=== PATIENT | female | born 1945 | race Caucasian/White ===

== ENCOUNTER 2018-06-23 06:49 | Inpatient (IN) ==
--- NOTE | 2018-06-23 07:10 | Emergency Department Note ---
Disposition Clinical Impression: Withdrawal from opioids Withdrawal from benzodiazepine Qualifiers: Complication of substance-induced condition: with unspecified complication Qualified Code(s): F13.239 - Sedative, hypnotic or anxiolytic dependence with withdrawal, unspecified Nausea and vomiting Qualifiers: Vomiting type: unspecified Vomiting Intractability: non-intractable Qualified Code(s): R11.2 - Nausea with vomiting, unspecified Disposition: Admitted As Inpatient Condition: Fair Referrals: NONE,PCP [Non-Partnered Physician] - Time of Disposition: 10:52 General Adult HPI - General Stated complaint: d/n/v Time Seen by Provider: 06/23/18 06:55 Source: patient, EMS Mode of arrival: EMS Limitations: age Nursing Notes Reviewed: Yes Vital Signs Reviewed: Yes - History of Present Illness HPI Narrative: Patient is a 73-year-old female complaining of nausea vomiting diarrhea caused by opiate and benzodiazepine withdrawal. She checked herself out of her [facility] on June 13, they gave her some of her medications to go, but they did not supply her with a lot of the opiates or benzos. She ran out of her opiates and benzos 3 days ago and has been feeling unwell for the last 2. She has multiple medical issues, she is on 4 L of oxygen at home, she has been complaining of chills, nausea, vomiting, and diarrhea without E or black stools , abdominal pain, and occasional headache, and numbness in her feet which she has chronically. She has been unable to keep anything down for the last day or so, and has been unable to take any of her home medications. Patient states that she does not want to go back to the [facility], she would just like some help getting through the withdrawal. - Related Data Home Medications Medication Instructions Recorded Confirmed Atorvastatin [Lipitor] 40 mg PO HS 01/29/16 06/23/18 Docusate [Colace] 100 mg PO BID PRN 01/29/16 06/23/18 Famotidine [Pepcid] 20 mg PO Q12H 01/29/16 06/23/18 Insulin ASPART [NovoLOG] 5 unit SQ TID 01/29/16 06/23/18 Ipratropium/Albuterol Sulfate 2 puff IH QID PRN 01/29/16 01/29/16 [Combivent Respimat Inhal [place]] Mag Hydrox/Al Hydrox/Simeth 30 ml PO QID 01/29/16 01/29/16 [Maalox Advanced Suspension] Ondansetron Oral Soln [Zofran Oral 4 mg PO Q8H PRN 01/29/16 01/29/16 Soln] Polyethylene Glycol 3350 [MiraLAX] 17 gm PO DAILY PRN 01/29/16 01/29/16 Sennosides [Senna] 8.6 mg PO DAILY PRN 01/29/16 01/29/16 Acetaminophen [Tylenol] 500 mg PO QPM 06/23/18 06/23/18 Furosemide [Lasix] 40 mg PO QAM 06/23/18 06/23/18 Gabapentin [Neurontin] 300 mg PO TID 06/23/18 06/23/18 Insulin DETEMIR [Levemir Flextouch] 25 unit SQ QAM 06/23/18 06/23/18 LORazepam [Ativan] 1 mg PO QID 06/23/18 06/23/18 LORazepam [Ativan] 1 mg PO QID 06/23/18 06/23/18 Lisinopril [Zestril] 10 mg PO DAILY 06/23/18 06/23/18 Loratadine [Claritin] 10 mg PO DAILY 06/23/18 06/23/18 Metoprolol [Lopressor] 12.5 mg PO Q12H 06/23/18 06/23/18 Oxycodone HCl 15 mg PO Q4H PRN 06/23/18 06/23/18 Spironolactone [Spironolactone] 25 mg PO DAILY 06/23/18 06/23/18 Venlafaxine HCl [Venlafaxine HCl 75 mg PO DAILY 06/23/18 06/23/18 ER] hydrALAZINE [HydrALAZINE] 12.5 mg PO Q8HR 06/23/18 06/23/18 Previous Rx's Medication Instructions Recorded LORazepam [Ativan] 0.5 mg PO TID #30 tablet 02/01/16 Metoclopramide [Reglan] 10 mg PO Q6H PRN #0 tablet 02/01/16 Allergies Allergy/AdvReac Type Severity Reaction Status Date / Time Penicillins Allergy Hives Verified 08/14/16 16:37 tuberculin,PPD,multi-puncture Allergy Hives Verified 08/14/16 16:37 acetaminophen AdvReac Itching Verified 08/14/16 16:37 [From Darvocet-N 100] clindamycin [From Cleocin] AdvReac Rash Verified 08/14/16 16:37 diazepam AdvReac Fatigued Verified 08/14/16 16:37 meclizine [From Antivert] AdvReac Dizziness Verified 08/14/16 16:37 nalbuphine [From Nubain] AdvReac Hallucinati Verified 08/14/16 16:37 ng promethazine [From Phenergan] AdvReac Irritable Verified 08/14/16 16:37 propoxyphene AdvReac Itching Verified 08/14/16 16:37 [From Darvocet-N 100] Constitutional: Reports: chills. Denies: fever Eyes: Denies: vision change Cardiovascular: Reports: dyspnea on exertion. Denies: chest pain Respiratory: Reports: dyspnea. Denies: cough Gastrointestinal: Reports: abdominal pain, nausea, vomiting, diarrhea. Denies: hematemesis, hematochezia Genitourinary: Denies: urgency, dysuria, frequency, hematuria Neurological: Reports: headache, numbness (numb feet, chronic) Psychiatric: Reports: anxiety Endocrine: Reports: heat or cold intolerance Past Medical History - Past Medical History Medical history: Reports: CHF, COPD, DVT, diabetes, fibromyalgia, GERD, hepatitis, hyperlipidemia, hypertension, renal disease, seizures, syncope Surgical history: Reports: no surgical history Psychiatric history: Reports: anxiety, depression, panic disorder - Social History Smoking Status: Former smoker Smokeless Tobacco Status: No Alcohol use: Reports: none Drug use: Reports: none Physical Exam - General Limitations: no limitations General appearance: alert, anxious - Head Head exam: atraumatic, normocephalic - Eye Eye exam: Present: normal appearance, PERRL - ENT ENT exam: normal exam, normal oropharynx, mucous membranes moist - Neck Neck exam: Present: normal inspection, full ROM - Chest Chest inspection: Present: normal inspection, symmetric chest wall rise - Respiratory Respiratory exam: Present: normal lung sounds bilaterally. Absent: wheezes - Cardiovascular Cardiovascular exam: Present: normal rhythm, tachycardia - Abdominal Exam Abdominal exam: Present: soft, tenderness Abdominal tenderness: Present: diffuse - Back Exam Back exam: Present: other (kyphosis) - Neurological Exam Neurological exam: Present: alert, oriented X3 - Skin Skin exam: Present: dry, intact, pallor Course Course Narrative: Pt will be given 1mg of Ativan, zofran, normal saline bolus, and will have labs drawn to include cbc, cmp, lipase, lactic. Additionally, due to abdominal pain on exam and hx, we will perform a non-contrast CT of her abd and pelvis. It is likely she will need to be admitted for further management as she has been on 4mg of Ativan for four years and will need gradual step down of her dose to prevent seizures and other adverse effects. Vital Signs Temperature 99.4 F 06/23/18 07:31 Pulse Rate 126 06/23/18 07:31 Respiratory Rate 18 06/23/18 07:31 Blood Pressure 176/84 06/23/18 07:31 O2 Sat by Pulse Oximetry 100 06/23/18 07:31 Temperature 99.4 F 06/23/18 07:31 Pulse Rate 131 06/23/18 09:55 Respiratory Rate 18 06/23/18 09:55 Blood Pressure 196/109 06/23/18 09:55 O2 Sat by Pulse Oximetry 100 06/23/18 09:55 Oxygen Delivery Oxygen Delivery Nasal Cannula Medical Decision Making - [facility] Narrative Medical decision making narrative: Patient CT was concerning for enteritis versus inflammation, as well as cystitis. Additionally she was hyperglycemic at 390 with a gap of 15 and elevated ketones >2.0. Her potassium was 4.4 and pH was 7.32 which indicates that her gap may be due more to hypochloremia than true DKA. She was given 2 L of fluids while in the emergency department, anti-emetics, ibuprofen for pain, and admitted to the hospitalist for benzodiazepine withdrawal, opiate withdrawal , hyperglycemia. Her clinical condition improved while she was in the emergency department, her nausea improved, and she understands and agrees with the plan to be admitted for further management. A UA is pending. - Medical Records Medical records reviewed: Yes I reviewed the patient's medical records. - Lab Data Lab results reviewed: Yes I reviewed the patient's lab results. Result diagrams: 06/23/18 07:45 06/23/18 07:45 Lab Results 06/23/18 06/23/18 06/23/18 Range/Units 07:45 07:45 07:45 WBC 12.7 H (4.3-11.1) K/mcL RBC 4.43 (3.82-4.97) M/mcL Hgb 12.5 (11.5-15.4) g/dL Hct 38.4 (35.3-44.9) % MCV 86.7 (83.0-100.0) fL MCH 28.2 (28.0-33.3) pg MCHC 32.6 (31.6-35.5) g/dL RDW 12.1 (11.5-14.5) % Plt Count 234 (140-400) K/mcL MPV 11.6 (9.4-12.4) fL Immature Gran % 0.4 (0-4) % Seg Neutrophils % 91.0 % Lymphocytes % 5.1 % Monocytes % 3.3 % Eosinophils % 0.0 % Basophils % 0.2 % Neutrophils # 11.5 H (1.6-8.9) K/mcL Lymphocytes # 0.7 (0.6-4.6) K/mcL Monocytes # 0.4 (0.0-1.3) K/mcL Eosinophils # 0.0 (0.0-0.6) K/mcL Basophils # 0.0 (0.0-0.2) K/mcL VBG pH (7.32-7.42) pH Units VBG pCO2 (41-51) mmHg VBG pO2 (25-50) mmHg VBG HCO3 (21-27) mEq/L Sodium 139 (136-145) mEq/L Potassium 4.4 (3.5-5.1) mEq/L Chloride 97 L (98-107) mEq/L Carbon Dioxide 27 (23-29) mEq/L BUN 24 H (8-23) mg/dL Creatinine 1.16 (0.60-1.20) mg/dL Est GFR ( Amer) 56 L (> 60) Est GFR (Non-Af Amer) 46 L (> 60) BUN/Creatinine Ratio 21 (6-26) Glucose 390 H (70-105) mg/dL Calculated Osmolality 308 H (280-300) Lactic Acid 1.3 (0.5-2.2) mmol/L Calcium 10.2 (8.6-10.3) mg/dL Total Bilirubin 0.5 (0.3-1.0) mg/dL AST 10 L (13-39) Units/L ALT 16 (7-52) Units/L Alkaline Phosphatase 129 H (34-104) Units/L Serum Total Protein 7.0 (6.4-8.9) g/dL Albumin 4.0 (3.5-5.7) g/dL Globulin 3.0 (2.4-3.5) g/dL Albumin/Globulin Ratio 1.3 (1.1-2.2) Lipase 21 (11-82) Units/L Beta-Hydroxybutyric Acd (0.02-0.27) mmol/L 06/23/18 06/23/18 Range/Units 09:43 10:07 WBC (4.3-11.1) K/mcL RBC (3.82-4.97) M/mcL Hgb (11.5-15.4) g/dL Hct (35.3-44.9) % MCV (83.0-100.0) fL MCH (28.0-33.3) pg MCHC (31.6-35.5) g/dL RDW (11.5-14.5) % Plt Count (140-400) K/mcL MPV (9.4-12.4) fL Immature Gran % (0-4) % Seg Neutrophils % % Lymphocytes % % Monocytes % % Eosinophils % % Basophils % % Neutrophils # (1.6-8.9) K/mcL Lymphocytes # (0.6-4.6) K/mcL Monocytes # (0.0-1.3) K/mcL Eosinophils # (0.0-0.6) K/mcL Basophils # (0.0-0.2) K/mcL VBG pH 7.32 (7.32-7.42) pH Units VBG pCO2 55 H (41-51) mmHg VBG pO2 80 H (25-50) mmHg VBG HCO3 28 H (21-27) mEq/L Sodium (136-145) mEq/L Potassium (3.5-5.1) mEq/L Chloride (98-107) mEq/L Carbon Dioxide (23-29) mEq/L BUN (8-23) mg/dL Creatinine (0.60-1.20) mg/dL Est GFR ( Amer) (> 60) Est GFR (Non-Af Amer) (> 60) BUN/Creatinine Ratio (6-26) Glucose (70-105) mg/dL Calculated Osmolality (280-300) Lactic Acid (0.5-2.2) mmol/L Calcium (8.6-10.3) mg/dL Total Bilirubin (0.3-1.0) mg/dL AST (13-39) Units/L ALT (7-52) Units/L Alkaline Phosphatase (34-104) Units/L Serum Total Protein (6.4-8.9) g/dL Albumin (3.5-5.7) g/dL Globulin (2.4-3.5) g/dL Albumin/Globulin Ratio (1.1-2.2) Lipase (11-82) Units/L Beta-Hydroxybutyric Acd > 2.00 H (0.02-0.27) mmol/L - Radiology Data Radiology results reviewed: Yes I reviewed the patient's radiology results. Abdomen/Pelvis CT 06/23/18 07:18 IMPRESSION: 1. Borderline dilated fluid-filled loops of small bowel in the left mid abdomen. Differential includes ileus versus enteritis. 2. Edema/inflammation along the anterior margin of the urinary bladder. Please correlate with clinical symptoms of cystitis. 3. Right adnexal 3.3 cm cyst, probably associated with the ovary. Given patient's age, pelvic ultrasound for better characterization. If this is shown to be a simple ovarian cyst, recommendation would be for annual ultrasound follow-up. D/ / 06/23/2018 09:49:11 Gilmar Eng MD / adolfo Interpreting Provider: Gilmar Eng MD - EKG Data EKG #1 EKG attestation: Yes I reviewed and interpreted this EKG. EKG results narrative: HR 127, rhythm sinus tach, axis normal. CT 149, QRS 82. No evidence of ST depression or elevation.
[2018-06-23] MEDS ORDERED: Ondansetron 4 MG/2 ML VIAL IVP ONE (07:18)
[2018-06-23] MEDS ORDERED: 0.9 % Sodium Chloride 1,000 ML IVC ONE ×2 (07:18→10:15)
[2018-06-23] MEDS ORDERED: *HR* LORazepam 2 MG/ML VIAL IVP ONE (07:18)
--- NOTE | 2018-06-23 07:23 | Emergency Department Note ---
Disposition Clinical Impression: Withdrawal from benzodiazepine, Withdrawal from opioids, Nausea and vomiting Disposition: Admitted As Inpatient Condition: Fair General Adult HPI - General Stated complaint: d/n/v Time Seen by Provider: 06/23/18 06:55 Source: patient, EMS Mode of arrival: EMS Limitations: age - Related Data Home Medications Medication Instructions Recorded Confirmed Atorvastatin [Lipitor] 40 mg PO HS 01/29/16 06/23/18 Docusate [Colace] 100 mg PO BID PRN 01/29/16 06/23/18 Famotidine [Pepcid] 20 mg PO Q12H 01/29/16 06/23/18 Insulin ASPART [NovoLOG] 5 unit SQ TID 01/29/16 06/23/18 Ipratropium/Albuterol Sulfate 2 puff IH QID PRN 01/29/16 01/29/16 [Combivent Respimat Inhal [place]] Mag Hydrox/Al Hydrox/Simeth 30 ml PO QID 01/29/16 01/29/16 [Maalox Advanced Suspension] Ondansetron Oral Soln [Zofran Oral 4 mg PO Q8H PRN 01/29/16 01/29/16 Soln] Polyethylene Glycol 3350 [MiraLAX] 17 gm PO DAILY PRN 01/29/16 01/29/16 Sennosides [Senna] 8.6 mg PO DAILY PRN 01/29/16 01/29/16 Acetaminophen [Tylenol] 500 mg PO QPM 06/23/18 06/23/18 Furosemide [Lasix] 40 mg PO QAM 06/23/18 06/23/18 Gabapentin [Neurontin] 300 mg PO TID 06/23/18 06/23/18 Insulin DETEMIR [Levemir Flextouch] 25 unit SQ QAM 06/23/18 06/23/18 LORazepam [Ativan] 1 mg PO QID 06/23/18 06/23/18 LORazepam [Ativan] 1 mg PO QID 06/23/18 06/23/18 Lisinopril [Zestril] 10 mg PO DAILY 06/23/18 06/23/18 Loratadine [Claritin] 10 mg PO DAILY 06/23/18 06/23/18 Metoprolol [Lopressor] 12.5 mg PO Q12H 06/23/18 06/23/18 Oxycodone HCl 15 mg PO Q4H PRN 06/23/18 06/23/18 Spironolactone [Spironolactone] 25 mg PO DAILY 06/23/18 06/23/18 Venlafaxine HCl [Venlafaxine HCl 75 mg PO DAILY 06/23/18 06/23/18 ER] hydrALAZINE [HydrALAZINE] 12.5 mg PO Q8HR 06/23/18 06/23/18 Previous Rx's Medication Instructions Recorded LORazepam [Ativan] 0.5 mg PO TID #30 tablet 02/01/16 Metoclopramide [Reglan] 10 mg PO Q6H PRN #0 tablet 02/01/16 Allergies Allergy/AdvReac Type Severity Reaction Status Date / Time Penicillins Allergy Hives Verified 08/14/16 16:37 tuberculin,PPD,multi-puncture Allergy Hives Verified 08/14/16 16:37 acetaminophen AdvReac Itching Verified 08/14/16 16:37 [From Darvocet-N 100] clindamycin [From Cleocin] AdvReac Rash Verified 08/14/16 16:37 diazepam AdvReac Fatigued Verified 08/14/16 16:37 meclizine [From Antivert] AdvReac Dizziness Verified 08/14/16 16:37 nalbuphine [From Nubain] AdvReac Hallucinati Verified 08/14/16 16:37 ng promethazine [From Phenergan] AdvReac Irritable Verified 08/14/16 16:37 propoxyphene AdvReac Itching Verified 08/14/16 16:37 [From Darvocet-N 100] Past Medical History - Past Medical History Medical history: Reports: CHF, COPD, DVT, diabetes, fibromyalgia, GERD, hepatitis, hyperlipidemia, hypertension, renal disease, seizures, syncope Surgical history: Reports: no surgical history Psychiatric history: Reports: anxiety, depression, panic disorder - Social History Smoking Status: Former smoker Smokeless Tobacco Status: No Alcohol use: Reports: none Drug use: Reports: none Physical Exam - General Limitations: age Course Vital Signs Temperature 99.4 F 06/23/18 07:31 Pulse Rate 126 06/23/18 07:31 Respiratory Rate 18 06/23/18 07:31 Blood Pressure 176/84 06/23/18 07:31 O2 Sat by Pulse Oximetry 100 06/23/18 07:31 Temperature 99.2 F 06/23/18 13:36 Pulse Rate 139 06/23/18 13:36 Respiratory Rate 18 06/23/18 13:36 Blood Pressure 160/83 06/23/18 13:36 O2 Sat by Pulse Oximetry 100 06/23/18 13:40 Oxygen Delivery Oxygen Delivery Nasal Cannula Medical Decision Making - Lab Data Result diagrams: 06/23/18 07:45 06/23/18 07:45 Lab Results 06/23/18 06/23/18 06/23/18 Range/Units 07:45 07:45 07:45 WBC 12.7 H (4.3-11.1) K/mcL RBC 4.43 (3.82-4.97) M/mcL Hgb 12.5 (11.5-15.4) g/dL Hct 38.4 (35.3-44.9) % MCV 86.7 (83.0-100.0) fL MCH 28.2 (28.0-33.3) pg MCHC 32.6 (31.6-35.5) g/dL RDW 12.1 (11.5-14.5) % Plt Count 234 (140-400) K/mcL MPV 11.6 (9.4-12.4) fL Immature Gran % 0.4 (0-4) % Seg Neutrophils % 91.0 % Lymphocytes % 5.1 % Monocytes % 3.3 % Eosinophils % 0.0 % Basophils % 0.2 % Neutrophils # 11.5 H (1.6-8.9) K/mcL Lymphocytes # 0.7 (0.6-4.6) K/mcL Monocytes # 0.4 (0.0-1.3) K/mcL Eosinophils # 0.0 (0.0-0.6) K/mcL Basophils # 0.0 (0.0-0.2) K/mcL VBG pH (7.32-7.42) pH Units VBG pCO2 (41-51) mmHg VBG pO2 (25-50) mmHg VBG HCO3 (21-27) mEq/L Sodium 139 (136-145) mEq/L Potassium 4.4 (3.5-5.1) mEq/L Chloride 97 L (98-107) mEq/L Carbon Dioxide 27 (23-29) mEq/L BUN 24 H (8-23) mg/dL Creatinine 1.16 (0.60-1.20) mg/dL Est GFR ( Amer) 56 L (> 60) Est GFR (Non-Af Amer) 46 L (> 60) BUN/Creatinine Ratio 21 (6-26) Glucose 390 H (70-105) mg/dL Calculated Osmolality 308 H (280-300) Lactic Acid 1.3 (0.5-2.2) mmol/L Calcium 10.2 (8.6-10.3) mg/dL Total Bilirubin 0.5 (0.3-1.0) mg/dL AST 10 L (13-39) Units/L ALT 16 (7-52) Units/L Alkaline Phosphatase 129 H (34-104) Units/L Serum Total Protein 7.0 (6.4-8.9) g/dL Albumin 4.0 (3.5-5.7) g/dL Globulin 3.0 (2.4-3.5) g/dL Albumin/Globulin Ratio 1.3 (1.1-2.2) Lipase 21 (11-82) Units/L Beta-Hydroxybutyric Acd (0.02-0.27) mmol/L Urine Color (Yellow) Urine Clarity (Clear) Urine pH (5.0-8.0) pH Units Ur Specific [place] (1.010-1.025) Urine Protein (Neg-Trace) mg/dL Urine Glucose (UA) (Normal) mg/dL Urine Ketones (Negative) mg/dL Urine Blood (Negative) Urine Nitrite (Negative) Urine Bilirubin (Negative) Urine Urobilinogen (Normal) mg/dL Ur Leukocyte Esterase (Negative) Urine Microscopic RBC (0-3) per hpf Urine Microscopic WBC (0-3) per hpf Ur Squamous Epith Cells (None-Few) per lpf Urine Bacteria (None-Few) per hpf Hyaline Casts (None-Few) per lpf Ur Culture Indicated? (NO) 06/23/18 06/23/18 06/23/18 Range/Units 09:43 10:07 11:02 WBC (4.3-11.1) K/mcL RBC (3.82-4.97) M/mcL Hgb (11.5-15.4) g/dL Hct (35.3-44.9) % MCV (83.0-100.0) fL MCH (28.0-33.3) pg MCHC (31.6-35.5) g/dL RDW (11.5-14.5) % Plt Count (140-400) K/mcL MPV (9.4-12.4) fL Immature Gran % (0-4) % Seg Neutrophils % % Lymphocytes % % Monocytes % % Eosinophils % % Basophils % % Neutrophils # (1.6-8.9) K/mcL Lymphocytes # (0.6-4.6) K/mcL Monocytes # (0.0-1.3) K/mcL Eosinophils # (0.0-0.6) K/mcL Basophils # (0.0-0.2) K/mcL VBG pH 7.32 (7.32-7.42) pH Units VBG pCO2 55 H (41-51) mmHg VBG pO2 80 H (25-50) mmHg VBG HCO3 28 H (21-27) mEq/L Sodium (136-145) mEq/L Potassium (3.5-5.1) mEq/L Chloride (98-107) mEq/L Carbon Dioxide (23-29) mEq/L BUN (8-23) mg/dL Creatinine (0.60-1.20) mg/dL Est GFR ( Amer) (> 60) Est GFR (Non-Af Amer) (> 60) BUN/Creatinine Ratio (6-26) Glucose (70-105) mg/dL Calculated Osmolality (280-300) Lactic Acid (0.5-2.2) mmol/L Calcium (8.6-10.3) mg/dL Total Bilirubin (0.3-1.0) mg/dL AST (13-39) Units/L ALT (7-52) Units/L Alkaline Phosphatase (34-104) Units/L Serum Total Protein (6.4-8.9) g/dL Albumin (3.5-5.7) g/dL Globulin (2.4-3.5) g/dL Albumin/Globulin Ratio (1.1-2.2) Lipase (11-82) Units/L Beta-Hydroxybutyric Acd > 2.00 H (0.02-0.27) mmol/L Urine Color Yellow (Yellow) Urine Clarity Cloudy A (Clear) Urine pH 5.5 (5.0-8.0) pH Units Ur Specific [place] > 1.030 H (1.010-1.025) Urine Protein 100 H (Neg-Trace) mg/dL Urine Glucose (UA) >=1000 H (Normal) mg/dL Urine Ketones 80 H (Negative) mg/dL Urine Blood Trace H (Negative) Urine Nitrite Positive A (Negative) Urine Bilirubin Negative (Negative) Urine Urobilinogen Normal (Normal) mg/dL Ur Leukocyte Esterase Negative (Negative) Urine Microscopic RBC 0-3 (0-3) per hpf Urine Microscopic WBC 3-5 H (0-3) per hpf Ur Squamous Epith Cells Many H (None-Few) per lpf Urine Bacteria Many H (None-Few) per hpf Hyaline Casts None Seen (None-Few) per lpf Ur Culture Indicated? NO. A (NO) Attestation Statement - Attestation Attestation: I examined this patient and my medical decision-making was reviewed with the Resident Physician. I agree with the documented findings, disposition and treatment plan as described except to the extent set forth below. [id number] time provided Patient conveys withdrawal symptoms from opiates and benzodiazepines after leaving the longterm voluntarily recently. Plan of care discussed by me with Dr. Monique. Patient retching on exam
[2018-06-23 08:14] LABS: Basophils % 0.2 %; Hematocrit 38.4 % (35.3-44.9); Hemoglobin 12.5 g/dL (11.5-15.4); Immature Granulocytes % 0.4 % (0-4); Lymphocytes # 0.7 K/mcL (0.6-4.6); Lymphocytes % 5.1 %; Mean Corpuscular HGB Conc 32.6 g/dL (31.6-35.5); Mean Corpuscular Hemoglobin 28.2 pg (28.0-33.3); Mean Corpuscular Volume 86.7 fL (83.0-100.0); Mean Platelet Volume 11.6 fL (9.4-12.4); Monocytes # 0.4 K/mcL (0.0-1.3); Monocytes % 3.3 %; Neutrophils # 11.5 K/mcL (1.6-8.9); Platelet Count 234 K/mcL (140-400); Red Blood Count 4.43 M/mcL (3.82-4.97); Red Cell Distribution Width 12.1 % (11.5-14.5)
[2018-06-23 08:29] LABS: Albumin/Globulin Ratio 1.3 (1.1-2.2); Bilirubin,Total 0.5 mg/dL (0.3-1.0); Calcium 10.2 mg/dL (8.6-10.3); Potassium 4.4 mEq/L (3.5-5.1)
[2018-06-23] MEDS: *HR* Promethazine 25 MG/ML VIAL IVP ONE ×2 (08:35→08:37)
--- NOTE | 2018-06-23 09:54 | Electrocardiograph Report ---
[address] [address] Test Date: 2018-06-23 Pat Name: Madeleine Garcia Department: [id number] Room: Gender: F [employer]: : [id number] Requested By: Demi Monique Order Number: [id number] Reading MD: Calvin Mckeon Measurements Intervals [place] Rate: 127 P: 74 [place]: 149 QRS: 71 QRSD: 82 T: 34 QT: 312 QTc: 454 Interpretive Statements Sinus tachycardia Electronically Signed On 06-23-2018 9:53:09 EDT by Calvin Mckeon
[2018-06-23 10:10] LABS: VBG HCO3 28 mEq/L (21-27); VBG PCO2 55 mmHg (41-51); VBG PH 7.32 pH Units (7.32-7.42); VBG PO2 80 mmHg (25-50)
[2018-06-23] MEDS ORDERED: Ibuprofen 600 MG TABLET PO ONE (10:11)
[2018-06-23] MEDS: 0.9 % Sodium Chloride 1,000 ML IVC SCH ×2 (11:00→23:42)
[2018-06-23 11:12] LABS: Bilirubin,Urine Negative (Negative); Blood,Urine Trace (Negative); Clarity,Urine Cloudy (Clear); Color,Urine Yellow (Yellow); Glucose,Urine (UA) >=1000 mg/dL (Normal); Ketones,Urine 80 mg/dL (Negative); Leukocyte Esterase,Urine Negative (Negative); Nitrite,Urine Positive (Negative); PH,Urine 5.5 pH Units (5.0-8.0); Protein,Urine 100 mg/dL (Neg-Trace); Specific Gravity,Urine > 1.030 (1.010-1.025); Urobilinogen,Urine Normal (Normal)
[2018-06-23 11:14] LABS: Bacteria,Urine Many per hpf (None-Few); Hyaline Casts,Urine None Seen per lpf (None-Few); RBC,Urine 0-3 per hpf (0-3); Squamous Epithelial Cell,Urine Many per lpf (None-Few)
[2018-06-23] MEDS ORDERED: Levofloxacin 500 MG/100 ML 500 MG/100 ML BAG IVPB ONE (11:22)
[2018-06-23] MEDS ORDERED: Ondansetron 4 MG/2 ML VIAL IVP PRN (13:08)
[2018-06-23] MEDS ORDERED: D5% in Water 1,000 ML IVC PRN (13:11)
[2018-06-23] MEDS ORDERED: *HR* Dextrose 50 % in Water (Syg) 50 ML SYRINGE IVP PRN (13:12)
[2018-06-23] MEDS ORDERED: Dextrose Gel 15 GM/37.5 ML TUBE PO PRN ×2 (13:12)
[2018-06-23] MEDS ORDERED: Famotidine 20 MG TABLET PO SCH (13:30)
[2018-06-23] MEDS ORDERED: Naloxone 0.4 MG/ML INJ IVP PRN (13:40)
[2018-06-23] MEDS ORDERED: *HR* LORazepam 2 MG/ML VIAL IVP PRN (13:54)
[2018-06-23] MEDS ORDERED: OXYCODONE Oral CONC 10 MG/0.5 ML ORAL.SYG SL PRN (13:55)
[2018-06-23] MEDS ORDERED: *HR* Metoprolol 5 MG/5 ML VIAL IVP ONE (14:01)
[2018-06-23] MEDS: Gabapentin 300 MG CAPSULE PO SCH ×2 (14:14→20:31)
--- NOTE | 2018-06-23 14:19 | Internal Med History&Physical ---
<Speedy Hoyt - Last Filed: 06/23/18 15:24> Date of Encounter: 06/23/18 Time of Encounter: 13:00 Internal Medicine - H&P: HPI Chief complaint: Nausea/Vomiting/Diarrhea Admitted From: Emergency Dept Plans for Post Hospital Care: Home History of present illness: Ms. Garcia is a 73 year old female w/PMH of CHF, COPD, previous DVT, diabetes controlled with insulin, fibromyalgia, GERD, hepatitis, HLD, HTN, CK D, seizures , and syncopal episodes presents from the ED w/CC of nausea, vomiting, diarrhea for the past 2-3 days. Pt. states she was a resident of a SNF and checked herself out on June 13 because she wanted a better life and didn't want to there. The SNF continued her Ativan and oxycodone for several days and she ran out three days ago. She reports she hasn't eaten for the past 3 days d/t the N/V/D. She also states she has been unable to take her other PO medications. Reports her fibromyalgia pain is severe as is her anxiety. Also reports urinary urgency and frequency, weakness, chills, fever, and abdominal pain but denies any recent illness, changes in vision, unusual bleeding, chest pain, dizziness, lightheadedness, pre-syncope, or syncope. Past Med Surg Social Fam HX - Past Medical History Source: patient, old records reviewed Medical history: CHF, COPD, DVT, diabetes, fibromyalgia, GERD, hepatitis, hyperlipidemia, hypertension, renal disease, seizures, syncope Additional medical history: Pneumonia, general muscle weakness, chronic pain, myalgias, joint pain, symbolic dysfunction, chronic airway obstruction. Psychiatric history: anxiety, depression, panic disorder - Past Surgical History Surgical History: no surgical history Additional surgical history: Tubal ligation, cholecystectomy - Social History Smoking Status: Former smoker Smokeless Tobacco Status: No Alcohol use: none Drug use: opiates (For chronic fibromyalgia), other (Benzodiazepines (Ativan) for chronic anxiety/depression/panic attacks) Current living situation: Home Activity Level: Wheelchair bound Recent Out of Country Travel Within the Last 8 Weeks: No Exposure or Possible Exposure to Illness During Travel: No - Family History Father Race: Family Member Ethnicity: Non- Living Status: Cause of : COPD Hx Family Cardiac Disorders: Yes (HTN) Hx Family Respiratory Disorders: Yes (COPD) Hx Family Endocrine Disorder: Yes (DM) Mother Race: / Family Member Ethnicity: Non- Living Status: Age at : 68 Cause of : Unknown Hx Family Endocrine Disorder: Yes (DM) Brother History Unknown: Yes Race: Family Member Ethnicity: Non- Living Status: Sister Race: Family Member Ethnicity: Non- Living Status: Cause of : COPD Hx Family Respiratory Disorders: Yes (COPD) Internal Medicine - H&P: Meds Atorvastatin [Lipitor] 40 mg PO HS 01/29/16 [History] Docusate [Colace] 100 mg PO BID PRN 01/29/16 [History] Famotidine [Pepcid] 20 mg PO Q12H 01/29/16 [History] Insulin ASPART [NovoLOG] 5 unit SQ TID 01/29/16 [History] Ipratropium/Albuterol Sulfate [Combivent Respimat Inhal [place]] 2 puff IH QID PRN 01/29/16 [History] Mag Hydrox/Al Hydrox/Simeth [Maalox Advanced Suspension] 30 ml PO QID 01/29/16 [ History] Ondansetron Oral Soln [Zofran Oral Soln] 4 mg PO Q8H PRN 01/29/16 [History] Polyethylene Glycol 3350 [MiraLAX] 17 gm PO DAILY PRN 01/29/16 [History] Sennosides [Senna] 8.6 mg PO DAILY PRN 01/29/16 [History] LORazepam [Ativan] 0.5 mg PO TID #30 tablet 02/01/16 [Rx] Metoclopramide [Reglan] 10 mg PO Q6H PRN #0 tablet 02/01/16 [Rx] Acetaminophen [Tylenol] 500 mg PO QPM 06/23/18 [History] Furosemide [Lasix] 40 mg PO QAM 06/23/18 [History] Gabapentin [Neurontin] 300 mg PO TID 06/23/18 [History] Insulin DETEMIR [Levemir Flextouch] 25 unit SQ QAM 06/23/18 [History] LORazepam [Ativan] 1 mg PO QID 06/23/18 [History] LORazepam [Ativan] 1 mg PO QID 06/23/18 [History] Lisinopril [Zestril] 10 mg PO DAILY 06/23/18 [History] Loratadine [Claritin] 10 mg PO DAILY 06/23/18 [History] Metoprolol [Lopressor] 12.5 mg PO Q12H 06/23/18 [History] Oxycodone HCl 15 mg PO Q4H PRN 06/23/18 [History] Spironolactone [Spironolactone] 25 mg PO DAILY 06/23/18 [History] Venlafaxine HCl [Venlafaxine HCl ER] 75 mg PO DAILY 06/23/18 [History] hydrALAZINE [HydrALAZINE] 12.5 mg PO Q8HR 06/23/18 [History] 3 Allergy/AdvReac Type Severity Reaction Status Date / Time Penicillins Allergy Hives Verified 08/14/16 16:37 tuberculin,PPD,multi-puncture Allergy Hives Verified 08/14/16 16:37 acetaminophen AdvReac Itching Verified 08/14/16 16:37 [From Darvocet-N 100] clindamycin [From Cleocin] AdvReac Rash Verified 08/14/16 16:37 diazepam AdvReac Fatigued Verified 08/14/16 16:37 meclizine [From Antivert] AdvReac Dizziness Verified 08/14/16 16:37 nalbuphine [From Nubain] AdvReac Hallucinati Verified 08/14/16 16:37 ng promethazine [From Phenergan] AdvReac Irritable Verified 08/14/16 16:37 propoxyphene AdvReac Itching Verified 08/14/16 16:37 [From Darvocet-N 100] All Systems PM: A 10-system review of systems was performed and is negative for pertinent findings except as documented above in the HPI. - Constitutional Constitutional: as per HPI, anorexia, chills, fatigue, fever(s), weakness, no night sweats - EENT Eyes: no change in vision, no discharge, no pain, no photophobia Ears: no ear discharge, no ear pain, no tinnitus Nose, mouth and throat: no dysphagia, no nasal discharge, no neck pain, no sore throat - Breasts Breasts: as per HPI - Cardiovascular Cardiovascular ROS IM: as per HPI, dyspnea (D/t COPD), dyspnea on exertion (D/t COPD), no chest pain, no diaphoresis, no lightheadedness, no palpitations, no syncope - Respiratory Respiratory: as per HPI, dyspnea, dyspnea on exertion, no cough, no wheezing, no excessive phlegm production - Gastrointestinal Gastrointestinal: as per HPI, abdominal pain, diarrhea, nausea, vomiting, no hematemesis, no hematochezia, no melena - Genitourinary Genitourinary: as per HPI, urinary frequency, urinary urgency, no change in urinary stream, no dysuria, no flank pain, no hematuria Menstruation: as per HPI - Musculoskeletal Musculoskeletal ROS IM: as per HPI, myalgias, numbness (LEs), tingling (LEs) - Integumentary Integumentary IM: no rash, no unusual bruising - Neurological Neurological ROS: as per HPI, weakness, no confusion, no convulsions, no focal weakness, no numbness, no tingling, no tremor(s) - Psychiatric Psychiatric: as per HPI, anxiety, depression, panic attacks - Endocrine Endocrine IM: as per HPI - Hematologic/Lymphatic Hematologic/Lymphatic: no easy bruising - Allergic/Immunologic Allergic/Immunologic: as per HPI - Constitutional Vitals: Temp Pulse Resp BP Pulse Ox 99.2 F 139 18 160/83 100 06/23/18 13:36 06/23/18 13:36 06/23/18 13:36 06/23/18 13:36 06/23/18 13:40 General appearance: Present: cooperative, mild distress (Nausea and vomiting), A &O X 3, pleasant, obese, answers questions appropriately Exam: Patient examined at bedside. Patient reports nausea and vomiting that has continued for the past 2-3 days. Patient reports not eating for the same time period. Reports weakness and fatigue as well as abdominal pain but denies chest pain. Patient reports shortness of breath due to chronic COPD. Reports severe fibromyalgia pain and severe anxiety and panic attacks and would like to continue her oxycodone and Ativan which she ran out of on leaving the SNF. Also reports urinary urgency and frequency. Patient denies any other complaints at this time. VS: 99.2F temp, HR 139, RR 18, BP 160/83, SPO2 100% on 4L via nasal cannula. - Head Head exam: Present: atraumatic, normocephalic - Eye Eye exam: Present: PERRL, conjuntiva pink, sclera anicteric Pupils: Present: PERRL - ENT ENT exam: Present: normal exam - Neck Neck exam general surgery: Present: normal inspection, supple, trachea midline. Absent: lymphadenopathy - Respiratory Respiratory exam: Present: CTAB. Absent: accessory muscle use, rales, rhonchi, wheezes - Cardiovascular Cardiovascular exam: Present: +S1, +S2, tachycardia. Absent: diastolic murmur, gallop, rubs, systolic murmur - GI/Abdominal GI/Abdominal exam: Present: normal bowel sounds, soft, no peritoneal signs. Absent: distended, tenderness - Rectal Rectal exam: Present: deferred - Additional comments: exam deferred. - Extremities Exam Extremities exam: Present: pedal edema, warm, radial pulses palpable and symmetrical. Absent: calf tenderness, cyanotic - Back Exam Back exam: Present: normal inspection - Neurological Exam Neurological exam: Present: alert, CN II-XII intact, oriented X3, no focal deficits. Absent: pronater drift, facial droop, speech deficit - Psychiatric Psychiatric exam: Present: anxious - Skin Skin exam: Present: dry, intact Internal Med - H&P Results - Labs CBC & Chem 7: 06/23/18 07:45 06/23/18 07:45 - EKG Data EKG shows normal: sinus rhythm Rate: tachycardia - EKG Data Prior EKG available for review: no EKG comments: 06/23/18 14:30 EKG dated 06/23/18 shows sinus tachycardia. - Diagnostic Studies CT scan - abdomen Additional comments: Impressions Abdomen/Pelvis CT 06/23/18 07:18 IMPRESSION: 1. Borderline dilated fluid-filled loops of small bowel in the left mid abdomen. Differential includes ileus versus enteritis. 2. Edema/inflammation along the anterior margin of the urinary bladder. Please correlate with clinical symptoms of cystitis. 3. Right adnexal 3.3 cm cyst, probably associated with the ovary. Given patient's age, pelvic ultrasound for better characterization. If this is shown to be a simple ovarian cyst, recommendation would be for annual ultrasound follow-up. D/ / 06/23/2018 09:49:11 Gilmar Eng MD / adolfo Interpreting Provider: Gilmar Eng MD - Assessment and plan (1) Withdrawal from opioids Current Visit: Yes Status: Acute Assessment and plan: Acute withdrawal from opiates. Pt. left SNF voluntarily on June 13 and ran out of her oxycodone for pain r/t fibromyalgia that she describes as severe. Began experiencing N/V/D 2-3 days ago. Will resume SL oxycodone 10 mg Q6HR PRN for pain. Continuous cardiac telemetry d/t tachycardia. IVP Lopressor and Hydralazine for tachycardia and HTN. 10 mg methadone ordered once. 0.1 mg Clonidine Q6HR x 4 doses. Pt. discussed w/Dr. Mart who agrees w/plan of care. Pt. is high risk for further morbidity and complications d/t current withdrawal from opiates and benzodiazepines, current UTI, hyperglycemia d/t uncontrolled N/ V, uncontrolled HTN and tachycardia r/t withdrawal, hx, and risk factors. Inpatient. (2) Withdrawal from benzodiazepine Current Visit: Yes Status: Acute Assessment and plan: Acute withdrawal from benzodiazepine. Pt. left SNF voluntarily on June 13 and ran out of her Ativan for anxiety, depression, and panic attacks that she describes as severe. Began experiencing N/V/D 2-3 days ago. Will resume pts. Ativan IVP 1 mg Q6HR. Continuous cardiac telemetry d/t tachycardia. IVP Lopressor and Hydralazine for tachycardia and HTN. 10 mg methadone ordered once. 0.1 mg Clonidine Q6HR x 4 doses. Qualifiers: Complication of substance-induced condition: with unspecified complication Qualified Code(s): F13.239 - Sedative, hypnotic or anxiolytic dependence with withdrawal, unspecified (3) Nausea & vomiting Current Visit: Yes Status: Acute Assessment and plan: Acute N/V for the past 2-3 days d/t opiate and benzo withdrawal. Pt. reports not eating for the past three days. 0.9 NS IV fluids @ 75 mLs/HR. BG checks Q6HR d/t NPO status. Q6 medium correction sliding scale insulin w/HS coverage while NPO. IVP Zofran 4 mg Q4HR. IVP 40 mg Protonix daily. Monitor I&O and daily weight. Will advance diet as tolerated as appropriate. Qualifiers: Vomiting type: unspecified Vomiting Intractability: non-intractable Qualified Code(s): R11.2 - Nausea with vomiting, unspecified (4) Diarrhea Current Visit: Yes Status: Acute Assessment and plan: Acute diarrhea for the past 2-3 days, most likely from opiate/benzo withdrawal. Not presumed infectious d/t no recent abx use. Monitor I&O. 0.9 NS IV fluids @ 75 mLs/HR. Qualifiers: Diarrhea type: unspecified type Qualified Code(s): R19.7 - Diarrhea, unspecified (5) Ileus Current Visit: Yes Status: Acute Assessment and plan: Acute ileus versus enteritis according to CT of the abdomen/pelvis today which showed borderline dilated fluid-filled loops of small bowel in the left mid abdomen with differential including ileus versus enteritis. NPO status for now d /t N/V. 0.9 NS IV fluids. (6) UTI (urinary tract infection) Current Visit: Yes Status: Acute Assessment and plan: Acute UTI. U/A shows positive nitrites and many bacteria. CT of the abdomen/ pelvis shows edema/inflammation along the anterior margin of the urinary bladder. Please correlate with clinical symptoms of cystitis. WBC 12.7 on admission. Pt. reports urinary urgency and frequency. Pt. started on IVPB levaquin in ED and will continue. Monitor I&O and f/u labs. Qualifiers: Urinary tract infection type: site unspecified Hematuria presence: without hematuria Qualified Code(s): N39.0 - Urinary tract infection, site not specified (7) CHF (congestive heart failure) Current Visit: Yes Status: Chronic Assessment and plan: Hx of CHF. Stable. Echocardiogram in 2016 showed LVEF of 60%, grossly normal LV chamber size and wall thickness and function, mild left ventricular diastolic dysfunction, normal right ventricular structure and function, no evidence of pulmonary hypertension. RVSP was not well obtained. No significant valvular dysfunction. Echocardiogram ordered. Continuous cardiac telemetry. Monitor fluid intake closely for signs of overload. Qualifiers: Heart failure type: diastolic Heart failure chronicity: chronic Qualified Code(s): I50.32 - Chronic diastolic (congestive) heart failure (8) GERD (gastroesophageal reflux disease) Current Visit: Yes Status: Chronic Assessment and plan: Hx of chronic GERD. Continue pts. Pepcid when able to tolerate PO medications. For now IVP 40 mg Protonix daily. IVP Zofran 4 mg Q4HR PRN for N/V. Qualifiers: Esophagitis presence: esophagitis presence not specified Qualified Code(s) : K21.9 - Gastro-esophageal reflux disease without esophagitis (9) HLD (hyperlipidemia) Current Visit: Yes Status: Chronic Assessment and plan: Hx of chronic HLD. Lipid panel in a.m. labs. Continue pts. PO Lipitor. Qualifiers: Hyperlipidemia type: pure hypercholesterolemia Qualified Code(s): E78.00 - Pure hypercholesterolemia, unspecified; E78.0 - Pure hypercholesterolemia (10) DM (diabetes mellitus), type 2 Current Visit: Yes Status: Chronic Assessment and plan: Hx of chronic DM controlled w/insulin. Pt. reports not eating for the past three days d/t N/V/D. BG 390 on admission, most likely d/t N/V rather than DKA. NPO for now, so BG checks and medium dose correction sliding scale insulin Q6HR. Correction HS coverage. Hypoglycemic protocol. Will change insulin and BG checks as pt. is able to tolerate a diet. A1c in a.m. labs. Qualifiers: Diabetes mellitus intermediate insulin use: with intermediate use Diabetes mellitus complication status: with kidney complications Diabetes mellitus complication detail: with chronic kidney disease Chronic kidney disease stage : unspecified stage Qualified Code(s): E11.22 - Type 2 diabetes mellitus with diabetic chronic kidney disease (11) CKD (chronic kidney disease), stage III Current Visit: Yes Status: Chronic Assessment and plan: Hx of CKD, currently stage 3 w/GFR of 46 and creatinine of 1.16. Will use IV fluids judiciously @ 75 mLs/HR d/t pts hx of CHF and CKD. Pt. received two 1L boluses of 0.9 in ED. Monitor I&O and daily weight. Monitor f/u labs. (12) COPD (chronic obstructive pulmonary disease) Current Visit: Yes Status: Chronic Assessment and plan: Hx of chronic COPD. Xopenex IH. Supplemental O2 w/titration and SpO2 monitoring via NC. Change to oxymask if NC not providing enough O2 saturation. Qualifiers: COPD type: unspecified COPD Qualified Code(s): J44.9 - Chronic obstructive pulmonary disease, unspecified (13) Fibromyalgia Current Visit: Yes Status: Chronic Assessment and plan: Hx of chronic fibromyalgia that pt. reports as severe w/numbness, tingling, and pain in LEs. Will continue oxycodone SL 10 mg Q6HR to start d/t pts. current opiate withdrawal. (14) DVT prophylaxis Current Visit: Yes Status: Acute Assessment and plan: SQ heparin 5,000 units Q8HR for DVT prophylaxis. Monitor pt. for signs of bleeding. (15) HTN (hypertension) Current Visit: Yes Status: Chronic Assessment and plan: Hx of chronic HTN. Monitor pt. and VS. Will continue pts. PO HTN medications as tolerated. IVP Lopressor and Hydralazine w/parameters for now d/t N/V. Qualifiers: Hypertension type: essential hypertension Qualified Code(s): I10 - Essential (primary) hypertension - Time Spent With Patient Total time spent is greater than 50% in coordination of care (as documented) at patient's floor/unit and/or counseling patient: Greater than 35 minutes <Carson Mart - Last Filed: 06/23/18 15:44> Date of Encounter: 06/23/18 Internal Medicine - H&P: HPI History of present illness: Ms. Garcia is a 73 year old female All Systems PM: A 10-system review of systems was performed and is negative for pertinent findings except as documented above in the HPI. - Constitutional Vitals: Temp Pulse Resp BP Pulse Ox 99.4 F 118 18 163/95 98 06/23/18 15:27 06/23/18 15:27 06/23/18 15:27 06/23/18 15:27 06/23/18 15:27 Internal Med - H&P Results - Labs CBC & Chem 7: 06/23/18 07:45 06/23/18 07:45 - Assessment and plan (1) DM (diabetes mellitus), type 2 Current Visit: Yes Status: Chronic Qualifiers: Diabetes mellitus intermediate insulin use: with termite technician use Diabetes mellitus complication status: with kidney complications Diabetes mellitus complication detail: with chronic kidney disease Chronic kidney disease stage : unspecified stage Qualified Code(s): E11.22 - Type 2 diabetes mellitus with diabetic chronic kidney disease (2) CKD (chronic kidney disease), stage III Current Visit: Yes Status: Chronic (3) Ileus Current Visit: Yes Status: Acute (4) DVT prophylaxis Current Visit: Yes Status: Acute (5) Nausea & vomiting Current Visit: Yes Status: Acute Qualifiers: Vomiting type: unspecified Vomiting Intractability: non-intractable Qualified Code(s): R11.2 - Nausea with vomiting, unspecified (6) UTI (urinary tract infection) Current Visit: Yes Status: Acute Qualifiers: Urinary tract infection type: site unspecified Hematuria presence: without hematuria Qualified Code(s): N39.0 - Urinary tract infection, site not specified (7) COPD (chronic obstructive pulmonary disease) Current Visit: Yes Status: Chronic Qualifiers: COPD type: unspecified COPD Qualified Code(s): J44.9 - Chronic obstructive pulmonary disease, unspecified (8) Fibromyalgia Current Visit: Yes Status: Chronic (9) Withdrawal from benzodiazepine Current Visit: Yes Status: Acute Qualifiers: Complication of substance-induced condition: with unspecified complication Qualified Code(s): F13.239 - Sedative, hypnotic or anxiolytic dependence with withdrawal, unspecified (10) Withdrawal from opioids Current Visit: Yes Status: Acute (11) Diarrhea Current Visit: Yes Status: Acute Qualifiers: Diarrhea type: unspecified type Qualified Code(s): R19.7 - Diarrhea, unspecified (12) CHF (congestive heart failure) Current Visit: Yes Status: Chronic Qualifiers: Heart failure type: diastolic Heart failure chronicity: chronic Qualified Code(s): I50.32 - Chronic diastolic (congestive) heart failure (13) GERD (gastroesophageal reflux disease) Current Visit: Yes Status: Chronic Qualifiers: Esophagitis presence: esophagitis presence not specified Qualified Code(s) : K21.9 - Gastro-esophageal reflux disease without esophagitis (14) HLD (hyperlipidemia) Current Visit: Yes Status: Chronic Qualifiers: Hyperlipidemia type: pure hypercholesterolemia Qualified Code(s): E78.00 - Pure hypercholesterolemia, unspecified; E78.0 - Pure hypercholesterolemia (15) HTN (hypertension) Current Visit: Yes Status: Chronic Qualifiers: Hypertension type: essential hypertension Qualified Code(s): I10 - Essential (primary) hypertension - Time Spent With Patient Total time spent is greater than 50% in coordination of care (as documented) at patient's floor/unit and/or counseling patient: - Attending Attestation I have seen and examined the patient with [employer] Speedy Hoyt and agree with his/her assessment and plan. 73-year-old female on chronic benzodiazepine and oxycodone presented to the ED with nausea/vomiting/abdominal pain. Abruptly stopped the use of oxycodone and Ativan about 3-4 days ago when she signed out of nursing facility. Hypertensive and tachycardic on presentation without fever. Labs consistent with starvation ketosis without any evidence of DKA. We will institute supportive measure with methadone, Ativan, clonidine, Reglan. Holding loperamide as her diarrhea stopped and CT finding of very mild ileus/ enteritis. 1 dose of Rocephin was given for presumable UTI, will send urine culture. Carson Mart MD
[2018-06-23] MEDS ORDERED: *HR* Methadone 10 MG TABLET PO ONE (15:05)
[2018-06-23] MEDS ORDERED: Levalbuterol Neb 1.25 MG/3 ML IH ONE (15:20)
[2018-06-23] MEDS: Levalbuterol Neb 1.25 MG/3 ML IH SCH ×2 (15:42→21:20)
[2018-06-23] MEDS: Pantoprazole 40 MG VIAL IVP SCH (16:04)
[2018-06-23] MEDS: Ondansetron 4 MG/2 ML VIAL IVP SCH ×3 (16:05→23:41)
[2018-06-23] MEDS: hydrALAZINE 25 MG TABLET PO SCH ×2 (16:06→23:40)
[2018-06-23] MEDS: *HR* Heparin 5,000 UNIT/ML VIAL SQ SCH (16:06)
[2018-06-23] MEDS: cloNIDine HCl 0.1 MG TABLET PO SCH ×2 (16:06→21:27)
[2018-06-23] MEDS: *HR* LORazepam 2 MG/ML VIAL IVP SCH ×2 (16:40→23:40)
[2018-06-23] MEDS: Insulin LISPRO 300 UNITS/3 ML VIAL SQ SCH (17:58)
[2018-06-23] MEDS ORDERED: Insulin LISPRO 300 UNITS/3 ML VIAL SQ SCH (21:00)
[2018-06-23] MEDS ORDERED: 0.9 % Sodium Chloride 500 ML IVC ONE (23:19)
[2018-06-24] MEDS: *HR* Heparin 5,000 UNIT/ML VIAL SQ SCH ×3 (00:35→15:38)
[2018-06-24] MEDS: Insulin LISPRO 300 UNITS/3 ML VIAL SQ SCH ×5 (00:36→22:00)
[2018-06-24] MEDS ORDERED: 0.9 % Sodium Chloride 500 ML IVC ONE (03:01)
[2018-06-24] MEDS: Ondansetron 4 MG/2 ML VIAL IVP SCH ×5 (03:34→22:08)
[2018-06-24] MEDS: Levalbuterol Neb 1.25 MG/3 ML IH SCH ×4 (04:32→21:58)
[2018-06-24] MEDS: *HR* LORazepam 2 MG/ML VIAL IVP SCH ×3 (05:33→18:23)
[2018-06-24 06:09] LABS: Basophils % 0.1 %; Eosinophils # 0.1 K/mcL (0.0-0.6); Eosinophils % 0.9 %; Hematocrit 30.2 % (35.3-44.9); Immature Granulocytes % 0.5 % (0-4); Lymphocytes # 1.9 K/mcL (0.6-4.6); Lymphocytes % 23.7 %; Mean Corpuscular HGB Conc 31.8 g/dL (31.6-35.5); Mean Corpuscular Hemoglobin 28.3 pg (28.0-33.3); Mean Corpuscular Volume 89.1 fL (83.0-100.0); Mean Platelet Volume 11.1 fL (9.4-12.4); Monocytes # 0.9 K/mcL (0.0-1.3); Monocytes % 11.1 %; Neutrophils # 5.2 K/mcL (1.6-8.9); Platelet Count 161 K/mcL (140-400); Red Blood Count 3.39 M/mcL (3.82-4.97); Red Cell Distribution Width 12.7 % (11.5-14.5); Segmented Neutrophils % 63.7 %
[2018-06-24 06:13] LABS: Hemoglobin 9.6 g/dL (11.5-15.4)
[2018-06-24 06:30] LABS: Albumin/Globulin Ratio 1.3 (1.1-2.2); Bilirubin,Total 0.5 mg/dL (0.3-1.0); Calcium 8.9 mg/dL (8.6-10.3); Chol/HDL Ratio 3.6 (0-4.9); Globulin 2.3 g/dL (2.4-3.5); Magnesium 1.6 mg/dL (1.6-2.6); Phosphorous 2.8 mg/dL (2.7-4.5); Potassium 3.5 mEq/L (3.5-5.1); Total Protein 5.3 g/dL (6.4-8.9)
[2018-06-24 07:33] LABS: Estimated Average Glucose 183 mg/dl
[2018-06-24] MEDS ORDERED: Furosemide 40 MG TABLET PO SCH (09:00)
[2018-06-24] MEDS ORDERED: Spironolactone 25 MG TABLET PO SCH (09:00)
[2018-06-24] MEDS: Loratadine 10 MG TABLET PO SCH (10:36)
[2018-06-24] MEDS: Venlafaxine XR (24 HR) 75 MG CAP.ER.24H PO SCH (10:36)
[2018-06-24] MEDS: Pantoprazole 40 MG VIAL IVP SCH (10:37)
[2018-06-24] MEDS: Gabapentin 300 MG CAPSULE PO SCH ×2 (10:37→15:38)
[2018-06-24] MEDS ORDERED: 0.9 % Sodium Chloride 1,000 ML IVC SCH (11:15)
[2018-06-24 12:03] LABS: Bilirubin,Urine Negative (Negative); Blood,Urine Negative (Negative); Clarity,Urine Cloudy (Clear); Color,Urine Yellow (Yellow); Glucose,Urine (UA) >=1000 mg/dL (Normal); Ketones,Urine 40 mg/dL (Negative); Leukocyte Esterase,Urine Moderate (Negative); Nitrite,Urine Positive (Negative); Protein,Urine 30 mg/dL (Neg-Trace); Specific Gravity,Urine 1.029 (1.010-1.025); Urobilinogen,Urine Normal (Normal)
[2018-06-24 12:07] LABS: Bacteria,Urine Many per hpf (None-Few); Hyaline Casts,Urine None Seen per lpf (None-Few); RBC,Urine 0-3 per hpf (0-3); Squamous Epithelial Cell,Urine Moderate per lpf (None-Few); WBC,Urine 50-100 per hpf (0-3)
[2018-06-24] MEDS ORDERED: Gadolinium Contrast Agent (WT Based) IV PRN (13:57)
[2018-06-24] MEDS: hydrALAZINE 25 MG TABLET PO SCH ×2 (19:11→19:13)
[2018-06-24] MEDS: cloNIDine HCl 0.1 MG TABLET PO SCH (19:30)
--- NOTE | 2018-06-24 19:30 | Internal Med Progress Note ---
Hospitalist Progress Note - Encounter Date of Encounter: 06/24/18 Time of Encounter: 11:00 - Subjective Interval History: Patient this morning altered mental status that resolved but also with hypotension that also resolved with fluid resuscitation. Suspects hypotension secondary to initiating clonidine for opiate withdrawal Physical therapy has been consulted for recommendations for home safety - Exam Vitals: Temp Pulse Resp BP Pulse Ox 98.7 F 122 18 113/70 96 06/24/18 18:47 06/24/18 18:47 06/24/18 18:47 06/24/18 18:47 06/24/18 18:47 Exam: Gen.: Nonacute distress, alert and oriented 3 ENT: Mucosal membranes moist Respiratory: Lungs are clear to auscultation bilaterally without any wheezing rhonchi or rales Cardiovascular: Normal S1 and S2 regular rate rhythm no murmurs rubs or gallops Abdomen: Soft, nontender and nondistended with positive bowel sounds Extremities: No lower extremity edema Skin: Normal color - Assessment and Plan (1) Withdrawal from benzodiazepine Current Visit: Yes Status: Acute Assessment and Plan: Resolved; continue to monitor (2) Withdrawal from opioids Current Visit: Yes Status: Acute Assessment and Plan: Resolved; continue to monitor (3) Diarrhea Current Visit: Yes Status: Acute Assessment and Plan: Acute diarrhea for the past 2-3 days, most likely from opiate/benzo withdrawal. Resolved; continue to monitor (4) DM (diabetes mellitus), type 2 Current Visit: Yes Status: Chronic Assessment and Plan: Continue coverage with sliding-scale insulin (5) Fibromyalgia Current Visit: Yes Status: Chronic Assessment and Plan: Hx of chronic fibromyalgia that pt. reports as severe w/numbness, tingling, and pain in LEs. Will continue oxycodone SL 10 mg Q6HR (6) CHF (congestive heart failure) Current Visit: Yes Status: Chronic Assessment and Plan: Stable. Echocardiogram in 2016 showed LVEF of 60%, grossly normal LV chamber size and wall thickness and function, mild left ventricular diastolic dysfunction, normal right ventricular structure and function, no evidence of pulmonary hypertension. RVSP was not well obtained. No significant valvular dysfunction. Echocardiogram ordered. Continuous cardiac telemetry. Monitor fluid intake closely for signs of overload. (7) GERD (gastroesophageal reflux disease) Current Visit: Yes Status: Chronic Assessment and Plan: Continue PPI (8) HLD (hyperlipidemia) Current Visit: Yes Status: Chronic Assessment and Plan: Continue statin (9) HTN (hypertension) Current Visit: Yes Status: Chronic Assessment and Plan: Hold blood pressure medicines due to hypotension (10) UTI (urinary tract infection) Current Visit: Yes Status: Acute Assessment and Plan: Patient asymptomatic therefore will not treat (11) DVT prophylaxis Current Visit: Yes Status: Acute Assessment and Plan: SQ heparin 5,000 units Q8HR for DVT prophylaxis. - Time Spent with Patient Total time spent is greater than 50% in coordination of care (as documented) at patient's floor/unit and/or counseling patient: Internal Medicine: Result - Labs CBC & Chem 7: 06/24/18 05:44 06/24/18 05:44 Labs: Short CBC 06/24/18 Range/Units 05:44 WBC 8.1 (4.3-11.1) K/mcL Hgb 9.6 L D (11.5-15.4) g/dL Hct 30.2 L (35.3-44.9) % Plt Count 161 (140-400) K/mcL Neutrophils # 5.2 (1.6-8.9) K/mcL BMP 06/24/18 05:44 Sodium 145 Potassium 3.5 Chloride 110 H Carbon Dioxide 25 BUN 35 H Creatinine 2.12 H Glucose 157 H Calcium 8.9 Liver Function 06/24/18 Range/Units 05:44 Total Bilirubin 0.5 (0.3-1.0) mg/dL AST 9 L (13-39) Units/L ALT 10 (7-52) Units/L Alkaline Phosphatase 91 (34-104) Units/L Albumin 3.0 L (3.5-5.7) g/dL Urine 06/24/18 Range/Units 11:44 Urine Color Yellow (Yellow) Urine Clarity Cloudy A (Clear) Urine pH 6.0 (5.0-8.0) pH Units Ur Specific [place] 1.029 H (1.010-1.025) Urine Protein 30 H (Neg-Trace) mg/dL Urine Glucose (UA) >=1000 H (Normal) mg/dL - Impressions Impressions Echocardiogram 06/24/18 13:15 Impressions: LVEF 65-70%. Mild left ventricular diastolic dysfunction. No tissue Doppler evidence of elevated filling pressures Normal right ventricular structure and function. No significant valvular dysfunction. Consult Discharge Plan - Plan (1) Withdrawal from benzodiazepine Qualifiers: Complication of substance-induced condition: with unspecified complication Qualified Code(s): F13.239 - Sedative, hypnotic or anxiolytic dependence with withdrawal, unspecified (3) Diarrhea Qualifiers: Diarrhea type: unspecified type Qualified Code(s): R19.7 - Diarrhea, unspecified (4) DM (diabetes mellitus), type 2 Qualifiers: Diabetes mellitus intermediate insulin use: with supervisor cab use Diabetes mellitus complication status: with kidney complications Diabetes mellitus complication detail: with chronic kidney disease Chronic kidney disease stage: unspecified stage Qualified Code(s): E11.22 - Type 2 diabetes mellitus with diabetic chronic kidney disease (6) CHF (congestive heart failure) Qualifiers: Heart failure type: diastolic Heart failure chronicity: chronic Qualified Code(s): I50.32 - Chronic diastolic (congestive) heart failure (7) GERD (gastroesophageal reflux disease) Qualifiers: Esophagitis presence: esophagitis presence not specified Qualified Code(s): K21.9 - Gastro-esophageal reflux disease without esophagitis (8) HLD (hyperlipidemia) Qualifiers: Hyperlipidemia type: pure hypercholesterolemia Qualified Code(s): E78.00 - Pure hypercholesterolemia, unspecified; E78.0 - Pure hypercholesterolemia (9) HTN (hypertension) Qualifiers: Hypertension type: essential hypertension Qualified Code(s): I10 - Essential (primary) hypertension (10) UTI (urinary tract infection) Qualifiers: Urinary tract infection type: site unspecified Hematuria presence: without hematuria Qualified Code(s): N39.0 - Urinary tract infection, site not specified
[2018-06-25] MEDS: hydrALAZINE 25 MG TABLET PO SCH ×4 (00:48→23:41)
[2018-06-25] MEDS: *HR* LORazepam 2 MG/ML VIAL IVP SCH ×3 (00:48→11:48)
[2018-06-25] MEDS: *HR* Heparin 5,000 UNIT/ML VIAL SQ SCH ×4 (00:48→23:41)
[2018-06-25] MEDS: Ondansetron 4 MG/2 ML VIAL IVP SCH ×4 (00:52→12:22)
[2018-06-25 02:02] LABS: Basophils % 0.1 %; Eosinophils # 0.3 K/mcL (0.0-0.6); Hematocrit 28.2 % (35.3-44.9); Hemoglobin 9.1 g/dL (11.5-15.4); Immature Granulocytes % 0.2 % (0-4); Lymphocytes # 1.5 K/mcL (0.6-4.6); Lymphocytes % 17.1 %; Mean Corpuscular HGB Conc 32.3 g/dL (31.6-35.5); Mean Corpuscular Hemoglobin 28.7 pg (28.0-33.3); Mean Platelet Volume 11.7 fL (9.4-12.4); Monocytes # 0.9 K/mcL (0.0-1.3); Monocytes % 10.4 %; Neutrophils # 5.8 K/mcL (1.6-8.9); Platelet Count 162 K/mcL (140-400); Red Blood Count 3.17 M/mcL (3.82-4.97); Red Cell Distribution Width 12.7 % (11.5-14.5); Segmented Neutrophils % 68.2 %
[2018-06-25 02:08] LABS: Alanine Aminotransferase 12 Units/L (7-52); Albumin/Globulin Ratio 1.3 (1.1-2.2); Alkaline Phosphatase 88 Units/L (34-104); Aspartate Amino Transferase 15 Units/L (13-39); BUN/Creatinine Ratio 23 (6-26); Bilirubin,Total 0.3 mg/dL (0.3-1.0); Blood Urea Nitrogen 24 mg/dL (8-23); Calcium 8.7 mg/dL (8.6-10.3); Carbon Dioxide 25 mEq/L (23-29); Chloride 108 mEq/L (98-107); Globulin 2.4 g/dL (2.4-3.5); Glucose 133 mg/dL (70-105); Osmolality,Calculated 296 (280-300); Potassium 3.4 mEq/L (3.5-5.1); Sodium 140 mEq/L (136-145); Total Protein 5.4 g/dL (6.4-8.9); eGFR For Non-African Americans 52 (> 60)
[2018-06-25] MEDS: Levalbuterol Neb 1.25 MG/3 ML IH SCH ×2 (04:24→10:42)
[2018-06-25] MEDS: *HR* HYDROcodone/Acet 5/325 mg TABLET PO PRN ×2 (04:51→21:21)
[2018-06-25] MEDS: Pantoprazole 40 MG VIAL IVP SCH (09:19)
[2018-06-25] MEDS: Loratadine 10 MG TABLET PO SCH (09:19)
[2018-06-25] MEDS: Gabapentin 300 MG CAPSULE PO SCH ×2 (09:19→19:32)
[2018-06-25] MEDS: Insulin LISPRO 300 UNITS/3 ML VIAL SQ SCH ×4 (09:19→19:45)
[2018-06-25] MEDS: Venlafaxine XR (24 HR) 75 MG CAP.ER.24H PO SCH (09:19)
--- NOTE | 2018-06-25 10:44 | Internal Med Progress Note ---
Hospitalist Progress Note - Encounter Date of Encounter: 06/25/18 Time of Encounter: 11:00 - Subjective Interval History: Patient this morning altered mental status that resolved but also with hypotension that also resolved with fluid resuscitation. Suspects hypotension secondary to initiating clonidine for opiate withdrawal Physical therapy has been consulted for recommendations for home safety - Exam Vitals: Temp Pulse Resp BP Pulse Ox 98.3 F 115 15 165/85 99 06/25/18 10:34 06/25/18 10:34 06/25/18 10:34 06/25/18 10:34 06/25/18 10:34 Exam: Gen.: Nonacute distress, alert and oriented 3 ENT: Mucosal membranes moist Respiratory: Lungs are clear to auscultation bilaterally without any wheezing rhonchi or rales Cardiovascular: Normal S1 and S2 regular rate rhythm no murmurs rubs or gallops Abdomen: Soft, nontender and nondistended with positive bowel sounds Extremities: No lower extremity edema Skin: Normal color - Assessment and Plan (1) Generalized weakness Current Visit: Yes Status: Acute Assessment and Plan: Physical therapy/occupational therapy consult with recommendations for long term placement forest fire prevention manager working on approval. (2) Withdrawal from benzodiazepine Current Visit: Yes Status: Acute Assessment and Plan: Resolved; continue to monitor (3) Withdrawal from opioids Current Visit: Yes Status: Acute Assessment and Plan: Resolved; continue to monitor (4) Diarrhea Current Visit: Yes Status: Acute Assessment and Plan: Acute diarrhea for the past 2-3 days, most likely from opiate/benzo withdrawal. Resolved; continue to monitor (5) DM (diabetes mellitus), type 2 Current Visit: Yes Status: Chronic Assessment and Plan: Continue coverage with sliding-scale insulin (6) Fibromyalgia Current Visit: Yes Status: Chronic Assessment and Plan: Hx of chronic fibromyalgia that pt. reports as severe w/numbness, tingling, and pain in LEs. Will continue oxycodone SL 10 mg Q6HR (7) CHF (congestive heart failure) Current Visit: Yes Status: Chronic Assessment and Plan: Stable. Echocardiogram in 2016 showed LVEF of 60%, grossly normal LV chamber size and wall thickness and function, mild left ventricular diastolic dysfunction, normal right ventricular structure and function, no evidence of pulmonary hypertension. RVSP was not well obtained. No significant valvular dysfunction. Echocardiogram ordered. Continuous cardiac telemetry. Monitor fluid intake closely for signs of overload. (8) GERD (gastroesophageal reflux disease) Current Visit: Yes Status: Chronic Assessment and Plan: Continue PPI (9) HLD (hyperlipidemia) Current Visit: Yes Status: Chronic Assessment and Plan: Continue statin (10) HTN (hypertension) Current Visit: Yes Status: Chronic Assessment and Plan: Will restart blood pressure medications due to elevated blood pressures as hypotension has resolved. (11) UTI (urinary tract infection) Current Visit: Yes Status: Acute Assessment and Plan: Patient asymptomatic therefore will not treat Urine cultures pending (12) DVT prophylaxis Current Visit: Yes Status: Acute Assessment and Plan: SQ heparin 5,000 units Q8HR for DVT prophylaxis. - Time Spent with Patient Total time spent is greater than 50% in coordination of care (as documented) at patient's floor/unit and/or counseling patient: Internal Medicine: Result - Labs CBC & Chem 7: 06/25/18 01:07 06/25/18 01:07 Labs: Short CBC 06/25/18 Range/Units 01:07 WBC 8.6 (4.3-11.1) K/mcL Hgb 9.1 L (11.5-15.4) g/dL Hct 28.2 L (35.3-44.9) % Plt Count 162 (140-400) K/mcL Neutrophils # 5.8 (1.6-8.9) K/mcL BMP 06/25/18 01:07 Sodium 140 Potassium 3.4 L Chloride 108 H Carbon Dioxide 25 BUN 24 H Creatinine 1.04 Glucose 133 H Calcium 8.7 Liver Function 06/25/18 Range/Units 01:07 Total Bilirubin 0.3 (0.3-1.0) mg/dL AST 15 (13-39) Units/L ALT 12 (7-52) Units/L Alkaline Phosphatase 88 (34-104) Units/L Albumin 3.0 L (3.5-5.7) g/dL Urine 06/24/18 Range/Units 11:44 Urine Color Yellow (Yellow) Urine Clarity Cloudy A (Clear) Urine pH 6.0 (5.0-8.0) pH Units Ur Specific [place] 1.029 H (1.010-1.025) Urine Protein 30 H (Neg-Trace) mg/dL Urine Glucose (UA) >=1000 H (Normal) mg/dL Consult Discharge Plan - Plan Referrals: NONE,PCP [Primary Care Provider] - (2) Withdrawal from benzodiazepine Qualifiers: Complication of substance-induced condition: with unspecified complication Qualified Code(s): F13.239 - Sedative, hypnotic or anxiolytic dependence with withdrawal, unspecified (4) Diarrhea Qualifiers: Diarrhea type: unspecified type Qualified Code(s): R19.7 - Diarrhea, unspecified (5) DM (diabetes mellitus), type 2 Qualifiers: Diabetes mellitus chcf insulin use: with crime victim specialist use Diabetes mellitus complication status: with kidney complications Diabetes mellitus complication detail: with chronic kidney disease Chronic kidney disease stage: unspecified stage Qualified Code(s): E11.22 - Type 2 diabetes mellitus with diabetic chronic kidney disease; Z79.4 - residential (current) use of insulin (7) CHF (congestive heart failure) Qualifiers: Heart failure type: diastolic Heart failure chronicity: chronic Qualified Code(s): I50.32 - Chronic diastolic (congestive) heart failure (8) GERD (gastroesophageal reflux disease) Qualifiers: Esophagitis presence: esophagitis presence not specified Qualified Code(s): K21.9 - Gastro-esophageal reflux disease without esophagitis (9) HLD (hyperlipidemia) Qualifiers: Hyperlipidemia type: pure hypercholesterolemia Qualified Code(s): E78.00 - Pure hypercholesterolemia, unspecified; E78.0 - Pure hypercholesterolemia (10) HTN (hypertension) Qualifiers: Hypertension type: essential hypertension Qualified Code(s): I10 - Essential (primary) hypertension (11) UTI (urinary tract infection) Qualifiers: Urinary tract infection type: site unspecified Hematuria presence: without hematuria Qualified Code(s): N39.0 - Urinary tract infection, site not specified
[2018-06-25] MEDS: cefTRIAXone 1,000 MG in Water for inj. (sterile) 20 ML 10 ML IVP SCH (14:56)
[2018-06-25] MEDS: Levalbuterol Neb 1.25 MG/3 ML IH PRN (17:37)
[2018-06-25] MEDS: Famotidine 20 MG TABLET PO SCH (19:45)
[2018-06-25] MEDS: *HR* LORazepam 1 MG TABLET PO SCH (20:56)
[2018-06-25] MEDS: Insulin DETEMIR 100 UNIT/ML X5UNITS SQ SCH (20:56)
[2018-06-25] MEDS: Ondansetron 4 MG/2 ML VIAL IVP PRN (23:41)
[2018-06-26] MEDS: Ondansetron 4 MG/2 ML VIAL IVP PRN ×4 (03:57→22:31)
[2018-06-26] MEDS: Venlafaxine XR (24 HR) 75 MG CAP.ER.24H PO SCH (08:05)
[2018-06-26] MEDS: *HR* HYDROcodone/Acet 5/325 mg TABLET PO PRN ×3 (08:08→21:52)
[2018-06-26] MEDS: Loratadine 10 MG TABLET PO SCH (08:08)
[2018-06-26] MEDS: *HR* LORazepam 1 MG TABLET PO SCH ×3 (08:08→20:39)
[2018-06-26] MEDS: cefTRIAXone 1,000 MG in Water for inj. (sterile) 20 ML 10 ML IVP SCH (08:08)
[2018-06-26] MEDS: hydrALAZINE 25 MG TABLET PO SCH ×2 (08:08→15:35)
[2018-06-26] MEDS: Gabapentin 300 MG CAPSULE PO SCH ×2 (08:08→19:31)
[2018-06-26] MEDS: Insulin LISPRO 300 UNITS/3 ML VIAL SQ SCH ×4 (08:09→21:22)
[2018-06-26] MEDS: *HR* Heparin 5,000 UNIT/ML VIAL SQ SCH ×2 (08:09→15:36)
--- NOTE | 2018-06-26 09:20 | Internal Med Progress Note ---
Hospitalist Progress Note - Encounter Date of Encounter: 06/26/18 Time of Encounter: 11:00 - Subjective Interval History: Patient's opiate/benzodiazepine withdrawal has resolved Physical therapy has been consulted with recommendations for long-term facility for strengthening conditioning Awaiting certification and placement per case management - Exam Vitals: Temp Pulse Resp BP Pulse Ox 99.4 F 118 15 175/78 100 06/26/18 07:34 06/26/18 07:34 06/26/18 07:34 06/26/18 07:34 06/26/18 07:34 Exam: Gen.: Nonacute distress, alert and oriented 3 ENT: Mucosal membranes moist Respiratory: Lungs are clear to auscultation bilaterally without any wheezing rhonchi or rales Cardiovascular: Normal S1 and S2 regular rate rhythm no murmurs rubs or gallops Abdomen: Soft, nontender and nondistended with positive bowel sounds Extremities: No lower extremity edema Skin: Normal color - Assessment and Plan (1) Generalized weakness Current Visit: Yes Status: Acute Assessment and Plan: Physical therapy/occupational therapy consult with recommendations for long-term placement intelligence manager working on approval. (2) Withdrawal from benzodiazepine Current Visit: Yes Status: Acute Assessment and Plan: Resolved; continue to monitor (3) Withdrawal from opioids Current Visit: Yes Status: Acute Assessment and Plan: Resolved; continue to monitor (4) Diarrhea Current Visit: Yes Status: Acute Assessment and Plan: Acute diarrhea for the past 2-3 days, most likely from opiate/benzo withdrawal. Resolved; continue to monitor (5) DM (diabetes mellitus), type 2 Current Visit: Yes Status: Chronic Assessment and Plan: Continue coverage with sliding-scale insulin (6) Fibromyalgia Current Visit: Yes Status: Chronic Assessment and Plan: Hx of chronic fibromyalgia that pt. reports as severe w/numbness, tingling, and pain in LEs. Will continue oxycodone SL 10 mg Q6HR (7) CHF (congestive heart failure) Current Visit: Yes Status: Chronic Assessment and Plan: Stable as patient is euvolemic (8) GERD (gastroesophageal reflux disease) Current Visit: Yes Status: Chronic Assessment and Plan: Continue PPI (9) HLD (hyperlipidemia) Current Visit: Yes Status: Chronic Assessment and Plan: Continue statin (10) HTN (hypertension) Current Visit: Yes Status: Chronic Assessment and Plan: Will restart blood pressure medications due to elevated blood pressures as hypotension has resolved. (11) UTI (urinary tract infection) Current Visit: Yes Status: Acute Assessment and Plan: Patient's urine culture positive for Escherichia coli Continue day 2 of ceftriaxone (12) DVT prophylaxis Current Visit: Yes Status: Acute Assessment and Plan: SQ heparin 5,000 units Q8HR for DVT prophylaxis. - Time Spent with Patient Total time spent is greater than 50% in coordination of care (as documented) at patient's floor/unit and/or counseling patient: Internal Medicine: Result - Labs CBC & Chem 7: 06/26/18 09:33 06/26/18 09:33 Consult Discharge Plan - Plan Referrals: NONE,PCP [Primary Care Provider] - (2) Withdrawal from benzodiazepine Qualifiers: Complication of substance-induced condition: with unspecified complication Qualified Code(s): F13.239 - Sedative, hypnotic or anxiolytic dependence with withdrawal, unspecified (4) Diarrhea Qualifiers: Diarrhea type: unspecified type Qualified Code(s): R19.7 - Diarrhea, unspecified (5) DM (diabetes mellitus), type 2 Qualifiers: Diabetes mellitus custodial insulin use: with custodial use Diabetes mellitus complication status: with kidney complications Diabetes mellitus complication detail: with chronic kidney disease Chronic kidney disease stage: unspecified stage Qualified Code(s): E11.22 - Type 2 diabetes mellitus with diabetic chronic kidney disease; Z79.4 - long term care administrator (current) use of insulin (7) CHF (congestive heart failure) Qualifiers: Heart failure type: diastolic Heart failure chronicity: chronic Qualified Code(s): I50.32 - Chronic diastolic (congestive) heart failure (8) GERD (gastroesophageal reflux disease) Qualifiers: Esophagitis presence: esophagitis presence not specified Qualified Code(s): K21.9 - Gastro-esophageal reflux disease without esophagitis (9) HLD (hyperlipidemia) Qualifiers: Hyperlipidemia type: pure hypercholesterolemia Qualified Code(s): E78.00 - Pure hypercholesterolemia, unspecified; E78.0 - Pure hypercholesterolemia (10) HTN (hypertension) Qualifiers: Hypertension type: essential hypertension Qualified Code(s): I10 - Essential (primary) hypertension (11) UTI (urinary tract infection) Qualifiers: Urinary tract infection type: site unspecified Hematuria presence: without hematuria Qualified Code(s): N39.0 - Urinary tract infection, site not specified
[2018-06-26 09:47] LABS: Basophils % 0.3 %; Eosinophils # 0.3 K/mcL (0.0-0.6); Eosinophils % 4.1 %; Hematocrit 32.1 % (35.3-44.9); Hemoglobin 10.4 g/dL (11.5-15.4); Immature Granulocytes % 0.3 % (0-4); Lymphocytes # 0.9 K/mcL (0.6-4.6); Lymphocytes % 12.2 %; Mean Corpuscular HGB Conc 32.4 g/dL (31.6-35.5); Mean Corpuscular Hemoglobin 28.3 pg (28.0-33.3); Mean Corpuscular Volume 87.5 fL (83.0-100.0); Mean Platelet Volume 11.4 fL (9.4-12.4); Monocytes # 0.5 K/mcL (0.0-1.3); Monocytes % 6.7 %; Neutrophils # 5.9 K/mcL (1.6-8.9); Platelet Count 182 K/mcL (140-400); Red Blood Count 3.67 M/mcL (3.82-4.97); Red Cell Distribution Width 12.3 % (11.5-14.5); Segmented Neutrophils % 76.4 %
[2018-06-26 10:04] LABS: BUN/Creatinine Ratio 13 (6-26); Blood Urea Nitrogen 11 mg/dL (8-23); Calcium 8.9 mg/dL (8.6-10.3); Carbon Dioxide 28 mEq/L (23-29); Chloride 104 mEq/L (98-107); Glucose 191 mg/dL (70-105); Osmolality,Calculated 293 (280-300); Potassium 3.6 mEq/L (3.5-5.1); Sodium 139 mEq/L (136-145); eGFR For Non-African Americans > 60 (> 60)
[2018-06-26] MEDS: Levalbuterol Neb 1.25 MG/3 ML IH PRN ×2 (16:00→23:48)
[2018-06-26] MEDS: Famotidine 20 MG TABLET PO SCH (19:31)
[2018-06-26] MEDS: Insulin DETEMIR 100 UNIT/ML X5UNITS SQ SCH (20:39)
[2018-06-26] MEDS: Acetaminophen 325 MG TABLET PO PRN (20:41)
[2018-06-27] MEDS: *HR* Heparin 5,000 UNIT/ML VIAL SQ SCH ×3 (00:04→16:30)
[2018-06-27] MEDS: hydrALAZINE 25 MG TABLET PO SCH ×3 (00:04→16:31)
[2018-06-27 01:40] LABS: Basophils % 0.1 %; Eosinophils # 0.2 K/mcL (0.0-0.6); Eosinophils % 3.1 %; Hematocrit 33.3 % (35.3-44.9); Hemoglobin 10.7 g/dL (11.5-15.4); Immature Granulocytes % 0.3 % (0-4); Lymphocytes # 1.8 K/mcL (0.6-4.6); Lymphocytes % 24.7 %; Mean Corpuscular HGB Conc 32.1 g/dL (31.6-35.5); Mean Corpuscular Hemoglobin 28.6 pg (28.0-33.3); Mean Platelet Volume 11.7 fL (9.4-12.4); Monocytes # 0.7 K/mcL (0.0-1.3); Monocytes % 9.1 %; Neutrophils # 4.7 K/mcL (1.6-8.9); Platelet Count 178 K/mcL (140-400); Red Blood Count 3.74 M/mcL (3.82-4.97); Red Cell Distribution Width 12.2 % (11.5-14.5); Segmented Neutrophils % 62.7 %
[2018-06-27 02:00] LABS: Alanine Aminotransferase 13 Units/L (7-52); Albumin 3.2 g/dL (3.5-5.7); Albumin/Globulin Ratio 1.2 (1.1-2.2); Alkaline Phosphatase 99 Units/L (34-104); Aspartate Amino Transferase 12 Units/L (13-39); BUN/Creatinine Ratio 12 (6-26); Bilirubin,Total 0.2 mg/dL (0.3-1.0); Blood Urea Nitrogen 12 mg/dL (8-23); Calcium 8.9 mg/dL (8.6-10.3); Carbon Dioxide 30 mEq/L (23-29); Chloride 102 mEq/L (98-107); Globulin 2.6 g/dL (2.4-3.5); Glucose 194 mg/dL (70-105); Osmolality,Calculated 291 (280-300); Potassium 3.5 mEq/L (3.5-5.1); Sodium 138 mEq/L (136-145); Total Protein 5.8 g/dL (6.4-8.9); eGFR For Non-African Americans 54 (> 60)
[2018-06-27] MEDS: *HR* HYDROcodone/Acet 5/325 mg TABLET PO PRN ×3 (06:17→19:22)
[2018-06-27] MEDS: Gabapentin 300 MG CAPSULE PO SCH ×2 (08:51→19:22)
[2018-06-27] MEDS: Loratadine 10 MG TABLET PO SCH (08:51)
[2018-06-27] MEDS: *HR* LORazepam 1 MG TABLET PO SCH ×3 (08:51→20:17)
[2018-06-27] MEDS: Ondansetron 4 MG/2 ML VIAL IVP PRN ×3 (08:52→21:59)
[2018-06-27] MEDS: Venlafaxine XR (24 HR) 75 MG CAP.ER.24H PO SCH (08:52)
[2018-06-27] MEDS: cefTRIAXone 1,000 MG in Water for inj. (sterile) 20 ML 10 ML IVP SCH (08:53)
[2018-06-27] MEDS: Insulin LISPRO 300 UNITS/3 ML VIAL SQ SCH ×4 (08:54→20:51)
--- NOTE | 2018-06-27 10:05 | Internal Med Progress Note ---
Hospitalist Progress Note - Encounter Date of Encounter: 06/27/18 Time of Encounter: 11:00 - Subjective Interval History: Patient's opiate/benzodiazepine withdrawal has resolved Physical therapy has been consulted with recommendations for long term facility for strengthening conditioning Awaiting certification and placement per case management - Exam Vitals: Temp Pulse Resp BP Pulse Ox 99.0 F 95 16 163/76 98 06/27/18 08:22 06/27/18 08:22 06/27/18 08:22 06/27/18 08:22 06/27/18 08:22 Exam: Gen.: Nonacute distress, alert and oriented 3 ENT: Mucosal membranes moist Respiratory: Lungs are clear to auscultation bilaterally without any wheezing rhonchi or rales Cardiovascular: Normal S1 and S2 regular rate rhythm no murmurs rubs or gallops Abdomen: Soft, nontender and nondistended with positive bowel sounds Extremities: No lower extremity edema Skin: Normal color - Assessment and Plan (1) Generalized weakness Current Visit: Yes Status: Acute Assessment and Plan: Physical therapy/occupational therapy consult with recommendations for long term placement manager custom working on approval. (2) Withdrawal from benzodiazepine Current Visit: Yes Status: Acute Assessment and Plan: Resolved; continue to monitor (3) Withdrawal from opioids Current Visit: Yes Status: Acute Assessment and Plan: Resolved; continue to monitor (4) Diarrhea Current Visit: Yes Status: Acute Assessment and Plan: Acute diarrhea for the past 2-3 days, most likely from opiate/benzo withdrawal. Resolved; continue to monitor (5) UTI (urinary tract infection) Current Visit: Yes Status: Acute Assessment and Plan: Patient's urine culture positive for Escherichia coli Continue day 2 of ceftriaxone (6) DM (diabetes mellitus), type 2 Current Visit: Yes Status: Chronic Assessment and Plan: Continue coverage with sliding-scale insulin (7) Fibromyalgia Current Visit: Yes Status: Chronic Assessment and Plan: Hx of chronic fibromyalgia that pt. reports as severe w/numbness, tingling, and pain in LEs. Will continue oxycodone SL 10 mg Q6HR (8) CHF (congestive heart failure) Current Visit: Yes Status: Chronic Assessment and Plan: Stable as patient is euvolemic (9) GERD (gastroesophageal reflux disease) Current Visit: Yes Status: Chronic Assessment and Plan: Continue PPI (10) HLD (hyperlipidemia) Current Visit: Yes Status: Chronic Assessment and Plan: Continue statin (11) HTN (hypertension) Current Visit: Yes Status: Chronic Assessment and Plan: Will restart blood pressure medications due to elevated blood pressures as hypotension has resolved. (12) DVT prophylaxis Current Visit: Yes Status: Acute Assessment and Plan: SQ heparin 5,000 units Q8HR for DVT prophylaxis. - Time Spent with Patient Total time spent is greater than 50% in coordination of care (as documented) at patient's floor/unit and/or counseling patient: Internal Medicine: Result - Labs CBC & Chem 7: 06/27/18 01:00 06/27/18 01:00 Labs: Short CBC 06/27/18 Range/Units 01:00 WBC 7.4 (4.3-11.1) K/mcL Hgb 10.7 L (11.5-15.4) g/dL Hct 33.3 L (35.3-44.9) % Plt Count 178 (140-400) K/mcL Neutrophils # 4.7 (1.6-8.9) K/mcL BMP 06/26/18 06/27/18 09:33 01:00 Sodium 139 138 Potassium 3.6 3.5 Chloride 104 102 Carbon Dioxide 28 30 H BUN 11 12 Creatinine 0.86 1.01 Glucose 191 H 194 H Calcium 8.9 8.9 Liver Function 06/27/18 Range/Units 01:00 Total Bilirubin 0.2 L (0.3-1.0) mg/dL AST 12 L (13-39) Units/L ALT 13 (7-52) Units/L Alkaline Phosphatase 99 (34-104) Units/L Albumin 3.2 L (3.5-5.7) g/dL Consult Discharge Plan - Plan Referrals: NONE,PCP [Primary Care Provider] - (2) Withdrawal from benzodiazepine Qualifiers: Complication of substance-induced condition: with unspecified complication Qualified Code(s): F13.239 - Sedative, hypnotic or anxiolytic dependence with withdrawal, unspecified (4) Diarrhea Qualifiers: Diarrhea type: unspecified type Qualified Code(s): R19.7 - Diarrhea, unspecified (5) UTI (urinary tract infection) Qualifiers: Urinary tract infection type: site unspecified Hematuria presence: without hematuria Qualified Code(s): N39.0 - Urinary tract infection, site not specified (6) DM (diabetes mellitus), type 2 Qualifiers: Diabetes mellitus detention insulin use: with detention use Diabetes mellitus complication status: with kidney complications Diabetes mellitus complication detail: with chronic kidney disease Chronic kidney disease stage: unspecified stage Qualified Code(s): E11.22 - Type 2 diabetes mellitus with diabetic chronic kidney disease; Z79.4 - correction (current) use of insulin (8) CHF (congestive heart failure) Qualifiers: Heart failure type: diastolic Heart failure chronicity: chronic Qualified Code(s): I50.32 - Chronic diastolic (congestive) heart failure (9) GERD (gastroesophageal reflux disease) Qualifiers: Esophagitis presence: esophagitis presence not specified Qualified Code(s): K21.9 - Gastro-esophageal reflux disease without esophagitis (10) HLD (hyperlipidemia) Qualifiers: Hyperlipidemia type: pure hypercholesterolemia Qualified Code(s): E78.00 - Pure hypercholesterolemia, unspecified; E78.0 - Pure hypercholesterolemia (11) HTN (hypertension) Qualifiers: Hypertension type: essential hypertension Qualified Code(s): I10 - Essential (primary) hypertension
[2018-06-27] MEDS: Levalbuterol Neb 1.25 MG/3 ML IH PRN (14:57)
[2018-06-27] MEDS: Famotidine 20 MG TABLET PO SCH (19:22)
[2018-06-27] MEDS: Insulin DETEMIR 100 UNIT/ML X5UNITS SQ SCH (20:51)
[2018-06-28] MEDS: hydrALAZINE 25 MG TABLET PO SCH ×3 (00:10→14:53)
[2018-06-28] MEDS: *HR* Heparin 5,000 UNIT/ML VIAL SQ SCH ×3 (00:10→14:54)
[2018-06-28] MEDS: Ondansetron 4 MG/2 ML VIAL IVP PRN ×2 (02:26→08:05)
[2018-06-28] MEDS: *HR* HYDROcodone/Acet 5/325 mg TABLET PO PRN ×2 (04:49→12:14)
[2018-06-28 05:51] LABS: Basophils % 0.3 %; Eosinophils # 0.3 K/mcL (0.0-0.6); Eosinophils % 3.7 %; Hematocrit 35.5 % (35.3-44.9); Hemoglobin 11.2 g/dL (11.5-15.4); Immature Granulocytes % 0.3 % (0-4); Lymphocytes # 1.2 K/mcL (0.6-4.6); Mean Corpuscular HGB Conc 31.5 g/dL (31.6-35.5); Mean Corpuscular Hemoglobin 28.2 pg (28.0-33.3); Mean Corpuscular Volume 89.4 fL (83.0-100.0); Mean Platelet Volume 11.4 fL (9.4-12.4); Monocytes # 0.6 K/mcL (0.0-1.3); Monocytes % 8.6 %; Neutrophils # 4.9 K/mcL (1.6-8.9); Platelet Count 179 K/mcL (140-400); Red Blood Count 3.97 M/mcL (3.82-4.97); Red Cell Distribution Width 12.3 % (11.5-14.5); Segmented Neutrophils % 70.1 %
[2018-06-28 06:09] LABS: Alanine Aminotransferase 14 Units/L (7-52); Albumin 3.3 g/dL (3.5-5.7); Albumin/Globulin Ratio 1.3 (1.1-2.2); Alkaline Phosphatase 104 Units/L (34-104); Aspartate Amino Transferase 13 Units/L (13-39); BUN/Creatinine Ratio 13 (6-26); Bilirubin,Total 0.2 mg/dL (0.3-1.0); Blood Urea Nitrogen 11 mg/dL (8-23); Calcium 9.1 mg/dL (8.6-10.3); Carbon Dioxide 31 mEq/L (23-29); Chloride 103 mEq/L (98-107); Globulin 2.5 g/dL (2.4-3.5); Glucose 224 mg/dL (70-105); Osmolality,Calculated 292 (280-300); Potassium 3.8 mEq/L (3.5-5.1); Sodium 138 mEq/L (136-145); Total Protein 5.8 g/dL (6.4-8.9); eGFR For Non-African Americans > 60 (> 60)
[2018-06-28] MEDS: Venlafaxine XR (24 HR) 75 MG CAP.ER.24H PO SCH (08:03)
[2018-06-28] MEDS: *HR* LORazepam 1 MG TABLET PO SCH ×2 (08:04→14:53)
[2018-06-28] MEDS: Loratadine 10 MG TABLET PO SCH (08:04)
[2018-06-28] MEDS: Gabapentin 300 MG CAPSULE PO SCH (08:04)
[2018-06-28] MEDS: Insulin LISPRO 300 UNITS/3 ML VIAL SQ SCH ×2 (08:05→12:14)
[2018-06-28] MEDS: cefTRIAXone 1,000 MG in Water for inj. (sterile) 20 ML 10 ML IVP SCH (08:05)
[2018-06-28 10:20] VITALS: BP 157/83
--- NOTE | 2018-06-28 12:29 | Discharge Summary ---
- NOTES TO OUTPATIENT PROVIDER Notes to Outpatient Provider: Follow-up with primary care provider Orders not resulted at time of discharge: Pending orders 06/23/18 20:37 Culture,Blood [] Stat Date of Encounter: 06/28/18 Time of Encounter: 11:00 - Discharge Diagnosis (1) Generalized weakness Priority: Primary Status: Acute (2) Withdrawal from benzodiazepine Priority: Primary Status: Acute Qualifiers: Complication of substance-induced condition: with unspecified complication Qualified Code(s): F13.239 - Sedative, hypnotic or anxiolytic dependence with withdrawal, unspecified (3) Withdrawal from opioids Priority: Primary Status: Acute (4) Diarrhea Priority: Primary Status: Acute Qualifiers: Diarrhea type: unspecified type Qualified Code(s): R19.7 - Diarrhea, unspecified (5) UTI (urinary tract infection) Priority: Primary Status: Acute Qualifiers: Urinary tract infection type: site unspecified Hematuria presence: without hematuria Qualified Code(s): N39.0 - Urinary tract infection, site not specified (6) DM (diabetes mellitus), type 2 Priority: Secondary Status: Chronic Qualifiers: Diabetes mellitus skilled nursing insulin use: with terminal carman use Diabetes mellitus complication status: with kidney complications Diabetes mellitus complication detail: with chronic kidney disease Chronic kidney disease stage : unspecified stage Qualified Code(s): E11.22 - Type 2 diabetes mellitus with diabetic chronic kidney disease; Z79.4 - senior care (current) use of insulin (7) Fibromyalgia Priority: Secondary Status: Chronic (8) CHF (congestive heart failure) Priority: Secondary Status: Chronic Qualifiers: Heart failure type: diastolic Heart failure chronicity: chronic Qualified Code(s): I50.32 - Chronic diastolic (congestive) heart failure (9) GERD (gastroesophageal reflux disease) Priority: Secondary Status: Chronic Qualifiers: Esophagitis presence: esophagitis presence not specified Qualified Code(s) : K21.9 - Gastro-esophageal reflux disease without esophagitis (10) HLD (hyperlipidemia) Priority: Secondary Status: Chronic Qualifiers: Hyperlipidemia type: pure hypercholesterolemia Qualified Code(s): E78.00 - Pure hypercholesterolemia, unspecified; E78.0 - Pure hypercholesterolemia (11) HTN (hypertension) Priority: Secondary Status: Chronic Qualifiers: Hypertension type: essential hypertension Qualified Code(s): I10 - Essential (primary) hypertension Hospital course: Patient is a 73-year-old female with past medical history significant for CHF, COPD, previous DVT, diabetes controlled with insulin, fibromyalgia, GERD, hepatitis, HLD, HTN, CK D, seizures, and syncopal episodes presents from the ER on 06/23/18 due to nausea, vomiting, diarrhea for the past 2-3 days. Patient states she was a resident of a SNF and checked herself out on June 13 because she wanted a better life and didn't want to there. The SNF continued her Ativan and oxycodone for several days and she ran out three days ago. During patients hospital stay her symptoms were determined to be secondary to opiate withdrawal. Patients symptoms resolved and physical therapy was consulted with recommendations for group home facility but patient refused. Patient will be discharged home with home health and to follow-up with primary care provider. - Time Spent with Patient Total time spent providing and/or coordinating discharge services: Less than 30 minutes - Discharge Medications Prescriptions: HYDROcodone/Acet 5/325 mg [[place] 5-325 mg] 1 tab PO Q8HR PRN 7 Days #21 tablet PRN Reason: Moderate Pain LORazepam [Ativan] 1 mg PO TID 7 Days #21 tablet Metoprolol [Lopressor] 25 mg PO BID #60 tablet Ondansetron Oral Soln [Zofran Oral Soln] 4 mg PO Q8H PRN #10 oral.syg PRN Reason: Nausea Oxycodone HCl 15 mg PO Q8H PRN 7 Days #21 tablet PRN Reason: Pain Home Medications: Atorvastatin [Lipitor] 40 mg PO HS 01/29/16 [History] Docusate [Colace] 100 mg PO BID PRN 01/29/16 [History] Famotidine [Pepcid] 20 mg PO Q12H 01/29/16 [History] Insulin ASPART [NovoLOG] 5 unit SQ TID 01/29/16 [History] Ipratropium/Albuterol Sulfate [Combivent Respimat Inhal Home] 2 puff IH QID PRN 01/29/16 [History] Mag Hydrox/Al Hydrox/Simeth [Maalox Advanced Suspension] 30 ml PO QID 01/29/16 [ History] Polyethylene Glycol 3350 [MiraLAX] 17 gm PO DAILY PRN 01/29/16 [History] Sennosides [Senna] 8.6 mg PO DAILY PRN 01/29/16 [History] Metoclopramide [Reglan] 10 mg PO Q6H PRN #0 tablet 02/01/16 [Rx] Acetaminophen [Tylenol] 500 mg PO QPM 06/23/18 [History] Furosemide [Lasix] 40 mg PO QAM 06/23/18 [History] Gabapentin [Neurontin] 300 mg PO TID 06/23/18 [History] Insulin DETEMIR [Levemir Flextouch] 25 unit SQ QAM 06/23/18 [History] Lisinopril [Zestril] 10 mg PO DAILY 06/23/18 [History] Loratadine [Claritin] 10 mg PO DAILY 06/23/18 [History] Spironolactone 25 mg PO DAILY 06/23/18 [History] Venlafaxine HCl [Venlafaxine HCl ER] 75 mg PO DAILY 06/23/18 [History] hydrALAZINE [HydrALAZINE] 12.5 mg PO Q8HR 06/23/18 [History] HYDROcodone/Acet 5/325 mg [[place] 5-325 mg] 1 tab PO Q8HR PRN 7 Days #21 tablet 06/28/18 [Rx] LORazepam [Ativan] 1 mg PO TID 7 Days #21 tablet 06/28/18 [Rx] Metoprolol [Lopressor] 25 mg PO BID #60 tablet 06/28/18 [Rx] Ondansetron Oral Soln [Zofran Oral Soln] 4 mg PO Q8H PRN #10 oral.syg 06/28/18 [ Rx] Oxycodone HCl 15 mg PO Q8H PRN 7 Days #21 tablet 06/28/18 [Rx] Allergies/Adverse Reactions: 3 Allergy/AdvReac Type Severity Reaction Status Date / Time Penicillins Allergy Hives Verified 08/14/16 16:37 tuberculin,PPD,multi-puncture Allergy Hives Verified 08/14/16 16:37 acetaminophen AdvReac Itching Verified 08/14/16 16:37 [From Darvocet-N 100] clindamycin [From Cleocin] AdvReac Rash Verified 08/14/16 16:37 diazepam AdvReac Fatigued Verified 08/14/16 16:37 meclizine [From Antivert] AdvReac Dizziness Verified 08/14/16 16:37 nalbuphine [From Nubain] AdvReac Hallucinati Verified 08/14/16 16:37 ng promethazine [From Phenergan] AdvReac Irritable Verified 08/14/16 16:37 propoxyphene AdvReac Itching Verified 08/14/16 16:37 [From Darvocet-N 100] Date of admission: 06/23/18 13:40 Primary care physician: PCP NONE - Constitutional Vitals: Temp Pulse Resp BP Pulse Ox 99.1 F 88 15 157/83 100 06/28/18 10:00 06/28/18 10:00 06/28/18 10:00 06/28/18 10:00 06/28/18 12:20 General appearance: Present: cooperative, mild distress (Nausea and vomiting), A &O X 3, pleasant, obese, answers questions appropriately Exam: Gen.: Nonacute distress, alert and oriented 3 Skin: Normal color - Patient Status Disposition: Home Health Service Condition: Fair - Discharge Instructions Follow Up With: Blayne Do [Partnered Physician] - 06/30/18 11:00 am (Your appoinement has been scheduled with Dr. Do at 11:00 AM on ThursdayJune 30. Please arrive at 10:30 AM to fill out appropriate paperwork. Please bring your ID, Insurance Card, and a list of all medications you're currently taking. The office does require a 24H notice for cancellation or to reschedule. Dr. Do's office is located in the Medical Office Building, [address]. ) Forms: ED Satisfaction Letter
--- NOTE | 2018-06-28 12:30 | Physician Discharge Referral ---
- Diagnosis (1) Generalized weakness Status: Acute (2) Withdrawal from benzodiazepine Status: Acute (3) Withdrawal from opioids Status: Acute (4) Diarrhea Status: Acute (5) UTI (urinary tract infection) Status: Acute (6) DM (diabetes mellitus), type 2 Status: Chronic (7) Fibromyalgia Status: Chronic (8) CHF (congestive heart failure) Status: Chronic (9) GERD (gastroesophageal reflux disease) Status: Chronic (10) HLD (hyperlipidemia) Status: Chronic (11) HTN (hypertension) Status: Chronic (12) DVT prophylaxis Status: Acute - Respiratory Orders Smoking Cessation: Smoking cessation has been advised. For more information, call the [place] Tobacco Quit Line at 8-707-PNPY-NOW. - Services Needed Following services are medically necessary services: Nursing, Home Health Aide, Physical Therapy, Occupational Therapy - Transfer Medications Prescriptions: HYDROcodone/Acet 5/325 mg [[place] 5-325 mg] 1 tab PO Q8HR PRN 7 Days #21 tablet PRN Reason: Moderate Pain LORazepam [Ativan] 1 mg PO TID 7 Days #21 tablet Metoprolol [Lopressor] 25 mg PO BID #60 tablet Ondansetron Oral Soln [Zofran Oral Soln] 4 mg PO Q8H PRN #10 oral.syg PRN Reason: Nausea Oxycodone HCl 15 mg PO Q8H PRN 7 Days #21 tablet PRN Reason: Pain Home Medications: Atorvastatin [Lipitor] 40 mg PO HS 01/29/16 [History] Docusate [Colace] 100 mg PO BID PRN 01/29/16 [History] Famotidine [Pepcid] 20 mg PO Q12H 01/29/16 [History] Insulin ASPART [NovoLOG] 5 unit SQ TID 01/29/16 [History] Ipratropium/Albuterol Sulfate [Combivent Respimat Inhal [place]] 2 puff IH QID PRN 01/29/16 [History] Mag Hydrox/Al Hydrox/Simeth [Maalox Advanced Suspension] 30 ml PO QID 01/29/16 [ History] Polyethylene Glycol 3350 [MiraLAX] 17 gm PO DAILY PRN 01/29/16 [History] Sennosides [Senna] 8.6 mg PO DAILY PRN 01/29/16 [History] Metoclopramide [Reglan] 10 mg PO Q6H PRN #0 tablet 02/01/16 [Rx] Acetaminophen [Tylenol] 500 mg PO QPM 06/23/18 [History] Furosemide [Lasix] 40 mg PO QAM 06/23/18 [History] Gabapentin [Neurontin] 300 mg PO TID 06/23/18 [History] Insulin DETEMIR [Levemir Flextouch] 25 unit SQ QAM 06/23/18 [History] Lisinopril [Zestril] 10 mg PO DAILY 06/23/18 [History] Loratadine [Claritin] 10 mg PO DAILY 06/23/18 [History] Spironolactone 25 mg PO DAILY 06/23/18 [History] Venlafaxine HCl [Venlafaxine HCl ER] 75 mg PO DAILY 06/23/18 [History] hydrALAZINE [HydrALAZINE] 12.5 mg PO Q8HR 06/23/18 [History] HYDROcodone/Acet 5/325 mg [[place] 5-325 mg] 1 tab PO Q8HR PRN 7 Days #21 tablet 06/28/18 [Rx] LORazepam [Ativan] 1 mg PO TID 7 Days #21 tablet 06/28/18 [Rx] Metoprolol [Lopressor] 25 mg PO BID #60 tablet 06/28/18 [Rx] Ondansetron Oral Soln [Zofran Oral Soln] 4 mg PO Q8H PRN #10 oral.syg 06/28/18 [ Rx] Oxycodone HCl 15 mg PO Q8H PRN 7 Days #21 tablet 06/28/18 [Rx] Allergies/Adverse Reactions: 3 Allergy/AdvReac Type Severity Reaction Status Date / Time Penicillins Allergy Hives Verified 08/14/16 16:37 tuberculin,PPD,multi-puncture Allergy Hives Verified 08/14/16 16:37 acetaminophen AdvReac Itching Verified 08/14/16 16:37 [From Darvocet-N 100] clindamycin [From Cleocin] AdvReac Rash Verified 08/14/16 16:37 diazepam AdvReac Fatigued Verified 08/14/16 16:37 meclizine [From Antivert] AdvReac Dizziness Verified 08/14/16 16:37 nalbuphine [From Nubain] AdvReac Hallucinati Verified 08/14/16 16:37 ng promethazine [From Phenergan] AdvReac Irritable Verified 08/14/16 16:37 propoxyphene AdvReac Itching Verified 08/14/16 16:37 [From Darvocet-N 100] Certification: Further, I certify that my clinical findings support that this patient is homebound (i.e. absences from home require considerable and taxing effort and are for medical reasons or cheondoism services or infrequently or short duration when for other reasons) because: Homebound Reason: Patient requires assistance of a person or device to safely leave home Attestation: My signature below is to certify that this patient is under my care and that I, or nurse practitioner, or a physician's retail assistant store manager working with me, has a face-to -face encounter with this patient.
[2018-06-28] MEDS: Acetaminophen 325 MG TABLET PO PRN (14:53)
== END 2018-06-28 16:07 | disposition home health service (06) | DRG 897 ==
LOC: 3ANU 06:49 → EMEROOARM 06:49 → 3ANU 13:17 → SUATTDRO 13:40
PROVIDERS: ADMIT Internal Medicine; ATTEND Hospitalist

== ENCOUNTER 2018-08-12 11:27 | Inpatient (IN) ==
--- NOTE | 2018-08-12 11:35 | Emergency Department Note ---
Disposition Clinical Impression: UTI (urinary tract infection), Pneumonia, CHARITO (acute kidney injury) Disposition: Admitted As Inpatient General Adult HPI - General Stated complaint: Weakness Time Seen by Provider: 08/12/18 11:28 - Related Data Home Medications Medication Instructions Recorded Confirmed RX: Atorvastatin [Lipitor] 40 mg PO HS 08/03/18 08/03/18 RX: Docusate Sodium [Dok] 100 mg PO BID 08/03/18 08/03/18 RX: Famotidine [Pepcid] 20 mg PO DAILY 08/03/18 08/03/18 RX: Furosemide [Lasix] 40 mg PO DAILY 08/03/18 08/03/18 RX: Gabapentin [Neurontin] 600 mg PO BID 08/03/18 08/03/18 RX: Glucagon,Human Recombinant 1 mg SQ ONCE PRN 08/03/18 08/03/18 [Glucagon Emergency Kit] RX: Insulin DETEMIR [Levemir] 25 unit SQ DAILY 08/03/18 08/03/18 RX: Ipratropium Neb [Atrovent Neb] 0.5 mg IH TID PRN 08/03/18 08/03/18 RX: Lisinopril [Zestril] 10 mg PO DAILY 08/03/18 08/03/18 RX: Loratadine [Claritin] 10 mg PO DAILY 08/03/18 08/03/18 RX: Ondansetron HCl 8 mg PO Q8H PRN 08/03/18 08/03/18 RX: Spironolactone 25 mg PO DAILY 08/03/18 08/03/18 RX: Ubidecarenone [Co Q-10] 100 mg PO DAILY 08/03/18 08/03/18 RX: Venlafaxine [Effexor] 37.5 mg PO DAILY 08/03/18 08/03/18 RX: hydrALAZINE [HydrALAZINE] 10 mg PO TID 08/03/18 08/03/18 Previous Rx's Medication Instructions Recorded LORazepam [Ativan] 1 mg PO QID 10 Days #20 tablet 08/08/18 RX: Atorvastatin [Lipitor] 40 mg PO HS 30 Days #30 tablet 08/08/18 RX: Metoprolol [Lopressor] 25 mg PO BID 30 Days #60 tablet 08/08/18 Allergies Allergy/AdvReac Type Severity Reaction Status Date / Time Penicillins Allergy Hives Verified 08/03/18 14:22 tuberculin,PPD,multi-puncture Allergy Hives Verified 08/03/18 14:22 clindamycin [From Cleocin] AdvReac Rash Verified 08/03/18 14:22 diazepam AdvReac Fatigued Verified 08/03/18 14:22 meclizine [From Antivert] AdvReac Dizziness Verified 08/03/18 14:22 nalbuphine [From Nubain] AdvReac Hallucinati Verified 08/03/18 14:22 ng promethazine [From Phenergan] AdvReac Irritable Verified 08/03/18 14:22 propoxyphene AdvReac Itching Verified 08/03/18 14:22 [From Darvocet-N 100] Past Medical History - Past Medical History Medical history: Reports: CHF, COPD, DVT, diabetes, fibromyalgia, GERD, hepatitis, hyperlipidemia, hypertension, renal disease, seizures, syncope Surgical history: Reports: no surgical history Psychiatric history: Reports: anxiety, depression, panic disorder - Social History Smoking Status: Former smoker Smokeless Tobacco Status: No Alcohol use: Reports: none Drug use: Reports: opiates, other Course Vital Signs Temperature 99.1 F 08/12/18 11:35 Pulse Rate 94 08/12/18 11:35 Respiratory Rate 22 08/12/18 11:35 Blood Pressure 120/54 08/12/18 11:35 O2 Sat by Pulse Oximetry 86 08/12/18 11:35 Temperature 99.1 F 08/12/18 11:35 Pulse Rate 97 08/12/18 16:16 Respiratory Rate 18 08/12/18 16:53 Blood Pressure 125/96 08/12/18 16:53 O2 Sat by Pulse Oximetry 99 08/12/18 16:16 Oxygen Delivery Oxygen Delivery Nasal Cannula Medical Decision Making - Lab Data Result diagrams: 08/12/18 11:52 08/12/18 11:52 Lab Results 08/12/18 08/12/18 08/12/18 Range/Units 11:52 11:52 11:52 WBC 13.6 H (4.3-11.1) K/mcL RBC 3.53 L (3.82-4.97) M/mcL Hgb 10.0 L (11.5-15.4) g/dL Hct 33.9 L (35.3-44.9) % MCV 96.0 (83.0-100.0) fL MCH 28.3 (28.0-33.3) pg MCHC 29.5 L (31.6-35.5) g/dL RDW 12.9 (11.5-14.5) % Plt Count 349 D (140-400) K/mcL MPV 10.1 (9.4-12.4) fL Immature Gran % 0.7 (0-4) % Seg Neutrophils % 83.2 % Lymphocytes % 8.1 % Monocytes % 5.8 % Eosinophils % 1.9 % Basophils % 0.3 % Neutrophils # 11.4 H (1.6-8.9) K/mcL Lymphocytes # 1.1 (0.6-4.6) K/mcL Monocytes # 0.8 (0.0-1.3) K/mcL Eosinophils # 0.3 (0.0-0.6) K/mcL Basophils # 0.0 (0.0-0.2) K/mcL Sodium 139 (136-145) mEq/L Potassium 4.5 (3.5-5.1) mEq/L Chloride 100 (98-107) mEq/L Carbon Dioxide 31 H (23-29) mEq/L BUN 32 H (8-23) mg/dL Creatinine 4.77 H (0.60-1.20) mg/dL Est GFR ( Amer) 11 L (> 60) Est GFR (Non-Af Amer) 9 L (> 60) BUN/Creatinine Ratio 7 (6-26) Glucose 80 (70-105) mg/dL Calculated Osmolality 294 (280-300) Calcium 8.6 (8.6-10.3) mg/dL Total Bilirubin 0.2 L (0.3-1.0) mg/dL AST 12 L (13-39) Units/L ALT 10 (7-52) Units/L Alkaline Phosphatase 101 (34-104) Units/L Ammonia (16-53) mcmol/L Troponin I (< 0.04) ng/mL B-Natriuretic Peptide 136 H (Less than 100) pg/mL Serum Total Protein 6.4 (6.4-8.9) g/dL Albumin 2.9 L (3.5-5.7) g/dL Globulin 3.5 (2.4-3.5) g/dL Albumin/Globulin Ratio 0.8 L (1.1-2.2) Lipase 5 L (11-82) Units/L TSH (0.340-5.600) mcIU/mL Urine Color (Yellow) Urine Clarity (Clear) Urine pH (5.0-8.0) pH Units Ur Specific [place] (1.010-1.025) Urine Protein (Neg-Trace) mg/dL Urine Glucose (UA) (Normal) mg/dL Urine Ketones (Negative) mg/dL Urine Blood (Negative) Urine Nitrite (Negative) Urine Bilirubin (Negative) Urine Urobilinogen (Normal) mg/dL Ur Leukocyte Esterase (Negative) Urine Microscopic RBC (0-3) per hpf Urine Microscopic WBC (0-3) per hpf Ur Squamous Epith Cells (None-Few) per lpf Urine Bacteria (None-Few) per hpf Ur Culture Indicated? (NO) 08/12/18 08/12/18 08/12/18 Range/Units 11:52 11:52 12:48 WBC (4.3-11.1) K/mcL RBC (3.82-4.97) M/mcL Hgb (11.5-15.4) g/dL Hct (35.3-44.9) % MCV (83.0-100.0) fL MCH (28.0-33.3) pg MCHC (31.6-35.5) g/dL RDW (11.5-14.5) % Plt Count (140-400) K/mcL MPV (9.4-12.4) fL Immature Gran % (0-4) % Seg Neutrophils % % Lymphocytes % % Monocytes % % Eosinophils % % Basophils % % Neutrophils # (1.6-8.9) K/mcL Lymphocytes # (0.6-4.6) K/mcL Monocytes # (0.0-1.3) K/mcL Eosinophils # (0.0-0.6) K/mcL Basophils # (0.0-0.2) K/mcL Sodium (136-145) mEq/L Potassium (3.5-5.1) mEq/L Chloride (98-107) mEq/L Carbon Dioxide (23-29) mEq/L BUN (8-23) mg/dL Creatinine (0.60-1.20) mg/dL Est GFR ( Amer) (> 60) Est GFR (Non-Af Amer) (> 60) BUN/Creatinine Ratio (6-26) Glucose (70-105) mg/dL Calculated Osmolality (280-300) Calcium (8.6-10.3) mg/dL Total Bilirubin (0.3-1.0) mg/dL AST (13-39) Units/L ALT (7-52) Units/L Alkaline Phosphatase (34-104) Units/L Ammonia 39 (16-53) mcmol/L Troponin I < 0.03 (< 0.04) ng/mL B-Natriuretic Peptide (Less than 100) pg/mL Serum Total Protein (6.4-8.9) g/dL Albumin (3.5-5.7) g/dL Globulin (2.4-3.5) g/dL Albumin/Globulin Ratio (1.1-2.2) Lipase (11-82) Units/L TSH 1.114 (0.340-5.600) mcIU/mL Urine Color Yellow (Yellow) Urine Clarity Cloudy A (Clear) Urine pH 5.0 (5.0-8.0) pH Units Ur Specific [place] 1.023 (1.010-1.025) Urine Protein Trace (Neg-Trace) mg/dL Urine Glucose (UA) Normal (Normal) mg/dL Urine Ketones Negative (Negative) mg/dL Urine Blood Trace H (Negative) Urine Nitrite Negative (Negative) Urine Bilirubin Negative (Negative) Urine Urobilinogen Normal (Normal) mg/dL Ur Leukocyte Esterase Large H (Negative) Urine Microscopic RBC 0-3 (0-3) per hpf Urine Microscopic WBC 50-100 H (0-3) per hpf Ur Squamous Epith Cells Few (None-Few) per lpf Urine Bacteria Few (None-Few) per hpf Ur Culture Indicated? YES A (NO) Attestation Statement - Attestation Attestation: I examined this patient and my medical decision-making was reviewed with the Resident Physician. I agree with the documented findings, disposition and treatment plan as described except to the extent set forth below. [id number] time provided Patient presents by EMS from home with confusion, altered mental status, generalized weakness. She was recently admitted for pneumonia with sepsis. The patient is alert but appears generally weak on exam. She conveys to me that she is unable to get around with a walker
--- NOTE | 2018-08-12 11:42 | Emergency Department Note ---
Addendum entered and electronically signed by Eduard Mccoy DO 08/12/18 20:25: Add ECG 12:40 Heart rate 91 bpm, OK interval 150 ms, QRS duration 87 ms, QT 348 ms, normal a xis. Sinus rhythm ventricular rate of 91 bpm. No evidence of any ischemic ST changes on this EKG. Original Note: Disposition Clinical Impression: CHARITO (acute kidney injury) UTI (urinary tract infection) Qualifiers: Urinary tract infection type: acute cystitis Hematuria presence: with hematuria Qualified Code(s): N30.01 - Acute cystitis with hematuria Pneumonia Qualifiers: Pneumonia type: due to unspecified organism Laterality: bilateral Lung location: lower lobe of lung Qualified Code(s): J18.1 - Lobar pneumonia, unspecified organism Disposition: Admitted As Inpatient General Adult HPI - General Chief complaint: ED Weakness Stated complaint: Weakness Time Seen by Provider: 08/12/18 11:28 Nursing Notes Reviewed: Yes Vital Signs Reviewed: Yes - History of Present Illness HPI Narrative: 73-year-old female presents emergency department with concern for generalized weakness. Patient reporting left flank pain. Concern that patient has been a little more confused than normal. Patient reporting that she has coughed, but has no fever, chest pain, pressure, tightness. Patient denies any dysuria, urinary for emergency urgency. Reported that patient is unable to ambulate. - Related Data Home Medications Medication Instructions Recorded Confirmed Atorvastatin [Lipitor] 40 mg PO HS 08/03/18 08/03/18 Docusate Sodium [Dok] 100 mg PO BID 08/03/18 08/03/18 Famotidine [Pepcid] 20 mg PO DAILY 08/03/18 08/03/18 Furosemide [Lasix] 40 mg PO DAILY 08/03/18 08/03/18 Gabapentin [Neurontin] 600 mg PO BID 08/03/18 08/03/18 Glucagon,Human Recombinant 1 mg SQ ONCE PRN 08/03/18 08/03/18 [Glucagon Emergency Kit] Insulin DETEMIR [Levemir] 25 unit SQ DAILY 08/03/18 08/03/18 Ipratropium Neb [Atrovent Neb] 0.5 mg IH TID PRN 08/03/18 08/03/18 Lisinopril [Zestril] 10 mg PO DAILY 08/03/18 08/03/18 Loratadine [Claritin] 10 mg PO DAILY 08/03/18 08/03/18 Ondansetron HCl 8 mg PO Q8H PRN 08/03/18 08/03/18 Spironolactone 25 mg PO DAILY 08/03/18 08/03/18 Ubidecarenone [Co Q-10] 100 mg PO DAILY 08/03/18 08/03/18 Venlafaxine [Effexor] 37.5 mg PO DAILY 08/03/18 08/03/18 hydrALAZINE [HydrALAZINE] 10 mg PO TID 08/03/18 08/03/18 Previous Rx's Medication Instructions Recorded Atorvastatin [Lipitor] 40 mg PO HS 30 Days #30 tablet 08/08/18 LORazepam [Ativan] 1 mg PO QID 10 Days #20 tablet 08/08/18 Metoprolol [Lopressor] 25 mg PO BID 30 Days #60 tablet 08/08/18 Allergies Allergy/AdvReac Type Severity Reaction Status Date / Time Penicillins Allergy Hives Verified 08/03/18 14:22 tuberculin,PPD,multi-puncture Allergy Hives Verified 08/03/18 14:22 clindamycin [From Cleocin] AdvReac Rash Verified 08/03/18 14:22 diazepam AdvReac Fatigued Verified 08/03/18 14:22 meclizine [From Antivert] AdvReac Dizziness Verified 08/03/18 14:22 nalbuphine [From Nubain] AdvReac Hallucinati Verified 08/03/18 14:22 ng promethazine [From Phenergan] AdvReac Irritable Verified 08/03/18 14:22 propoxyphene AdvReac Itching Verified 08/03/18 14:22 [From Darvocet-N 100] All systems ED: reviewed and negative except as stated. Review of Systems: As Per HPI Constitutional: Denies: fever Cardiovascular: Denies: chest pain Respiratory: Reports: cough. Denies: dyspnea, wheezes Gastrointestinal: Denies: abdominal pain, nausea, vomiting Genitourinary: Denies: urgency, dysuria, frequency Musculoskeletal: Denies: back pain Integumentary: Denies: rash Past Medical History - Past Medical History Medical history: Reports: CHF, COPD, DVT, diabetes, fibromyalgia, GERD, hepatitis, hyperlipidemia, hypertension, renal disease, seizures, syncope Surgical history: Reports: no surgical history Psychiatric history: Reports: anxiety, depression, panic disorder - Social History Smoking Status: Former smoker Smokeless Tobacco Status: No Alcohol use: Reports: none Drug use: Reports: opiates, other Physical Exam - General Limitations: no limitations - Head Head exam: normocephalic - Eye Eye exam: Present: EOMI - ENT ENT exam: mucous membranes moist - Neck Neck exam: Present: trachea midline - Chest Chest inspection: Present: symmetric chest wall rise - Respiratory Respiratory exam: Present: normal lung sounds bilaterally. Absent: respiratory distress, accessory muscle use - Cardiovascular Cardiovascular exam: Present: regular rate, normal rhythm, normal heart sounds - Abdominal Exam Abdominal exam: Present: soft, tenderness. Absent: distention, guarding, rebound, rigidity Abdominal tenderness: Present: LUQ - Extremities Exam Extremities exam: Present: normal capillary refill - Back Exam Back exam: Present: full ROM - Neurological Exam Neurological exam: Present: alert - Psychiatric Psychiatric exam: Present: normal affect, normal mood - Skin Skin exam: Present: warm, dry, intact, normal color. Absent: rash Course Vital Signs Temperature 99.1 F 08/12/18 11:35 Pulse Rate 94 08/12/18 11:35 Respiratory Rate 22 08/12/18 11:35 Blood Pressure 120/54 08/12/18 11:35 O2 Sat by Pulse Oximetry 86 08/12/18 11:35 Temperature 99.1 F 08/12/18 11:35 Pulse Rate 97 08/12/18 16:16 Respiratory Rate 18 08/12/18 16:53 Blood Pressure 125/96 08/12/18 16:53 O2 Sat by Pulse Oximetry 99 08/12/18 16:16 Oxygen Delivery Oxygen Delivery Nasal Cannula Medical Decision Making - [facility] Narrative Medical decision making narrative: 73-year-old female presents emergency department with concern for generalized weakness and left flank pain and left upper abdominal pain. Patient hemodynamically stable not in acute distress. Creatinine here was 4.77. This is the highest it has ever been. Obtain CT scan of the abdomen and pelvis and this revealed mild inflammation and thickening of the urinary bladder with small focus of gas in the urinary bladder per radiology. Patient does have trace blood with moderate leukocyte esterase. Also reported bibasilar pulmonary opacities right greater than left with trace right pleural effusion concerning for pneumonia per radiology. Patient will be covered with Levaquin for antibiotics for both pneumonia and urinary tract infection. Did not provide fluids as patient had pleural effusions on CT scan and had elevated BNP. Eetiology of patient's CHARITO most likely secondary to infection. This time, we will admit patient to hospitalist Dr. Vargas for further management. Also, there was an incidental finding on CT scan of right ovarian lesion. Patient was aware of this. There were recommendations to obtain routine ultrasound of this. Chest X-Ray 08/12/18 11:40 IMPRESSION: COPD, with mild increased interstitial changes seen at the right lung base compared to the previous examination which could be superimposed asymmetric edema or pneumonitis. There is also slight haziness overlying the right costophrenic angle which could represent a small pleural effusion. No other acute process is identified. D/ / Quentin Aguilar MD / Quentin Aguilar MD Interpreting Provider: Quentin Aguilar MD Head CT 08/12/18 11:40 IMPRESSION: 1. No acute intracranial abnormality. 2. Diffuse cerebral atrophy with chronic small vessel ischemic disease. 3. 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 D/ / Anton Peterson MD / Anton Peterson MD Interpreting Provider: Anton Peterson MD Abdomen/Pelvis CT 08/12/18 14:39 IMPRESSION: Mild inflammation and thickening of the urinary bladder with a small focus of gas within the urinary bladder. Correlate with clinical concern for UTI. No renal or ureteral calculus. No evidence of hydronephrosis. Bibasilar pulmonary opacities, right greater than left with a trace right pleural effusion. Findings may be seen in setting of atelectasis, pneumonia, and/or aspiration. Recommend radiographic follow-up to complete resolution. Status post cholecystectomy. Unchanged intrahepatic and extrahepatic biliary ductal dilatation. Low-density lesion within right ovary measuring 38 mm. If not previously evaluated, recommend follow-up pelvic ultrasound. D/ / 08/12/2018 16:15:06 Casimiro Thomas MD / [email or web address] Interpreting Provider: Casimiro Thomas MD - Lab Data Result diagrams: 08/12/18 11:52 08/12/18 11:52 Lab Results 08/12/18 08/12/18 08/12/18 Range/Units 11:52 11:52 11:52 WBC 13.6 H (4.3-11.1) K/mcL RBC 3.53 L (3.82-4.97) M/mcL Hgb 10.0 L (11.5-15.4) g/dL Hct 33.9 L (35.3-44.9) % MCV 96.0 (83.0-100.0) fL MCH 28.3 (28.0-33.3) pg MCHC 29.5 L (31.6-35.5) g/dL RDW 12.9 (11.5-14.5) % Plt Count 349 D (140-400) K/mcL MPV 10.1 (9.4-12.4) fL Immature Gran % 0.7 (0-4) % Seg Neutrophils % 83.2 % Lymphocytes % 8.1 % Monocytes % 5.8 % Eosinophils % 1.9 % Basophils % 0.3 % Neutrophils # 11.4 H (1.6-8.9) K/mcL Lymphocytes # 1.1 (0.6-4.6) K/mcL Monocytes # 0.8 (0.0-1.3) K/mcL Eosinophils # 0.3 (0.0-0.6) K/mcL Basophils # 0.0 (0.0-0.2) K/mcL Sodium 139 (136-145) mEq/L Potassium 4.5 (3.5-5.1) mEq/L Chloride 100 (98-107) mEq/L Carbon Dioxide 31 H (23-29) mEq/L BUN 32 H (8-23) mg/dL Creatinine 4.77 H (0.60-1.20) mg/dL Est GFR ( Amer) 11 L (> 60) Est GFR (Non-Af Amer) 9 L (> 60) BUN/Creatinine Ratio 7 (6-26) Glucose 80 (70-105) mg/dL Calculated Osmolality 294 (280-300) Calcium 8.6 (8.6-10.3) mg/dL Total Bilirubin 0.2 L (0.3-1.0) mg/dL AST 12 L (13-39) Units/L ALT 10 (7-52) Units/L Alkaline Phosphatase 101 (34-104) Units/L Ammonia (16-53) mcmol/L Troponin I (< 0.04) ng/mL B-Natriuretic Peptide 136 H (Less than 100) pg/mL Serum Total Protein 6.4 (6.4-8.9) g/dL Albumin 2.9 L (3.5-5.7) g/dL Globulin 3.5 (2.4-3.5) g/dL Albumin/Globulin Ratio 0.8 L (1.1-2.2) Lipase 5 L (11-82) Units/L TSH (0.340-5.600) mcIU/mL Urine Color (Yellow) Urine Clarity (Clear) Urine pH (5.0-8.0) pH Units Ur Specific [place] (1.010-1.025) Urine Protein (Neg-Trace) mg/dL Urine Glucose (UA) (Normal) mg/dL Urine Ketones (Negative) mg/dL Urine Blood (Negative) Urine Nitrite (Negative) Urine Bilirubin (Negative) Urine Urobilinogen (Normal) mg/dL Ur Leukocyte Esterase (Negative) Urine Microscopic RBC (0-3) per hpf Urine Microscopic WBC (0-3) per hpf Ur Squamous Epith Cells (None-Few) per lpf Urine Bacteria (None-Few) per hpf Ur Culture Indicated? (NO) 08/12/18 08/12/18 08/12/18 Range/Units 11:52 11:52 12:48 WBC (4.3-11.1) K/mcL RBC (3.82-4.97) M/mcL Hgb (11.5-15.4) g/dL Hct (35.3-44.9) % MCV (83.0-100.0) fL MCH (28.0-33.3) pg MCHC (31.6-35.5) g/dL RDW (11.5-14.5) % Plt Count (140-400) K/mcL MPV (9.4-12.4) fL Immature Gran % (0-4) % Seg Neutrophils % % Lymphocytes % % Monocytes % % Eosinophils % % Basophils % % Neutrophils # (1.6-8.9) K/mcL Lymphocytes # (0.6-4.6) K/mcL Monocytes # (0.0-1.3) K/mcL Eosinophils # (0.0-0.6) K/mcL Basophils # (0.0-0.2) K/mcL Sodium (136-145) mEq/L Potassium (3.5-5.1) mEq/L Chloride (98-107) mEq/L Carbon Dioxide (23-29) mEq/L BUN (8-23) mg/dL Creatinine (0.60-1.20) mg/dL Est GFR ( Amer) (> 60) Est GFR (Non-Af Amer) (> 60) BUN/Creatinine Ratio (6-26) Glucose (70-105) mg/dL Calculated Osmolality (280-300) Calcium (8.6-10.3) mg/dL Total Bilirubin (0.3-1.0) mg/dL AST (13-39) Units/L ALT (7-52) Units/L Alkaline Phosphatase (34-104) Units/L Ammonia 39 (16-53) mcmol/L Troponin I < 0.03 (< 0.04) ng/mL B-Natriuretic Peptide (Less than 100) pg/mL Serum Total Protein (6.4-8.9) g/dL Albumin (3.5-5.7) g/dL Globulin (2.4-3.5) g/dL Albumin/Globulin Ratio (1.1-2.2) Lipase (11-82) Units/L TSH 1.114 (0.340-5.600) mcIU/mL Urine Color Yellow (Yellow) Urine Clarity Cloudy A (Clear) Urine pH 5.0 (5.0-8.0) pH Units Ur Specific [place] 1.023 (1.010-1.025) Urine Protein Trace (Neg-Trace) mg/dL Urine Glucose (UA) Normal (Normal) mg/dL Urine Ketones Negative (Negative) mg/dL Urine Blood Trace H (Negative) Urine Nitrite Negative (Negative) Urine Bilirubin Negative (Negative) Urine Urobilinogen Normal (Normal) mg/dL Ur Leukocyte Esterase Large H (Negative) Urine Microscopic RBC 0-3 (0-3) per hpf Urine Microscopic WBC 50-100 H (0-3) per hpf Ur Squamous Epith Cells Few (None-Few) per lpf Urine Bacteria Few (None-Few) per hpf Ur Culture Indicated? YES A (NO)
[2018-08-12 12:09] LABS: Basophils % 0.3 %; Eosinophils # 0.3 K/mcL (0.0-0.6); Eosinophils % 1.9 %; Hematocrit 33.9 % (35.3-44.9); Immature Granulocytes % 0.7 % (0-4); Lymphocytes # 1.1 K/mcL (0.6-4.6); Lymphocytes % 8.1 %; Mean Corpuscular HGB Conc 29.5 g/dL (31.6-35.5); Mean Corpuscular Hemoglobin 28.3 pg (28.0-33.3); Mean Platelet Volume 10.1 fL (9.4-12.4); Monocytes # 0.8 K/mcL (0.0-1.3); Monocytes % 5.8 %; Neutrophils # 11.4 K/mcL (1.6-8.9); Platelet Count 349 K/mcL (140-400); Red Blood Count 3.53 M/mcL (3.82-4.97); Red Cell Distribution Width 12.9 % (11.5-14.5); Segmented Neutrophils % 83.2 %
[2018-08-12 12:29] LABS: Troponin I < 0.03 ng/mL (< 0.04)
[2018-08-12 12:41] LABS: Albumin 2.9 g/dL (3.5-5.7); Albumin/Globulin Ratio 0.8 (1.1-2.2); Bilirubin,Total 0.2 mg/dL (0.3-1.0); Calcium 8.6 mg/dL (8.6-10.3); Globulin 3.5 g/dL (2.4-3.5); Potassium 4.5 mEq/L (3.5-5.1); Total Protein 6.4 g/dL (6.4-8.9)
[2018-08-12 12:43] LABS: Thyroid Stimulating Hormone 1.114 mcIU/mL (0.340-5.600)
[2018-08-12 13:03] LABS: Bilirubin,Urine Negative (Negative); Blood,Urine Trace (Negative); Clarity,Urine Cloudy (Clear); Color,Urine Yellow (Yellow); Glucose,Urine (UA) Normal (Normal); Ketones,Urine Negative (Negative); Leukocyte Esterase,Urine Large (Negative); Nitrite,Urine Negative (Negative); Protein,Urine Trace mg/dL (Neg-Trace); Specific Gravity,Urine 1.023 (1.010-1.025); Urobilinogen,Urine Normal (Normal)
[2018-08-12 13:21] LABS: Bacteria,Urine Few per hpf (None-Few); RBC,Urine 0-3 per hpf (0-3); Squamous Epithelial Cell,Urine Few per lpf (None-Few); WBC,Urine 50-100 per hpf (0-3)
[2018-08-12] MEDS ORDERED: Levofloxacin 750 MG/150 ML 750 MG/150 ML BAG IVPB ONE (16:17)
--- NOTE | 2018-08-12 17:35 | Event Note ---
Date of Encounter: 08/12/18 Time of Encounter: 17:15 Patient with history of COPD, diabetes, hypertension, hyperlipidemia, seizure disorder, congestive heart failure was brought to the ER with complaints of increased confusion, altered mental status and generalized weakness. Patient had been discharged from the hospital last week after being treated for pneumonia and urinary tract infection. Patient states that she initially felt better but began to gradually weekend and has not been able to get around with her walker. She is unable to provide much history beyond that. History has been obtained through review of ED records. IV antibiotics. Her urine culture was positive for Proteus. Patient was discharged home on Omnicef to complete treatment for both these conditions. She did have a Barr catheter placed during that hospitalization. She was discharged home after the Barr catheter was removed. No fever noted in the ER today. General: Patient is alert, mild distress, disoriented Head: atraumatic, normocephalic, ENT: Mucous membranes are dry Eye: normal appearance, PERRL, no scleral icterus, no conjunctival injection Neck: normal inspection, trachea midline, full ROM, no carotid bruits Chest: normal inspection, symmetric chest rise Respiratory: decreased breath sounds at both bases. No wheezing or crackles. Cardiovascular: Regular rate and rhythm. s1 and s2 normal No clicks, rubs, gallops, or murmurs. No pedal edema Abdomen: Abdomen is soft, nontender. Bowel sounds are present Musculoskeletal: Range of motion not assessed at this time. No joint swelling. Skin: warm, dry, intact. Neuro: Alert but disoriented. Cranial nerves normal. Normal strength in upper extremities. Psychiatric: Flat affect. CT scan of the abdomen and pelvis shows inflammation and thickening of the urinary bladder with small focus of gas within the bladder. Bibasal pulmonary opacities right greater than left with right pleural effusion. Labs show creatinine of 4.77. On 08/08, her creatinine was 0.79. WBC count of 13.6. Acute kidney injury: Possibly ATN. We will get renal ultrasound. IV fluids. Monitor input and output. Moderate risk for complications. If renal function does not improve, we will consult nephrology. Acute urinary tract infection: CT scan does show findings suggestive of cholecystitis. Patient did have recent Barr catheter. However she was treated for Proteus infection last month and completed antibiotic course. She received Levaquin in the ER. We will change it to ceftriaxone for now. Follow urine culture results. Recent pneumonia: CT scan of the chest does show bibasal opacities. Likely atelectasis or resolving pneumonia from last hospitalization. She does not have any fever at this time. Will monitor for now. Essential hypertension: Monitor blood pressure and resume home medications. Hyperlipidemia: Continue Lipitor. Chronic diastolic heart failure: Hold Lasix due to [place] I. Not in acute exacerbation. COPD: Not in acute exacerbation. Will place patient on bronchodilators. Diabetes mellitus type 2: Monitor blood sugars. Place patient on sliding scale insulin. DVT prophylaxis with subcutaneous heparin
[2018-08-12] MEDS ORDERED: Naloxone 0.4 MG/ML INJ IVP PRN (17:43)
[2018-08-12] MEDS ORDERED: Acetaminophen 325 MG TABLET PO PRN (17:43)
[2018-08-12] MEDS ORDERED: cefTRIAXone 2,000 MG in 0.9 % Sodium Chloride Mini Bag 100 ML IVPB SCH (18:00)
[2018-08-12] MEDS ORDERED: D5% in Water 1,000 ML IVC PRN (18:02)
[2018-08-12] MEDS ORDERED: Dextrose Gel 15 GM/37.5 ML TUBE PO PRN ×2 (18:02)
[2018-08-12] MEDS ORDERED: Ipratropium/Albuterol Neb 3 ML IH PRN (18:02)
[2018-08-12] MEDS ORDERED: *HR* Dextrose 50 % in Water (Syg) 50 ML SYRINGE IVP PRN (18:02)
--- NOTE | 2018-08-12 18:31 | Internal Med History&Physical ---
<Gregg Bedolla P - Last Filed: 08/12/18 19:34> Date of Encounter: 08/12/18 Time of Encounter: 06:00 Internal Medicine - H&P: HPI Chief complaint: Generalized weakness , altered sensorium Admitted From: Emergency Dept Plans for Post Hospital Care: Transfer [facility] History of present illness: Ms. Garcia is a 73 year old female presented to emergency department for altered sensorium, generalized weakness and left flank pain for last couple of days. The patient was in hospital 1 week back. The patient was treated for hospital- acquired pneumonia and urinary tract infection and was discharged with improved condition. The previous report shows urine culture was positive for Proteus. There is history of Barr's catheter placement for urinary retention in her last admission.The patient is not a good historian, so it was difficult to take detailed history. We tried to talk with family members to ask about detailed history, but we could not reach to the family members. I did try to call the number provided , could not get connected.The patient is a known patient of diabetes mellitus, COPD, anemia, hospital acquired pneumonia, generalized weakness, kidney disease, hypertension, fibromyalgia. During my visit to ED, she was awake and alert, but not well oriented to time place and person. Her vitals : Temperature 99.1, pulse 97, blood pressure 125/96 Her x-ray chest : COPD, right lung base pneumonitis with pleural effusion Her CT head : No acute intracranial abnormality. CT abdomen and pelvis : A right small pleural effusion,bbasal opacities , right > left pneumonitis Her urine : Suggestive of UTI , culture report awaited. Labs: WBC 13.6 with Neutrophilia 11.4 , Hb 10 Her renal function looks impaired : Sodium 139, potassium 4.5, BUN 32, creatinine 4.77. The creatinine level during her discharge was normal. Past Med Surg Social Fam HX - Past Medical History Medical history: CHF, COPD, DVT, diabetes, fibromyalgia, GERD, hepatitis, hyperlipidemia, hypertension, renal disease, seizures, syncope Additional medical history: Pneumonia, general muscle weakness, chronic pain, myalgias, joint pain, symbolic dysfunction, chronic airway obstruction. Psychiatric history: anxiety, depression, panic disorder - Past Surgical History Surgical History: no surgical history Additional surgical history: Tubal ligation, cholecystectomy - Social History Smoking Status: Former smoker Smokeless Tobacco Status: No Alcohol use: none Drug use: opiates, other - Family History Brother Family Member Ethnicity: Non- Living Status: Father Family Member Ethnicity: Non- Living Status: Hx Family Cardiac Disorders: Yes (HTN) Hx Family Respiratory Disorders: Yes (COPD) Hx Family Cancer: Yes Hx Family GI Disorders: No Hx Family Endocrine Disorder: Yes (DM) Hx Family Neuromuscular Disorders: No Hx Family Neurologic Disorders: No Hx Family HEENT Disorders: No Hx Family Autoimmune Disorders: No Mother Adopted: No Family Member Ethnicity: Non- Living Status: Hx Family Endocrine Disorder: Yes (DM) Sister Family Member Ethnicity: Non- Living Status: Hx Family Respiratory Disorders: Yes (COPD) Internal Medicine - H&P: Meds RX: Docusate Sodium [Dok] 100 mg PO DAILY PRN 08/03/18 [History] RX: Famotidine [Pepcid] 20 mg PO DAILY 08/03/18 [History] RX: Furosemide [Lasix] 40 mg PO DAILY 08/03/18 [History] RX: Gabapentin [Neurontin] 600 mg PO BID 08/03/18 [History] RX: Glucagon,Human Recombinant [Glucagon Emergency Kit] 1 mg SQ ONCE PRN 08/03/18 [History] RX: Insulin DETEMIR [Levemir] 25 unit SQ DAILY 08/03/18 [History] RX: Ipratropium Neb [Atrovent Neb] 0.5 mg IH TID PRN 08/03/18 [History] RX: Lisinopril [Zestril] 10 mg PO DAILY 08/03/18 [History] RX: Loratadine [Claritin] 10 mg PO DAILY 08/03/18 [History] RX: Ondansetron HCl 8 mg PO Q8H PRN 08/03/18 [History] RX: Spironolactone 25 mg PO DAILY 08/03/18 [History] RX: Ubidecarenone [Co Q-10] 100 mg PO DAILY 08/03/18 [History] LORazepam [Ativan] 1 mg PO QID 10 Days #20 tablet 08/08/18 [Rx] RX: Atorvastatin [Lipitor] 40 mg PO HS 30 Days #30 tablet 08/08/18 [Rx] RX: Metoprolol [Lopressor] 25 mg PO BID 30 Days #60 tablet 08/08/18 [Rx] RX: hydrALAZINE [HydrALAZINE] 10 mg PO TID 08/12/18 [History] Venlafaxine HCl [Effexor Xr] 75 mg PO DAILY 08/12/18 [History] Allergy/AdvReac Type Severity Reaction Status Date / Time Penicillins Allergy Hives Verified 08/03/18 14:22 tuberculin,PPD,multi-puncture Allergy Hives Verified 08/03/18 14:22 clindamycin [From Cleocin] AdvReac Rash Verified 08/03/18 14:22 diazepam AdvReac Fatigued Verified 08/03/18 14:22 meclizine [From Antivert] AdvReac Dizziness Verified 08/03/18 14:22 nalbuphine [From Nubain] AdvReac Hallucinati Verified 08/03/18 14:22 ng promethazine [From Phenergan] AdvReac Irritable Verified 08/03/18 14:22 propoxyphene AdvReac Itching Verified 08/03/18 14:22 [From Darvocet-N 100] All Systems PM: A 10-system review of systems was performed and is negative for pertinent findings except as documented above in the HPI. - Constitutional Constitutional: fatigue, malaise, weakness, no chills, no fever(s), no weight gain - EENT Ears: no ear discharge Nose, mouth and throat: no bleeding gums, no lip swelling, no sinus pain, no sore throat - Cardiovascular Cardiovascular ROS IM: no chest pain, no edema, no orthopnea, no palpitations - Respiratory Respiratory: cough, dyspnea on exertion, wheezing, no hemoptysis, no snoring Additional comments: Crepitation on right lower zone with occasional wheezes, - Gastrointestinal Gastrointestinal: abdominal pain, no constipation, no diarrhea, no heartburn - Genitourinary Genitourinary: no hematuria Menstruation: post menopausal - Musculoskeletal Musculoskeletal ROS IM: no back pain, no joint swelling, no neck pain - Integumentary Integumentary IM: no pruritus, no skin ulcer, no unusual bruising - Neurological Neurological ROS: confusion, no tremor(s) - Psychiatric Psychiatric: confusion - Endocrine Endocrine IM: fatigue - Hematologic/Lymphatic Hematologic/Lymphatic: no easy bleeding, no easy bruising, no lymphadenopathy - Constitutional Vitals: Temp Pulse Resp BP Pulse Ox 99.1 F 97 18 125/96 99 08/12/18 11:35 08/12/18 16:16 08/12/18 16:53 08/12/18 16:53 08/12/18 16:16 General appearance: Present: A&O X 0, mild distress, no acute distress Exam: Patient was alert , awake, but not in acute distress and not oriented to TPP. - Head Head exam: Present: atraumatic, normal inspection - Eye Eye exam: Present: conjunctival injection, EOMI. Absent: nystagmus, scleral icterus Pupils: Present: normal accommodation, PERRL - Neck Neck exam general surgery: Present: full ROM. Absent: lymphadenopathy, nuchal rigidity, thyromegaly - Respiratory Respiratory exam: Present: decreased breath sounds, prolonged expiratory phase, rales, tachypnea. Absent: accessory muscle use, chest wall tenderness - Cardiovascular Cardiovascular exam: Present: +S1, +S2. Absent: gallop, JVD, systolic murmur - GI/Abdominal GI/Abdominal exam: Present: normal bowel sounds. Absent: distended, hepatomegaly - Neurological Exam Neurological exam: Present: alert, reflexes normal, no focal deficits Internal Med - H&P Results - Labs CBC & Chem 7: 08/12/18 11:52 08/12/18 11:52 Labs: Short CBC 08/12/18 Range/Units 11:52 WBC 13.6 H (4.3-11.1) K/mcL Hgb 10.0 L (11.5-15.4) g/dL Hct 33.9 L (35.3-44.9) % Plt Count 349 D (140-400) K/mcL Neutrophils # 11.4 H (1.6-8.9) K/mcL BMP 08/12/18 11:52 Sodium 139 Potassium 4.5 Chloride 100 Carbon Dioxide 31 H BUN 32 H Creatinine 4.77 H Glucose 80 Calcium 8.6 Cardiac Enzymes 08/12/18 Range/Units 11:52 Troponin I < 0.03 (< 0.04) ng/mL Liver Function 08/12/18 Range/Units 11:52 Total Bilirubin 0.2 L (0.3-1.0) mg/dL AST 12 L (13-39) Units/L ALT 10 (7-52) Units/L Alkaline Phosphatase 101 (34-104) Units/L Albumin 2.9 L (3.5-5.7) g/dL Urine 08/12/18 Range/Units 12:48 Urine Color Yellow (Yellow) Urine Clarity Cloudy A (Clear) Urine pH 5.0 (5.0-8.0) pH Units Ur Specific [place] 1.023 (1.010-1.025) Urine Protein Trace (Neg-Trace) mg/dL Urine Glucose (UA) Normal (Normal) mg/dL - Impressions ITS Impressions Chest X-Ray 08/12/18 11:40 IMPRESSION: COPD, with mild increased interstitial changes seen at the right lung base compared to the previous examination which could be superimposed asymmetric edema or pneumonitis. There is also slight haziness overlying the right costophrenic angle which could represent a small pleural effusion. No other acute process is identified. D/ / Quentin Aguilar MD / Quentin Aguilar MD Interpreting Provider: Quentin Aguilar MD Head CT 08/12/18 11:40 IMPRESSION: 1. No acute intracranial abnormality. 2. Diffuse cerebral atrophy with chronic small vessel ischemic disease. 3. 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 D/ / Anton Peterson MD / Anton Peterson MD Interpreting Provider: Anton Peterson MD Abdomen/Pelvis CT 08/12/18 14:39 IMPRESSION: Mild inflammation and thickening of the urinary bladder with a small focus of gas within the urinary bladder. Correlate with clinical concern for UTI. No renal or ureteral calculus. No evidence of hydronephrosis. Bibasilar pulmonary opacities, right greater than left with a trace right pleural effusion. Findings may be seen in setting of atelectasis, pneumonia, and/or aspiration. Recommend radiographic follow-up to complete resolution. Status post cholecystectomy. Unchanged intrahepatic and extrahepatic biliary ductal dilatation. Low-density lesion within right ovary measuring 38 mm. If not previously evaluated, recommend follow-up pelvic ultrasound. D/ / 08/12/2018 16:15:06 Casimiro Thomas MD / [email or web address] Interpreting Provider: Casimiro Thomas MD - Assessment and plan (1) UTI (urinary tract infection) Current Visit: Yes Status: Acute Assessment and plan: The patient has altered sensorium. The patient has presented with left flank pain Her urine analysis suggestive of urinary tract infection The previous urine culture report showed Proteus organism that was sensitive to cephalosporin. We have started ceftriaxone for her urinary tract infection. Labs : WBC 13.6 and Neutrophil 11.4 We have put hold all nephrotoxic medication. We will monitor improvement. Qualifiers: Urinary tract infection type: catheter-associated UTI Indwelling urinary catheter type: unspecified Encounter type: initial encounter Qualified Code(s): T83.511A - Infection and inflammatory reaction due to indwelling urethral catheter, initial encounter; N39.0 - Urinary tract infection, site not specified (2) CHARITO (acute kidney injury) Current Visit: Yes Status: Acute Assessment and plan: The patient has history of diabetes mellitus. Her serum creatinine was normal during discharged from the hospital ( BUN 7, Creatinine 0.79 at discharge) Her latest creatinine 4.77, BUN 32 We have hold nephrotoxic medication for now. It could be acute on chronic mild CHARITO . We will monitor renal function regularly. (3) Pneumonia Current Visit: Yes Status: Acute Assessment and plan: The patient was admitted for pneumonia one week ago. She was treated with vancomycin and cefepime for pneumonia. Recent x-ray shows right-sided pneumonitis and minimal pleural effusion. The finding might be residual of previously treated pneumonia. She was treated with Vanco + Cefipime and was discharged on Cefdinir. She was improved during discharge , recent Xray finding can be residual or but looks less likely new development. Qualifiers: Pneumonia type: due to unspecified organism Laterality: unspecified laterality Lung location: unspecified part of lung Qualified Code(s): J18.9 - Pneumonia, unspecified organism (4) UTI (urinary tract infection) Current Visit: Yes Status: Acute Qualifiers: Urinary tract infection type: acute cystitis Hematuria presence: with hematuria Qualified Code(s): N30.01 - Acute cystitis with hematuria (5) Altered mental status Current Visit: Yes Status: Acute Assessment and plan: The patient was reported to ED for altered sensorium. She is alert, awake, but not oriented to time place and person. Her CT hed does not show any acute abnormality. No residual weakness of Limbs seen during clinical examination. Qualifiers: Altered mental status type: unspecified Qualified Code(s): R41.82 - Altered mental status, unspecified - Time Spent With Patient Total time spent is greater than 50% in coordination of care (as documented) at patient's floor/unit and/or counseling patient: - Attending Attestation The patient needs admission , we will monitor her renal function and mental status. We have restarted IV antibiotic for urinary tract infection, we will adjust antibiotic after we receive urine culture report. <Bhumikadyana - Last Filed: 08/13/18 07:28> Date of Encounter: 08/12/18 Time of Encounter: 17:15 Internal Medicine - H&P: HPI History of present illness: Ms. Garcia is a 73 year old female All Systems PM: A 10-system review of systems was performed and is negative for pertinent find ings except as documented above in the HPI. - Constitutional Vitals: Temp Pulse Resp BP Pulse Ox 99.0 F 97 19 153/79 95 08/13/18 05:45 08/13/18 05:45 08/13/18 05:45 08/13/18 05:45 08/13/18 05:45 Internal Med - H&P Results - Labs CBC & Chem 7: 08/13/18 04:20 08/13/18 04:20 Labs: Short CBC 08/12/18 08/13/18 Range/Units 11:52 04:20 WBC 13.6 H 8.8 (4.3-11.1) K/mcL Hgb 10.0 L 8.4 L D (11.5-15.4) g/dL Hct 33.9 L 27.2 L (35.3-44.9) % Plt Count 349 D 300 (140-400) K/mcL Neutrophils # 11.4 H 6.9 (1.6-8.9) K/mcL BMP 08/12/18 08/13/18 11:52 04:20 Sodium 139 139 Potassium 4.5 4.8 Chloride 100 100 Carbon Dioxide 31 H 31 H BUN 32 H 35 H Creatinine 4.77 H 4.40 H Glucose 80 74 Calcium 8.6 8.1 L Cardiac Enzymes 11/29/18 Range/Units 11:52 Troponin I < 0.03 (< 0.04) ng/mL Liver Function 08/12/18 Range/Units 11:52 Total Bilirubin 0.2 L (0.3-1.0) mg/dL AST 12 L (13-39) Units/L ALT 10 (7-52) Units/L Alkaline Phosphatase 101 (34-104) Units/L Albumin 2.9 L (3.5-5.7) g/dL Urine 08/12/18 Range/Units 12:48 Urine Color Yellow (Yellow) Urine Clarity Cloudy A (Clear) Urine pH 5.0 (5.0-8.0) pH Units Ur Specific [place] 1.023 (1.010-1.025) Urine Protein Trace (Neg-Trace) mg/dL Urine Glucose (UA) Normal (Normal) mg/dL - Impressions ITS Impressions Chest X-Ray 08/12/18 11:40 IMPRESSION: COPD, with mild increased interstitial changes seen at the right lung base compared to the previous examination which could be superimposed asymmetric edema or pneumonitis. There is also slight haziness overlying the right costophrenic angle which could represent a small pleural effusion. No other acute process is identified. D/ / Quentin Aguilar MD / Quentin Aguilar MD Interpreting Provider: Quentin Aguilar MD Head CT 08/12/18 11:40 IMPRESSION: 1. No acute intracranial abnormality. 2. Diffuse cerebral atrophy with chronic small vessel ischemic disease. 3. 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 D/ / Anton Peterson MD / Anton Peterson MD Interpreting Provider: Anton Peterson MD Abdomen/Pelvis CT 08/12/18 14:39 IMPRESSION: 1. Mild inflammation and thickening of urinary bladder with small focus of gas within the urinary bladder. Correlate with clinical concern for UTI. 2. Bibasilar pulmonary opacities, right greater than left with a trace right pleural effusion. Findings may be seen in setting of atelectasis, pneumonia, and/or aspiration. Recommend radiographic follow-up to complete resolution. 3. Status post cholecystectomy. Unchanged intrahepatic and extrahepatic biliary ductal dilatation. 4. Low-density lesion within right ovary measuring 38 mm. If not previously evaluated, recommend follow-up pelvic ultrasound. D/ / 08/12/2018 16:15:06 Casimiro Thomas MD / [email or web address] Interpreting Provider: Casimiro Tohmas MD Retroperitoneum Ultrasound 08/12/18 21:30 IMPRESSION: No evidence of hydronephrosis. Small amount of echogenic material layering in the bladder. Correlate with urinalysis. D/ / Isaak Chavez MD / Isaak Chavez MD Interpreting Provider: Isaak Chavez MD - Assessment and plan (1) UTI (urinary tract infection) Current Visit: Yes Status: Acute Qualifiers: Urinary tract infection type: acute cystitis Hematuria presence: with hematuria Qualified Code(s): N30.01 - Acute cystitis with hematuria (2) UTI (urinary tract infection) Current Visit: Yes Status: Acute Qualifiers: Urinary tract infection type: catheter-associated UTI Indwelling urinary catheter type: unspecified Encounter type: initial encounter Qualified Code(s): T83.511A - Infection and inflammatory reaction due to indwelling urethral catheter, initial encounter; N39.0 - Urinary tract infection, site not specified (3) CHARITO (acute kidney injury) Current Visit: Yes Status: Acute (4) Pneumonia Current Visit: Yes Status: Acute Qualifiers: Pneumonia type: due to unspecified organism Laterality: unspecified laterality Lung location: unspecified part of lung Qualified Code(s): J18.9 - Pneumonia, unspecified organism (5) Altered mental status Current Visit: Yes Status: Acute Qualifiers: Altered mental status type: unspecified Qualified Code(s): R41.82 - Altered mental status, unspecified - Time Spent With Patient Total time spent is greater than 50% in coordination of care (as documented) at patient's floor/unit and/or counseling patient: - Attending Attestation I saw evaluated and examined this patient and my medical decision-making was reviewed with the Resident Physician, Gregg Bedolla. I agree with the documented findings, disposition and treatment plan as described except to any changes set forth below. We independently had [id number] contact with the patient. Patient with history of COPD, diabetes, hypertension, hyperlipidemia, seizure disorder, congestive heart failure was brought to the ER with complaints of increased confusion, altered mental status and generalized weakness. Patient had been discharged from the hospital last week after being treated for pneumonia and urinary tract infection. Patient states that she initially felt better but began to gradually weekend and has not been able to get around with her walker. She is unable to provide much history beyond that. History has been obtained through review of ED records. IV antibiotics. Her urine culture was positive for Proteus. Patient was discharged home on Omnicef to complete treatment for both these conditions. She did have a Barr catheter placed during that hospitalization. She was discharged home after the Barr catheter was removed. No fever noted in the ER today. General: Patient is alert, mild distress, disoriented Head: atraumatic, normocephalic, ENT: Mucous membranes are dry Eye: normal appearance, PERRL, no scleral icterus, no conjunctival injection Neck: normal inspection, trachea midline, full ROM, no carotid bruits Chest: normal inspection, symmetric chest rise Respiratory: decreased breath sounds at both bases. Cardiovascular: Regular rate and rhythm. s1 and s2 normal No clicks, rubs, gallops, or murmurs. No pedal edema Abdomen: Abdomen is soft, nontender. Bowel sounds are present Musculoskeletal: Range of motion not assessed at this time. No joint swelling. Skin: warm, dry, intact. Neuro: Alert but disoriented. Cranial nerves normal. Normal strength in upper extremities. Psychiatric: Flat affect. CT scan of the abdomen and pelvis shows inflammation and thickening of the urinary bladder with small focus of gas within the bladder. Bibasal pulmonary opacities right greater than left with right pleural effusion. Labs show creatinine of 4.77. On 08/08, her creatinine was 0.79. WBC count of 13.6. Acute kidney injury: Possibly ATN. Patient did get vancomycin during her last hospitalization and has been on Lasix and spironolactone. We will get renal ultrasound. IV fluids. Monitor input and output. Moderate risk for compl ications. Avoid further nephrotoxic agents. If renal function does not improve, we will consult nephrology. Acute urinary tract infection: CT scan does show findings suggestive of cystitis. Patient did have recent Barr catheter. However she was treated for Proteus infection last month and completed antibiotic course. She received Levaquin in the ER. We will change it to ceftriaxone for now based on previous sensitivity results. Follow urine culture results. Recent pneumonia: CT scan of the chest does show bibasal opacities. Likely atelectasis or resolving pneumonia from last hospitalization. She does not have any fever at this time. Will monitor for now. Essential hypertension: Monitor blood pressure and resume home medications. Hyperlipidemia: Continue Lipitor. Chronic diastolic heart failure: Hold Lasix due to [place] I. Not in acute exacerbation. COPD: Not in acute exacerbation. Will place patient on bronchodilators. Diabetes mellitus type 2: Monitor blood sugars. Place patient on sliding scale insulin. DVT prophylaxis with subcutaneous heparin
[2018-08-12] MEDS: Ringers Solution, Lactated 1,000 ML IVC SCH (18:53)
[2018-08-12] MEDS: *HR* Heparin 5,000 UNIT/ML VIAL SQ SCH (18:54)
[2018-08-12] MEDS ORDERED: cefTRIAXone 1,000 MG in 0.9 % Sodium Chloride Mini Bag 100 ML IVPB SCH (19:00)
[2018-08-12] MEDS: cefTRIAXone 1,000 MG in Water for inj. (sterile) 20 ML 10 ML IVP SCH (22:36)
[2018-08-12] MEDS: hydrALAZINE 10 MG TABLET PO SCH (22:39)
[2018-08-12] MEDS: Insulin LISPRO 300 UNITS/3 ML VIAL SQ SCH (22:40)
[2018-08-12] MEDS: Famotidine 20 MG TABLET PO SCH (22:40)
[2018-08-13 05:00] LABS: Basophils % 0.2 %; Eosinophils # 0.2 K/mcL (0.0-0.6); Eosinophils % 2.1 %; Hematocrit 27.2 % (35.3-44.9); Immature Granulocytes % 0.6 % (0-4); Lymphocytes % 10.9 %; Mean Corpuscular HGB Conc 30.9 g/dL (31.6-35.5); Mean Corpuscular Hemoglobin 28.8 pg (28.0-33.3); Mean Corpuscular Volume 93.2 fL (83.0-100.0); Mean Platelet Volume 10.2 fL (9.4-12.4); Monocytes # 0.7 K/mcL (0.0-1.3); Monocytes % 7.4 %; Neutrophils # 6.9 K/mcL (1.6-8.9); Platelet Count 300 K/mcL (140-400); Red Blood Count 2.92 M/mcL (3.82-4.97); Red Cell Distribution Width 12.8 % (11.5-14.5); Segmented Neutrophils % 78.8 %
[2018-08-13 05:15] LABS: Hemoglobin 8.4 g/dL (11.5-15.4)
[2018-08-13 05:17] LABS: Calcium 8.1 mg/dL (8.6-10.3); Potassium 4.8 mEq/L (3.5-5.1)
[2018-08-13] MEDS: *HR* Heparin 5,000 UNIT/ML VIAL SQ SCH ×2 (06:00→18:21)
--- NOTE | 2018-08-13 06:02 | Electrocardiograph Report ---
[place] [employer] 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
[2018-08-13] MEDS: Insulin LISPRO 300 UNITS/3 ML VIAL SQ SCH ×4 (07:50→20:42)
--- NOTE | 2018-08-13 08:41 | Internal Med Progress Note ---
Addendum entered and electronically signed by Shimon Jc 08/13/18 14:15: Retroperitoneal ultrasound was performed which was negative for hydronephrosis, was a small amount of echogenic material laying layering in the bladder. Patient is noted to have multiple voids today, we will hold off on the bladder scan at this point in time. Was also notified by social work that patient has been accepted for placement at [facility] when ready for discharge Original Note: <Shimon Jc - Last Filed: 08/13/18 13:53> Hospitalist Progress Note - Encounter Date of Encounter: 08/13/18 Time of Encounter: 13:53 - Subjective Interval History: Madeleine Garcia is a 73-year-old female with past medical history significant for diabetes mellitus, COPD, kidney disease, fibromyalgia, hypothyroid and hypertension who presents exam rigidity department on 08/12/2018 with altered mental status, weakness and left flank pain. Patient does have a recent and remote history of being diagnosed with healthcare associated pneumonia about 1 week ago as well as urinary tract infection. Patient was placed on vancomycin as well as cefepime during her hospital stay prior and discharged on Cefdinir. On arrival to the emergency department, patient was alert but not oriented. Patient had been complaining of increased weakness and confusion 1 day prior to arrival as well as a sharp shooting nonradiating left flank pain. Patient also noted that she did have multiple falls on the day of arrival. She states that she did not hit her head she has not any blood thinners and that she fell onto her knees. Patient also states that she does live at home however does have a roommate. While in the emergency department she had a head CT which was negative. A CT of the abdomen and pelvis was performed which showed a right pleural effusion as well as bilateral base opacities right greater than left suggestive of possible pneumonitis. Urinalysis was performed which showed positive white white blood cells and leukoesterase, slight leukocytosis at 13.6. Patient was started on Levaquin. Vitals were stable at time of admission. On admission, urine culture was sent and Levaquin was stopped and Rocephin was started. Overall patient states that she has feels less confused today than she did feel yesterday. She states that overall she has a decreased cough and has not had any fevers over the past few weeks. She denies any recent urinary symptoms, hematuria or history of kidney stones. She denies any history of pyelonephritis. Patient denies any chest pain, shortness of breath, abdominal pain, nausea, vomiting. She does not recall her last bowel movement. She does have left flank pain that has been continued, however she does state that she has chronic fibromyalgia pain, however feels as though this is a different type of pain that she generally experiences. - Exam Vitals: Temp Pulse Resp BP Pulse Ox 98.3 F 103 20 155/85 94 08/13/18 07:40 08/13/18 07:40 08/13/18 07:40 08/13/18 07:40 08/13/18 07:40 Exam: Gen.: Patient is alert and oriented to place time and month, appears pleasant, however at times appears to stare off into loss in the conversation HEENT: Head appears to be normocephalic atraumatic, eyes are equal round reactive to light, extraocular motors are intact Chest: Regular rate and rhythm, systolic murmur heard best at the right upper sternal border. No gallops or rubs Respiratory: decreased breath sounds throughout, few crackles were noted at the bases bilaterally Abdomen: Soft, nontender, no guarding or rigidity, mild to moderate left lateral pain with deep palpation Lower extremities: No lesions, no lower extremity pitting edema, diffusely tender throughout, chronic and unchanged from baseline, no bruising to the anterior aspects of the knees, no instability to the bilateral hips or tenderness to palpation . - Assessment and Plan (1) UTI (urinary tract infection) Current Visit: Yes Status: Acute Assessment and Plan: On arrival to the emergency department, patient was altered, however his noted to improve Patient continues to deny urinary symptoms, however does have left flank pain Urinalysis was positive for leuk esterase as well as WBCs. Patient has remained afebrile Blood cell count on arrival was 13.6, currently 8.8 Urine culture currently pending however previous showed Proteus organism was sensitive to Cipro Sporn's Plan Continue Rocephin, date 2 We will hold all nephrotoxic medication We will monitor improvement . (2) Pneumonia Current Visit: Yes Status: Chronic Assessment and Plan: Patient was noted to be admitted for pneumonia approximately 1 week ago Was treated inpatient with vancomycin cefepime Chest x-ray performed in the ED showed chronic COPD as well as right lung base interstitial sore changes that are mild could be edema or pneumonitis also haziness overlying the right costophrenic angle with possible small pleural effusion Abdominal CT showed mild inflammation and thickening of the urinary bladder with a small focus of gas within the urinary bladder no renal or ureteral calculi no evidence of hydronephrosis. Continued evidence of bibasilar pulmonary opacities right greater than left is also trace right pleural effusion Plan Possible residual pneumonia previously treated pneumonia While in patient had been treated with vancomycin and cefepime was discharged on Cefdinir Current improvement overall continue to monitor incentive spirometry (3) [id number] kidney injury Current Visit: No Status: Acute Assessment and Plan: Patient has history of diabetes mellitus as well as possible history of chronic kidney disease Attentive discharge patient's BUN was 7 and creatinine of 0.79 Creatinine on admission was 4.77, BUN of 32 Today's BUN is 31 with a creatinine of 4.4 Plan We will see if patient has made any urine at this point Is no urine has been made Will order bladder scan as well as a nephrology consult (4) HLD (hyperlipidemia) Current Visit: No Status: Chronic Assessment and Plan: Continue at-home medications (5) HTN (hypertension) Current Visit: No Status: Chronic Assessment and Plan: Continue at-home medications - Time Spent with Patient Total time spent is greater than 50% in coordination of care (as documented) at patient's floor/unit and/or counseling patient: Internal Medicine: Result - Labs CBC & Chem 7: 08/13/18 04:20 08/13/18 04:20 Labs: Short CBC 08/12/18 08/13/18 Range/Units 11:52 04:20 WBC 13.6 H 8.8 (4.3-11.1) K/mcL Hgb 10.0 L 8.4 L D (11.5-15.4) g/dL Hct 33.9 L 27.2 L (35.3-44.9) % Plt Count 349 D 300 (140-400) K/mcL Neutrophils # 11.4 H 6.9 (1.6-8.9) K/mcL BMP 08/12/18 08/13/18 11:52 04:20 Sodium 139 139 Potassium 4.5 4.8 Chloride 100 100 Carbon Dioxide 31 H 31 H BUN 32 H 35 H Creatinine 4.77 H 4.40 H Glucose 80 74 Calcium 8.6 8.1 L Cardiac Enzymes 08/12/18 Range/Units 11:52 Troponin I < 0.03 (< 0.04) ng/mL Liver Function 08/12/18 Range/Units 11:52 Total Bilirubin 0.2 L (0.3-1.0) mg/dL AST 12 L (13-39) Units/L ALT 10 (7-52) Units/L Alkaline Phosphatase 101 (34-104) Units/L Albumin 2.9 L (3.5-5.7) g/dL Urine 08/12/18 Range/Units 12:48 Urine Color Yellow (Yellow) Urine Clarity Cloudy A (Clear) Urine pH 5.0 (5.0-8.0) pH Units Ur Specific Gypsy 1.023 (1.010-1.025) Urine Protein Trace (Neg-Trace) mg/dL Urine Glucose (UA) Normal (Normal) mg/dL - Impressions Impressions Chest X-Ray 08/12/18 11:40 IMPRESSION: COPD, with mild increased interstitial changes seen at the right lung base compared to the previous examination which could be superimposed asymmetric edema or pneumonitis. There is also slight haziness overlying the right costophrenic angle which could represent a small pleural effusion. No other acute process is identified. D/ / Quentin Aguilar MD / Quentin Aguilar MD Interpreting Provider: Quentin Aguilar MD Head CT 08/12/18 11:40 IMPRESSION: 1. No acute intracranial abnormality. 2. Diffuse cerebral atrophy with chronic small vessel ischemic disease. 3. 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 D/ / Anton Peterson MD / Anton Peterson MD Interpreting Provider: Anton Peterson MD Abdomen/Pelvis CT 08/12/18 14:39 IMPRESSION: 1. Mild inflammation and thickening of urinary bladder with small focus of gas within the urinary bladder. Correlate with clinical concern for UTI. 2. Bibasilar pulmonary opacities, right greater than left with a trace right pleural effusion. Findings may be seen in setting of atelectasis, pneumonia, and/or aspiration. Recommend radiographic follow-up to complete resolution. 3. Status post cholecystectomy. Unchanged intrahepatic and extrahepatic biliary ductal dilatation. 4. Low-density lesion within right ovary measuring 38 mm. If not previously evaluated, recommend follow-up pelvic ultrasound. D/ / 08/12/2018 16:15:06 Casimiro Thomas MD / jazmin Interpreting Provider: Casimiro Thomas MD Retroperitoneum Ultrasound 08/12/18 21:30 IMPRESSION: No evidence of hydronephrosis. Small amount of echogenic material layering in the bladder. Correlate with urinalysis. D/ / Isaak Chavez MD / Isaak Chavez MD Interpreting Provider: Isaak Chavez MD Consult Discharge Plan - Plan Referrals: Blayne Do [Primary Care Provider] - <Ruma Bai - Last Filed: 08/13/18 15:31> Hospitalist Progress Note - Encounter Date of Encounter: 08/13/18 Time of Encounter: 09:30 - Exam Vitals: Temp Pulse Resp BP Pulse Ox 99 F 93 20 148/81 97 08/13/18 12:07 08/13/18 12:07 08/13/18 12:07 08/13/18 12:07 08/13/18 12:07 - Assessment and Plan (1) UTI (urinary tract infection) Current Visit: Yes Status: Acute (2) UTI (urinary tract infection) Current Visit: Yes Status: Acute (3) CHARITO (acute kidney injury) Current Visit: Yes Status: Acute (4) Pneumonia Current Visit: Yes Status: Acute (5) Altered mental status Current Visit: Yes Status: Acute - Time Spent with Patient Total time spent is greater than 50% in coordination of care (as documented) at patient's floor/unit and/or counseling patient: Internal Medicine: Result - Labs CBC & Chem 7: 08/13/18 04:20 08/13/18 04:20 Labs: Short CBC 08/13/18 Range/Units 04:20 WBC 8.8 (4.3-11.1) K/mcL Hgb 8.4 L D (11.5-15.4) g/dL Hct 27.2 L (35.3-44.9) % Plt Count 300 (140-400) K/mcL Neutrophils # 6.9 (1.6-8.9) K/mcL BMP 08/13/18 04:20 Sodium 139 Potassium 4.8 Chloride 100 Carbon Dioxide 31 H BUN 35 H Creatinine 4.40 H Glucose 74 Calcium 8.1 L - Impressions Impressions Abdomen/Pelvis CT 08/12/18 14:39 IMPRESSION: 1. Mild inflammation and thickening of urinary bladder with small focus of gas within the urinary bladder. Correlate with clinical concern for UTI. 2. Bibasilar pulmonary opacities, right greater than left with a trace right pleural effusion. Findings may be seen in setting of atelectasis, pneumonia, and/or aspiration. Recommend radiographic follow-up to complete resolution. 3. Status post cholecystectomy. Unchanged intrahepatic and extrahepatic biliary ductal dilatation. 4. Low-density lesion within right ovary measuring 38 mm. If not previously evaluated, recommend follow-up pelvic ultrasound. D/ / 08/12/2018 16:15:06 Casimiro Thomas MD / jazmin Interpreting Provider: Casimiro Thomas MD Retroperitoneum Ultrasound 08/12/18 21:30 IMPRESSION: No evidence of hydronephrosis. Small amount of echogenic material layering in the bladder. Correlate with urinalysis. D/ / Isaak Chavez MD / Isaak Chavez MD Interpreting Provider: Isaak Chavez MD - Attending Attestation I saw evaluated and examined this patient and my medical decision-making was reviewed with the Resident Physician, Shimon Jc. I agree with the documented findings, disposition and treatment plan as described except to any changes set forth below. We independently had [id number] contact with the patient. Patient is more awake and alert today. Answering questions appropriately. Complaints of left-sided flank pain. No fever or chills reported. Does feel a little better compared to yesterday. Has not had any trouble passing urine. General: Patient is alert, mild distress, oriented x 3 Respiratory: Decreased breath sounds at both bases. Cardiovascular: Regular rate and rhythm. s1 and s2 normal No clicks, rubs, gallops, or murmurs. No pedal edema Abdomen: Abdomen is soft, left upper quadrant and flank region. Bowel sounds are present Musculoskeletal: Spontaneously moving all extremities Skin: warm, dry, intact. Acute kidney injury: Possibly ATN. Creatinine slightly better today. We will continue to monitor. Monitor urine output. Avoid nephrotoxic agents. Continue IV hydration. Retroperitoneal ultrasound shows small amount of echogenic material in the bladder. Otherwise no hydronephrosis or intrarenal stones. Acute urinary tract infection: Patient being treated for possible UTI. Urine culture shows no growth. Leukocytosis resolved. Abnormal urinalysis may be related to underlying CHARITO and ATN. Recent pneumonia: No indication for further antibiotics at this time Essential hypertension: Blood pressure is elevated. Continue Lopressor and oral hydralazine. We will add hydralazine IV for systolic greater than 160. Will also increase oral hydralazine dosage. Holding spironolactone due to AK I. Hyperlipidemia: Continue Lipitor. Chronic diastolic heart failure: Not in exacerbation. Hold lasix due to continue bronchodilators as needed. Diabetes mellitus type 2: Well controlled. Moderate risk for complications. DVT prophylaxis with subcutaneous heparin <Shimon Jc - Last Filed: 08/13/18 13:53> (1) UTI (urinary tract infection) Qualifiers: Urinary tract infection type: acute cystitis Hematuria presence: with hematuria Qualified Code(s): N30.01 - Acute cystitis with hematuria (2) Pneumonia Qualifiers: Pneumonia type: due to unspecified organism Laterality: bilateral Lung location: lower lobe of lung Qualified Code(s): J18.1 - Lobar pneumonia, unspecified organism (4) HLD (hyperlipidemia) Qualifiers: Hyperlipidemia type: pure hypercholesterolemia Qualified Code(s): E78.00 - Pure hypercholesterolemia, unspecified; E78.0 - Pure hypercholesterolemia (5) HTN (hypertension) Qualifiers: Hypertension type: essential hypertension Qualified Code(s): I10 - Essential (primary) hypertension <Ruma Bai - Last Filed: 08/13/18 15:31> (1) UTI (urinary tract infection) Qualifiers: Urinary tract infection type: acute cystitis Hematuria presence: with hematuria Qualified Code(s): N30.01 - Acute cystitis with hematuria (2) UTI (urinary tract infection) Qualifiers: Urinary tract infection type: catheter-associated UTI Indwelling urinary catheter type: unspecified Encounter type: initial encounter Qualified Code(s): T83.511A - Infection and inflammatory reaction due to indwelling ureth ral catheter, initial encounter; N39.0 - Urinary tract infection, site not specified (4) Pneumonia Qualifiers: Pneumonia type: due to unspecified organism Laterality: unspecified laterality Lung location: unspecified part of lung Qualified Code(s): J18.9 - Pneumonia, unspecified organism (5) Altered mental status Qualifiers: Altered mental status type: unspecified Qualified Code(s): R41.82 - Altered mental status, unspecified
[2018-08-13] MEDS ORDERED: (Ubidecarenone [Co Q-10] 100 MG) PO SCH (09:00)
[2018-08-13] MEDS: Venlafaxine XR (24 HR) 75 MG CAP.ER.24H PO SCH (09:45)
[2018-08-13] MEDS: Ringers Solution, Lactated 1,000 ML IVC SCH ×3 (10:04→23:11)
[2018-08-13] MEDS: Famotidine 20 MG TABLET PO SCH (10:05)
[2018-08-13] MEDS: hydrALAZINE 10 MG TABLET PO SCH ×3 (10:06→20:07)
[2018-08-13] MEDS: cefTRIAXone 1,000 MG in Water for inj. (sterile) 20 ML 10 ML IVP SCH (10:06)
[2018-08-14] MEDS: Ondansetron ODT 4 MG TAB.RAPDIS PO PRN ×2 (04:12→13:16)
[2018-08-14] MEDS: *HR* Heparin 5,000 UNIT/ML VIAL SQ SCH ×2 (05:43→18:11)
[2018-08-14 05:54] LABS: Hematocrit 29.5 % (35.3-44.9); Hemoglobin 9.2 g/dL (11.5-15.4); Mean Corpuscular HGB Conc 31.2 g/dL (31.6-35.5); Mean Corpuscular Hemoglobin 28.8 pg (28.0-33.3); Mean Corpuscular Volume 92.5 fL (83.0-100.0); Platelet Count 326 K/mcL (140-400); Red Blood Count 3.19 M/mcL (3.82-4.97); Red Cell Distribution Width 12.7 % (11.5-14.5)
[2018-08-14 06:13] LABS: Calcium 8.8 mg/dL (8.6-10.3); Potassium 5.1 mEq/L (3.5-5.1)
[2018-08-14] MEDS: Insulin LISPRO 300 UNITS/3 ML VIAL SQ SCH ×4 (08:05→21:40)
[2018-08-14] MEDS: Ringers Solution, Lactated 1,000 ML IVC SCH ×2 (08:06→19:00)
--- NOTE | 2018-08-14 08:06 | Internal Med Progress Note ---
<Ruma Bai - Last Filed: 08/14/18 12:14> Hospitalist Progress Note - Encounter Date of Encounter: 08/14/18 Time of Encounter: 10:10 - Exam Vitals: Temp Pulse Resp BP Pulse Ox 98.3 F 116 17 157/77 99 08/14/18 11:17 08/14/18 11:17 08/14/18 11:17 08/14/18 11:17 08/14/18 11:17 - Assessment and Plan (1) UTI (urinary tract infection) Current Visit: Yes Status: Acute (2) UTI (urinary tract infection) Current Visit: Yes Status: Acute (3) CHARITO (acute kidney injury) Current Visit: Yes Status: Acute (4) Pneumonia Current Visit: Yes Status: Acute (5) Altered mental status Current Visit: Yes Status: Acute - Time Spent with Patient Total time spent is greater than 50% in coordination of care (as documented) at patient's floor/unit and/or counseling patient: Internal Medicine: Result - Labs CBC & Chem 7: 08/14/18 05:40 08/14/18 05:40 Labs: Short CBC 08/14/18 Range/Units 05:40 WBC 10.5 (4.3-11.1) K/mcL Hgb 9.2 L (11.5-15.4) g/dL Hct 29.5 L (35.3-44.9) % Plt Count 326 (140-400) K/mcL BMP 08/14/18 05:40 Sodium 138 Potassium 5.1 Chloride 99 Carbon Dioxide 29 BUN 31 H Creatinine 3.66 H Glucose 184 H Calcium 8.8 Consult Discharge Plan - Plan Referrals: Blayne Do [Primary Care Provider] - - Attending Attestation I saw evaluated and examined this patient and my medical decision-making was reviewed with the Resident Physician, Shimon Jc. I agree with the documented findings, disposition and treatment plan as described except to any changes set forth below. We independently had [id number] contact with the patient. Patient in mild distress. Reports worsening nausea today. Has not had any episodes of emesis. Does continue to have left-sided flank pain. Although it has improved overall. No fever or chills reported. She did receive antiemetic medication and states that it is starting to help her. Patient does report some burning while passing urine. General: Patient is alert, mild distress, oriented x 3 Respiratory: Decreased breath sounds at both bases. Cardiovascular: Regular rate and rhythm. s1 and s2 normal No clicks, rubs, gallops, or murmurs. No pedal edema Abdomen: Abdomen is soft, tenderness in left upper quadrant and flank region improved today. No guarding or rigidity. Bowel sounds are present Musculoskeletal: Spontaneously moving all extremities Skin: warm, dry, intact. Acute kidney injury: Renal function continues to improve. Nephrology consulted. Appreciate recommendations. Will continue IV hydration. Acute urinary tract infection: Resolved. Patient completed 3 days of ceftriaxone. Urine culture showing no growth. Recent pneumonia: No indication for further antibiotics at this time. Will add incentive spirometry. Essential hypertension: Blood pressure remains elevated. Continue to hold spironolactone. We will increase hydralazine dosage. Hyperlipidemia: Continue Lipitor. Chronic diastolic heart failure: N not in acute exacerbation. Continue to hold Lasix. COPD: Continue bronchodilators as needed. Diabetes mellitus type 2: Continue ADA diet and sliding scale insulin regimen. DVT prophylaxis with subcutaneous heparin moderate risk for complications <Shimon Jc - Last Filed: 08/14/18 13:00> Hospitalist Progress Note - Encounter Date of Encounter: 08/14/18 - Subjective Interval History: Patient states that overall she feels much improved. She states she continues to feel less confused. Currently patient complains of nausea this morning, no vomiting no diarrhea. She was given antinausea medicine early in the morning which helped slightly. She denies any abdominal pain, states the left flank pain is much improved. She states that she does continue to have slight burning with urination. She denies any shortness of breath, chest pain or fevers overnight. - Exam Vitals: Temp Pulse Resp BP Pulse Ox 98.1 F 113 17 144/68 98 08/14/18 07:38 08/14/18 07:38 08/14/18 07:38 08/14/18 07:38 08/14/18 07:38 Exam: Gen.: Patient is alert and oriented to place time and month, appears pleasant HEENT: Head appears to be normocephalic atraumatic, eyes are equal round reactive to light, extraocular motors are intact Chest: Regular rate and rhythm, systolic murmur heard best at the right upper sternal border. No gallops or rubs Respiratory: decreased breath sounds throughout Abdomen: Soft, nontender, no guarding or rigidity Lower extremities: No lesions, no lower extremity pitting edema, diffusely tender throughout, chronic and unchanged from baseline, no bruising to the anterior aspects of the knees, no instability to the bilateral hips or tenderness to palpation Neuro: Sensation is intact to her upper and lower extremities bilaterally, strength is intact the upper and lower cavities bilaterally cranial nerves II through XII intact . - Assessment and Plan (1) Kpzht-jy-onknpjn kidney injury Current Visit: No Status: Acute Assessment and Plan: Patient with history of CKD Retroperitoneal ultrasound was negative for hydronephrosis did show small amount of echogenic material layering in the bladder. Patient continues to have multiple voids per day Most likely has to do with ATN given recent history of vancomycin, Lasix and spironolactone. These medications have been stopped at this point in time Creatinine on admission was 4.77 continues to down trend at 3.66 with 2 days of hydration Plan Stop Rocephin Nephrology consult for further recommendations We will hold all nephrotoxic medication We will monitor improvement Continue to hydrate with IV fluids (2) Pneumonia Current Visit: Yes Status: Chronic Assessment and Plan: Patient was noted to be admitted for pneumonia approximately 1 week ago Was treated inpatient with vancomycin cefepime Chest x-ray performed in the ED showed chronic COPD as well as right lung base interstitial sore changes that are mild could be edema or pneumonitis also haziness overlying the right costophrenic angle with possible small pleural effusion Abdominal CT showed mild inflammation and thickening of the urinary bladder with a small focus of gas within the urinary bladder no renal or ureteral calculi no evidence of hydronephrosis. Continued evidence of bibasilar pulmonary opacities right greater than left is also trace right pleural effusion Plan Possible residual pneumonia previously treated pneumonia While in patient had been treated with vancomycin and cefepime was discharged on Cefdinir Current improvement overall continue to monitor incentive spirometry (3) HLD (hyperlipidemia) Current Visit: No Status: Chronic Assessment and Plan: Continue at-home medications (4) HTN (hypertension) Current Visit: No Status: Chronic Assessment and Plan: Patient found to be hypertensive, patient currently on metoprolol 25 by mouth twice per day Plan We will increase metoprolol to 50 mg twice a day Continue to monitor blood pressure Do not restart any nephrotoxic drugs such as Lasix or spironolactone (5) UTI (urinary tract infection) Current Visit: Yes Status: Ruled-out Assessment and Plan: Urinalysis was positive for leuk esterase as well as WBCs. Patient has remained afebrile. Urine shows no growth. Leukocyte esterase and WBCs seen on urinalysis are most likely due to ATN Blood cell count on arrival was 13.6, currently 10.5 Plan Stop Rocephin - Time Spent with Patient Total time spent is greater than 50% in coordination of care (as documented) at patient's floor/unit and/or counseling patient: Internal Medicine: Result - Labs CBC & Chem 7: 08/14/18 05:40 08/14/18 05:40 Labs: Short CBC 08/14/18 Range/Units 05:40 WBC 10.5 (4.3-11.1) K/mcL Hgb 9.2 L (11.5-15.4) g/dL Hct 29.5 L (35.3-44.9) % Plt Count 326 (140-400) K/mcL [facility] 08/14/18 05:40 Sodium 138 Potassium 5.1 Chloride 99 Carbon Dioxide 29 BUN 31 H Creatinine 3.66 H Glucose 184 H Calcium 8.8 <Ruma Bai - Last Filed: 08/14/18 12:14> (1) UTI (urinary tract infection) Qualifiers: Urinary tract infection type: acute cystitis Hematuria presence: with hematuria Qualified Code(s): N30.01 - Acute cystitis with hematuria (2) UTI (urinary tract infection) Qualifiers: Urinary tract infection type: catheter-associated UTI Indwelling urinary catheter type: unspecified Encounter type: initial encounter Qualified C ode(s): T83.511A - Infection and inflammatory reaction due to indwelling urethral catheter, initial encounter; N39.0 - Urinary tract infection, site not specified (4) Pneumonia Qualifiers: Pneumonia type: due to unspecified organism Laterality: unspecified laterality Lung location: unspecified part of lung Qualified Code(s): J18.9 - Pneumonia, unspecified organism (5) Altered mental status Qualifiers: Altered mental status type: unspecified Qualified Code(s): R41.82 - Altered mental status, unspecified <HoseaAlidashayna Gamez - Last Filed: 08/14/18 13:00> (2) Pneumonia Qualifiers: Pneumonia type: due to unspecified organism Laterality: bilateral Lung location: lower lobe of lung Qualified Code(s): J18.1 - Lobar pneumonia, unspecified organism (3) HLD (hyperlipidemia) Qualifiers: Hyperlipidemia type: pure hypercholesterolemia Qualified Code(s): E78.00 - Pure hypercholesterolemia, unspecified; E78.0 - Pure hypercholesterolemia (4) HTN (hypertension) Qualifiers: Hypertension type: essential hypertension (5) UTI (urinary tract infection) Qualifiers: Urinary tract infection type: catheter-associated UTI Indwelling urinary catheter type: unspecified Encounter type: initial encounter Qualified Code(s): T83.511A - Infection and inflammatory reaction due to indwelling urethral catheter, initial encounter; N39.0 - Urinary tract infection, site not specified
[2018-08-14] MEDS ORDERED: Ondansetron ODT 4 MG TAB.RAPDIS SL ONE (08:42)
--- NOTE | 2018-08-14 11:07 | Nephrology Consult Note ---
Date of Encounter: 08/14/18 Time of Encounter: 11:00 Assessment and Plan (1) CHARITO (acute kidney injury) Current Visit: Yes Status: Acute Elevated in the setting of recent sepsis with exposures to nephrotoxins and likely poor po intake likely with ATN No acute indication for [employer] at this time Supportive care advised for now Can continue IVF Will check urine studies, ck, uric acid levels US of kidney showed no hydronephrosis Continuee to avoid nephrotoxins if possible (2) CKD (chronic kidney disease) stage 3, GFR 30-59 ml/min Current Visit: Yes Status: Acute Baseline GFR around 40-50s (3) UTI (urinary tract infection) Current Visit: Yes Status: Ruled-out Per primary team Qualifiers: Urinary tract infection type: catheter-associated UTI Indwelling urinary catheter type: unspecified Encounter type: initial encounter Qualified Code(s): T83.511A - Infection and inflammatory reaction due to indwelling urethral catheter, initial encounter; N39.0 - Urinary tract infection, site not specified History of Present Illness - Reason for Consult Consult date: 08/14/18 Acute Kidney Injury, Chronic Kidney Disease Requesting physician: Shimon Jc - History of Present Illness 73 y o female with PMH of DM, HTN, CHF, 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 She was noted with elevated SCr at 4.77, GFR 9 on admission improving only to 3.66, GFR 12 after 2 days of fluids. Baseline GFR around 40-50s with last SCr at 0.75 during last admission. Mild prior CHARITO noted this month already. She was on lisinopril, lasix and aldactone on admission now discontinued. Pt seen and examined with some nausea today. Past Med Surg Social Fam HX - Past Medical History Medical history: CHF, COPD, DVT, diabetes, fibromyalgia, GERD, hepatitis, hyperlipidemia, hypertension, renal disease, seizures, syncope Additional medical history: Pneumonia, general muscle weakness, chronic pain, myalgias, joint pain, symbolic dysfunction, chronic airway obstruction. Psychiatric history: anxiety, depression, panic disorder - Past Surgical History Surgical History: no surgical history Additional surgical history: Tubal ligation, cholecystectomy - Social History Smoking Status: Former smoker Smokeless Tobacco Status: No Alcohol use: none Drug use: opiates, other - Family History Mother Adopted: No Family Member Ethnicity: Non- Living Status: Hx Family Endocrine Disorder: Yes (DM) Brother Family Member Ethnicity: Non- Living Status: Sister Family Member Ethnicity: Non- Living Status: Hx Family Respiratory Disorders: Yes (COPD) Father Family Member Ethnicity: Non- Living Status: Hx Family Cardiac Disorders: Yes (HTN) Hx Family Respiratory Disorders: Yes (COPD) Hx Family Cancer: Yes Hx Family GI Disorders: No Hx Family Endocrine Disorder: Yes (DM) Hx Family Neuromuscular Disorders: No Hx Family Neurologic Disorders: No Hx Family HEENT Disorders: No Hx Family Autoimmune Disorders: No Medications and Allergies Docusate Sodium [Dok] 100 mg PO DAILY PRN 08/03/18 [History] Famotidine [Pepcid] 20 mg PO DAILY 08/03/18 [History] Furosemide [Lasix] 40 mg PO DAILY 08/03/18 [History] Gabapentin [Neurontin] 600 mg PO BID 08/03/18 [History] Glucagon,Human Recombinant [Glucagon Emergency Kit] 1 mg SQ ONCE PRN 08/03/18 [History] Insulin DETEMIR [Levemir] 25 unit SQ DAILY 08/03/18 [History] Ipratropium Neb [Atrovent Neb] 0.5 mg IH TID PRN 08/03/18 [History] Lisinopril [Zestril] 10 mg PO DAILY 08/03/18 [History] Loratadine [Claritin] 10 mg PO DAILY 08/03/18 [History] Ondansetron HCl 8 mg PO Q8H PRN 08/03/18 [History] Spironolactone 25 mg PO DAILY 08/03/18 [History] Ubidecarenone [Co Q-10] 100 mg PO DAILY 08/03/18 [History] Atorvastatin [Lipitor] 40 mg PO HS 30 Days #30 tablet 08/08/18 [Rx] LORazepam [Ativan] 1 mg PO QID 10 Days #20 tablet 08/08/18 [Rx] Metoprolol [Lopressor] 25 mg PO BID 30 Days #60 tablet 08/08/18 [Rx] Venlafaxine HCl [Effexor Xr] 75 mg PO DAILY 08/12/18 [History] hydrALAZINE [HydrALAZINE] 10 mg PO TID 08/12/18 [History] Allergy/AdvReac Type Severity Reaction Status Date / Time Penicillins Allergy Hives Verified 08/03/18 14:22 tuberculin,PPD,multi-puncture Allergy Hives Verified 08/03/18 14:22 clindamycin [From Cleocin] AdvReac Rash Verified 08/03/18 14:22 diazepam AdvReac Fatigued Verified 08/03/18 14:22 meclizine [From Antivert] AdvReac Dizziness Verified 08/03/18 14:22 nalbuphine [From Nubain] AdvReac Hallucinati Verified 08/03/18 14:22 ng promethazine [From Phenergan] AdvReac Irritable Verified 08/03/18 14:22 propoxyphene AdvReac Itching Verified 08/03/18 14:22 [From Darvocet-N 100] Review of Systems All Systems review (narrative): The erst of the systems are negative Constitutional: anorexia (admits), fatigue (admits) Cardiovascular: chest pain (denies), leg edema (denies) Respiratory: dyspnea (denies) Gastrointestinal: nausea (admits) Exam - Vital Signs Vital signs: Initial Vital Signs Temp Pulse Resp BP Pulse Ox 99.1 F 94 22 120/54 86 08/12/18 11:35 08/12/18 11:35 08/12/18 11:35 08/12/18 11:35 08/12/18 11:35 Vital Signs - Last 8 Hours Temp Pulse Resp BP Pulse Ox 08/14/18 07:38 98.1 F 113 17 144/68 98 08/14/18 04:52 98.5 F 111 16 154/79 97 Intake and Output 08/13/18 08/14/18 08/14/18 23:59 07:59 15:59 Intake Total 1000 / 1000 1000 / 1000 Output Total 300 / 300 Balance 700 / 700 1000 / 1000 Intake: IV Fluids 1000 / 1000 1000 / 1000 Lactated Ringers 1,000 ML @ 100 1000 / 1000 1000 / 1000 mls/hr IVC .Q10H CONY Rx#: [id number] Oral 0 / 0 Output: Urine 300 / 300 Other: Weight 83.5 kg Blood Glucose* 191 168 Patient Weight 08/14/18 23:59 Weight 83.5 kg - General Appearance General appearance: chronically ill EENT: ATNC, mucous membranes moist Neck: no JVD, supple Additional Comments: good areation ant bilat Cardiology: no edema, normal S1, normal S2 Gastrointestinal: no tenderness, no guarding Integumentary: warm and dry Neurologic: no focal deficit Musculoskeletal: no deformities Psychiatric: cooperative Results - Lab Results 08/15/18 04:54 08/15/18 04:54 Most recent lab results Calcium 8.8 mg/dL (8.6-10.3) 08/14/18 05:40 Consult Discharge Plan - Plan Referrals: Blayne Do [Primary Care Provider] - (ecf)
[2018-08-14] MEDS: Venlafaxine XR (24 HR) 75 MG CAP.ER.24H PO SCH (11:34)
[2018-08-14] MEDS: hydrALAZINE 10 MG TABLET PO SCH ×3 (11:34→18:11)
[2018-08-14] MEDS: Famotidine 20 MG TABLET PO SCH (11:35)
[2018-08-14 11:42] LABS: Uric Acid 7.5 mg/dL (2.3-7.6)
[2018-08-14] MEDS ORDERED: Prochlorperazine 10 MG/2 ML VIAL IVP PRN (18:20)
[2018-08-15] MEDS: Ondansetron ODT 4 MG TAB.RAPDIS PO PRN (02:14)
[2018-08-15] MEDS ORDERED: *HR* LORazepam 1 MG TABLET PO ONE (03:25)
[2018-08-15 05:28] LABS: Basophils % 0.3 %; Eosinophils # 0.1 K/mcL (0.0-0.6); Eosinophils % 1.2 %; Hematocrit 26.7 % (35.3-44.9); Hemoglobin 8.2 g/dL (11.5-15.4); Immature Granulocytes % 0.4 % (0-4); Lymphocytes % 9.3 %; Mean Corpuscular HGB Conc 30.7 g/dL (31.6-35.5); Mean Corpuscular Hemoglobin 28.6 pg (28.0-33.3); Mean Platelet Volume 10.1 fL (9.4-12.4); Monocytes # 0.8 K/mcL (0.0-1.3); Monocytes % 7.2 %; Neutrophils # 8.9 K/mcL (1.6-8.9); Platelet Count 309 K/mcL (140-400); Red Blood Count 2.87 M/mcL (3.82-4.97); Red Cell Distribution Width 12.8 % (11.5-14.5); Segmented Neutrophils % 81.6 %
[2018-08-15 05:47] LABS: Calcium 8.5 mg/dL (8.6-10.3); Potassium 4.8 mEq/L (3.5-5.1)
[2018-08-15] MEDS: *HR* Heparin 5,000 UNIT/ML VIAL SQ SCH ×2 (06:16→16:54)
--- NOTE | 2018-08-15 08:37 | Internal Med Progress Note ---
<Shimon Jc - Last Filed: 08/15/18 11:39> Hospitalist Progress Note - Encounter Date of Encounter: 08/15/18 Time of Encounter: 10:10 - Subjective Interval History: Patient states that overall she feels much improved. Overnight, patient had nausea which was not improved with Zofran. Compazine was ordered, patient states this significant improved her symptoms. She denies any vomiting during these episodes. She denies any current abdominal pain or diarrhea. Patient currently says that her nausea is much improved. No fevers or chills overnight. - Exam Vitals: Temp Pulse Resp BP Pulse Ox 98.6 F 92 17 172/95 99 08/15/18 07:43 08/15/18 07:43 08/15/18 07:43 08/15/18 07:43 08/15/18 08:03 Exam: Gen.: Patient is alert and oriented to place time and month, appears pleasant HEENT: Head appears to be normocephalic atraumatic, eyes are equal round reactive to light, extraocular motors are intact Chest: Regular rate and rhythm, systolic murmur heard best at the right upper sternal border. No gallops or rubs Respiratory: decreased breath sounds throughout Abdomen: Soft, nontender, no guarding or rigidity Lower extremities: No lesions, no lower extremity pitting edema, diffusely tender throughout, chronic and unchanged from baseline, no instability to the bilateral hips or tenderness to palpation Neuro: Sensation is intact to her upper and lower extremities bilaterally, strength is intact the upper and lower cavities bilaterally cranial nerves II through XII intact . - Assessment and Plan (1) Asqho-mj-yccccit kidney injury Current Visit: No Status: Acute Assessment and Plan: Patient with history of CKD Retroperitoneal ultrasound was negative for hydronephrosis did show small amount of echogenic material layering in the bladder. Patient continues to have multiple voids per day Most likely has to do with ATN given recent history of vancomycin, Lasix and spironolactone. These medications have been stopped at this point in time Creatinine on admission was 4.77 continues to slowly improve with SCr 2.96 with three days of hydration Plan Per nephrology will continue to monitor, SCr has improved slightly today at 2.96 We will hold all nephrotoxic medication We will monitor improvement We will maintain IV fluid hydration at 50 mL's per hour (2) Pneumonia Current Visit: Yes Status: Chronic Assessment and Plan: Patient was noted to be admitted for pneumonia approximately 1 week ago Was treated inpatient with vancomycin cefepime Chest x-ray performed in the ED showed chronic COPD as well as right lung base interstitial sore changes that are mild could be edema or pneumonitis also haziness overlying the right costophrenic angle with possible small pleural effusion Abdominal CT showed mild inflammation and thickening of the urinary bladder with a small focus of gas within the urinary bladder no renal or ureteral calculi no evidence of hydronephrosis. Continued evidence of bibasilar pulmonary opacities right greater than left is also trace right pleural effusion Plan Continue to monitor symptoms, remains afebrile and WBC 10.9 today Current improvement overall continue to monitor incentive spirometry (3) HLD (hyperlipidemia) Current Visit: No Status: Chronic Assessment and Plan: Continue at-home medications (4) HTN (hypertension) Current Visit: No Status: Chronic Assessment and Plan: Patient found to be hypertensive, patient currently on metoprolol 25 by mouth twice per day Due to nausea that the patient was experienced yesterday, patient did not receive any of her medications until the evening dose. Plan Continue metoprolol 50 mg Continue to monitor blood pressure Do not restart any nephrotoxic drugs such as Lasix or spironolactone (5) UTI (urinary tract infection) Current Visit: Yes Status: Ruled-out - Time Spent with Patient Total time spent is greater than 50% in coordination of care (as documented) at patient's floor/unit and/or counseling patient: Internal Medicine: Result - Labs CBC & Chem 7: 08/15/18 04:54 08/15/18 04:54 Labs: Short CBC 08/15/18 Range/Units 04:54 WBC 10.9 (4.3-11.1) K/mcL Hgb 8.2 L (11.5-15.4) g/dL Hct 26.7 L (35.3-44.9) % Plt Count 309 (140-400) K/mcL Neutrophils # 8.9 (1.6-8.9) K/mcL BMP 08/14/18 08/15/18 05:40 04:54 Sodium 138 139 Potassium 5.1 4.8 Chloride 99 98 Carbon Dioxide 29 34 H BUN 31 H 30 H Creatinine 3.66 H 2.96 H Glucose 184 H 183 H Calcium 8.8 8.5 L Consult Discharge Plan - Plan Referrals: Blayne Do [Primary Care Provider] - <Ruma Bai - Last Filed: 08/15/18 14:03> Hospitalist Progress Note - Encounter Date of Encounter: 08/15/18 Time of Encounter: 13:57 - Exam Vitals: Temp Pulse Resp BP Pulse Ox 98.8 F 101 18 164/93 98 08/15/18 12:34 08/15/18 12:34 08/15/18 12:34 08/15/18 12:34 08/15/18 12:34 - Assessment and Plan (1) UTI (urinary tract infection) Current Visit: Yes Status: Deleted (2) UTI (urinary tract infection) Current Visit: Yes Status: Ruled-out (3) CHARITO (acute kidney injury) Current Visit: Yes Status: Acute (4) Pneumonia Current Visit: Yes Status: Acute (5) Altered mental status Current Visit: Yes Status: Acute - Time Spent with Patient Total time spent is greater than 50% in coordination of care (as documented) at patient's floor/unit and/or counseling patient: Internal Medicine: Result - Labs CBC & Chem 7: 08/15/18 04:54 08/15/18 04:54 Labs: Short CBC 08/15/18 Range/Units 04:54 WBC 10.9 (4.3-11.1) K/mcL Hgb 8.2 L (11.5-15.4) g/dL Hct 26.7 L (35.3-44.9) % Plt Count 309 (140-400) K/mcL Neutrophils # 8.9 (1.6-8.9) K/mcL BMP 08/15/18 04:54 Sodium 139 Potassium 4.8 Chloride 98 Carbon Dioxide 34 H BUN 30 H Creatinine 2.96 H Glucose 183 H Calcium 8.5 L - Attending Attestation I saw evaluated and examined this patient and my medical decision-making was reviewed with the Resident Physician, Shimon Jc. I agree with the documented findings, disposition and treatment plan as described except to any changes set forth below. We independently had [id number] contact with the patient. Patient feels better today. She does complain of dysuria. No fevers or chills. No chest pain. Abdominal discomfort and flank pain have improved. General: Patient is alert, mild distress, oriented x 3 Respiratory: Decreased breath sounds at both bases. Cardiovascular: Regular rate and rhythm. s1 and s2 normal No clicks, rubs, gallops, or murmurs. No pedal edema Abdomen: Abdomen is soft, nontender. No guarding or rigidity. Bowel sounds are present Musculoskeletal: Spontaneously moving all extremities Skin: warm, dry, intact. Acute kidney injury: Creatinine 2.96 today. continues to improve. Will decrease IV fluid rate. Nephrology following. Acute urinary tract infection: Resolved. Patient does complain of burning with urination. Likely due to recent UTI. Will place her on Pyridium. Recent pneumonia:Resolved. Essential hypertension:Metoprolol dosage was increased yesterday. Blood pressure remains elevated. Will also increase hydralazine dose. Continue to monitor. Hyperlipidemia: Continue Lipitor. Chronic diastolic heart failure: Not in acute exacerbation. Holding Lasix for CHARITO COPD: Continue bronchodilators as needed. Diabetes mellitus type 2:Continue current insulin regimen. Blood Sugars fairly controlled DVT prophylaxis with subcutaneous heparin Moderate risk for complications ____ <Shimon Jc - Last Filed: 08/15/18 11:39> (2) Pneumonia Qualifiers: Pneumonia type: due to unspecified organism Laterality: bilateral Lung location: lower lobe of lung Qualified Code(s): J18.1 - Lobar pneumonia, unspecified organism (3) HLD (hyperlipidemia) Qualifiers: Hyperlipidemia type: pure hypercholesterolemia Qualified Code(s): E78.00 - Pure hypercholesterolemia, unspecified; E78.0 - Pure hypercholesterolemia (4) HTN (hypertension) Qualifiers: Hypertension type: essential hypertension (5) UTI (urinary tract infection) Qualifiers: Urinary tract infection type: catheter-associated UTI Indwelling urinary catheter type: unspecified Encounter type: initial encounter Qualified Code(s): T83.511A - Infection and inflammatory reaction due to indwelling ur ethral catheter, initial encounter; N39.0 - Urinary tract infection, site not specified <Ruma Bai - Last Filed: 08/15/18 14:03> (1) UTI (urinary tract infection) Qualifiers: Urinary tract infection type: acute cystitis Hematuria presence: with hematuria Qualified Code(s): N30.01 - Acute cystitis with hematuria (2) UTI (urinary tract infection) Qualifiers: Urinary tract infection type: catheter-associated UTI Indwelling urinary catheter type: unspecified Encounter type: initial encounter Qualified Code(s): T83.511A - Infection and inflammatory reaction due to indwelling urethral catheter, initial encounter; N39.0 - Urinary tract infection, site not specified (4) Pneumonia Qualifiers: Pneumonia type: due to unspecified organism Laterality: unspecified laterality Lung location: unspecified part of lung Qualified Code(s): J18.9 - Pneumonia, unspecified organism (5) Altered mental status Qualifiers: Altered mental status type: unspecified Qualified Code(s): R41.82 - Altered mental status, unspecified
[2018-08-15] MEDS: Ringers Solution, Lactated 1,000 ML IVC SCH ×2 (09:08→12:24)
[2018-08-15] MEDS: Famotidine 20 MG TABLET PO SCH (09:08)
[2018-08-15] MEDS: hydrALAZINE 10 MG TABLET PO SCH (09:08)
[2018-08-15] MEDS: Venlafaxine XR (24 HR) 75 MG CAP.ER.24H PO SCH (09:08)
[2018-08-15] MEDS: Insulin LISPRO 300 UNITS/3 ML VIAL SQ SCH ×4 (09:09→21:06)
--- NOTE | 2018-08-15 09:19 | Nephrology Progress Note ---
Date of Encounter: 08/15/18 Time of Encounter: 09:30 - Assessment and Plan (1) CHARITO (acute kidney injury) Current Visit: Yes Status: Acute SCr continues to slowly improve at 2.96, GFR 16 UOP not documented yesterday but 600cc so far today CK low and urica caid WNL. Urine studies not yet done as ordered yesterday Continue to avoid nephrotoxins if possible Continue IVf for now No acute indication for [employer] at this time (2) CKD (chronic kidney disease) stage 3, GFR 30-59 ml/min Current Visit: Yes Status: Acute Baseline GFR around 40-50s (3) UTI (urinary tract infection) Current Visit: Yes Status: Ruled-out per primary team Qualifiers: Urinary tract infection type: catheter-associated UTI Indwelling urinary catheter type: unspecified Encounter type: initial encounter Qualified Code(s): T83.511A - Infection and inflammatory reaction due to indwelling urethral catheter, initial encounter; N39.0 - Urinary tract infection, site not specified Subjective Interval history: Pt seen and examined feels better with less nausea. Objective - Vital Signs Vital signs: Vital Signs Temp Pulse Resp BP Pulse Ox 08/15/18 08:03 99 08/15/18 07:43 98.6 F 92 17 172/95 99 08/15/18 04:48 98.3 F 103 16 160/79 97 08/15/18 00:21 98.2 F 94 16 152/85 99 08/14/18 20:36 98.3 F 110 16 153/86 100 08/14/18 15:49 98.6 F 116 15 168/78 95 08/14/18 11:17 98.3 F 116 17 157/77 99 Intake and Output 08/14/18 08/15/18 08/15/18 23:59 07:59 15:59 Intake Total 1000 / 1000 1000 / 1000 60 / 60 Output Total 600 / 600 Balance 1000 / 1000 400 / 400 60 / 60 Intake: IV Fluids 1000 / 1000 1000 / 1000 Lactated Ringers 1,000 ML @ 100 1000 / 1000 1000 / 1000 mls/hr IVC .Q10H [facility] Rx#: [id number] Oral 60 / 60 Output: Urine 600 / 600 Other: Weight 82.8 kg Blood Glucose* 176 171 Patient Weight 08/15/18 23:59 Weight 82.8 kg - General Appearance General appearance: Present: chronically ill (NAD) EENT: Present: ATNC, mucous membranes moist Neck: Present: no JVD, supple Respiratory: Present: clear Cardiology: Present: no edema, normal S1, normal S2 Gastrointestinal: Present: no tenderness, no guarding Integumentary: Present: warm and dry Neurologic: Present: no focal deficit Musculoskeletal: Present: no deformities Psychiatric: Present: mood/affect appropriate, cooperative - Lab 08/15/18 04:54 08/15/18 04:54 Most recent lab results Calcium 8.5 mg/dL (8.6-10.3) L 08/15/18 04:54 Consult Discharge Plan - Plan Referrals: Blayne Do [Primary Care Provider] - (ecf)
[2018-08-15] MEDS: *HR* LORazepam 1 MG TABLET PO SCH ×4 (10:44→21:06)
[2018-08-15] MEDS: hydrALAZINE 25 MG TABLET PO SCH ×2 (15:37→21:05)
[2018-08-16] MEDS: Ondansetron ODT 4 MG TAB.RAPDIS PO PRN ×2 (00:55→12:53)
[2018-08-16] MEDS: *HR* Heparin 5,000 UNIT/ML VIAL SQ SCH (05:24)
[2018-08-16 06:40] LABS: Calcium 8.9 mg/dL (8.6-10.3); Potassium 5.1 mEq/L (3.5-5.1)
[2018-08-16 07:08] LABS: Basophils % 0.4 %; Eosinophils # 0.3 K/mcL (0.0-0.6); Eosinophils % 2.5 %; Hematocrit 31.5 % (35.3-44.9); Hemoglobin 9.5 g/dL (11.5-15.4); Immature Granulocytes % 0.4 % (0-4); Lymphocytes # 1.2 K/mcL (0.6-4.6); Lymphocytes % 11.4 %; Mean Corpuscular HGB Conc 30.2 g/dL (31.6-35.5); Mean Corpuscular Hemoglobin 28.7 pg (28.0-33.3); Mean Corpuscular Volume 95.2 fL (83.0-100.0); Mean Platelet Volume 10.1 fL (9.4-12.4); Monocytes # 0.8 K/mcL (0.0-1.3); Monocytes % 7.7 %; Neutrophils # 8.4 K/mcL (1.6-8.9); Platelet Count 310 K/mcL (140-400); Red Blood Count 3.31 M/mcL (3.82-4.97); Red Cell Distribution Width 12.6 % (11.5-14.5); Segmented Neutrophils % 77.6 %
[2018-08-16] MEDS: Ringers Solution, Lactated 1,000 ML IVC SCH (07:50)
[2018-08-16] MEDS: Venlafaxine XR (24 HR) 75 MG CAP.ER.24H PO SCH (08:14)
[2018-08-16] MEDS: *HR* LORazepam 1 MG TABLET PO SCH ×3 (08:14→16:04)
[2018-08-16] MEDS: Famotidine 20 MG TABLET PO SCH (08:14)
[2018-08-16] MEDS: hydrALAZINE 25 MG TABLET PO SCH ×2 (08:14→15:39)
[2018-08-16] MEDS: Insulin LISPRO 300 UNITS/3 ML VIAL SQ SCH ×2 (08:19→12:33)
--- NOTE | 2018-08-16 10:31 | Neurology Progress Note ---
Date of Encounter: 08/16/18 Time of Encounter: 10:30 Assessment and Plan (1) Acute kidney injury superimposed on chronic kidney disease Current Visit: Yes Status: Acute - Patient presented with elevated creatinine at 4.77 superimposed on chronic kidney disease - Patients GFR is normal at 40-50, presented with a GFR of 9 - Baseline creatinine is within normal limits - Likely secondary to recent sepsis, nephrotoxic medications, poor by mouth intake - Patient has received IV fluid hydration; creatinine has improved to 2.35 - Last GFR was 20 - Retroperitoneal ultrasound demonstrated no evidence of hydronephrosis - Urine output yesterday was 900 mL Plan: - Renally dose medications, avoid nephrotoxins (2) UTI (urinary tract infection) Current Visit: Yes Status: Ruled-out - Presented with altered mental status and flank pain - Urinalysis demonstrated the presence of leukocyte esterase and white blood cells - White count was 13.6; has subsequently decreased to 10.9 - Previous urine culture demonstrated growth of Proteus sensitive to cephalosporins - Patient is currently on Rocephin - Management per primary team Qualifiers: Urinary tract infection type: catheter-associated UTI Indwelling urinary catheter type: unspecified Encounter type: initial encounter Qualified Code(s): T83.511A - Infection and inflammatory reaction due to indwelling urethral catheter, initial encounter; N39.0 - Urinary tract infection, site not specified (3) CKD (chronic kidney disease) stage 3, GFR 30-59 ml/min Current Visit: Yes Status: Acute - Baseline GFR around 40-50s - GFR today is 20 - Renal function continues to improve - Plan as above (4) Pneumonia Current Visit: No Status: Acute - A she had a recent admission for HCAP - Was treated inpatient with vancomycin and cefepime - CXR: Possible pneumonitis with small pleural effusion - Management per primary team Objective - Constitutional Vitals: Temp Pulse Resp BP Pulse Ox 98.7 F 95 16 142/80 96 08/16/18 06:58 08/16/18 06:58 08/16/18 06:58 08/16/18 06:58 08/16/18 06:58 Results - Laboratory Findings CBC and BMP: 08/16/18 06:39 08/16/18 06:14 Abnormal lab findings: Abnormal lab results RBC 3.31 M/mcL (3.82-4.97) L 08/16/18 06:39 Hgb 9.5 g/dL (11.5-15.4) L 08/16/18 06:39 Hct 31.5 % (35.3-44.9) L 08/16/18 06:39 MCHC 30.2 g/dL (31.6-35.5) L 08/16/18 06:39 Carbon Dioxide 35 mEq/L (23-29) H 08/16/18 06:14 BUN 28 mg/dL (8-23) H 08/16/18 06:14 Creatinine 2.35 mg/dL (0.60-1.20) H 08/16/18 06:14 Est GFR ( Amer) 25 (> 60) L 08/16/18 06:14 Est GFR (Non-Af Amer) 20 (> 60) L 08/16/18 06:14 Glucose 170 mg/dL (70-105) H 08/16/18 06:14 POC Glucose 169 mg/dL (70-99) H 08/16/18 06:58 Total Bilirubin 0.2 mg/dL (0.3-1.0) L 08/12/18 11:52 AST 12 Units/L (13-39) L 08/12/18 11:52 Creatine Kinase 26 Units/L (30-223) L 08/14/18 05:40 B-Natriuretic Peptide 136 pg/mL (Less than 100) H 08/12/18 11:52 Albumin 2.9 g/dL (3.5-5.7) L 08/12/18 11:52 Albumin/Globulin Ratio 0.8 (1.1-2.2) L 08/12/18 11:52 Lipase 5 Units/L (11-82) L 08/12/18 11:52 Urine Clarity Cloudy (Clear) A 08/12/18 12:48 Urine Blood Trace (Negative) H 08/12/18 12:48 Ur Leukocyte Esterase Large (Negative) H 08/12/18 12:48 Urine Microscopic WBC 50-100 per hpf (0-3) H 08/12/18 12:48 Ur Culture Indicated? YES (NO) A 08/12/18 12:48 Consult Discharge Plan - Plan Referrals: Blayne Do [Primary Care Provider] - (ecf)
[2018-08-16 11:36] VITALS: BP 129/70
--- NOTE | 2018-08-16 13:09 | Nephrology Progress Note ---
Date of Encounter: 08/16/18 Time of Encounter: 13:07 - Assessment and Plan (1) Acute kidney injury superimposed on chronic kidney disease Current Visit: Yes Status: Acute - Patient presented with elevated creatinine at 4.77 superimposed on chronic kidney disease - Patients GFR is normal at 40-50, presented with a GFR of 9 - Baseline creatinine is within normal limits - Likely secondary to recent sepsis, nephrotoxic medications, poor by mouth intake - Patient has received IV fluid hydration; creatinine has improved to 2.35 - Last GFR was 20 - Retroperitoneal ultrasound demonstrated no evidence of hydronephrosis - Urine output yesterday was 900 mL Plan: - Renally dose medications, avoid nephrotoxins - Follow up with nephrology in 4 weeks in the outpatient setting (2) UTI (urinary tract infection) Current Visit: Yes Status: Ruled-out - Presented with altered mental status and flank pain - Urinalysis demonstrated the presence of leukocyte esterase and white blood cells - White count was 13.6; has subsequently decreased to 10.9 - Previous urine culture demonstrated growth of Proteus sensitive to cephalosporins - Patient is currently on Rocephin - Management per primary team Qualifiers: Urinary tract infection type: catheter-associated UTI Indwelling urinary catheter type: unspecified Encounter type: initial encounter Qualified Code(s): T83.511A - Infection and inflammatory reaction due to indwelling urethral catheter, initial encounter; N39.0 - Urinary tract infection, site not specified (3) CKD (chronic kidney disease) stage 3, GFR 30-59 ml/min Current Visit: Yes Status: Acute - Baseline GFR around 40-50s - GFR today is 20 - Renal function continues to improve - Plan as above (4) Pneumonia Current Visit: No Status: Acute - A she had a recent admission for HCAP - Was treated inpatient with vancomycin and cefepime - CXR: Possible pneumonitis with small pleural effusion - Management per primary team Qualifiers: Qualified Code(s): J18.9 - Pneumonia, unspecified organism Subjective Interval history: Patient was seen and examined at bedside; patient appeared tired, but states that she feels better overall. Reports an improvement of her respiratory status. Denies having any fevers, chills, nausea, vomiting, abdominal pain, suprapubic pain, or dysuria. She has no further complaints. Objective - Vital Signs Vital signs: Vital Signs Temp Pulse Resp BP Pulse Ox 08/16/18 12:23 97 12/03/18 11:35 98.6 F 92 16 129/70 98 08/16/18 06:58 98.7 F 95 16 142/80 96 08/16/18 05:03 98.7 F 111 18 145/79 95 08/16/18 00:51 98.6 F 99 18 137/76 93 08/16/18 00:07 100 08/15/18 20:29 98.6 F 102 16 136/72 100 08/15/18 17:22 98.1 F 105 16 170/88 93 Intake and Output 08/15/18 08/16/18 08/16/18 23:59 07:59 15:59 Intake Total 1999 140 / 140 Output Total 600 / 600 700 / 700 Balance 1400 / 1400 -560 / -560 Intake: IV Fluids 1999 Lactated Ringers 1,000 ML @ 50 1000 / 1000 mls/hr IVC .Q20H [facility] Rx#: [id number] Oral 140 / 140 Output: Urine 600 / 600 Catheter 700 / 700 Female External Catheter 700 / 700 Other: Meal Breakfast Percent of Meal Consumed 75% Weight 84 kg Blood Glucose* 171 169 188 Patient Weight 08/16/18 23:59 Weight 84 kg - General Appearance Exam: General: Ill-appearing, fatigued Head: atraumatic, normocephalic Neck: Supple, trachea midline; No lymphadenopathy Respiratory: Diminished breath sounds bilaterally Cardiovascular: RRR, +S1, +S2; no murmurs, rubs, gallops Abdomen: Soft, nontender Extremities: Bruising present on bilateral lower extremities Neurological: CN II-XII intact Psychiatric: Normal affect, normal mood Skin: Dry, intact - Lab 08/16/18 06:39 08/16/18 06:14 Most recent lab results Calcium 8.9 mg/dL (8.6-10.3) 08/16/18 06:14 Consult Discharge Plan - Plan Referrals: Blayne Do [Primary Care Provider] - (ecf)
--- NOTE | 2018-08-16 14:21 | Discharge Summary ---
<Ruma Bai - Last Filed: 08/16/18 15:09> Orders not resulted at time of discharge: Pending orders 08/14/18 11:10 Creatinine,Urine [UCHEM] Routine Eosinophil,Urine [URIN] Routine Sodium, Urine [UCHEM] Routine Date of Encounter: 08/16/18 Time of Encounter: 15:09 - Discharge Diagnosis (1) Pneumonia Status: Acute Qualifiers: Qualified Code(s): J18.9 - Pneumonia, unspecified organism (2) UTI (urinary tract infection) Status: Ruled-out Qualifiers: Urinary tract infection type: catheter-associated UTI Indwelling urinary catheter type: unspecified Encounter type: initial encounter Qualified Code(s): T83.511A - Infection and inflammatory reaction due to indwelling urethral catheter, initial encounter; N39.0 - Urinary tract infection, site not specified (3) CKD (chronic kidney disease) stage 3, GFR 30-59 ml/min Status: Acute (4) Acute kidney injury superimposed on chronic kidney disease Status: Acute Hospital course: Ms. Garcia is a 73 year old female Discharge discussed with: patient - Time Spent with Patient Total time spent providing and/or coordinating discharge services: Less than 30 minutes (10 min) - Discharge Medications Prescriptions: Phenazopyridine [Pyridium] 100 mg PO TID 2 Days #6 tablet Home Medications: Docusate Sodium [Dok] 100 mg PO DAILY PRN 08/03/18 [History] Famotidine [Pepcid] 20 mg PO DAILY 08/03/18 [History] Gabapentin [Neurontin] 600 mg PO BID 08/03/18 [History] Glucagon,Human Recombinant [Glucagon Emergency Kit] 1 mg SQ ONCE PRN 08/03/18 [History] Insulin DETEMIR [Levemir] 25 unit SQ DAILY 08/03/18 [History] Ipratropium Neb [Atrovent Neb] 0.5 mg IH TID PRN 08/03/18 [History] Loratadine [Claritin] 10 mg PO DAILY 08/03/18 [History] Ondansetron HCl 8 mg PO Q8H PRN 08/03/18 [History] Ubidecarenone [Co Q-10] 100 mg PO DAILY 08/03/18 [History] Atorvastatin [Lipitor] 40 mg PO HS 30 Days #30 tablet 08/08/18 [Rx] LORazepam [Ativan] 1 mg PO QID 10 Days #20 tablet 08/08/18 [Rx] Metoprolol [Lopressor] 25 mg PO BID 30 Days #60 tablet 08/08/18 [Rx] Venlafaxine HCl [Effexor Xr] 75 mg PO DAILY 08/12/18 [History] hydrALAZINE [HydrALAZINE] 10 mg PO TID 08/12/18 [History] Phenazopyridine [Pyridium] 100 mg PO TID 2 Days #6 tablet 08/16/18 [Rx] Allergies/Adverse Reactions: Allergy/AdvReac Type Severity Reaction Status Date / Time Penicillins Allergy Hives Verified 08/03/18 14:22 tuberculin,PPD,multi-puncture Allergy Hives Verified 08/03/18 14:22 clindamycin [From Cleocin] AdvReac Rash Verified 08/03/18 14:22 diazepam AdvReac Fatigued Verified 08/03/18 14:22 meclizine [From Antivert] AdvReac Dizziness Verified 08/03/18 14:22 nalbuphine [From Nubain] AdvReac Hallucinati Verified 08/03/18 14:22 ng promethazine [From Phenergan] AdvReac Irritable Verified 08/03/18 14:22 propoxyphene AdvReac Itching Verified 08/03/18 14:22 [From Darvocet-N 100] Date of admission: 08/12/18 18:39 Primary care physician: Blayne Do Consults: 08/13/18 02:45 Consult to C2 Tactical Analysis Technician [CONS] Routine Reason for SW Consult: ECF placement at [place] 08/14/18 09:43 Consult to Nephrology [CONS] Routine Consulting Provider: Kidney Arpita/SANAM/EVELIO/JANIE Reason for Consult: CHARITO on CKD creat of 4.77 on arrival, fluids given and stopped nephrotoxic meds, today 3.66 Time Notified: 09:44 Call Completed: Yes - Constitutional Vitals: Temp Pulse Resp BP Pulse Ox 98.6 F 92 16 129/70 97 08/16/18 11:35 08/16/18 11:35 08/16/18 11:35 08/16/18 11:35 08/16/18 12:23 General appearance: Present: cooperative, A&O X 3, no acute distress - Respiratory Respiratory exam: Present: CTAB. Absent: accessory muscle use, rales, rhonchi, wheezes - Cardiovascular Cardiovascular exam: Present: RRR, +S1, +S2. Absent: diastolic murmur, gallop, rubs, systolic murmur - GI/Abdominal GI/Abdominal exam: Present: normal bowel sounds, soft, no peritoneal signs. Absent: distended, tenderness - Patient Status Disposition: Transfer SNF Condition: Fair Functional capacity at discharge: uses cane/walker - Discharge Instructions Follow Up With: Blayne Do [Primary Care Provider] - (ecf) Eliza Jacobsen MD [Partnered Physician] - (in 4 weeks) - Diet and Activity Activity: as per physical therapy, increase activity as tolerated Diet: diabetic diet, low fat, low cholesterol, low salt diet - Attending Attestation I saw evaluated and examined this patient and my medical decision-making was reviewed with the Resident Physician, Shimon Jc. I agree with the documented findings, disposition and treatment plan as described except to any changes set forth below. We independently had [id number] contact with the patient. Patient with a history of CHF, COPD, diabetes, hypertension, chronic kidney disease stage III was hospitalized here with acute changes in mental status along with generalized weakness and left flank pain. She was diagnosed with acute kidney injury and initially was suspected of having UTI. Patient had been hospitalized here previously and was treated for pneumonia and UTI. Initial workup in the CT scan showed changes of cystitis and recent pneumonia. Patient was started on ceftriaxone and also given IV fluids. Her renal function improved and patient's mental status improved back to baseline. Urine culture was negative for any growth. As such antibiotics were stopped after 3 days. Her renal function has continued to improve and at this time patient is stable to be discharged from a nephrology standpoint. She will follow up with neph rology in 4 weeks. She will have her basic panel checked in 1 week and results from the Center nursing informatics clinical analyst. Patient is being discharged to skilled rehabilitation. At this time and stopping her diuretics as her renal function is still elevated above her baseline. She may resume her diuretics once her renal function returns to baseline once she is evaluated by her PCP. <Shimon Jc - Last Filed: 08/16/18 16:22> - NOTES TO OUTPATIENT PROVIDER Notes to Outpatient Provider: Patient is requested to have follow up with nephrology in 4 weeks outpatient. Lab work, BMP, followup in one week with results to nursing informatics clinical analyst Orders not resulted at time of discharge: Pending orders 08/14/18 11:10 Creatinine,Urine [UCHEM] Routine Eosinophil,Urine [URIN] Routine Sodium, Urine [UCHEM] Routine Date of Encounter: 08/16/18 Time of Encounter: 14:19 - Discharge Diagnosis (1) [id number] kidney injury Priority: Primary Status: Acute (2) Pneumonia Priority: Secondary Status: Chronic Qualifiers: Pneumonia type: due to unspecified organism Laterality: bilateral Lung location: lower lobe of lung Qualified Code(s): J18.1 - Lobar pneumonia, unspecified organism (3) HLD (hyperlipidemia) Priority: Secondary Status: Chronic Qualifiers: Hyperlipidemia type: pure hypercholesterolemia Qualified Code(s): E78.00 - Pure hypercholesterolemia, unspecified; E78.0 - Pure hypercholesterolemia (4) HTN (hypertension) Priority: Secondary Status: Chronic Qualifiers: Hypertension type: essential hypertension (5) UTI (urinary tract infection) Priority: Secondary Status: Ruled-out Qualifiers: Urinary tract infection type: catheter-associated UTI Indwelling urinary catheter type: unspecified Encounter type: initial encounter Qualified Code(s): T83.511A - Infection and inflammatory reaction due to indwelling urethral catheter, initial encounter; N39.0 - Urinary tract infection, site not specified Hospital course: Ms. Garcia is a 73 year old female with history of CKD who presented to the emergency department on 08/12/18 with symptoms of AMS and urinary frequency. Patient had recently been diagnosed and admitted to [facility] for HCAP treated with vancomycin and cefepime, discharged on cefdinir. On arrival to the emergency department, patient was alert but not oriented. Patient had been complaining of increased weakness and confusion for the past day. While in the emergency Department patient had a head CT which is negative. A CT of the abdomen and pelvis was performed which showed a right pleural effusion as well as a bilateral basilar opacity right greater than left suggested a possible pneumonia. Pleural effusion was chronic in nature. Urinalysis showed positive white blood cells and leukoesterase, with WBCs elevated at 13.6. Patient was started on Levaquin. At time of admission, vital signs are stable, Levaquin was stopped and Rocephin was started. Urine culture was sent, with no growth. Antibiotics were stopped at this time. Retroperitoneal ultrasound was performed which showed no evidence of hydronephrosis, there was a small amount of echogenic material layering in the bladder. Patient's serum creatinine was found to be significantly elevated from baseline at 4.77. Nephrology was consulted and hydration was initiated. Overall patient was fluid responsive going from 4.77 and down trended to 2.35. Per Nephrology most likely etiology was secondary to recent sepsis as well as nephrotoxic medication during prior admission. As well as possible poor intake and hydration. Nephrology currently recommending outpatient follow-up in 4 weeks. As well as a BMP to be performed in 1 week. Overall, patient has improved significantly, with normal mentation and improvement of confusion. Patient states that she does live at home with a roommate with [employer] [facility]. Per social work, it was recommended and requested by the patient to be placed in an extended nursing facility. Patient is to be placed in extended nursing facility at this time. At time of discharge, patients home medications lisinopril, Lasix and spironolactone were stopped as they are nephrotoxic. A prescription is written for 2 day supply of Pyridium which was started in the hospital. While in the hospital her chronic conditions were also treated. Discharge disposition was discussed with the patient, she is in agreement and understands. Return precautions are explained and the patient agrees. It is recommended while at the extended care facility, patient have BMP performed in 1 week, requested to be sent to nephrology. Nephrology is requesting follow-up in 4 weeks. Discharge discussed with: patient, social work - Time Spent with Patient Total time spent providing and/or coordinating discharge services: Less than 30 minutes Date of admission: 08/12/18 18:39 Primary care physician: Blayne Do Consults: 08/13/18 02:45 Consult to C2 Tactical Analysis Technician [CONS] Routine Reason for SW Consult: ECF placement at [place] 08/14/18 09:43 Consult to Nephrology [CONS] Routine Consulting Provider: Kidney Arpita/SANAM/EVELIO/JANIE Reason for Consult: CHARITO on CKD creat of 4.77 on arrival, fluids given and stopped nephrotoxic meds, today 3.66 Time Notified: 09:44 Call Completed: Yes - Constitutional Vitals: Temp Pulse Resp BP Pulse Ox 98.6 F 92 16 129/70 97 08/16/18 11:35 08/16/18 11:35 08/16/18 11:35 08/16/18 11:35 08/16/18 12:23 General appearance: Present: A&O X 3, no acute distress Exam: Gen.: Patient is alert and oriented to place time and month, appears pleasant HEENT: Head appears to be normocephalic atraumatic, eyes are equal round reactive to light, extraocular motors are intact Chest: Regular rate and rhythm, systolic murmur heard best at the right upper sternal border. No gallops or rubs Respiratory: decreased breath sounds throughout Abdomen: Soft, nontender, no guarding or rigidity Lower extremities: No lesions, no lower extremity pitting edema, diffusely tender throughout, chronic and unchanged from baseline, no instability to the bilateral hips or tenderness to palpation Neuro: Sensation is intact to her upper and lower extremities bilaterally, strength is intact the upper and lower cavities bilaterally cranial nerves II through XII intact . - Patient Status Functional capacity at discharge: uses cane/walker Overall status at discharge: patient is progressing back to baseline - Diet and Activity Activity: as per physical therapy, increase activity as tolerated, wear oxygen at all times (As tolerated) Diet: diabetic diet, low fat, low cholesterol, low salt diet
--- NOTE | 2018-08-16 14:41 | Physician Discharge Referral ---
ExtendedCare Referral Info Transfer To: [facility] Provider in Charge: Hosea Provider in Charge after Transfer: PCP Institutional Level of Care: Skilled - Diagnosis (1) [id number] kidney injury Priority: Primary Status: Acute (2) Pneumonia Priority: Secondary Status: Chronic (3) HLD (hyperlipidemia) Priority: Secondary Status: Chronic (4) HTN (hypertension) Priority: Secondary Status: Chronic (5) UTI (urinary tract infection) Priority: Secondary Status: Ruled-out - Transfer Medications Prescriptions: Phenazopyridine [Pyridium] 100 mg PO TID 2 Days #6 tablet Home Medications: Docusate Sodium [Dok] 100 mg PO DAILY PRN 08/03/18 [History] Famotidine [Pepcid] 20 mg PO DAILY 08/03/18 [History] Gabapentin [Neurontin] 600 mg PO BID 08/03/18 [History] Glucagon,Human Recombinant [Glucagon Emergency Kit] 1 mg SQ ONCE PRN 08/03/18 [History] Insulin DETEMIR [Levemir] 25 unit SQ DAILY 08/03/18 [History] Ipratropium Neb [Atrovent Neb] 0.5 mg IH TID PRN 08/03/18 [History] Loratadine [Claritin] 10 mg PO DAILY 08/03/18 [History] Ondansetron HCl 8 mg PO Q8H PRN 08/03/18 [History] Ubidecarenone [Co Q-10] 100 mg PO DAILY 08/03/18 [History] Atorvastatin [Lipitor] 40 mg PO HS 30 Days #30 tablet 08/08/18 [Rx] LORazepam [Ativan] 1 mg PO QID 10 Days #20 tablet 08/08/18 [Rx] Metoprolol [Lopressor] 25 mg PO BID 30 Days #60 tablet 08/08/18 [Rx] Venlafaxine HCl [Effexor Xr] 75 mg PO DAILY 08/12/18 [History] hydrALAZINE [HydrALAZINE] 10 mg PO TID 08/12/18 [History] Phenazopyridine [Pyridium] 100 mg PO TID 2 Days #6 tablet 08/16/18 [Rx] Allergies/Adverse Reactions: Allergy/AdvReac Type Severity Reaction Status Date / Time Penicillins Allergy Hives Verified 08/03/18 14:22 tuberculin,PPD,multi-puncture Allergy Hives Verified 08/03/18 14:22 clindamycin [From Cleocin] AdvReac Rash Verified 08/03/18 14:22 diazepam AdvReac Fatigued Verified 08/03/18 14:22 meclizine [From Antivert] AdvReac Dizziness Verified 08/03/18 14:22 nalbuphine [From Nubain] AdvReac Hallucinati Verified 08/03/18 14:22 ng promethazine [From Phenergan] AdvReac Irritable Verified 08/03/18 14:22 propoxyphene AdvReac Itching Verified 08/03/18 14:22 [From Darvocet-N 100] - Respiratory Orders Oxygen / L per min (4L NC titrated as needed for pulse oxy saturation of 92% or above) Smoking Cessation: Smoking cessation has been advised. For more information, call the [employer] Tobacco Quit Line at 2-040-YDOJ-NOW. - Lab Orders Lab Orders: Other (include drug levels w/frequency) (BMP in one week to be sent to nephrology) - Ancillary Orders May use pressure relief devices daily prn, May consult with Dentist, Pull Through Hooker, Sagger Filler PRN - Advance Directives Code Status: DNR-Arrest/Don't Intubate - Mobility Orders Ambulate (with assistance) - Rehabiliation Orders Rehab Potential: Fair Rehab Orders: Sternal Precautions, ROM Exercises, Evaluation for Physical Therapy, Evaluation for Occupational Therapy, Evaluation for Speech Therapy - Treatments Skin tear care topically daily PRN per policy, May check for fecal impaction rectally daily PRN, Fleet enema rectally every other day PRN cleansing purposes - Diet Orders Cardiac (and diabetic diet) CERTIFICATION: I certify that the transfer of the above named patient to an Extended Care Facility is necessary for the continuing treatment of the diagnosis listed. The above information is true and accurate reflection of patient's current condition. Confidential - Redisclosure prohibited without a patient's written consent.
== END 2018-08-16 16:15 | DRG 682 ==
LOC: EMEROOARM 11:27 → 2ANU 11:27 → SUATTDRO 18:39
PROVIDERS: ADMIT Internal Medicine Cardiovascular Disease; ATTEND Internal Medicine

== ENCOUNTER 2019-04-16 05:40 | Inpatient (IN) ==
--- NOTE | 2019-04-16 05:53 | Emergency Department Note ---
Disposition Clinical Impression: Hypoxia Disposition: Still a Patient Referrals: NONE,PCP [Primary Care Provider] - Forms: ED Satisfaction Letter, Work/School Release Time of Disposition: 07:07 SOB HPI - General Stated Complaint: Lower 02 stats Time Seen by Provider: 04/16/19 05:43 Source: patient, EMS Mode of arrival: EMS Limitations: altered mental status Nursing Notes Reviewed: Yes Vital Signs Reviewed: Yes - History of Present Illness 74-year-old female presenting from extended care facility due to difficulty breathing and hypoglycemia. Extended care facility staff notes patient was hyp oglycemic in the range of 40 to on a POC glucose read. EMS states that by the time they had arrived glucose was normal at 149. The patient does have a history of COPD, CHF and uncontrolled diabetes mellitus. Patient currently being treated for a right axis upper extremity fracture which is in a sling in the ED. Patient underwent be on opiate pain medicine for this injury, there is concern that patient may have overdosed as she has a slowed respiratory rate and pinpoint pupils. Upon my initial evaluation, my general impression is that the patient is fatigued yet redirectable to verbal stimuli she is able to be engaged to conversation and answers questions appropriately. However after answering she quickly falls back to sleep. There are no overt lateralizing signs, the patient skin appears to be normal in color, not pale, not cyanotic, and not diaphoretic. Pt Subjective Complaint: shortness of breath Onset (ago): Just [employer] Severity: moderate Consistency/Duration: constant Improves with: oxygen, bronchodilators Associated symptoms: Reports: denies other symptoms Treatment prior to arrival: oxygen Cough present: No - Related Data Home Medications Medication Instructions Recorded Confirmed Docusate Sodium [Dok] 100 mg PO DAILY PRN 08/03/18 04/07/19 Famotidine [Pepcid] 20 mg PO DAILY 08/03/18 04/07/19 Glucagon,Human Recombinant 1 mg SQ DAILY PRN 08/03/18 04/07/19 [Glucagon Emergency Kit] Insulin DETEMIR [Levemir] 35 unit SQ DAILY 08/03/18 04/07/19 Ipratropium Neb [Atrovent Neb] 0.5 mg IH Q8H PRN 08/03/18 04/07/19 Loratadine [Claritin] 10 mg PO DAILY 08/03/18 04/07/19 Ondansetron HCl 8 mg PO Q8H PRN 08/03/18 04/16/19 Ubidecarenone [Co Q-10] 100 mg PO DAILY 08/03/18 04/16/19 Atorvastatin [Lipitor] 40 mg PO HS 10/21/18 04/07/19 Gabapentin [Neurontin] 300 mg PO BID 10/21/18 04/07/19 Guaifenesin [Mucinex] 600 mg PO BID 10/21/18 04/07/19 Insulin LISPRO [HumaLOG] 2 - 12 unit SQ QID PRN 10/21/18 04/07/19 Metoprolol Tartrate [Lopressor] 50 mg PO BID 10/21/18 04/16/19 Venlafaxine HCl [Venlafaxine HCl 75 mg PO DAILY 10/21/18 04/16/19 ER] Previous Rx's Medication Instructions Recorded Morphine Sulfate Immed Rel 15 mg PO Q4HR PRN 2 Days #12 tab 04/07/19 [Morphine Sulfate] Allergies Allergy/AdvReac Type Severity Reaction Status Date / Time Penicillins Allergy Hives Verified 04/07/19 22:38 tuberculin,PPD,multi-puncture Allergy Hives Verified 04/07/19 22:38 clindamycin [From Cleocin] AdvReac Rash Verified 04/07/19 22:38 diazepam AdvReac Fatigued Verified 04/07/19 22:38 meclizine [From Antivert] AdvReac Dizziness Verified 04/07/19 22:38 nalbuphine [From Nubain] AdvReac Hallucinati Verified 04/07/19 22:38 ng promethazine [From Phenergan] AdvReac Irritable Verified 04/07/19 22:38 propoxyphene AdvReac Itching Verified 04/07/19 22:38 [From Darvocet-N 100] Review of Systems: *See History of Present Illness for more detail Constitutional: Denies: fever, chills Cardiovascular: Denies: chest pain Respiratory: Admits: dyspnea, denies: cough, hemoptysis Gastrointestinal: Denies: abdominal pain, nausea, vomiting, diarrhea, constipation, hematemesis, melena, hematochezia Genitourinary: Denies: hematuria Musculoskeletal: Patient admits to arthralgias and myalgias diffusely Denies: back pain, neck pain Neurological: Admits: headache, weakness, lightheadedness/dizziness, denies: numbness, paresthesias, difficulty with ambulation. Endocrine: Admits: fatigue Review of Systems: As Per HPI Limitations: ROS unobtainable due to patients medical condition Past Medical History - Past Medical History Medical history: Reports: CHF, COPD, DVT, diabetes, fibromyalgia, GERD, hepatitis, hyperlipidemia, hypertension, renal disease, seizures, syncope Surgical history: Reports: no surgical history Psychiatric history: Reports: anxiety, depression, panic disorder - Social History Smoking Status: Former smoker Smokeless Tobacco Status: No Alcohol use: Reports: none Drug use: Reports: opiates, other Physical Exam Constitutional: Mild distress due to fatigue low tidal volumes of respiration, otherwise alert to verbal stimuli, engageable to conversation, speech is fluid, answers questions appropriately Neuro: GCS 15, no overt focal neurological deficits Head: Atraumatic, normocephalic Eyes: Pupils equal, round and reactive to light, no scleral icterus, no conjunctival injection Neck: Trachea midline without deviation. Anterior neck is supple without swelling. *Chest: Symmetric chest wall rise *Heart: Cardiac rhythm and rate are regular with S1 and S2 , no S3 or S4 appreciated, no murmurs, gallops, rubs, or clicks. *Lungs: Diffuse wheezes bilaterally, without accessory muscle use or prolonged expiratory phase. No wheezes, rhonchi or stridor appreciated. Abdomen: Abdomen is flat, soft to palpation, normal bowel sounds. No abdominal bruit auscultated. Non-distended, non-rigid, no organomegaly, no ascites appreciated. No pulsatile mass, no tenderness or guarding to palpation in all four quadrants, no rebound Extremities: Normal capillary refill without evidence of pedal edema, joint swelling or erythema. Pulses/motor/sensory intact in all 4 extremities. Psychiatric exam: Patient displays a normal affect and mood for the environment. No overt signs of hallucination. Integumentary: warm, dry, intact, normal color. No rash, cyanosis, diaphoresis, erythema, or pallor - General Limitations: no limitations General appearance: alert, in distress Course - Reevaluation(s) Reevaluation #1: Patient noted to be acidotic with a pH in the range of 7.1 with PCO2 greater than 100. Requesting rest or therapy to initiate BiPAP this time. Time: 06:18 Vital Signs Temperature 98.7 F 04/16/19 05:52 Pulse Rate 91 04/16/19 05:52 Respiratory Rate 18 04/16/19 05:52 Blood Pressure 114/69 04/16/19 05:52 O2 Sat by Pulse Oximetry 100 04/16/19 05:52 Temperature 98.7 F 04/16/19 05:52 Pulse Rate 97 04/16/19 06:54 Respiratory Rate 22 04/16/19 06:54 Blood Pressure 106/52 04/16/19 06:54 O2 Sat by Pulse Oximetry 100 04/16/19 06:54 Oxygen Delivery Oxygen Delivery Bipap Shortness of Breath/Dyspnea - MDM Narrative Medical decision making narrative: Patient is currently tolerating BiPAP well and showing some clinical improvement. Labs and images are pending. Patient will be signed out to day shift staff of Dr. Demetrius Palm my shift. Please see documentation by these physicians for further evaluation, management, and final disposition. The patient is hemodynamically stable at the time of transfer of care. - Lab Data Lab Results 04/16/19 04/16/19 Range/Units 06:13 06:21 ABG pH 7.15 L* (7.32-7.45) pH Units ABG pCO2 110 H* (35-45) mmHg ABG pO2 143 H (85-104) mmHg ABG HCO3 38 H (21-27) mEq/L ABG Total CO2 41 H (20-26) mEq/L ABG O2 Saturation 98 (95-98) % ABG Base Excess 6 H (-2 to 3) mEq/L O2 Delivery Device AeroTx Inspired O2 10.0 (1-15=lpm mi18-105=%) Urine Color Dark Yellow (Yellow) Urine Clarity Cloudy A (Clear) Urine pH 5.0 (5.0-8.0) pH Units Ur Specific Milligan 1.017 (1.010-1.025) Urine Protein Trace (Neg-Trace) mg/dL Urine Glucose (UA) Normal (Normal) mg/dL Urine Ketones Negative (Negative) mg/dL Urine Blood Negative (Negative) Urine Nitrite Negative (Negative) Urine Bilirubin Small H (Negative) Urine Urobilinogen Normal (Normal) mg/dL Ur Leukocyte Esterase Small H (Negative) Urine Microscopic RBC 0-3 (0-3) per hpf Urine Microscopic WBC 3-5 H (0-3) per hpf Ur Squamous Epith Cells Many H (None-Few) per lpf Amorphous Sediment Few (Few) Urine Bacteria Moderate H (None-Few) per hpf Hyaline Casts Few (None-Few) per lpf Ur Culture Indicated? YES A (NO) Person Notif of Mandi rhodes - EKG Data EKG attestation: Yes I reviewed and interpreted this EKG. EKG results narrative: The patients EKG shows a sinus rhythm at a rate of 91 beats per minute, AR interval of 157 milliseconds, a QRS duration of 85 milliseconds, a QT/QTc interval of 342 / 41 milliseconds respectively. There are no significant ST segment elevations, depressions, pathologic Q waves, abnormal T-wave inversions, nor any other signs of acute ischemic change. This EKG that was performed today is generally consistent in morphology with prior EKG that was performed on 04/08/2019.
[2019-04-16] MEDS ORDERED: Ipratropium/Albuterol Neb 3 ML IH ONE (05:57)
[2019-04-16] MEDS ORDERED: methylPREDNISolone 125 MG/2 ML VIAL IVP ONE (05:57)
[2019-04-16 06:18] LABS: ABG Base Excess 6 mEq/L (-2 to 3); ABG HCO3 38 mEq/L (21-27); ABG Oxygen Saturation 98 % (95-98); ABG PCO2 110 mmHg (35-45); ABG PH 7.15 pH Units (7.32-7.45); ABG PO2 143 mmHg (85-104); ABG TCO2 41 mEq/L (20-26)
--- NOTE | 2019-04-16 06:24 | Emergency Department Note ---
Disposition Clinical Impression: Hypoxia Disposition: Still a Patient Condition: Fair Referrals: NONE,PCP [Primary Care Provider] - Forms: ED Satisfaction Letter, Work/School Release Time of Disposition: 07:07 General Adult HPI - General Chief complaint: ED General Medical Stated complaint: Lower 02 stats Time Seen by Provider: 04/16/19 05:43 Source: patient, EMS Mode of arrival: EMS Limitations: altered mental status Nursing Notes Reviewed: Yes Vital Signs Reviewed: Yes - History of Present Illness Pain Scale: 4 - Related Data Home Medications Medication Instructions Recorded Confirmed Docusate Sodium [Dok] 100 mg PO DAILY PRN 08/03/18 04/16/19 Famotidine [Pepcid] 20 mg PO DAILY 08/03/18 04/16/19 Glucagon,Human Recombinant 1 mg SQ DAILY PRN 08/03/18 04/16/19 [Glucagon Emergency Kit] Insulin DETEMIR [Levemir] 35 unit SQ DAILY 08/03/18 04/16/19 Ipratropium Neb [Atrovent Neb] 0.5 mg IH Q8H PRN 08/03/18 04/16/19 Loratadine [Claritin] 10 mg PO DAILY 08/03/18 04/16/19 Ondansetron HCl 8 mg PO Q8H PRN 08/03/18 04/16/19 Ubidecarenone [Co Q-10] 100 mg PO DAILY 08/03/18 04/16/19 Atorvastatin [Lipitor] 40 mg PO HS 10/21/18 04/16/19 Gabapentin [Neurontin] 300 mg PO BID 10/21/18 04/16/19 Guaifenesin [Mucinex] 600 mg PO BID 10/21/18 04/16/19 Insulin LISPRO [HumaLOG] 2 - 12 unit SQ QID PRN 10/21/18 04/16/19 Metoprolol Tartrate [Lopressor] 50 mg PO BID 10/21/18 04/16/19 Venlafaxine HCl [Venlafaxine HCl 75 mg PO DAILY 10/21/18 04/16/19 ER] LORazepam [Ativan] 1 mg PO TID 04/16/19 04/16/19 Lactobacillus Acidophilus 1 each PO BID 04/16/19 04/16/19 [Acidophilus] Levofloxacin [Levaquin] 500 mg PO DAILY 04/16/19 04/16/19 Nitrofurantoin [Macrodantin] 100 mg PO BID 04/16/19 04/16/19 Previous Rx's Medication Instructions Recorded Morphine Sulfate Immed Rel 15 mg PO Q4HR PRN 2 Days #12 tab 04/07/19 [Morphine Sulfate] Allergies Allergy/AdvReac Type Severity Reaction Status Date / Time Penicillins Allergy Hives Verified 04/07/19 22:38 tuberculin,PPD,multi-puncture Allergy Hives Verified 04/07/19 22:38 clindamycin [From Cleocin] AdvReac Rash Verified 04/07/19 22:38 diazepam AdvReac Fatigued Verified 04/07/19 22:38 meclizine [From Antivert] AdvReac Dizziness Verified 04/07/19 22:38 nalbuphine [From Nubain] AdvReac Hallucinati Verified 04/07/19 22:38 ng promethazine [From Phenergan] AdvReac Irritable Verified 04/07/19 22:38 propoxyphene AdvReac Itching Verified 04/07/19 22:38 [From Darvocet-N 100] Past Medical History - Past Medical History Medical history: Reports: CHF, COPD, DVT, diabetes, fibromyalgia, GERD, hepatitis, hyperlipidemia, hypertension, renal disease, seizures, syncope Surgical history: Reports: no surgical history Psychiatric history: Reports: anxiety, depression, panic disorder - Social History Smoking Status: Former smoker Smokeless Tobacco Status: No Alcohol use: Reports: none Drug use: Reports: none, opiates, other Physical Exam - General Limitations: altered mental status General appearance: lethargic Course Vital Signs Temperature 98.7 F 04/16/19 05:52 Pulse Rate 91 04/16/19 05:52 Respiratory Rate 18 04/16/19 05:52 Blood Pressure 114/69 04/16/19 05:52 O2 Sat by Pulse Oximetry 100 04/16/19 05:52 Temperature 98.7 F 04/16/19 05:52 Pulse Rate 97 04/16/19 06:54 Respiratory Rate 22 04/16/19 06:54 Blood Pressure 106/52 04/16/19 06:54 O2 Sat by Pulse Oximetry 100 04/16/19 06:54 Oxygen Delivery Oxygen Delivery Bipap Medical Decision Making - Medical Records Medical records reviewed: Yes I reviewed the patient's medical records. - Lab Data Lab results reviewed: Yes I reviewed the patient's lab results. Result diagrams: 04/16/19 06:40 Lab Results 04/16/19 04/16/19 04/16/19 Range/Units 06:13 06:21 06:40 WBC 15.0 H (4.3-11.1) K/mcL RBC 3.26 L (3.82-4.97) M/mcL Hgb 9.5 L (11.5-15.4) g/dL Hct 33.4 L (35.3-44.9) % MCV 102.5 H (83.0-100.0) fL MCH 29.1 (28.0-33.3) pg MCHC 28.4 L (31.6-35.5) g/dL RDW 12.5 (11.5-14.5) % Plt Count 264 (140-400) K/mcL MPV 10.6 (9.4-12.4) fL D-Dimer (0-500) ng/mLFEU ABG pH 7.15 L* (7.32-7.45) pH Units ABG pCO2 110 H* (35-45) mmHg ABG pO2 143 H (85-104) mmHg ABG HCO3 38 H (21-27) mEq/L ABG Total CO2 41 H (20-26) mEq/L ABG O2 Saturation 98 (95-98) % ABG Base Excess 6 H (-2 to 3) mEq/L O2 Delivery Device AeroTx Inspired O2 10.0 (1-15=lpm og66-780=%) Urine Color Dark Yellow (Yellow) Urine Clarity Cloudy A (Clear) Urine pH 5.0 (5.0-8.0) pH Units Ur Specific [place] 1.017 (1.010-1.025) Urine Protein Trace (Neg-Trace) mg/dL Urine Glucose (UA) Normal (Normal) mg/dL Urine Ketones Negative (Negative) mg/dL Urine Blood Negative (Negative) Urine Nitrite Negative (Negative) Urine Bilirubin Small H (Negative) Urine Urobilinogen Normal (Normal) mg/dL Ur Leukocyte Esterase Small H (Negative) Urine Microscopic RBC 0-3 (0-3) per hpf Urine Microscopic WBC 3-5 H (0-3) per hpf Ur Squamous Epith Cells Many H (None-Few) per lpf Amorphous Sediment Few (Few) Urine Bacteria Moderate H (None-Few) per hpf Hyaline Casts Few (None-Few) per lpf Ur Culture Indicated? YES A (NO) Specimen Rejected Person Notif of Crit jose martinci 04/16/19 04/16/19 Range/Units 06:40 06:40 WBC (4.3-11.1) K/mcL RBC (3.82-4.97) M/mcL Hgb (11.5-15.4) g/dL Hct (35.3-44.9) % MCV (83.0-100.0) fL MCH (28.0-33.3) pg MCHC (31.6-35.5) g/dL RDW (11.5-14.5) % Plt Count (140-400) K/mcL MPV (9.4-12.4) fL D-Dimer 5269 H (0-500) ng/mLFEU ABG pH (7.32-7.45) pH Units ABG pCO2 (35-45) mmHg ABG pO2 (85-104) mmHg ABG HCO3 (21-27) mEq/L ABG Total CO2 (20-26) mEq/L ABG O2 Saturation (95-98) % ABG Base Excess (-2 to 3) mEq/L O2 Delivery Device Inspired O2 (1-15=lpm qi50-347=%) Urine Color (Yellow) Urine Clarity (Clear) Urine pH (5.0-8.0) pH Units Ur Specific [place] (1.010-1.025) Urine Protein (Neg-Trace) mg/dL Urine Glucose (UA) (Normal) mg/dL Urine Ketones (Negative) mg/dL Urine Blood (Negative) Urine Nitrite (Negative) Urine Bilirubin (Negative) Urine Urobilinogen (Normal) mg/dL Ur Leukocyte Esterase (Negative) Urine Microscopic RBC (0-3) per hpf Urine Microscopic WBC (0-3) per hpf Ur Squamous Epith Cells (None-Few) per lpf Amorphous Sediment (Few) Urine Bacteria (None-Few) per hpf Hyaline Casts (None-Few) per lpf Ur Culture Indicated? (NO) Specimen Rejected Hemolyzed Person Notif of Crit - Radiology Data Radiology results reviewed: Yes I reviewed the patient's radiology results. Chest X-Ray 04/16/19 05:56 IMPRESSION: Diffuse bilateral opacity, greatest at the bases. Correlate for edema. Pneumonia is not excluded in the appropriate clinical setting. D/ / Evan Patel MD / Evan Patel MD Interpreting Provider: Evan Patel MD - EKG Data EKG #1 EKG attestation: Yes I reviewed and interpreted this EKG. EKG results narrative: EKG shows normal sinus rhythm with ventricular rate of 91. No ST segment elevation or depression. No arrhythmia or ectopy. Normal EKG. Critical Care Time Critical Care Time: Yes Total Critical Care Time: 40 Attestation: Critical care performed: Time is exclusive of separately billable procedures. Time includes: direct patient care, patient reassessment, coordination of patient care, interpretation of data (laboratory data, radiology data, and respiratory data), review of patient's medical records, medical consultation and documentation of patient car e. Procedures included in critical care time: Procedures excluded from critical care time: Attestation Statement - Attestation Attestation: I, Antonio Ambriz MD, personally evaluated this patient and discussed their management with the resident physician. I reviewed the resident's note and agree with the documented findings, medical decision making, and plan of care. I reviewed the residents documentation and agree with the residents assessment and plan of care. I have personally had face to face time with the patient. I personally supervised and was present for the husain/critical portions of the following procedures completed by the resident: EKG interpretation. 74-year-old female presents to the emergency department by EMS [facility] a local [facility] for complaint of low oxygen saturations. Patient has her right arm in a brace for a fracture. She is on pain medication for this. Here in the emergency Department patient appears to be may be overmedicated. She is very drowsy and sleepy and slow to respond but does respond to verbal stimuli and answers questions appropriately. She does admit to feeling a little short of breath. No chest pain. Her initial oxygen saturation here was 66%. He was on a nasal cannula. This did gradually improve up into the 80s. She was placed on a nonrebreather and increased to 100%. After ABG obtained patient was placed on BiPAP. On examination patient is a well-developed well-nourished elderly female in no acute distress. She is very drowsy but responds to verbal stimuli. No cyanosis or diaphoresis. Pupils are about 2 mm and sluggish. Breath sounds are decreased. Respirations are very slow and shallow. Heart regular rate and rhythm. Abdomen soft and nontender with normal bowel sounds. Trace pedal edema. Labs reviewed. EKG shows normal sinus rhythm with ventricular rate of 91. No ST segment elevation or depression. No arrhythmia or ectopy. Normal EKG. Chest x-ray shows bilateral opacities, worse at the bases, edema versus pneumonia. Patient received DuoNeb treatments and Solu-Medrol. She was placed on nonrebreather mask. She was also placed on BiPAP. At morning shift change labs are still pending and [facility], Dr. Schmid and Dr. Walker.
[2019-04-16 06:36] LABS: Bilirubin,Urine Small (Negative); Blood,Urine Negative (Negative); Clarity,Urine Cloudy (Clear); Color,Urine Dark Yellow (Yellow); Glucose,Urine (UA) Normal (Normal); Ketones,Urine Negative (Negative); Leukocyte Esterase,Urine Small (Negative); Nitrite,Urine Negative (Negative); Protein,Urine Trace mg/dL (Neg-Trace); Specific Gravity,Urine 1.017 (1.010-1.025); Urobilinogen,Urine Normal (Normal)
[2019-04-16 06:38] LABS: RBC,Urine 0-3 per hpf (0-3); Squamous Epithelial Cell,Urine Many per lpf (None-Few)
[2019-04-16 06:47] LABS: Amorphous Sediment,Urine Few (Few); Bacteria,Urine Moderate per hpf (None-Few)
[2019-04-16 06:49] LABS: Hyaline Casts,Urine Few per lpf (None-Few)
[2019-04-16 07:08] LABS: Hemoglobin 9.5 g/dL (11.5-15.4); Immature Granulocytes % 0.5 % (0-4); Mean Platelet Volume 10.6 fL (9.4-12.4)
[2019-04-16 07:09] LABS: Basophils % 0.2 %; Eosinophils # 0.3 K/mcL (0.0-0.6); Eosinophils % 1.9 %; Hematocrit 33.4 % (35.3-44.9); Lymphocytes # 0.9 K/mcL (0.6-4.6); Lymphocytes % 6.1 %; Mean Corpuscular HGB Conc 28.4 g/dL (31.6-35.5); Mean Corpuscular Hemoglobin 29.1 pg (28.0-33.3); Mean Corpuscular Volume 102.5 fL (83.0-100.0); Monocytes # 1.4 K/mcL (0.0-1.3); Monocytes % 9.3 %; Neutrophils # 12.3 K/mcL (1.6-8.9); Platelet Count 264 K/mcL (140-400); Red Blood Count 3.26 M/mcL (3.82-4.97); Red Cell Distribution Width 12.5 % (11.5-14.5)
--- NOTE | 2019-04-16 07:18 | Emergency Department Note ---
Disposition Clinical Impression: Hypoxia, Acute respiratory failure with hypoxia and hypercapnia CHF (congestive heart failure) Qualifiers: Heart failure type: other Qualified Code(s): I50.9 - Heart failure, unspecified Acute on chronic kidney failure Qualifiers: Acute renal failure type: unspecified Chronic kidney disease stage: unspecified stage Qualified Code(s): N17.9 - Acute kidney failure, unspecified Disposition: Admitted As Inpatient Condition: Fair Time of Disposition: 10:29 General Adult HPI - General Chief complaint: ED General Medical Stated complaint: Lower 02 stats Time Seen by Provider: 04/16/19 05:43 Source: patient, EMS Mode of arrival: EMS Limitations: no limitations Nursing Notes Reviewed: Yes Vital Signs Reviewed: Yes - History of Present Illness Pain Scale: 4 - Related Data Home Medications Medication Instructions Recorded Confirmed Docusate Sodium [Dok] 100 mg PO DAILY PRN 08/03/18 04/16/19 Famotidine [Pepcid] 20 mg PO DAILY 08/03/18 04/16/19 Glucagon,Human Recombinant 1 mg SQ DAILY PRN 08/03/18 04/16/19 [Glucagon Emergency Kit] Insulin DETEMIR [Levemir] 35 unit SQ DAILY 08/03/18 04/16/19 Ipratropium Neb [Atrovent Neb] 0.5 mg IH Q8H PRN 08/03/18 04/16/19 Loratadine [Claritin] 10 mg PO DAILY 08/03/18 04/16/19 Ondansetron HCl 8 mg PO Q8H PRN 08/03/18 04/16/19 Ubidecarenone [Co Q-10] 100 mg PO DAILY 08/03/18 04/16/19 Atorvastatin [Lipitor] 40 mg PO HS 10/21/18 04/16/19 Gabapentin [Neurontin] 300 mg PO BID 10/21/18 04/16/19 Guaifenesin [Mucinex] 600 mg PO BID 10/21/18 04/16/19 Insulin LISPRO [HumaLOG] 2 - 12 unit SQ QID PRN 10/21/18 04/16/19 Metoprolol Tartrate [Lopressor] 50 mg PO BID 10/21/18 04/16/19 Venlafaxine HCl [Venlafaxine HCl 75 mg PO DAILY 10/21/18 04/16/19 ER] LORazepam [Ativan] 1 mg PO TID 04/16/19 04/16/19 Lactobacillus Acidophilus 1 each PO BID 04/16/19 04/16/19 [Acidophilus] Levofloxacin [Levaquin] 500 mg PO DAILY 04/16/19 04/16/19 Nitrofurantoin [Macrodantin] 100 mg PO BID 04/16/19 04/16/19 Previous Rx's Medication Instructions Recorded Morphine Sulfate Immed Rel 15 mg PO Q4HR PRN 2 Days #12 tab 04/07/19 [Morphine Sulfate] Allergies Allergy/AdvReac Type Severity Reaction Status Date / Time Penicillins Allergy Hives Verified 04/07/19 22:38 tuberculin,PPD,multi-puncture Allergy Hives Verified 04/07/19 22:38 clindamycin [From Cleocin] AdvReac Rash Verified 04/07/19 22:38 diazepam AdvReac Fatigued Verified 04/07/19 22:38 meclizine [From Antivert] AdvReac Dizziness Verified 04/07/19 22:38 nalbuphine [From Nubain] AdvReac Hallucinati Verified 04/07/19 22:38 ng promethazine [From Phenergan] AdvReac Irritable Verified 04/07/19 22:38 propoxyphene AdvReac Itching Verified 04/07/19 22:38 [From Darvocet-N 100] Past Medical History - Past Medical History Medical history: Reports: CHF, COPD, DVT, diabetes, fibromyalgia, GERD, hepatitis, hyperlipidemia, hypertension, renal disease, seizures, syncope Surgical history: Reports: no surgical history Psychiatric history: Reports: anxiety, depression, panic disorder - Social History Smoking Status: Former smoker Smokeless Tobacco Status: No Alcohol use: Reports: none Drug use: Reports: none, opiates, other Physical Exam - General Limitations: no limitations General appearance: alert, in distress Course Vital Signs Temperature 98.7 F 04/16/19 05:52 Pulse Rate 91 04/16/19 05:52 Respiratory Rate 18 04/16/19 05:52 Blood Pressure 114/69 04/16/19 05:52 O2 Sat by Pulse Oximetry 100 04/16/19 05:52 Temperature 98.7 F 04/16/19 05:52 Pulse Rate 101 04/16/19 09:30 Respiratory Rate 18 04/16/19 09:30 Blood Pressure 99/47 04/16/19 09:30 O2 Sat by Pulse Oximetry 94 04/16/19 09:30 Oxygen Delivery Oxygen Delivery Nasal Cannula Medical Decision Making - [facility] Narrative Medical decision making narrative: Chest X-Ray 04/16/19 05:56 IMPRESSION: Diffuse bilateral opacity, greatest at the bases. Correlate for edema. Pneumonia is not excluded in the appropriate clinical setting. D/ / Evan Patel MD / Evan Patel MD Interpreting Provider: Evan Patel MD 0755 hrs.: Speaking with hospitalist for admission. We were able to get her off the BiPAP as her PCO2 has declined. Were going to heparinize her since the shift engineer did do a d-dimer on her notes elevated but her creatinines elevates we cannot do a CTA. I do not believe she has a PE. Patient's admitted at this time. - Lab Data Result diagrams: 04/16/19 06:40 04/16/19 06:40 Lab Results 04/16/19 04/16/19 04/16/19 Range/Units 06:13 06:21 06:40 WBC 15.0 H (4.3-11.1) K/mcL RBC 3.26 L (3.82-4.97) M/mcL Hgb 9.5 L (11.5-15.4) g/dL Hct 33.4 L (35.3-44.9) % MCV 102.5 H (83.0-100.0) fL MCH 29.1 (28.0-33.3) pg MCHC 28.4 L (31.6-35.5) g/dL RDW 12.5 (11.5-14.5) % Plt Count 264 (140-400) K/mcL MPV 10.6 (9.4-12.4) fL Immature Gran % 0.5 (0-4) % Seg Neutrophils % 82.0 % Lymphocytes % 6.1 % Monocytes % 9.3 % Eosinophils % 1.9 % Basophils % 0.2 % Neutrophils # 12.3 H (1.6-8.9) K/mcL Lymphocytes # 0.9 (0.6-4.6) K/mcL Monocytes # 1.4 H (0.0-1.3) K/mcL Eosinophils # 0.3 (0.0-0.6) K/mcL Basophils # 0.0 (0.0-0.2) K/mcL Hypochromasia Present A (Not Present) Basophilic Stippling 1+ A (Not Present) Stomatocytes 1+ A (Not Present) D-Dimer (0-500) ng/mLFEU Sample Site ABG pH 7.15 L* (7.32-7.45) pH Units ABG pCO2 110 H* (35-45) mmHg ABG pO2 143 H (85-104) mmHg ABG HCO3 38 H (21-27) mEq/L ABG Total CO2 41 H (20-26) mEq/L ABG O2 Saturation 98 (95-98) % ABG Base Excess 6 H (-2 to 3) mEq/L Ever Test O2 Delivery Device AeroTx Inspired O2 10.0 (1-15=lpm [id number]=%) Sodium (136-145) mEq/L Potassium (3.5-5.1) mEq/L Chloride (98-107) mEq/L Carbon Dioxide (23-29) mEq/L BUN (8-23) mg/dL Creatinine (0.60-1.20) mg/dL Est GFR ( Amer) (> 60) Est GFR (Non-Af Amer) (> 60) BUN/Creatinine Ratio (6-26) Glucose (70-105) mg/dL POC Glucose (70-99) mg/dL Calculated Osmolality (280-300) Lactic Acid (0.5-2.2) mmol/L Calcium (8.6-10.3) mg/dL Troponin I (< 0.04) ng/mL B-Natriuretic Peptide (Less than 100) pg/mL Procalcitonin (0.00-0.15) ng/mL Urine Color Dark Yellow (Yellow) Urine Clarity Cloudy A (Clear) Urine pH 5.0 (5.0-8.0) pH Units Ur Specific Hudson 1.017 (1.010-1.025) Urine Protein Trace (Neg-Trace) mg/dL Urine Glucose (UA) Normal (Normal) mg/dL Urine Ketones Negative (Negative) mg/dL Urine Blood Negative (Negative) Urine Nitrite Negative (Negative) Urine Bilirubin Small H (Negative) Urine Urobilinogen Normal (Normal) mg/dL Ur Leukocyte Esterase Small H (Negative) Urine Microscopic RBC 0-3 (0-3) per hpf Urine Microscopic WBC 3-5 H (0-3) per hpf Ur Squamous Epith Cells Many H (None-Few) per lpf Amorphous Sediment Few (Few) Urine Bacteria Moderate H (None-Few) per hpf Hyaline Casts Few (None-Few) per lpf Ur Culture Indicated? YES A (NO) Specimen Rejected Person Notif of Mandi yvonneamilcar 04/16/19 04/16/19 04/16/19 Range/Units 06:40 06:40 06:40 WBC (4.3-11.1) K/mcL RBC (3.82-4.97) M/mcL Hgb (11.5-15.4) g/dL Hct (35.3-44.9) % MCV (83.0-100.0) fL MCH (28.0-33.3) pg MCHC (31.6-35.5) g/dL RDW (11.5-14.5) % Plt Count (140-400) K/mcL MPV (9.4-12.4) fL Immature Gran % (0-4) % Seg Neutrophils % % Lymphocytes % % Monocytes % % Eosinophils % % Basophils % % Neutrophils # (1.6-8.9) K/mcL Lymphocytes # (0.6-4.6) K/mcL Monocytes # (0.0-1.3) K/mcL Eosinophils # (0.0-0.6) K/mcL Basophils # (0.0-0.2) K/mcL Hypochromasia (Not Present) Basophilic Stippling (Not Present) Stomatocytes (Not Present) D-Dimer 5269 H (0-500) ng/mLFEU Sample Site ABG pH (7.32-7.45) pH Units ABG pCO2 (35-45) mmHg ABG pO2 (85-104) mmHg ABG HCO3 (21-27) mEq/L ABG Total CO2 (20-26) mEq/L ABG O2 Saturation (95-98) % ABG Base Excess (-2 to 3) mEq/L Ever Test O2 Delivery Device Inspired O2 (1-15=lpm [id number]=%) Sodium 137 (136-145) mEq/L Potassium 5.9 H (3.5-5.1) mEq/L Chloride 97 L (98-107) mEq/L Carbon Dioxide 34 H (23-29) mEq/L BUN 56 H (8-23) mg/dL Creatinine 1.88 H (0.60-1.20) mg/dL Est GFR ( Amer) 32 L (> 60) Est GFR (Non-Af Amer) 26 L (> 60) BUN/Creatinine Ratio 30 H (6-26) Glucose 138 H (70-105) mg/dL POC Glucose (70-99) mg/dL Calculated Osmolality 302 H (280-300) Lactic Acid (0.5-2.2) mmol/L Calcium 9.5 (8.6-10.3) mg/dL Troponin I 0.03 (< 0.04) ng/mL B-Natriuretic Peptide 58 (Less than 100) pg/mL Procalcitonin (0.00-0.15) ng/mL Urine Color (Yellow) Urine Clarity (Clear) Urine pH (5.0-8.0) pH Units Ur Specific Hudson (1.010-1.025) Urine Protein (Neg-Trace) mg/dL Urine Glucose (UA) (Normal) mg/dL Urine Ketones (Negative) mg/dL Urine Blood (Negative) Urine Nitrite (Negative) Urine Bilirubin (Negative) Urine Urobilinogen (Normal) mg/dL Ur Leukocyte Esterase (Negative) Urine Microscopic RBC (0-3) per hpf Urine Microscopic WBC (0-3) per hpf Ur Squamous Epith Cells (None-Few) per lpf Amorphous Sediment (Few) Urine Bacteria (None-Few) per hpf Hyaline Casts (None-Few) per lpf Ur Culture Indicated? (NO) Specimen Rejected Person Notif of Crit 04/16/19 04/16/19 04/16/19 Range/Units 06:40 07:25 07:41 WBC (4.3-11.1) K/mcL RBC (3.82-4.97) M/mcL Hgb (11.5-15.4) g/dL Hct (35.3-44.9) % MCV (83.0-100.0) fL MCH (28.0-33.3) pg MCHC (31.6-35.5) g/dL RDW (11.5-14.5) % Plt Count (140-400) K/mcL MPV (9.4-12.4) fL Immature Gran % (0-4) % Seg Neutrophils % % Lymphocytes % % Monocytes % % Eosinophils % % Basophils % % Neutrophils # (1.6-8.9) K/mcL Lymphocytes # (0.6-4.6) K/mcL Monocytes # (0.0-1.3) K/mcL Eosinophils # (0.0-0.6) K/mcL Basophils # (0.0-0.2) K/mcL Hypochromasia (Not Present) Basophilic Stippling (Not Present) Stomatocytes (Not Present) D-Dimer (0-500) ng/mLFEU Sample Site ABG pH (7.32-7.45) pH Units ABG pCO2 (35-45) mmHg ABG pO2 (85-104) mmHg ABG HCO3 (21-27) mEq/L ABG Total CO2 (20-26) mEq/L ABG O2 Saturation (95-98) % ABG Base Excess (-2 to 3) mEq/L Ever Test O2 Delivery Device Inspired O2 (1-15=lpm ah78-660=%) Sodium (136-145) mEq/L Potassium (3.5-5.1) mEq/L Chloride (98-107) mEq/L Carbon Dioxide (23-29) mEq/L BUN (8-23) mg/dL Creatinine (0.60-1.20) mg/dL Est GFR ( Amer) (> 60) Est GFR (Non-Af Amer) (> 60) BUN/Creatinine Ratio (6-26) Glucose (70-105) mg/dL POC Glucose 154 H (70-99) mg/dL Calculated Osmolality (280-300) Lactic Acid 1.0 (0.5-2.2) mmol/L Calcium (8.6-10.3) mg/dL Troponin I (< 0.04) ng/mL B-Natriuretic Peptide (Less than 100) pg/mL Procalcitonin (0.00-0.15) ng/mL Urine Color (Yellow) Urine Clarity (Clear) Urine pH (5.0-8.0) pH Units Ur Specific Hudson (1.010-1.025) Urine Protein (Neg-Trace) mg/dL Urine Glucose (UA) (Normal) mg/dL Urine Ketones (Negative) mg/dL Urine Blood (Negative) Urine Nitrite (Negative) Urine Bilirubin (Negative) Urine Urobilinogen (Normal) mg/dL Ur Leukocyte Esterase (Negative) Urine Microscopic RBC (0-3) per hpf Urine Microscopic WBC (0-3) per hpf Ur Squamous Epith Cells (None-Few) per lpf Amorphous Sediment (Few) Urine Bacteria (None-Few) per hpf Hyaline Casts (None-Few) per lpf Ur Culture Indicated? (NO) Specimen Rejected Hemolyzed Person Notif of Crit 04/16/19 04/16/19 Range/Units 07:44 08:23 WBC (4.3-11.1) K/mcL RBC (3.82-4.97) M/mcL Hgb (11.5-15.4) g/dL Hct (35.3-44.9) % MCV (83.0-100.0) fL MCH (28.0-33.3) pg MCHC (31.6-35.5) g/dL RDW (11.5-14.5) % Plt Count (140-400) K/mcL MPV (9.4-12.4) fL Immature Gran % (0-4) % Seg Neutrophils % % Lymphocytes % % Monocytes % % Eosinophils % % Basophils % % Neutrophils # (1.6-8.9) K/mcL Lymphocytes # (0.6-4.6) K/mcL Monocytes # (0.0-1.3) K/mcL Eosinophils # (0.0-0.6) K/mcL Basophils # (0.0-0.2) K/mcL Hypochromasia (Not Present) Basophilic Stippling (Not Present) Stomatocytes (Not Present) D-Dimer (0-500) ng/mLFEU Sample Site L Radial ABG pH 7.22 L (7.32-7.45) pH Units ABG pCO2 89 H* D (35-45) mmHg ABG pO2 78 L D (85-104) mmHg ABG HCO3 36 H (21-27) mEq/L ABG Total CO2 39 H (20-26) mEq/L ABG O2 Saturation 91 L (95-98) % ABG Base Excess 6 H (-2 to 3) mEq/L Ever Test N/A O2 Delivery Device Cannula Inspired O2 5.0 (1-15=lpm pi22-539=%) Sodium (136-145) mEq/L Potassium (3.5-5.1) mEq/L Chloride (98-107) mEq/L Carbon Dioxide (23-29) mEq/L BUN (8-23) mg/dL Creatinine (0.60-1.20) mg/dL Est GFR ( Amer) (> 60) Est GFR (Non-Af Amer) (> 60) BUN/Creatinine Ratio (6-26) Glucose (70-105) mg/dL POC Glucose (70-99) mg/dL Calculated Osmolality (280-300) Lactic Acid (0.5-2.2) mmol/L Calcium (8.6-10.3) mg/dL Troponin I (< 0.04) ng/mL B-Natriuretic Peptide (Less than 100) pg/mL Procalcitonin 1.74 H (0.00-0.15) ng/mL Urine Color (Yellow) Urine Clarity (Clear) Urine pH (5.0-8.0) pH Units Ur Specific Hudson (1.010-1.025) Urine Protein (Neg-Trace) mg/dL Urine Glucose (UA) (Normal) mg/dL Urine Ketones (Negative) mg/dL Urine Blood (Negative) Urine Nitrite (Negative) Urine Bilirubin (Negative) Urine Urobilinogen (Normal) mg/dL Ur Leukocyte Esterase (Negative) Urine Microscopic RBC (0-3) per hpf Urine Microscopic WBC (0-3) per hpf Ur Squamous Epith Cells (None-Few) per lpf Amorphous Sediment (Few) Urine Bacteria (None-Few) per hpf Hyaline Casts (None-Few) per lpf Ur Culture Indicated? (NO) Specimen Rejected Person Notif of Mandi MONTIEL Critical Care Time Critical Care Time: No Attestation Statement - Attestation Attestation: This documentation is done with the assistance of Dragon dictation. Despite efforts made to ensure accuracy, there may be inaccuracies in stave cutter or spelling and typographical errors. I examined this patient and my medical decision-making was reviewed with the Resident Physician. I agree with the documented findings, disposition and treatment plan as described except to the extent set forth below. Patient was seen and evaluated by Dr. Montiel I agree with their evaluation and management plan, I supervised care the patient's stay. Patient was signed out at [address] Ambriz, patient came in last night due to hypercarbia. Placed her on BiPAP she had a recent fracture and she has been medicated with opiates at the nursing facility that think maybe she had a little too much of that which caused this to occur they placed her on BiPAP she is doing well. They are waiting on labs I went and checked on her she is more alert she strained up off her BiPAP mask. Kamilla Mcleanfi and transition her over to a nasal cannula and repeat ABG on her and recheck labs and then and plan for admission.
[2019-04-16 07:29] LABS: Calcium 9.5 mg/dL (8.6-10.3); Potassium 5.9 mEq/L (3.5-5.1)
[2019-04-16 07:30] LABS: Hypochromasia Present (Not Present); Stomatocytes 1+ (Not Present); Troponin I 0.03 ng/mL (< 0.04)
[2019-04-16 07:31] LABS: Basophilic Stippling 1+ (Not Present)
[2019-04-16 07:48] LABS: ABG Base Excess 6 mEq/L (-2 to 3); ABG HCO3 36 mEq/L (21-27); ABG Oxygen Saturation 91 % (95-98); ABG PCO2 89 mmHg (35-45); ABG PH 7.22 pH Units (7.32-7.45); ABG PO2 78 mmHg (85-104); ABG TCO2 39 mEq/L (20-26)
--- NOTE | 2019-04-16 07:49 | Emergency Department Note ---
Disposition Clinical Impression: Hypoxia, Acute respiratory failure with hypoxia and hypercapnia CHF (congestive heart failure) Qualifiers: Heart failure type: other Qualified Code(s): I50.9 - Heart failure, unspecified Acute on chronic kidney failure Qualifiers: Acute renal failure type: unspecified Chronic kidney disease stage: unspecified stage Qualified Code(s): N17.9 - Acute kidney failure, unspecified; N18.9 - Chronic kidney disease, unspecified Disposition: Still a Patient Condition: Fair Referrals: NONE,PCP [Primary Care Provider] - Forms: ED Satisfaction Letter, Work/School Release Time of Disposition: 08:02 General Adult HPI - General Chief complaint: ED General Medical Stated complaint: Lower 02 stats Time Seen by Provider: 04/16/19 05:43 Source: patient, EMS Mode of arrival: EMS Limitations: no limitations Nursing Notes Reviewed: Yes Vital Signs Reviewed: Yes - History of Present Illness Pain Scale: 4 - Related Data Home Medications Medication Instructions Recorded Confirmed Docusate Sodium [Dok] 100 mg PO DAILY PRN 08/03/18 04/16/19 Famotidine [Pepcid] 20 mg PO DAILY 08/03/18 04/16/19 Glucagon,Human Recombinant 1 mg SQ DAILY PRN 08/03/18 04/16/19 [Glucagon Emergency Kit] Insulin DETEMIR [Levemir] 35 unit SQ DAILY 08/03/18 04/16/19 Ipratropium Neb [Atrovent Neb] 0.5 mg IH Q8H PRN 08/03/18 04/16/19 Loratadine [Claritin] 10 mg PO DAILY 08/03/18 04/16/19 Ondansetron HCl 8 mg PO Q8H PRN 08/03/18 04/16/19 Ubidecarenone [Co Q-10] 100 mg PO DAILY 08/03/18 04/16/19 Atorvastatin [Lipitor] 40 mg PO HS 10/21/18 04/16/19 Gabapentin [Neurontin] 300 mg PO BID 10/21/18 04/16/19 Guaifenesin [Mucinex] 600 mg PO BID 10/21/18 04/16/19 Insulin LISPRO [HumaLOG] 2 - 12 unit SQ QID PRN 10/21/18 04/16/19 Metoprolol Tartrate [Lopressor] 50 mg PO BID 10/21/18 04/16/19 Venlafaxine HCl [Venlafaxine HCl 75 mg PO DAILY 10/21/18 04/16/19 ER] LORazepam [Ativan] 1 mg PO TID 04/16/19 04/16/19 Lactobacillus Acidophilus 1 each PO BID 04/16/19 04/16/19 [Acidophilus] Levofloxacin [Levaquin] 500 mg PO DAILY 04/16/19 04/16/19 Nitrofurantoin [Macrodantin] 100 mg PO BID 04/16/19 04/16/19 Previous Rx's Medication Instructions Recorded Morphine Sulfate Immed Rel 15 mg PO Q4HR PRN 2 Days #12 tab 04/07/19 [Morphine Sulfate] Allergies Allergy/AdvReac Type Severity Reaction Status Date / Time Penicillins Allergy Hives Verified 04/07/19 22:38 tuberculin,PPD,multi-puncture Allergy Hives Verified 04/07/19 22:38 clindamycin [From Cleocin] AdvReac Rash Verified 04/07/19 22:38 diazepam AdvReac Fatigued Verified 04/07/19 22:38 meclizine [From Antivert] AdvReac Dizziness Verified 04/07/19 22:38 nalbuphine [From Nubain] AdvReac Hallucinati Verified 04/07/19 22:38 ng promethazine [From Phenergan] AdvReac Irritable Verified 04/07/19 22:38 propoxyphene AdvReac Itching Verified 04/07/19 22:38 [From Darvocet-N 100] Past Medical History - Past Medical History Medical history: Reports: CHF, COPD, DVT, diabetes, fibromyalgia, GERD, hepatitis, hyperlipidemia, hypertension, renal disease, seizures, syncope Surgical history: Reports: no surgical history Psychiatric history: Reports: anxiety, depression, panic disorder - Social History Smoking Status: Former smoker Smokeless Tobacco Status: No Alcohol use: Reports: none Drug use: Reports: none, opiates, other Physical Exam - General Limitations: altered mental status (Pleasantly demented) General appearance: alert, in distress - Head Head exam: atraumatic, normocephalic, normal inspection - Eye Eye exam: Present: normal appearance, PERRL, EOMI - ENT ENT exam: normal exam, normal oropharynx, mucous membranes moist - Neck Neck exam: Present: normal inspection, full ROM, trachea midline - Chest Chest inspection: Present: normal inspection, symmetric chest wall rise - Respiratory Respiratory exam: Present: respiratory distress, other (Rales throughout) - Cardiovascular Cardiovascular exam: Present: regular rate, normal rhythm, normal heart sounds - Extremities Exam Extremities exam: Present: other (Pain to palpation of the right shoulder. Right arm is in a sling at this time.) - Neurological Exam Neurological exam: Present: alert, other (Aggressively demented) - Skin Skin exam: Present: warm, dry, intact, normal color Course Course Narrative: Patient signout [id number] please see their note for further. Eventually the patient is here after an altered mental status at the [facility]. Patient does have a humeral fracture that she is currently being treated for and is in a sling currently. She has been getting narcotic medication to help with the pain. She came in somnolent. She was arousable however per the night team and they placed her on BiPAP. Her CO2 was 110 initially. On my arrival we did repeat the ABG which showed her CO2 improving at 89. Patient is agitated at this time and was pulling BiPAP off. We did repeat the ABG and her CO2 had decreased 89. Patient's mentation was significantly better. However she is still demented. Patient's d-dimer is elevated. This could be secondary to her respiratory distress/failure, chronic kidney disease, recent fracture. I do not believe the patient has a PE at this time clinically. She does have overt pulmonary edema on her chest x-ray. We will withhold heparin at this time. Her chart searching I do not see the patient has a history of bleeding disorders. We did give the patient 40 mg of Lasix. - Consultations Consultation #1: Dr Garcia accepted Pt in stable condition. We did discuss the patient's elevated d-dimer. After discussion of patient's will scores 1.5 we will be withholding anticoagulants at this time. He did request Cipro calcitonin secondary to the nursing homes concern for pneumonia in our concern for the lashonda beckwith for shortness of breath being from overt pulmonary edema. I feel this is reasonable. Time: 07:57 Vital Signs Temperature 98.7 F 04/16/19 05:52 Pulse Rate 91 04/16/19 05:52 Respiratory Rate 18 04/16/19 05:52 Blood Pressure 114/69 04/16/19 05:52 O2 Sat by Pulse Oximetry 100 04/16/19 05:52 Temperature 98.7 F 04/16/19 05:52 Pulse Rate 97 04/16/19 06:54 Respiratory Rate 22 04/16/19 06:54 Blood Pressure 106/52 04/16/19 06:54 O2 Sat by Pulse Oximetry 100 04/16/19 06:54 Oxygen Delivery Oxygen Delivery Bipap Medical Decision Making - Medical Records Medical records reviewed: Yes I reviewed the patient's medical records. - Lab Data Lab results reviewed: Yes I reviewed the patient's lab results. Result diagrams: 04/16/19 06:40 04/16/19 06:40 Lab Results 04/16/19 04/16/19 04/16/19 Range/Units 06:13 06:21 06:40 WBC 15.0 H (4.3-11.1) K/mcL RBC 3.26 L (3.82-4.97) M/mcL Hgb 9.5 L (11.5-15.4) g/dL Hct 33.4 L (35.3-44.9) % MCV 102.5 H (83.0-100.0) fL MCH 29.1 (28.0-33.3) pg MCHC 28.4 L (31.6-35.5) g/dL RDW 12.5 (11.5-14.5) % Plt Count 264 (140-400) K/mcL MPV 10.6 (9.4-12.4) fL Immature Gran % 0.5 (0-4) % Seg Neutrophils % 82.0 % Lymphocytes % 6.1 % Monocytes % 9.3 % Eosinophils % 1.9 % Basophils % 0.2 % Neutrophils # 12.3 H (1.6-8.9) K/mcL Lymphocytes # 0.9 (0.6-4.6) K/mcL Monocytes # 1.4 H (0.0-1.3) K/mcL Eosinophils # 0.3 (0.0-0.6) K/mcL Basophils # 0.0 (0.0-0.2) K/mcL Hypochromasia Present A (Not Present) Basophilic Stippling 1+ A (Not Present) Stomatocytes 1+ A (Not Present) D-Dimer (0-500) ng/mLFEU Sample Site ABG pH 7.15 L* (7.32-7.45) pH Units ABG pCO2 110 H* (35-45) mmHg ABG pO2 143 H (85-104) mmHg ABG HCO3 38 H (21-27) mEq/L ABG Total CO2 41 H (20-26) mEq/L ABG O2 Saturation 98 (95-98) % ABG Base Excess 6 H (-2 to 3) mEq/L Ever Test O2 Delivery Device AeroTx Inspired O2 10.0 (1-15=lpm [id number]=%) Sodium (136-145) mEq/L Potassium (3.5-5.1) mEq/L Chloride (98-107) mEq/L Carbon Dioxide (23-29) mEq/L BUN (8-23) mg/dL Creatinine (0.60-1.20) mg/dL Est GFR ( Amer) (> 60) Est GFR (Non-Af Amer) (> 60) BUN/Creatinine Ratio (6-26) Glucose (70-105) mg/dL POC Glucose (70-99) mg/dL Calculated Osmolality (280-300) Calcium (8.6-10.3) mg/dL Troponin I (< 0.04) ng/mL B-Natriuretic Peptide (Less than 100) pg/mL Urine Color Dark Yellow (Yellow) Urine Clarity Cloudy A (Clear) Urine pH 5.0 (5.0-8.0) pH Units Ur Specific [place] 1.017 (1.010-1.025) Urine Protein Trace (Neg-Trace) mg/dL Urine Glucose (UA) Normal (Normal) mg/dL Urine Ketones Negative (Negative) mg/dL Urine Blood Negative (Negative) Urine Nitrite Negative (Negative) Urine Bilirubin Small H (Negative) Urine Urobilinogen Normal (Normal) mg/dL Ur Leukocyte Esterase Small H (Negative) Urine Microscopic RBC 0-3 (0-3) per hpf Urine Microscopic WBC 3-5 H (0-3) per hpf Ur Squamous Epith Cells Many H (None-Few) per lpf Amorphous Sediment Few (Few) Urine Bacteria Moderate H (None-Few) per hpf Hyaline Casts Few (None-Few) per lpf Ur Culture Indicated? YES A (NO) Specimen Rejected Person Notif of Mandi rhodes 0804/16/19 04/16/19 Range/Units 06:40 06:40 06:40 WBC (4.3-11.1) K/mcL RBC (3.82-4.97) M/mcL Hgb (11.5-15.4) g/dL Hct (35.3-44.9) % MCV (83.0-100.0) fL MCH (28.0-33.3) pg MCHC (31.6-35.5) g/dL RDW (11.5-14.5) % Plt Count (140-400) K/mcL MPV (9.4-12.4) fL Immature Gran % (0-4) % Seg Neutrophils % % Lymphocytes % % Monocytes % % Eosinophils % % Basophils % % Neutrophils # (1.6-8.9) K/mcL Lymphocytes # (0.6-4.6) K/mcL Monocytes # (0.0-1.3) K/mcL Eosinophils # (0.0-0.6) K/mcL Basophils # (0.0-0.2) K/mcL Hypochromasia (Not Present) Basophilic Stippling (Not Present) Stomatocytes (Not Present) D-Dimer 5269 H (0-500) ng/mLFEU Sample Site ABG pH (7.32-7.45) pH Units ABG pCO2 (35-45) mmHg ABG pO2 (85-104) mmHg ABG HCO3 (21-27) mEq/L ABG Total CO2 (20-26) mEq/L ABG O2 Saturation (95-98) % ABG Base Excess (-2 to 3) mEq/L Ever Test O2 Delivery Device Inspired O2 (1-15=lpm [id number]=%) Sodium 137 (136-145) mEq/L Potassium 5.9 H (3.5-5.1) mEq/L Chloride 97 L (98-107) mEq/L Carbon Dioxide 34 H (23-29) mEq/L BUN 56 H (8-23) mg/dL Creatinine 1.88 H (0.60-1.20) mg/dL Est GFR ( Amer) 32 L (> 60) Est GFR (Non-Af Amer) 26 L (> 60) BUN/Creatinine Ratio 30 H (6-26) Glucose 138 H (70-105) mg/dL POC Glucose (70-99) mg/dL Calculated Osmolality 302 H (280-300) Calcium 9.5 (8.6-10.3) mg/dL Troponin I 0.03 (< 0.04) ng/mL B-Natriuretic Peptide 58 (Less than 100) pg/mL Urine Color (Yellow) Urine Clarity (Clear) Urine pH (5.0-8.0) pH Units Ur Specific [place] (1.010-1.025) Urine Protein (Neg-Trace) mg/dL Urine Glucose (UA) (Normal) mg/dL Urine Ketones (Negative) mg/dL Urine Blood (Negative) Urine Nitrite (Negative) Urine Bilirubin (Negative) Urine Urobilinogen (Normal) mg/dL Ur Leukocyte Esterase (Negative) Urine Microscopic RBC (0-3) per hpf Urine Microscopic WBC (0-3) per hpf Ur Squamous Epith Cells (None-Few) per lpf Amorphous Sediment (Few) Urine Bacteria (None-Few) per hpf Hyaline Casts (None-Few) per lpf Ur Culture Indicated? (NO) Specimen Rejected Person Notif of Crit 04/16/19 04/16/19 04/16/19 Range/Units 06:40 07:25 07:44 WBC (4.3-11.1) K/mcL RBC (3.82-4.97) M/mcL Hgb (11.5-15.4) g/dL Hct (35.3-44.9) % MCV (83.0-100.0) fL MCH (28.0-33.3) pg MCHC (31.6-35.5) g/dL RDW (11.5-14.5) % Plt Count (140-400) K/mcL MPV (9.4-12.4) fL Immature Gran % (0-4) % Seg Neutrophils % % Lymphocytes % % Monocytes % % Eosinophils % % Basophils % % Neutrophils # (1.6-8.9) K/mcL Lymphocytes # (0.6-4.6) K/mcL Monocytes # (0.0-1.3) K/mcL Eosinophils # (0.0-0.6) K/mcL Basophils # (0.0-0.2) K/mcL Hypochromasia (Not Present) Basophilic Stippling (Not Present) Stomatocytes (Not Present) D-Dimer (0-500) ng/mLFEU Sample Site L Radial ABG pH 7.22 L (7.32-7.45) pH Units ABG pCO2 89 H* D (35-45) mmHg ABG pO2 78 L D (85-104) mmHg ABG HCO3 36 H (21-27) mEq/L ABG Total CO2 39 H (20-26) mEq/L ABG O2 Saturation 91 L (95-98) % ABG Base Excess 6 H (-2 to 3) mEq/L Ever Test N/A O2 Delivery Device Cannula Inspired O2 5.0 (1-15=lpm [id number]=%) Sodium (136-145) mEq/L Potassium (3.5-5.1) mEq/L Chloride (98-107) mEq/L Carbon Dioxide (23-29) mEq/L BUN (8-23) mg/dL Creatinine (0.60-1.20) mg/dL Est GFR ( Amer) (> 60) Est GFR (Non-Af Amer) (> 60) BUN/Creatinine Ratio (6-26) Glucose (70-105) mg/dL POC Glucose 154 H (70-99) mg/dL Calculated Osmolality (280-300) Calcium (8.6-10.3) mg/dL Troponin I (< 0.04) ng/mL B-Natriuretic Peptide (Less than 100) pg/mL Urine Color (Yellow) Urine Clarity (Clear) Urine pH (5.0-8.0) pH Units Ur Specific [place] (1.010-1.025) Urine Protein (Neg-Trace) mg/dL Urine Glucose (UA) (Normal) mg/dL Urine Ketones (Negative) mg/dL Urine Blood (Negative) Urine Nitrite (Negative) Urine Bilirubin (Negative) Urine Urobilinogen (Normal) mg/dL Ur Leukocyte Esterase (Negative) Urine Microscopic RBC (0-3) per hpf Urine Microscopic WBC (0-3) per hpf Ur Squamous Epith Cells (None-Few) per lpf Amorphous Sediment (Few) Urine Bacteria (None-Few) per hpf Hyaline Casts (None-Few) per lpf Ur Culture Indicated? (NO) Specimen Rejected Hemolyzed Person Notif of Mandi MONTIEL - Radiology Data Radiology results reviewed: Yes I reviewed the patient's radiology results. Chest X-Ray 04/16/19 05:56 IMPRESSION: Diffuse bilateral opacity, greatest at the bases. Correlate for edema. Pneumonia is not excluded in the appropriate clinical setting. D/ / Evan Patel MD / Evan Patel MD Interpreting Provider: Evan Patel MD
[2019-04-16] MEDS ORDERED: Furosemide 40 MG/4 ML VIAL IVP STA (07:50)
[2019-04-16] MEDS ORDERED: Ondansetron 4 MG/2 ML VIAL IVP PRN ×2 (08:04→08:06)
[2019-04-16] MEDS ORDERED: Naloxone 0.4 MG/ML INJ IVP PRN (08:04)
[2019-04-16] MEDS ORDERED: Calcium Gluconate 2,000 MG in D5% in Water 100 ML IVPB ONE (08:06)
[2019-04-16] MEDS ORDERED: Melatonin 3 MG TABLET PO PRN (08:06)
[2019-04-16] MEDS ORDERED: *HR* Metoprolol 5 MG/5 ML VIAL IVP PRN (08:06)
[2019-04-16] MEDS ORDERED: Nitroglycerin 0.4 MG TAB.SUBL SL PRN (08:06)
[2019-04-16] MEDS ORDERED: Ipratropium Neb 0.5 MG NEBULIZER IH PRN (08:08)
[2019-04-16] MEDS ORDERED: Cefepime HCl 2,000 MG in Water for inj. (sterile) 20 ML IVP SCH (11:03)
--- NOTE | 2019-04-16 11:06 | Internal Med History&Physical ---
Date of Encounter: 04/16/19 Time of Encounter: 12:07 Internal Medicine - H&P: HPI History of present illness: Ms. Garcia is a 74 year old female presents from [facility] for multiple issues. History is limited due to patient having significant dementia. She was noted to have altered mental status, hypoxia, and worsening agitation that is worse than her baseline. Per prior EMR records, she has a history of CHF, COPD, DVT, diabetes, GERD, CKD, hypertension, seizures. Patient was combated at nursing facility with staff. She recently had a hemoral head fracture injury and does take narcotics for pain for a recent humoral neck fracture. In the ED, initial troponin was negative, and EKG showed no acute findings, glucose was elevated at 502. Chest x-ray showed pulmonary vascular congestion. Creatinine was 1.88 when baseline is usually 1.22, WBC 15k. She had significant respiratory acidosis with pH 7.15 and pCO2 110. She was placed on BIPAP and acidosis improved and mental status improved then too. She was given Lasix, Solu Medrol, Duo Nebs. Patient currently pleasant in no acute distress. Past Med Surg Social Fam HX - Past Medical History Medical history: CHF, COPD, DVT, diabetes, fibromyalgia, GERD, hepatitis, hyperlipidemia, hypertension, renal disease, seizures, syncope Additional medical history: Pneumonia, general muscle weakness, chronic pain, myalgias, joint pain, symbolic dysfunction, chronic airway obstruction. Psychiatric history: anxiety, depression, panic disorder - Past Surgical History Surgical History: no surgical history Additional surgical history: Tubal ligation, cholecystectomy - Social History Smoking Status: Former smoker Smokeless Tobacco Status: No Alcohol use: none Drug use: none, opiates, other - Family History Mother Adopted: No Family Member Ethnicity: Non- Living Status: Hx Family Endocrine Disorder: Yes (DM) Brother Family Member Ethnicity: Non- Living Status: Sister Family Member Ethnicity: Non- Living Status: Hx Family Respiratory Disorders: Yes (COPD) Father Family Member Ethnicity: Non- Living Status: Hx Family Cardiac Disorders: Yes (HTN) Hx Family Respiratory Disorders: Yes (COPD) Hx Family Cancer: Yes Hx Family GI Disorders: No Hx Family Endocrine Disorder: Yes (DM) Hx Family Neuromuscular Disorders: No Hx Family Neurologic Disorders: No Hx Family HEENT Disorders: No Hx Family Autoimmune Disorders: No Internal Medicine - H&P: Meds Docusate Sodium [Dok] 100 mg PO DAILY PRN 08/03/18 [History] Famotidine [Pepcid] 20 mg PO DAILY 08/03/18 [History] Glucagon,Human Recombinant [Glucagon Emergency Kit] 1 mg SQ DAILY PRN 08/03/18 [History] Insulin DETEMIR [Levemir] 35 unit SQ DAILY 08/03/18 [History] Ipratropium Neb [Atrovent Neb] 0.5 mg IH Q8H PRN 08/03/18 [History] Loratadine [Claritin] 10 mg PO DAILY 08/03/18 [History] Ondansetron HCl 8 mg PO Q8H PRN 08/03/18 [History] Ubidecarenone [Co Q-10] 100 mg PO DAILY 08/03/18 [History] Atorvastatin [Lipitor] 40 mg PO HS 10/21/18 [History] Gabapentin [Neurontin] 300 mg PO BID 10/21/18 [History] Guaifenesin [Mucinex] 600 mg PO BID 10/21/18 [History] Insulin LISPRO [HumaLOG] 2 - 12 unit SQ QID PRN 10/21/18 [History] Metoprolol Tartrate [Lopressor] 50 mg PO BID 10/21/18 [History] Venlafaxine HCl [Venlafaxine HCl ER] 75 mg PO DAILY 10/21/18 [History] Morphine Sulfate Immed Rel [Morphine Sulfate] 15 mg PO Q4HR PRN 2 Days #12 tab 04/07/19 [Rx] LORazepam [Ativan] 1 mg PO TID 04/16/19 [History] Lactobacillus Acidophilus [Acidophilus] 1 each PO BID 04/16/19 [History] Levofloxacin [Levaquin] 500 mg PO DAILY 04/16/19 [History] Nitrofurantoin [Macrodantin] 100 mg PO BID 04/16/19 [History] Allergy/AdvReac Type Severity Reaction Status Date / Time Penicillins Allergy Hives Verified 04/07/19 22:38 tuberculin,PPD,multi-puncture Allergy Hives Verified 04/07/19 22:38 clindamycin [From Cleocin] AdvReac Rash Verified 04/07/19 22:38 diazepam AdvReac Fatigued Verified 04/07/19 22:38 meclizine [From Antivert] AdvReac Dizziness Verified 04/07/19 22:38 nalbuphine [From Nubain] AdvReac Hallucinati Verified 04/07/19 22:38 ng promethazine [From Phenergan] AdvReac Irritable Verified 04/07/19 22:38 propoxyphene AdvReac Itching Verified 04/07/19 22:38 [From Darvocet-N 100] ROS unobtainable: due to mental status All Systems PM: A 10-system review of systems was performed and is negative for pertinent findings except as documented above in the HPI. - Constitutional Vitals: Temp Pulse Resp BP Pulse Ox 98.5 F 107 16 107/54 92 04/16/19 10:42 04/16/19 10:42 04/16/19 10:42 04/16/19 10:42 04/16/19 10:42 General appearance: Present: A&O X 1, no acute distress Exam: Compliant with exam - Head Head exam: Present: atraumatic, normocephalic - Eye Eye exam: Present: PERRL, conjuntiva pink, sclera anicteric Pupils: Present: PERRL - Neck Neck exam general surgery: Present: supple, trachea midline. Absent: lymphadenopathy - Respiratory Respiratory exam: Present: decreased breath sounds, rales, wheezes. Absent: accessory muscle use, rhonchi - Cardiovascular Cardiovascular exam: Present: +S1, +S2, tachycardia. Absent: diastolic murmur, gallop, rubs, systolic murmur - GI/Abdominal GI/Abdominal exam: Present: normal bowel sounds, soft, no peritoneal signs. Absent: distended, tenderness - Extremities Exam Extremities exam: Present: warm, radial pulses palpable and symmetrical. Absent: calf tenderness, cyanotic, pedal edema - Neurological Exam Neurological exam: Present: CN II-XII intact, oriented X3, no focal deficits. Absent: pronater drift, facial droop, speech deficit - Skin Skin exam: Present: dry, intact Additional comments: Right heel has shallow blistering of skin, resting inside boot. Left heel has pressure ulcer stage I on the bottom/posterior aspect of heel resting in boot. Internal Med - H&P Results - Labs CBC & Chem 7: 04/16/19 06:40 04/16/19 06:40 Labs: Short CBC 04/16/19 Range/Units 06:40 WBC 15.0 H (4.3-11.1) K/mcL Hgb 9.5 L (11.5-15.4) g/dL Hct 33.4 L (35.3-44.9) % Plt Count 264 (140-400) K/mcL Neutrophils # 12.3 H (1.6-8.9) K/mcL BMP 04/16/19 06:40 Sodium 137 Potassium 5.9 H Chloride 97 L Carbon Dioxide 34 H BUN 56 H Creatinine 1.88 H Glucose 138 H Calcium 9.5 Cardiac Enzymes 04/16/19 Range/Units 06:40 Troponin I 0.03 (< 0.04) ng/mL Urine 04/16/19 Range/Units 06:21 Urine Color Dark Yellow (Yellow) Urine Clarity Cloudy A (Clear) Urine pH 5.0 (5.0-8.0) pH Units Ur Specific [place] 1.017 (1.010-1.025) Urine Protein Trace (Neg-Trace) mg/dL Urine Glucose (UA) Normal (Normal) mg/dL - ABG Interpretation ABG results: 04/16/19 04/16/19 06:13 07:44 ABG pH 7.15 L* 7.22 L ABG pCO2 110 H* 89 H* D ABG pO2 143 H 78 L D ABG HCO3 38 H 36 H ABG Total CO2 41 H 39 H ABG O2 Saturation 98 91 L ABG Base Excess 6 H 6 H - Impressions ITS Impressions Chest X-Ray 04/16/19 05:56 IMPRESSION: Diffuse bilateral opacity, greatest at the bases. Correlate for edema. Pneumonia is not excluded in the appropriate clinical setting. D/ / Evan Patel MD / Evan Patel MD Interpreting Provider: Evan Patel MD - Assessment and Plan (1) Acute respiratory failure with hypoxia and hypercapnia Current Visit: Yes Status: Acute Assessment and plan: Acute and chronic respiratory failure. Chest x-ray notable for interstitial opacities at both lung bases likely from pulmonary edema. She had significantly respiratory acidosis with pH 7.15 and pCO2 of 110 that improved to pH 7.22 and pCO2 of 89 with BIPAP. She then did not comply with bipap afterwords. On arrival she was more lethargic but on current exam she is alert and pleasantly demented, which likely improved after CO2 improved after bipap. Also received 40 mg IV Lasix. D-dimer was positive, but her Well's score was 1.5, low risk. It is likely positive being age, co morbidities, and recent fracture a few weeks ago. There is a possibility of pneumonia, but there was no reports of cough with sputum and patient has remained afebrile. We decided to obtain a procalcitonin to help determine if there is an acute bacterial infection. It was performed that was elevated at 1.71. This could be due kidney injury or a bacterial UTI, but at this point cannot absolutely exclude pneumonia. Will do emperic therapy for now and continue workup. If bacterial pneumonia ruled out, can then de escalate abx to cover UTI only. - Continue bipap and recheck ABG - Xopenex/ipratroprium - Solu Medrol - IV Lasix 20 mg BID, monitor I/Os, renal function. (2) Sepsis Current Visit: No Status: Suspected Assessment and plan: suspect sepsis. Source is UTI vs pneumonia. Meets SIRS criteria for leukocytosis, tachycardia, dyspnea. Lactic acid is within normal limits and patient afebrile. Some of these findings could be explained by respiratory distress which made the initial diagnosis of sepsis difficult. A procalcitonin was done elevated suggesting bacterial source, likely UTI, but as above, will need to emperically treat for now with Vanc/Cefepime. Await blood and urine cultures. Qualifiers: Sepsis type: sepsis due to unspecified organism Sepsis acute organ dysfunction status: unspecified Qualified Code(s): A41.9 - Sepsis, unspecified organism (3) CHARITO (acute kidney injury) Current Visit: No Status: Acute Assessment and plan: possibly from fluid overload vs other etiology. On Levaquin. Continue Lasix with caution, monitoring renal function. (4) Acute kidney injury superimposed on chronic kidney disease Current Visit: No Status: Acute (5) COPD with acute exacerbation Current Visit: No Status: Acute Assessment and plan: Plan as above (6) UTI (urinary tract infection), bacterial Current Visit: No Status: Acute Assessment and plan: See plan for sepsis (7) CAD (coronary artery disease) Current Visit: No Status: Chronic Qualifiers: Coronary Disease-Associated Artery/Lesion type: [place] artery [place] vs. transplanted heart: minto heart Associated angina: without angina Qualified Code(s): I25.10 - Atherosclerotic heart disease of minto coronary artery without angina pectoris (8) CKD (chronic kidney disease) stage 3, GFR 30-59 ml/min Current Visit: No Status: Chronic Assessment and plan: see plan above. (9) Chronic anemia Current Visit: No Status: Chronic Assessment and plan: at baseline (10) Chronic respiratory failure Current Visit: No Status: Chronic Qualifiers: Respiratory failure complication: hypoxia Qualified Code(s): J96.11 - Chronic respiratory failure with hypoxia (11) DM (diabetes mellitus), type 2 Current Visit: No Status: Chronic Assessment and plan: diabetic diet, ISS Qualifiers: Diabetes mellitus ferry terminal supervisor insulin use: with ferry terminal supervisor use Diabetes mellitus complication status: with kidney complications Diabetes mellitus complication detail: with chronic kidney disease Chronic kidney disease stage: unspecified stage Qualified Code(s): E11.22 - Type 2 diabetes mellitus with diabetic chronic kidney disease; Z79.4 - ocean transportation intermediary (current) use of insulin (12) GERD (gastroesophageal reflux disease) Current Visit: No Status: Chronic Qualifiers: Esophagitis presence: esophagitis presence not specified Qualified Code(s): K21.9 - Gastro-esophageal reflux disease without esophagitis (13) HLD (hyperlipidemia) Current Visit: No Status: Chronic Qualifiers: Hyperlipidemia type: pure hypercholesterolemia Qualified Code(s): E78.00 - Pure hypercholesterolemia, unspecified; E78.0 - Pure hypercholesterolemia (14) Encephalopathy acute Current Visit: No Status: Resolved Assessment and plan: This is multifactorial. Hypercapnea and hypoxia, UTI, dementia with acute illness all most likely biggest contributions. Medications like Macrobid and Pepcid can also worsen these symptoms in a patient with dementia. - Continue treatment of respiratory failure - Emperic antibiotics therapy - Will not continue Macrobid, DC Pepcid (15) Hyperkalemia Current Visit: No Status: Resolved Assessment and plan: Secondary to CHARITO vs hemolyzed sample. - Recheck potassium now - Note patient is currently receiving Lasix and beta agonist neb (16) DVT prophylaxis Current Visit: No Status: Acute Assessment and plan: Heparin SQ - Time Spent With Patient Total time spent is greater than 50% in coordination of care (as documented) at patient's floor/unit and/or counseling patient:
[2019-04-16] MEDS ORDERED: Ipratropium Neb 0.5 MG NEBULIZER ONE (11:46)
[2019-04-16] MEDS ORDERED: Levalbuterol Neb 1.25 MG/3 ML ONE (11:46)
[2019-04-16] MEDS ORDERED: Vancomycin 1 EACH in 0.9 % Sodium Chloride 250 ML IVPB PRN (11:49)
[2019-04-16] MEDS: Ipratropium Neb 0.5 MG NEBULIZER IH SCH ×3 (11:55→20:05)
[2019-04-16] MEDS: Levalbuterol Neb 1.25 MG/3 ML IH SCH ×3 (11:55→20:05)
[2019-04-16] MEDS ORDERED: Ipratropium/Albuterol Neb 3 ML IH SCH (12:00)
[2019-04-16 12:07] LABS: ABG Base Excess 6 mEq/L (-2 to 3); ABG HCO3 37 mEq/L (21-27); ABG Oxygen Saturation 83 % (95-98); ABG PCO2 94 mmHg (35-45); ABG PO2 62 mmHg (85-104); ABG TCO2 40 mEq/L (20-26)
[2019-04-16] MEDS: Cefepime HCl 2,000 MG in Water for inj. (sterile) 20 ML IVP SCH (13:08)
[2019-04-16] MEDS: Loratadine 10 MG TABLET PO SCH (13:10)
[2019-04-16] MEDS: Gabapentin 300 MG CAPSULE PO SCH ×2 (13:10→21:09)
[2019-04-16] MEDS: Venlafaxine XR (24 HR) 75 MG CAP.ER.24H PO SCH (13:10)
[2019-04-16] MEDS: Insulin LISPRO 300 UNITS/3 ML VIAL SQ SCH ×2 (13:12→17:18)
[2019-04-16] MEDS: MethylPREDNISolone 40 MG/ML VIAL IVP SCH ×2 (13:47→16:55)
[2019-04-16 13:51] LABS: ABG Base Excess 5 mEq/L (-2 to 3); ABG HCO3 33 mEq/L (21-27); ABG Oxygen Saturation 95 % (95-98); ABG PCO2 73 mmHg (35-45); ABG PH 7.27 pH Units (7.32-7.45); ABG PO2 91 mmHg (85-104); ABG TCO2 36 mEq/L (20-26)
[2019-04-16] MEDS ORDERED: MethylPREDNISolone 40 MG/ML VIAL IVP SCH (16:00)
[2019-04-16] MEDS: *HR* Heparin 5,000 UNIT/ML VIAL SQ SCH (16:56)
[2019-04-16] MEDS: Furosemide 40 MG/4 ML VIAL IVP SCH (21:09)
[2019-04-17] MEDS: Ipratropium Neb 0.5 MG NEBULIZER IH SCH ×7 (00:08→23:28)
[2019-04-17] MEDS: Levalbuterol Neb 1.25 MG/3 ML IH SCH ×7 (00:08→23:28)
[2019-04-17] MEDS: MethylPREDNISolone 40 MG/ML VIAL IVP SCH ×2 (00:48→09:15)
[2019-04-17] MEDS: *HR* LORazepam 1 MG TABLET PO PRN ×2 (00:48→21:10)
[2019-04-17] MEDS: Insulin LISPRO 300 UNITS/3 ML VIAL SQ SCH ×5 (01:01→20:55)
[2019-04-17] MEDS: *HR* Heparin 5,000 UNIT/ML VIAL SQ SCH ×2 (06:28→17:28)
[2019-04-17] MEDS ORDERED: Insulin Human Regular 10 UNIT in 0.9 % Sodium Chloride 10 ML IV ONE (07:16)
[2019-04-17] MEDS ORDERED: *HR* Dextrose 25% in Water (Syg) 10 ML SYRINGE IVP ONE (07:17)
[2019-04-17] MEDS ORDERED: Furosemide 80 MG in 0.9 % Sodium Chloride 50 ML IV ONE (07:19)
[2019-04-17 08:05] LABS: ABG Base Excess 8 mEq/L (-2 to 3); ABG HCO3 36 mEq/L (21-27); ABG Oxygen Saturation 91 % (95-98); ABG PCO2 72 mmHg (35-45); ABG PH 7.31 pH Units (7.32-7.45); ABG PO2 68 mmHg (85-104); ABG TCO2 38 mEq/L (20-26)
[2019-04-17 08:07] LABS: Hematocrit 28.9 % (35.3-44.9); Hemoglobin 8.4 g/dL (11.5-15.4); Mean Corpuscular HGB Conc 29.1 g/dL (31.6-35.5); Mean Corpuscular Hemoglobin 28.8 pg (28.0-33.3); Mean Platelet Volume 10.5 fL (9.4-12.4); Platelet Count 315 K/mcL (140-400); Red Blood Count 2.92 M/mcL (3.82-4.97); Red Cell Distribution Width 12.6 % (11.5-14.5); White Blood Count 8.1 K/mcL (4.3-11.1)
[2019-04-17 08:24] LABS: Calcium 8.7 mg/dL (8.6-10.3)
[2019-04-17 08:58] LABS: Adenovirus Not Detected (Not Detect); Coronavirus 229E Not Detected (Not Detect); Coronavirus HKU1 Not Detected (Not Detect); Coronavirus NL63 Not Detected (Not Detect); Coronavirus OC43 Not Detected (Not Detect); Human Metapneumovirus Not Detected (Not Detect); Human Rhinovirus/Enterovirus Not Detected (Not Detect); Influenza A Subtype 2009 H1 Not Detected (Not Detect); Influenza A Untypeable Not Detected (Not Detect); Influenza B Not Detected (Not Detect)
[2019-04-17 08:59] LABS: Bordetella Pertussis Not Detected (Not Detect); Chlamydophila pneumoniae Not Detected (Not Detect); Mycoplasma pneumoniae Not Detected (Not Detect); Parainfluenza Virus 1 Not Detected (Not Detect); Parainfluenza Virus 2 Not Detected (Not Detect); Parainfluenza Virus 3 Not Detected (Not Detect); Parainfluenza Virus 4 Not Detected (Not Detect); Respiratory Syncytial Virus Not Detected (Not Detect)
[2019-04-17] MEDS: Venlafaxine XR (24 HR) 75 MG CAP.ER.24H PO SCH (09:15)
[2019-04-17] MEDS: Gabapentin 300 MG CAPSULE PO SCH ×2 (09:15→21:09)
[2019-04-17] MEDS: Loratadine 10 MG TABLET PO SCH (09:16)
[2019-04-17] MEDS: Furosemide 40 MG/4 ML VIAL IVP SCH ×2 (09:16→21:10)
[2019-04-17] MEDS ORDERED: *HR* Dextrose 50 % in Water (Syg) 50 ML SYRINGE IVP PRN (12:05)
[2019-04-17] MEDS ORDERED: D5% in Water 1,000 ML IVC PRN (12:05)
[2019-04-17] MEDS ORDERED: Dextrose Gel 15 GM/37.5 ML TUBE PO PRN ×2 (12:05)
[2019-04-17] MEDS: Cefepime HCl 2,000 MG in Water for inj. (sterile) 20 ML IVP SCH (13:17)
[2019-04-17] MEDS: Insulin DETEMIR 100 UNIT/ML X5UNITS SQ SCH (13:18)
--- NOTE | 2019-04-17 14:18 | Internal Med Progress Note ---
Hospitalist Progress Note - Encounter Date of Encounter: 04/17/19 Time of Encounter: 14:16 - Subjective Interval History: Patient with complaints of pain this morning. Actually has no shortness of breath despite being hypoxic. Would like to get her left hand x-ray because still hurts after the fall she had. - Exam Vitals: Temp Pulse Resp BP Pulse Ox 99.0 F 79 20 136/57 97 04/17/19 11:23 04/17/19 11:23 04/17/19 11:23 04/17/19 11:23 04/17/19 11:23 Exam: General: Ill-appearing and in no acute distress HEENT: No erythema of posterior pharynx. No exudates. Lymphatics: No mandibular or cervical lymphadenopathy Cardiovascular: RRR. No murmurs. No chest wall tenderness. Lungs: Diffuse rhonchi. Regular chest rise. Abdomen: Non-tender. No rebound or gaurding. Nl bowel sounds. Extremities: No edema. 2+ pulses radial and pedal pulses. Legs in boots from fracture. Right arm in the sling Skin: No rahses, abrasions, or contusions. Nl cap refill. Psych: Nl attention. 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 5/5 strength. Sensation to light touch and pinprick i ntact. - Assessment and Plan (1) Acute respiratory failure with hypoxia and hypercapnia Current Visit: Yes Status: Acute Assessment and Plan: Patient is a chronically ill female with hx of chonic respiratory failure from COPD and ?HFpEF and recent fall complicated by multiple fractures discharged to a rehabilitation facility and presented with confusion in the setting of meeting sepsis criteria on admission and chest x-ray with evidence of pneumonia versus pulmonary congestion. -Most likely underlying etiology is acute pneumonia in setting of chronic respiratory failure -COPD exacerbation less likely considering no wheezing on exam -Unclear if volume is really playing any component in current picture: Chest x-ray with questionable hypervolemic state However, BNP less than 50 and not on Lasix outpatient Past echoes with mild diastolic dysfunction with preserved EF Status post several doses of IV Lasix PLAN: - Vancomycin and Cefepime - will de-escalate tomorrow - F/u cultures - Scheduled nebs (2) Sepsis Current Visit: No Status: Suspected Assessment and Plan: Secondary to pneumonia plus or minus urinary tract infection. - Treatment per above (3) HCAP (healthcare-associated pneumonia) Current Visit: Yes Status: Acute Assessment and Plan: See above (4) COPD with acute exacerbation Current Visit: No Status: Acute Assessment and Plan: See above (5) UTI (urinary tract infection), bacterial Current Visit: No Status: Acute (6) Acute kidney injury superimposed on chronic kidney disease Current Visit: No Status: Acute Assessment and Plan: Etiology unclear. May be secondary to hypervolemia, however, BNP is only 58. Seems to have improved with Lasix. - Status post 80 mg IV Lasix today - Reassess kidney function tomorrow (7) Hyperkalemia Current Visit: No Status: Resolved Assessment and Plan: In setting of acute renal failure described above. Now resolved. (8) Encephalopathy acute Current Visit: No Status: Resolved Assessment and Plan: Secondary to acute infectious process now resolving (9) DM (diabetes mellitus), type 2 Current Visit: No Status: Chronic Assessment and Plan: Hyperglycemic since admission, however, long-acting insulin was held yesterday. - Restart long-acting insulin - HDSS DVT Prophylaxis: Heparin Internal Medicine: Result - Labs CBC & Chem 7: 04/17/19 07:40 04/17/19 07:40 Labs: Short CBC 04/17/19 Range/Units 07:40 WBC 8.1 (4.3-11.1) K/mcL Hgb 8.4 L (11.5-15.4) g/dL Hct 28.9 L (35.3-44.9) % Plt Count 315 (140-400) K/mcL BMP 04/17/19 07:40 Sodium 137 Potassium 5.0 Chloride 93 L Carbon Dioxide 35 H BUN 71 H Creatinine 1.35 H Glucose 403 H Calcium 8.7 - ABG Interpretation ABG results: ABG ABG pH 7.31 pH Units (7.32-7.45) L 04/17/19 07:59 ABG pCO2 72 mmHg (35-45) H* 04/17/19 07:59 ABG pO2 68 mmHg (85-104) L 04/17/19 07:59 ABG O2 Saturation 91 % (95-98) L 04/17/19 07:59 PT/INR, D-dimer D-Dimer 5269 ng/mLFEU (0-500) H 04/16/19 06:40 Consult Discharge Plan - Plan Referrals: NONE,PCP [Primary Care Provider] - (2) Sepsis Qualifiers: Sepsis type: sepsis due to unspecified organism Sepsis acute organ dysfunction status: unspecified Qualified Code(s): A41.9 - Sepsis, unspecified organism (9) DM (diabetes mellitus), type 2 Qualifiers: Diabetes mellitus jail insulin use: with terminal carman use Diabetes mellitus complication status: with kidney complications Diabetes mellitus complication detail: with chronic kidney disease Chronic kidney disease stage: unspecified stage Qualified Code(s): E11.22 - Type 2 diabetes mellitus with diabetic chronic kidney disease; Z79.4 - jail (current) use of insulin
[2019-04-17] MEDS: Morphine Sulfate Immed Rel 15 MG TABLET PO PRN (17:24)
[2019-04-18] MEDS: Levalbuterol Neb 1.25 MG/3 ML IH SCH ×7 (03:45→23:54)
[2019-04-18] MEDS: Ipratropium Neb 0.5 MG NEBULIZER IH SCH ×7 (03:45→23:54)
[2019-04-18] MEDS: *HR* Heparin 5,000 UNIT/ML VIAL SQ SCH ×2 (04:53→17:30)
[2019-04-18] MEDS: Morphine Sulfate Immed Rel 15 MG TABLET PO PRN ×2 (04:53→10:13)
[2019-04-18 05:17] LABS: Hematocrit 30.6 % (35.3-44.9); Mean Corpuscular HGB Conc 29.4 g/dL (31.6-35.5); Mean Corpuscular Hemoglobin 28.7 pg (28.0-33.3); Mean Corpuscular Volume 97.5 fL (83.0-100.0); Mean Platelet Volume 10.4 fL (9.4-12.4); Platelet Count 396 K/mcL (140-400); Red Blood Count 3.14 M/mcL (3.82-4.97); Red Cell Distribution Width 13.1 % (11.5-14.5); White Blood Count 11.2 K/mcL (4.3-11.1)
[2019-04-18 05:39] LABS: Calcium 9.3 mg/dL (8.6-10.3); Potassium 4.2 mEq/L (3.5-5.1)
[2019-04-18] MEDS: Insulin LISPRO 300 UNITS/3 ML VIAL SQ SCH ×4 (07:52→21:12)
[2019-04-18] MEDS: Loratadine 10 MG TABLET PO SCH (09:38)
[2019-04-18] MEDS: Venlafaxine XR (24 HR) 75 MG CAP.ER.24H PO SCH (09:39)
[2019-04-18] MEDS: Furosemide 40 MG/4 ML VIAL IVP SCH ×2 (09:39→21:24)
[2019-04-18] MEDS: Gabapentin 300 MG CAPSULE PO SCH ×2 (09:39→21:23)
[2019-04-18] MEDS: Insulin DETEMIR 100 UNIT/ML X5UNITS SQ SCH (09:54)
[2019-04-18] MEDS: Cefepime HCl 2,000 MG in Water for inj. (sterile) 20 ML IVP SCH (13:19)
--- NOTE | 2019-04-18 20:00 | Internal Med Progress Note ---
Hospitalist Progress Note - Encounter Date of Encounter: 04/18/19 Time of Encounter: 19:56 - Subjective Interval History: Patient very sedated with home morphine dose today. Discontinued opioids from the [place] and will readdress pain status when she is more arousable. - Exam Vitals: Temp Pulse Resp BP Pulse Ox 98.5 F 76 16 105/58 95 04/18/19 15:12 04/18/19 15:12 04/18/19 15:52 04/18/19 15:12 04/18/19 15:52 Exam: General: Ill-appearing and in no acute distress HEENT: No erythema of posterior pharynx. No exudates. Lymphatics: No mandibular or cervical lymphadenopathy Cardiovascular: RRR. No murmurs. No chest wall tenderness. Lungs: Diffuse rhonchi. Regular chest rise. Abdomen: Non-tender. No rebound or gaurding. Nl bowel sounds. Extremities: No edema. 2+ pulses radial and pedal pulses. Legs in boots from fracture. Right arm in the sling Skin: No rahses, abrasions, or contusions. Nl cap refill. Psych: Nl attention. 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 5/5 strength. Sensation to light touch and pinprick intact. - Assessment and Plan (1) Acute respiratory failure with hypoxia and hypercapnia Current Visit: Yes Status: Acute Assessment and Plan: Patient is a chronically ill female with hx of chonic respiratory failure from COPD and ?HFpEF and recent fall complicated by multiple fractures discharged to a rehabilitation facility and presented with confusion in the setting of meeting sepsis criteria on admission and chest x-ray with evidence of pneumonia versus pulmonary congestion. -Most likely underlying etiology is acute pneumonia in setting of chronic respiratory failure -COPD exacerbation less likely considering no wheezing on exam -Unclear if volume is really playing any component in current picture: Chest x-ray with questionable hypervolemic state However, BNP less than 50 and not on Lasix outpatient Past echoes with mild diastolic dysfunction with preserved EF Status post several doses of IV Lasix -From further history, appears that her opioids may be contributed and respiratory failure. Has been on morphine outpatient for fracture treatment of pain Given here and very somnolent from this. Definitely a risk factor for her aspirating and presenting in the first place We will hold currently and reassess pain after patient is more arousable PLAN: - Vancomycin and Cefepime - will de-escalate tomorrow - F/u cultures - Scheduled nebs - Hold lasix for now - Hold opiates (2) Sepsis Current Visit: No Status: Suspected Assessment and Plan: Secondary to pneumonia plus or minus urinary tract infection. - Treatment per above (3) HCAP (healthcare-associated pneumonia) Current Visit: Yes Status: Acute Assessment and Plan: See above (4) COPD with acute exacerbation Current Visit: No Status: Acute Assessment and Plan: See above (5) UTI (urinary tract infection), bacterial Current Visit: No Status: Acute Assessment and Plan: See plan for sepsis (6) Acute kidney injury superimposed on chronic kidney disease Current Visit: No Status: Acute Assessment and Plan: Etiology unclear. May be secondary to hypervolemia, however, BNP is only 58. Seems to have improved with Lasix. - We will hold Lasix and reassess - Reassess kidney function tomorrow (7) Hyperkalemia Current Visit: No Status: Resolved Assessment and Plan: In setting of acute renal failure described above. Now resolved. (8) Encephalopathy acute Current Visit: No Status: Resolved Assessment and Plan: Secondary to acute infectious process now resolving (9) DM (diabetes mellitus), type 2 Current Visit: No Status: Chronic Assessment and Plan: Hyperglycemic since admission, however, long-acting insulin was held yesterday. - Restart long-acting insulin - HDSS DVT Prophylaxis: Heparin Internal Medicine: Result - Labs CBC & Chem 7: 04/18/19 04:20 04/18/19 04:20 Labs: Short CBC 04/18/19 Range/Units 04:20 WBC 11.2 H (4.3-11.1) K/mcL Hgb 9.0 L (11.5-15.4) g/dL Hct 30.6 L (35.3-44.9) % Plt Count 396 (140-400) K/mcL BMP 04/18/19 04:20 Sodium 140 Potassium 4.2 Chloride 98 Carbon Dioxide 38 H BUN 82 H Creatinine 1.45 H Glucose 43 L Calcium 9.3 - ABG Interpretation ABG results: ABG ABG pH 7.31 pH Units (7.32-7.45) L 04/17/19 07:59 ABG pCO2 72 mmHg (35-45) H* 04/17/19 07:59 ABG pO2 68 mmHg (85-104) L 04/17/19 07:59 ABG O2 Saturation 91 % (95-98) L 04/17/19 07:59 PT/INR, D-dimer D-Dimer 5269 ng/mLFEU (0-500) H 04/16/19 06:40 Consult Discharge Plan - Plan Referrals: NONE,PCP [Primary Care Provider] - __ (2) Sepsis Qualifiers: Sepsis type: sepsis due to unspecified organism Sepsis acute organ dysfunction status: unspecified Qualified Code(s): A41.9 - Sepsis, unspecified organism (9) DM (diabetes mellitus), type 2 Qualifiers: Diabetes mellitus watcher automat long goods insulin use: with watcher automat long goods use Diabetes mellitus complication status: with kidney complications Diabetes mellitus complication detail: with chronic kidney disease Chronic kidney disease stage: unspecified stage Qualified Code(s): E11.22 - Type 2 diabetes mellitus with diabetic chronic kidney disease; Z79.4 - longterm (current) use of insulin
[2019-04-18] MEDS: *HR* LORazepam 1 MG TABLET PO PRN (21:35)
[2019-04-19] MEDS ORDERED: traMADol 50 MG TABLET PO ONE (00:10)
[2019-04-19 03:59] LABS: Hematocrit 28.3 % (35.3-44.9); Hemoglobin 8.3 g/dL (11.5-15.4); Mean Corpuscular HGB Conc 29.3 g/dL (31.6-35.5); Mean Corpuscular Hemoglobin 29.3 pg (28.0-33.3); Mean Platelet Volume 9.7 fL (9.4-12.4); Platelet Count 317 K/mcL (140-400); Red Blood Count 2.83 M/mcL (3.82-4.97); Red Cell Distribution Width 12.9 % (11.5-14.5); White Blood Count 8.3 K/mcL (4.3-11.1)
[2019-04-19] MEDS: Ipratropium Neb 0.5 MG NEBULIZER IH SCH ×6 (04:35→23:46)
[2019-04-19] MEDS: Levalbuterol Neb 1.25 MG/3 ML IH SCH ×6 (04:36→23:46)
[2019-04-19 04:38] LABS: BUN/Creatinine Ratio 72 (6-26); Blood Urea Nitrogen 68 mg/dL (8-23); Calcium 8.9 mg/dL (8.6-10.3); Carbon Dioxide 40 mEq/L (23-29); Chloride 98 mEq/L (98-107); Glucose 158 mg/dL (70-105); Osmolality,Calculated 317 (280-300); Potassium 4.4 mEq/L (3.5-5.1); Sodium 142 mEq/L (136-145); eGFR For African Americans > 60 (> 60); eGFR For Non-African Americans 58 (> 60)
[2019-04-19] MEDS: *HR* Heparin 5,000 UNIT/ML VIAL SQ SCH ×2 (05:05→18:16)
[2019-04-19] MEDS: Venlafaxine XR (24 HR) 75 MG CAP.ER.24H PO SCH (08:07)
[2019-04-19] MEDS: Insulin LISPRO 300 UNITS/3 ML VIAL SQ SCH ×4 (08:07→22:36)
[2019-04-19] MEDS: Loratadine 10 MG TABLET PO SCH (08:07)
[2019-04-19] MEDS: Furosemide 40 MG/4 ML VIAL IVP SCH ×2 (08:08→21:18)
[2019-04-19] MEDS: Gabapentin 300 MG CAPSULE PO SCH ×2 (08:08→21:17)
[2019-04-19] MEDS: Insulin DETEMIR 100 UNIT/ML X5UNITS SQ SCH (08:15)
[2019-04-19] MEDS: Cefepime HCl 2,000 MG in Water for inj. (sterile) 20 ML IVP SCH (11:47)
[2019-04-19 12:53] LABS: Mycoplasma pneumoniae IgG 0.06 U/L (<=0.09)
--- NOTE | 2019-04-19 16:59 | Internal Med Progress Note ---
Hospitalist Progress Note - Encounter Date of Encounter: 04/19/19 Time of Encounter: 16:52 - Subjective Interval History: Patient doing well this morning. Much more awake now and opioids are discontinued. No complaints of pain since discontinuing opioids. - Exam Vitals: Temp Pulse Resp BP Pulse Ox 98.8 F 87 16 129/52 96 04/19/19 16:00 04/19/19 16:00 04/19/19 16:00 04/19/19 16:00 04/19/19 16:00 Exam: General: Ill-appearing and in no acute distress HEENT: No erythema of posterior pharynx. No exudates. Lymphatics: No mandibular or cervical lymphadenopathy Cardiovascular: RRR. No murmurs. No chest wall tenderness. Lungs: Diffuse rhonchi. Regular chest rise. Abdomen: Non-tender. No rebound or gaurding. Nl bowel sounds. Extremities: No edema. 2+ pulses radial and pedal pulses. Legs in boots from fracture. Right arm in the sling Skin: No rahses, abrasions, or contusions. Nl cap refill. Psych: Nl attention. 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 5/5 strength. Sensation to light touch and pinprick intact. 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 -Per chart review, patient with multiple recent ED encounters for somnolence likely 2/2 morphine used for pain control for fracture -PNA this hospitalization likely from aspiration in setting of oversedation from pain medications -Doing well now that opioids have been held PLAN: - Vancomycin and Cefepime - would narrow but, given today is D4/5 of ABs and patient has Enterococus growing in urine, reasonable to continue one more day for a 5 day course - Hold opiates (2) Humeral fracture Current Visit: Yes Status: Acute Assessment and Plan: Had a fall at [facility] and fractured left humerus diagnosed in the ED and sent back to facility in a sling with ortho f/u. Oversedated with morphine. - Tylenol for pain control - Discontinue opioids indefinitely now that fracture is subacute should not need these - Patient missed o/p ortho appointment. Will have ortho stop by before discharge to leave recommendations (3) Sepsis Current Visit: No Status: Suspected Assessment and Plan: Secondary to pneumonia discussed above. Also growing E faecalis in her urine but only 1-5000cfu. Should be covered for both with vancomycin ordered. - Treatment per above (4) HCAP (healthcare-associated pneumonia) Current Visit: Yes Status: Acute Assessment and Plan: See above (5) COPD with acute exacerbation Current Visit: No Status: Acute Assessment and Plan: See above (6) UTI (urinary tract infection), bacterial Current Visit: No Status: Acute Assessment and Plan: See plan for sepsis (7) Acute kidney injury superimposed on chronic kidney disease Current Visit: No Status: Acute Assessment and Plan: Etiology unclear. May be secondary to hypervolemia, however, BNP is only 58. Seems to have improved with Lasix. - We will hold Lasix and reassess - Reassess kidney function tomorrow (8) Hyperkalemia Current Visit: No Status: Resolved Assessment and Plan: In setting of acute renal failure described above. Now resolved. (9) Encephalopathy acute Current Visit: No Status: Resolved Assessment and Plan: Secondary to acute infectious process and opioids now resolved (10) DM (diabetes mellitus), type 2 Current Visit: No Status: Chronic Assessment and Plan: Hyperglycemic since admission, however, long-acting insulin was held yesterday. - Restart long-acting insulin - HDSS DVT Prophylaxis: Heparin Internal Medicine: Result - Labs CBC & Chem 7: 04/19/19 03:45 04/19/19 03:45 Labs: Short CBC 04/19/19 Range/Units 03:45 WBC 8.3 (4.3-11.1) K/mcL Hgb 8.3 L (11.5-15.4) g/dL Hct 28.3 L (35.3-44.9) % Plt Count 317 (140-400) K/mcL BMP 04/19/19 03:45 Sodium 142 Potassium 4.4 Chloride 98 Carbon Dioxide 40 H* BUN 68 H Creatinine 0.95 Glucose 158 H Calcium 8.9 - ABG Interpretation ABG results: ABG ABG pH 7.31 pH Units (7.32-7.45) L 04/17/19 07:59 ABG pCO2 72 mmHg (35-45) H* 04/17/19 07:59 ABG pO2 68 mmHg (85-104) L 04/17/19 07:59 ABG O2 Saturation 91 % (95-98) L 04/17/19 07:59 PT/INR, D-dimer D-Dimer 5269 ng/mLFEU (0-500) H 04/16/19 06:40 Consult Discharge Plan - Plan Referrals: NONE,PCP [Primary Care Provider] - (2) Humeral fracture Qualifiers: Encounter type: subsequent encounter Humerus Location: shaft Fracture morphology: comminuted Fracture alignment: nondisplaced Laterality: right Fracture healing: with routine healing (3) Sepsis Qualifiers: Sepsis type: sepsis due to unspecified organism Sepsis acute organ dysfunction status: unspecified Qualified Code(s): A41.9 - Sepsis, unspecified organism (10) DM (diabetes mellitus), type 2 Qualifiers: Diabetes mellitus long-term insulin use: with 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
[2019-04-20] MEDS: Levalbuterol Neb 1.25 MG/3 ML IH SCH ×5 (04:24→20:40)
[2019-04-20] MEDS: Ipratropium Neb 0.5 MG NEBULIZER IH SCH ×5 (04:24→20:40)
[2019-04-20] MEDS: *HR* Heparin 5,000 UNIT/ML VIAL SQ SCH ×2 (06:10→17:06)
[2019-04-20 06:37] LABS: Hematocrit 30.9 % (35.3-44.9); Hemoglobin 9.2 g/dL (11.5-15.4); Mean Corpuscular HGB Conc 29.8 g/dL (31.6-35.5); Mean Corpuscular Hemoglobin 28.8 pg (28.0-33.3); Mean Corpuscular Volume 96.9 fL (83.0-100.0); Mean Platelet Volume 9.8 fL (9.4-12.4); Platelet Count 328 K/mcL (140-400); Red Blood Count 3.19 M/mcL (3.82-4.97); Red Cell Distribution Width 12.6 % (11.5-14.5); White Blood Count 8.9 K/mcL (4.3-11.1)
[2019-04-20 07:13] LABS: BUN/Creatinine Ratio 54 (6-26); Blood Urea Nitrogen 45 mg/dL (8-23); Calcium 9.3 mg/dL (8.6-10.3); Carbon Dioxide 44 mEq/L (23-29); Chloride 91 mEq/L (98-107); Glucose 196 mg/dL (70-105); Magnesium 1.8 mg/dL (1.6-2.6); Osmolality,Calculated 313 (280-300); Sodium 143 mEq/L (136-145); eGFR For African Americans > 60 (> 60); eGFR For Non-African Americans > 60 (> 60)
[2019-04-20] MEDS: Furosemide 40 MG/4 ML VIAL IVP SCH (08:12)
[2019-04-20] MEDS: Venlafaxine XR (24 HR) 75 MG CAP.ER.24H PO SCH (08:17)
[2019-04-20] MEDS: Loratadine 10 MG TABLET PO SCH (08:17)
[2019-04-20] MEDS: Insulin LISPRO 300 UNITS/3 ML VIAL SQ SCH ×4 (08:18→20:32)
[2019-04-20] MEDS: Gabapentin 300 MG CAPSULE PO SCH ×2 (08:18→20:26)
[2019-04-20] MEDS ORDERED: cefTRIAXone 2,000 MG in Water for inj. (sterile) 20 ML IVP ONE (09:00)
[2019-04-20] MEDS: Insulin DETEMIR 100 UNIT/ML X5UNITS SQ SCH (09:03)
[2019-04-20 10:06] LABS: ABG Base Excess 21 mEq/L (-2 to 3); ABG HCO3 48 mEq/L (21-27); ABG Oxygen Saturation 94 % (95-98); ABG PCO2 66 mmHg (35-45); ABG PH 7.47 pH Units (7.32-7.45); ABG PO2 71 mmHg (85-104); ABG TCO2 50 mEq/L (20-26)
--- NOTE | 2019-04-20 12:48 | Orthopedics Progress Note ---
Date of Encounter: 04/20/19 Time of Encounter: 12:30 - Assessment and Plan (1) Humerus fracture Current Visit: Yes Status: Acute Qualifiers: Encounter type: initial encounter Humerus Location: proximal Fracture type: closed Fracture morphology: other fracture Fracture alignment: nondisplaced Laterality: right Qualified Code(s): S42.294A - Other nondisplaced fracture of upper end of right humerus, initial encounter for closed fracture Subjective Principal diagnosis: right humerus fracture Interval history: Ms. Garcia presented to [facility] from an outside hospital with concerns regarding respiratory depression. She was to follow-up with her sports medicine program today regarding her recent right humerus fracture. She sustained a fall on 04/06 and was found to have a right proximal humerus fracture. She does admit to pain in the right shoulder. She was last seen in our office on 04/14. She has been in a sling with an abduction wedge since that time. On exam patient is lying comfortably in bed. She is noted to have abduction wedge brace applied at this time. There is scattered ecchymosis to her right mid and distal upper arm. She is noted to have swelling to the right upper extremity. She is noted to be on O2 via nasal cannula. She is easily awoken. She is alert and oriented to person and place. 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 This may be secondary to swelling as there is 1+ pitting edema to the right upper extremity from the fingers to mid upper arm. Sensation is intact. Right hand and wrist motion appears to be full and intact. Elbow motion is limited likely secondary to patient's weakness secondary to her presentation for respiratory compromise. Xrays obtained today were reviewed - stable alignment proximal humerus fracture Continue wedge abduction brace at all times. Remove for hygiene only. NO shoulder motion Nonweightbearing RUE PT/OT for hand and elbow range of motion as tolerated Ice as needed to aid in pain and swelling control Topical agent such as Lidoderm may be beneficial so as not to affect patient's respiratory drive Anti-inflammatories as needed/indicated for pain and swelling over opioid based therapy secondary to patient's current medical concerns Thank you for this consultation. Please reach out with any further questions or concerns regarding patient's orthopedic care. Patient is to keep follow-up as scheduled with [facility] Dr. Bowen. Objective Vital signs: Vital Signs Temp Pulse Resp BP Pulse Ox 04/20/19 11:53 99.3 F 84 17 136/64 95 04/20/19 10:51 19 97 04/20/19 07:34 98.5 F 96 17 147/76 96 04/20/19 07:33 18 95 04/20/19 04:43 98.3 F 89 17 131/59 96 04/20/19 04:29 16 93 04/19/19 23:49 10 97 04/19/19 20:11 16 97 04/19/19 16:47 20 96 04/19/19 16:00 98.8 F 87 16 129/52 96 Intake and Output 04/19/19 04/20/19 04/20/19 23:59 07:59 15:59 Intake Total 240 / 630 0 / 240 240 / 240 Output Total 300 / 2650 1000 / 1000 Balance -60 / -2020 -1000 / -760 240 / -760 Intake: Oral 240 / 360 0 / 240 240 / 240 Output: Catheter 300 / 2650 1000 / 1000 Other: Meal Dinner Breakfast Percent of Meal Consumed 90% 25% Blood Glucose* 269 192 243 - Labs CBC & BMP: 04/21/19 06:15 04/22/19 04:36 Labs: Abnormal lab results WBC 11.2 K/mcL (4.3-11.1) H 04/18/19 04:20 RBC 3.19 M/mcL (3.82-4.97) L 04/20/19 06:10 Hgb 9.2 g/dL (11.5-15.4) L 04/20/19 06:10 Hct 30.9 % (35.3-44.9) L 04/20/19 06:10 MCV 102.5 fL (83.0-100.0) H 04/16/19 06:40 MCHC 29.8 g/dL (31.6-35.5) L 04/20/19 06:10 Neutrophils # 12.3 K/mcL (1.6-8.9) H 04/16/19 06:40 Monocytes # 1.4 K/mcL (0.0-1.3) H 04/16/19 06:40 Hypochromasia Present (Not Present) A 04/16/19 06:40 Basophilic Stippling 1+ (Not Present) A 04/16/19 06:40 Stomatocytes 1+ (Not Present) A 04/16/19 06:40 D-Dimer 5269 ng/mLFEU (0-500) H 04/16/19 06:40 ABG pH 7.47 pH Units (7.32-7.45) H 04/20/19 10:03 ABG pCO2 66 mmHg (35-45) H 04/20/19 10:03 ABG pO2 71 mmHg (85-104) L 04/20/19 10:03 ABG HCO3 48 mEq/L (21-27) H 04/20/19 10:03 ABG Total CO2 50 mEq/L (20-26) H 04/20/19 10:03 ABG O2 Saturation 94 % (95-98) L 04/20/19 10:03 ABG Base Excess 21 mEq/L (-2 to 3) H 04/20/19 10:03 Potassium 6.1 mEq/L (3.5-5.1) H 04/16/19 12:34 Chloride 91 mEq/L (98-107) L 04/20/19 06:10 Carbon Dioxide 44 mEq/L (23-29) H* 04/20/19 06:10 BUN 45 mg/dL (8-23) H 04/20/19 06:10 Creatinine 1.45 mg/dL (0.60-1.20) H 04/18/19 04:20 Est GFR ( Amer) 43 (> 60) L 04/18/19 04:20 Est GFR (Non-Af Amer) 58 (> 60) L 04/19/19 03:45 BUN/Creatinine Ratio 54 (6-26) H 04/20/19 06:10 Glucose 196 mg/dL (70-105) H 04/20/19 06:10 POC Glucose 269 mg/dL (70-99) H 04/19/19 22:22 Calculated Osmolality 313 (280-300) H 04/20/19 06:10 Procalcitonin 17.00 ng/mL (0.00-0.15) H 04/18/19 04:20 Urine Clarity Cloudy (Clear) A 04/16/19 06:21 Urine Bilirubin Small (Negative) H 04/16/19 06:21 Ur Leukocyte Esterase Small (Negative) H 04/16/19 06:21 Urine Microscopic WBC 3-5 per hpf (0-3) H 04/16/19 06:21 Ur Squamous Epith Cells Many per lpf (None-Few) H 04/16/19 06:21 Urine Bacteria Moderate per hpf (None-Few) H 04/16/19 06:21 Ur Culture Indicated? YES (NO) A 04/16/19 06:21 Nasal Screen MRSA (PCR) DETECTED (Not Detect) A 04/18/19 06:40 Consult Discharge Plan - Plan Referrals: NONE,PCP [Primary Care Provider] -
--- NOTE | 2019-04-20 13:30 | Electrocardiograph Report ---
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
--- NOTE | 2019-04-20 15:21 | Internal Med Progress Note ---
Hospitalist Progress Note - Encounter Date of Encounter: 04/20/19 Time of Encounter: 08:00 - Subjective Interval History: She was seen and examined at bedside. she is Axox3. complains of minimal right shoulder pain. respiratory status is at baseline. denies overight events. would like to work more with physical therapy. denies chest pain, Sob, palpitations, has had no fever, chills, N/v/D. - Exam Vitals: Temp Pulse Resp BP Pulse Ox 99.3 F 84 17 136/64 95 04/20/19 11:53 04/20/19 11:53 04/20/19 11:53 04/20/19 11:53 04/20/19 11:53 Exam: General: Patient is alert, oriented, no acute distress, Head: atraumatic, normocephalic, Eye: normal appearance, PERRL, no scleral icterus, no conjunctival injection ENT: mucous membranes moist, normal external ear exam Neck: normal inspection, trachea midline, full ROM, Chest: normal inspection, symmetric chest rise Respiratory: Good respiratory effort. decreased breath sound bilaterarily unable to appreciate any crackles or wheezzing at the MAL Cardiovascular: Regular rate and rhythm. s1 and s2 No clicks, rubs, gallops, or murmors. Abdomen: Bowel sounds present normoactive x-4 quadrants. Abdomen is soft, nondistended. no Epigastric tenderness. No guarding or rebound. No organomegaly noted, obese musculoskeletal: strength is reduced in the lower extremities ( has chronic pain from fibromyalgia) 3/5 strength in the lower extremities, ROM reduced in the right shoulder secondary to fracture, is able to wiggle fingers, sensation intact. Skin: warm, dry, intact. Neuro: Alert and oriented x3, follows commands. 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 -Per chart review, patient with multiple recent ED encounters for somnolence likely 2/2 morphine used for pain control for fracture -PNA this hospitalization likely from aspiration in setting of oversedation from pain medications -opiodes discontinued PLAN: - was treated with IV Abx fro 5 days will continue with omnicef for 2 more days to finish a 7 day course. leukocytosis resolved, remain afebrile. - avoid opiates - continue with Bipap at night. - ABG on 04/20 improved. -continue with oxygen to keep sats about 90% avoid over oxygenation -continue with duo-nebs (2) Humeral fracture Current Visit: Yes Status: Acute Assessment and Plan: Had a fall at [facility] and fractured left humerus diagnosed in the ED and sent back to facility in a sling with ortho f/u. Oversedated with morphine. - Tylenol for pain control - Discontinue opioids indefinitely now that fracture is subacute should not need these - repeat shoulder xray on 04/20 stable- orthopedics consulted will follow recs (3) Sepsis Current Visit: No Status: Suspected Assessment and Plan: Secondary to pneumonia discussed above. Also growing E faecalis in her urine but only 1-5000cfu. Should be covered for both with vancomycin ordered. finished course of ABx. Bcx negative urine antigens negative (4) HCAP (healthcare-associated pneumonia) Current Visit: Yes Status: Acute Assessment and Plan: See above (5) COPD with acute exacerbation Current Visit: No Status: Acute Assessment and Plan: See above (6) DM (diabetes mellitus), type 2 Current Visit: No Status: Chronic Assessment and Plan: Hyperglycemic since admission, however, long-acting insulin was held yesterday. - continue with long acting insulina dn sliding scale and adjust as per mendel reynosok (7) Acute kidney injury superimposed on chronic kidney disease Current Visit: No Status: Acute Assessment and Plan: Etiology unclear. resolved. continue to monitor renal functions and avoid nephrotoxic medications. (8) UTI (urinary tract infection), bacterial Current Visit: No Status: Acute Assessment and Plan: See plan for sepsis (9) Encephalopathy acute Current Visit: No Status: Resolved Assessment and Plan: Secondary to acute infectious process and opioids now resolved (10) Hyperkalemia Current Visit: No Status: Resolved Assessment and Plan: In setting of acute renal failure described above. Now resolved. DVT Prophylaxis: heparin sc - Summary of Assessment and Plan Summary of Assessment and Plan: patient was admitted on 04/16 and my first encounter with the patient was on 04/20. - Time Spent with Patient Total time spent is greater than 50% in coordination of care (as documented) at patient's floor/unit and/or counseling patient: Internal Medicine: Result - Labs CBC & Chem 7: 04/20/19 06:10 04/20/19 06:10 Labs: Short CBC 04/20/19 Range/Units 06:10 WBC 8.9 (4.3-11.1) K/mcL Hgb 9.2 L (11.5-15.4) g/dL Hct 30.9 L (35.3-44.9) % Plt Count 328 (140-400) K/mcL BMP 04/20/19 06:10 Sodium 143 Potassium 4.0 Chloride 91 L Carbon Dioxide 44 H* BUN 45 H Creatinine 0.84 Glucose 196 H Calcium 9.3 - ABG Interpretation ABG results: ABG ABG pH 7.47 pH Units (7.32-7.45) H 04/20/19 10:03 ABG pCO2 66 mmHg (35-45) H 04/20/19 10:03 ABG pO2 71 mmHg (85-104) L 04/20/19 10:03 ABG O2 Saturation 94 % (95-98) L 04/20/19 10:03 PT/INR, D-dimer D-Dimer 5269 ng/mLFEU (0-500) H 04/16/19 06:40 Consult Discharge Plan - Plan Referrals: NONE,PCP [Primary Care Provider] - (2) Humeral fracture Qualifiers: Encounter type: subsequent encounter Humerus Location: shaft Fracture morphology: comminuted Fracture alignment: nondisplaced Laterality: right Fracture healing: with routine healing (3) Sepsis Qualifiers: Sepsis type: sepsis due to unspecified organism Sepsis acute organ dysfunction status: unspecified Qualified Code(s): A41.9 - Sepsis, unspecified organism (6) DM (diabetes mellitus), type 2 Qualifiers: Diabetes mellitus assisted insulin use: with middle or intermediate school principal use Diabetes mellitus complication status: with kidney complications Diabetes mellitus complication detail: with chronic kidney disease Chronic kidney disease stage: unspecified stage Qualified Code(s): E11.22 - Type 2 diabetes mellitus with diabetic chronic kidney disease; 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
[2019-04-20] MEDS: *HR* LORazepam 1 MG TABLET PO PRN (17:09)
[2019-04-20] MEDS: Ketorolac 15 MG/ML VIAL IVP PRN (18:19)
[2019-04-20] MEDS ORDERED: Aminoglycoside Consult 1 EACH MC ONE (19:06)
[2019-04-20] MEDS: Cefdinir 300 MG CAPSULE PO SCH (20:25)
[2019-04-21] MEDS: Ipratropium Neb 0.5 MG NEBULIZER IH SCH ×6 (00:41→20:47)
[2019-04-21] MEDS: Levalbuterol Neb 1.25 MG/3 ML IH SCH ×6 (00:41→20:47)
[2019-04-21] MEDS: *HR* Heparin 5,000 UNIT/ML VIAL SQ SCH ×2 (06:24→18:00)
[2019-04-21 06:46] LABS: Hematocrit 31.4 % (35.3-44.9); Hemoglobin 9.4 g/dL (11.5-15.4); Mean Corpuscular HGB Conc 29.9 g/dL (31.6-35.5); Mean Corpuscular Hemoglobin 28.5 pg (28.0-33.3); Mean Corpuscular Volume 95.2 fL (83.0-100.0); Mean Platelet Volume 9.9 fL (9.4-12.4); Platelet Count 340 K/mcL (140-400); Red Cell Distribution Width 12.9 % (11.5-14.5)
[2019-04-21 07:07] LABS: BUN/Creatinine Ratio 42 (6-26); Blood Urea Nitrogen 38 mg/dL (8-23); Calcium 9.2 mg/dL (8.6-10.3); Carbon Dioxide 45 mEq/L (23-29); Chloride 91 mEq/L (98-107); Glucose 150 mg/dL (70-105); Osmolality,Calculated 302 (280-300); Sodium 140 mEq/L (136-145); eGFR For African Americans > 60 (> 60); eGFR For Non-African Americans > 60 (> 60)
[2019-04-21] MEDS: Ketorolac 15 MG/ML VIAL IVP PRN ×2 (07:40→22:23)
[2019-04-21] MEDS: Loratadine 10 MG TABLET PO SCH (09:34)
[2019-04-21] MEDS: Venlafaxine XR (24 HR) 75 MG CAP.ER.24H PO SCH (09:34)
[2019-04-21] MEDS: Gabapentin 300 MG CAPSULE PO SCH ×2 (09:35→20:40)
[2019-04-21] MEDS: Cefdinir 300 MG CAPSULE PO SCH (09:35)
[2019-04-21] MEDS: Insulin LISPRO 300 UNITS/3 ML VIAL SQ SCH ×4 (09:39→20:43)
[2019-04-21] MEDS: Insulin DETEMIR 100 UNIT/ML X5UNITS SQ SCH (09:51)
--- NOTE | 2019-04-21 14:48 | Internal Med Progress Note ---
Hospitalist Progress Note - Encounter Date of Encounter: 04/21/19 Time of Encounter: 08:00 - Subjective Interval History: Patient was seen and examined at bedside. Has no complaints. Denies nausea, vomiting or diarrhea. As per nursing staff she has refused BiPAP at night's. Denies any shortness of breath. Pain is more controlled in the right shoulder. Discussed that lidocaine patch was also ordered for her. I discussed that orthopedics evaluated the right shoulder and as per x-ray is healing well. She has no other complaints. Discussed that we will remove the Sellers catheter. She understands that case management and social work program coordinator working on placement. Denies any fever, chills, nausea, vomiting or diarrhea. Her respiratory status is at baseline. sellers to be removed and nursing staff to watch her voiding. I - Exam Vitals: Temp Pulse Resp BP Pulse Ox 98.4 F 94 16 115/57 96 04/21/19 08:05 04/21/19 08:05 04/21/19 11:25 04/21/19 08:05 04/21/19 11:25 Exam: General: Patient is alert, oriented, no acute distress, Head: atraumatic, normocephalic, Eye: normal appearance, PERRL, no scleral icterus, no conjunctival injection ENT: mucous membranes moist, normal external ear exam Neck: normal inspection, trachea midline, full ROM, Chest: normal inspection, symmetric chest rise Respiratory: Good respiratory effort. decreased breath sound bilaterarily unable to appreciate any crackles or wheezzing at the MAL Cardiovascular: Regular rate and rhythm. s1 and s2 No clicks, rubs, gallops, or murmors. Abdomen: Bowel sounds present normoactive x-4 quadrants. Abdomen is soft, nondistended. no Epigastric tenderness. No guarding or rebound. No organomegaly noted, obese musculoskeletal: strength is reduced in the lower extremities ( has chronic pain from fibromyalgia) 3/5 strength in the lower extremities, ROM reduced in the right shoulder secondary to fracture, is able to wiggle fingers, sensation intact. Skin: warm, dry, intact. Neuro: Alert and oriented x3, follows commands. 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 -Per chart review, patient with multiple recent ED encounters for somnolence likely 2/2 morphine used for pain control for fracture -PNA this hospitalization likely from aspiration in setting of oversedation from pain medications -opiodes discontinued -MRSA swab positive PLAN: - was treated with IV Abx fro 5 days will continue with doxycyline for 2 more days to finish a 7 day course. leukocytosis resolved, remain afebrile. - avoid opiates - continue with Bipap at night. - ABG on 04/20 improved. Bipap RX give to Cm and SW- has been refusing bipap -continue with oxygen to keep sats about 90% avoid over oxygenation -continue with duo-nebs -lasix discontinued as she was properly diuresed. ( -[id number] balance since ad mission) - bicarb elevated likely secondary to lasix and hypercapnia. TTE oct 2018:impressions: LVEF 65%. Normal LV chamber size, wall thickness and function. Limited study. Valves not assessed. (2) Humeral fracture Current Visit: Yes Status: Acute Assessment and Plan: Had a fall at [facility] and fractured left humerus diagnosed in the ED and sent back to facility in a sling with ortho f/u. Oversedated with morphine. - Tylenol for pain control - Discontinue opioids indefinitely now that fracture is subacute should not need these - repeat shoulder xray on 04/20 stable- orthopedics on board PT/OT for hand and elbow range of motion as tolerated Topical agent such as Lidoderm may be beneficial so as not to affect patient's respiratory drive Anti-inflammatories as needed/indicated for pain and swelling over opioid based therapy secondary to patient's current medical concerns (3) Sepsis Current Visit: No Status: Suspected Assessment and Plan: Secondary to pneumonia discussed above. Also growing E faecalis in her urine but only 1-5000cfu. Should be covered for both with vancomycin ordered. finished course of IV ABx and was transitioned to oral Abx to complete course Bcx negative urine antigens negative (4) HCAP (healthcare-associated pneumonia) Current Visit: Yes Status: Acute Assessment and Plan: See above (5) COPD with acute exacerbation Current Visit: No Status: Acute Assessment and Plan: See above (6) DM (diabetes mellitus), type 2 Current Visit: No Status: Chronic Assessment and Plan: Hyperglycemic since admission, however, long-acting insulin was held yesterday. - continue with long acting insulin and sliding scale and adjust as per fingerstick (7) Acute kidney injury superimposed on chronic kidney disease Current Visit: No Status: Resolved Assessment and Plan: Etiology unclear. resolved. continue to monitor renal functions and avoid nephrotoxic medications. (8) UTI (urinary tract infection), bacterial Current Visit: No Status: Resolved Assessment and Plan: See plan for sepsis complete course of Abx (9) Encephalopathy acute Current Visit: No Status: Resolved Assessment and Plan: Secondary to acute infectious process and opioids now resolved (10) Hyperkalemia Current Visit: No Status: Resolved - Time Spent with Patient Total time spent is greater than 50% in coordination of care (as documented) at patient's floor/unit and/or counseling patient: Internal Medicine: Result - Labs CBC & Chem 7: 04/21/19 06:15 04/21/19 06:15 Labs: Short CBC 04/21/19 Range/Units 06:15 WBC 9.0 (4.3-11.1) K/mcL Hgb 9.4 L (11.5-15.4) g/dL Hct 31.4 L (35.3-44.9) % Plt Count 340 (140-400) K/mcL BMP 04/21/19 06:15 Sodium 140 Potassium 4.0 Chloride 91 L Carbon Dioxide 45 H* BUN 38 H Creatinine 0.90 Glucose 150 H Calcium 9.2 - ABG Interpretation ABG results: ABG ABG pH 7.47 pH Units (7.32-7.45) H 04/20/19 10:03 ABG pCO2 66 mmHg (35-45) H 04/20/19 10:03 ABG pO2 71 mmHg (85-104) L 04/20/19 10:03 ABG O2 Saturation 94 % (95-98) L 04/20/19 10:03 PT/INR, D-dimer D-Dimer 5269 ng/mLFEU (0-500) H 04/16/19 06:40 - Impressions Impressions Shoulder X-Ray 04/20/19 08:53 IMPRESSION: Stable alignment of a nondisplaced humeral neck fracture. No significant callus formation is identified. D/ / 04/20/2019 14:51:58 Bekah Thomas MD / carine Interpreting Provider: Bekah Thomas MD Consult Discharge Plan - Plan Referrals: NONE,PCP [Primary Care Provider] - (2) Humeral fracture Qualifiers: Encounter type: subsequent encounter Humerus Location: shaft Fracture mo rphology: comminuted Fracture alignment: nondisplaced Laterality: right Fracture healing: with routine healing (3) Sepsis Qualifiers: Sepsis type: sepsis due to unspecified organism Sepsis acute organ dysfunction status: unspecified Qualified Code(s): A41.9 - Sepsis, unspecified organism (6) DM (diabetes mellitus), type 2 Qualifiers: Diabetes mellitus residential insulin use: with residential use Diabetes mellitus complication status: with kidney complications Diabetes mellitus complication detail: with chronic kidney disease Chronic kidney disease stage: unspecified stage Qualified Code(s): E11.22 - Type 2 diabetes mellitus with diabetic chronic kidney disease; Z79.4 - group home (current) use of insulin
[2019-04-21] MEDS ORDERED: Doxycycline 100 MG in 0.9 % Sodium Chloride Mini Bag 100 ML IVPB SCH (18:00)
[2019-04-21] MEDS: *HR* LORazepam 1 MG TABLET PO PRN (22:23)
[2019-04-22] MEDS: Ipratropium Neb 0.5 MG NEBULIZER IH SCH ×5 (00:09→16:07)
[2019-04-22] MEDS: Levalbuterol Neb 1.25 MG/3 ML IH SCH ×5 (00:09→16:07)
[2019-04-22 05:14] LABS: Calcium 9.4 mg/dL (8.6-10.3); Potassium 5.3 mEq/L (3.5-5.1)
[2019-04-22] MEDS: *HR* Heparin 5,000 UNIT/ML VIAL SQ SCH ×2 (06:34→17:24)
[2019-04-22] MEDS: Loratadine 10 MG TABLET PO SCH (08:24)
[2019-04-22] MEDS: Venlafaxine XR (24 HR) 75 MG CAP.ER.24H PO SCH (08:24)
[2019-04-22] MEDS: Insulin DETEMIR 100 UNIT/ML X5UNITS SQ SCH (08:25)
[2019-04-22] MEDS: Gabapentin 300 MG CAPSULE PO SCH (08:25)
[2019-04-22] MEDS: Insulin LISPRO 300 UNITS/3 ML VIAL SQ SCH ×3 (08:25→17:22)
--- NOTE | 2019-04-22 11:32 | Palliative - Consult Note ---
<Virginie Jackson - Last Filed: 04/22/19 15:03> Date of Encounter: 04/22/19 Palliative-CN HPI - Data of Consult Requesting Physician: Damari Escoto MD Primary Care Provider: PCP NONE - Consult Narrative History of present illness: Ms. Garcia is a 74 year old female CC: Damari Escoto MD - Time Spent with Patient Time: Total time spent is greater than 50% in coordination of care (as documented) at patient's floor/unit and/or counseling patient: Medications and Allergies Docusate Sodium [Dok] 100 mg PO DAILY PRN 08/03/18 [History] Famotidine [Pepcid] 20 mg PO DAILY 08/03/18 [History] Glucagon,Human Recombinant [Glucagon Emergency Kit] 1 mg SQ DAILY PRN 08/03/18 [History] Insulin DETEMIR [Levemir] 35 unit SQ DAILY 08/03/18 [History] Ipratropium Neb [Atrovent Neb] 0.5 mg IH Q8H PRN 08/03/18 [History] Loratadine [Claritin] 10 mg PO DAILY 08/03/18 [History] Ubidecarenone [Co Q-10] 100 mg PO DAILY 08/03/18 [History] Atorvastatin [Lipitor] 40 mg PO HS 10/21/18 [History] Gabapentin [Neurontin] 300 mg PO BID 10/21/18 [History] Metoprolol Tartrate [Lopressor] 50 mg PO BID 10/21/18 [History] Venlafaxine HCl [Venlafaxine HCl ER] 75 mg PO DAILY 10/21/18 [History] Fluticasone Propionate Nasal [Flonase] 2 spray NS DAILY 04/17/19 [History] Guaifenesin [Mucus Relief] 400 mg PO BID 04/17/19 [History] Acetaminophen [Tylenol] 500 mg PO Q8H PRN 30 Days tablet 04/22/19 [Rx] Budesonide/Formoterol 80/4.5 [Symbicort 80/4.5] 1 puff IH BID #1 hfa.aer.ad 04/22/19 [Rx] Doxycycline 100 mg PO BID #4 capsule 04/22/19 [Rx] Insulin LISPRO [HumaLOG] 0 unit SQ QID PRN #1 vial 04/22/19 [Rx] LORazepam [Ativan] 1 mg PO TID 1 Days #3 tablet 04/22/19 [Rx] Levalbuterol Neb [Xopenex Neb] 1.25 mg IH [id number] vial.neb 04/22/19 [Rx] Lidocaine Patch [Lidoderm 5% patch] 1 each TP DAILY #15 adh..patch 04/22/19 [Rx] Allergy/AdvReac Type Severity Reaction Status Date / Time Penicillins Allergy Hives Verified 04/07/19 22:38 tuberculin,PPD,multi-puncture Allergy Hives Verified 04/07/19 22:38 clindamycin [From Cleocin] AdvReac Rash Verified 04/07/19 22:38 diazepam AdvReac Fatigued Verified 04/07/19 22:38 meclizine [From Antivert] AdvReac Dizziness Verified 04/07/19 22:38 nalbuphine [From Nubain] AdvReac Hallucinati Verified 04/07/19 22:38 ng promethazine [From Phenergan] AdvReac Irritable Verified 04/07/19 22:38 propoxyphene AdvReac Itching Verified 04/07/19 22:38 [From Darvocet-N 100] Palliative Care-Exam - Constitutional Vitals: Temp Pulse Resp BP Pulse Ox 99.3 F 76 16 120/64 96 04/22/19 09:52 04/22/19 09:52 04/22/19 11:53 04/22/19 09:52 04/22/19 11:53 Internal Medicine - CN: Reslt - Labs CBC & Chem 7: 04/21/19 06:15 04/22/19 14:04 Labs: BMP 04/22/19 04/22/19 04:36 14:04 Sodium 137 137 Potassium 5.3 H D 4.2 Chloride 90 L 90 L Carbon Dioxide 42 H* 44 H* BUN 51 H 46 H Creatinine 1.28 H 1.20 Glucose 159 H 210 H Calcium 9.4 9.4 - ABG Interpretation ABG results: ABG ABG pH 7.47 pH Units (7.32-7.45) H 04/20/19 10:03 ABG pCO2 66 mmHg (35-45) H 04/20/19 10:03 ABG pO2 71 mmHg (85-104) L 04/20/19 10:03 ABG O2 Saturation 94 % (95-98) L 04/20/19 10:03 PT/INR, D-dimer D-Dimer 5269 ng/mLFEU (0-500) H 04/16/19 06:40 Consult Discharge Plan - Plan Additional Instructions: BMP and CBC n 3 days repat CXR in 7 days to ensure resolution on PNA Referrals: Robert Roberts MD [Partnered Physician] - (submitted a web request for Dr. Bright office to call the patient with a follow) Vinny Sylvester MD [Partnered Physician] - (Submitted a web request to [facility] Dr. Dodge office to call with a hospital follow up) Shaylee Smith MD [Partnered Physician] - Eliza Jacobsen MD [Partnered Physician] - (submitted a web request for Dr. Jacobsen office to call with a hospital follow up) Prescriptions: LORazepam [Ativan] 1 mg PO TID 1 Days #3 tablet Doxycycline 100 mg PO BID #4 capsule Lidocaine Patch [Lidoderm 5% patch] 1 each TP DAILY #15 adh..patch Budesonide/Formoterol 80/4.5 [Symbicort 80/4.5] 1 puff IH BID #1 hfa.aer.ad - Attending Attestation I performed a history and physical examination of the patient with residen Dr. Forman, discussed her management with the resident. I reviewed the residents note and agree with the documented findings and plan of care, adding as follow: 74 year old female with history of COPD, HFpEF, dementia, DM, CKD, seizures, HTN, GERD who presented from [place] to the ED with AMS, hypoxia and agitation. Patient met sepsis criteria with leukocytosis, tachycardia, and dyspnea on admission with suspected pnuemonia +/- UTI. She also has history of a recent humeral neck fracture, which has been in a sling and treated with opioids for pain. Palliative care consult to clarify code status. Discussed current medical codnition, trajectory of illness, treatment options and prognosis. Discussed code status, all levels of DNR and DNI, and controindications to CPR. Pt was intubated in the past and does not want to have the experience again, but she seems to think that CPR may improve her life. Explained to pt that in case of cardiac arrest CPR is less likely to be successful without intubation and as such is not recommended. Explained that DNRCCA will be more appropriate in the settings of chronic progressive conditions. Pt wants some time to think. Communicated with primary hospitalist to follow up over the week-end, palliative care will follow on Thursday if pt remains admitted. Palliative Quality Code Status: 04/16/19 08:04 Resuscitation Status: Active [RES] Routine Comment: Resuscitation Status: Full Code 04/21/19 17:23 CODE [Resuscitation Status: Active] [RES] Routine Comment: DNI Resuscitation Status: Full Code <Lindy Forman - Last Filed: 04/22/19 18:54> Date of Encounter: 04/22/19 Time of Encounter: 10:55 - Assessment and Plan (1) Goals of care, counseling/discussion Current Visit: Yes Status: Acute Assessment and plan: Attempted to discuss goals of care with patient. She states that she knows she is not well. Patient was reluctant to discuss her wishes and states that multiple people have had this discussion with her already. She confirms the conversation from yesterday in which she stated that she wanted resuscitation without intubation. It was explained to the patient that this is not an option and that she could set limitations to how long she would allow for potential recovery on the ventilator etc. but that CPR and intubation are required together, which would make her a full code. We also discussed patient's previous code statuses, which included DNR-CC and DNR-CCA. Patient remembered having previous discussions, but did not feel able to make a decision at this time. Patient will remain full code for now and would like the day to think about what she wants to do. At the patient's request, she does not want to talk to anyone else about this today. She was told that Dr. Wetzel will readdress this tomorrow after she has had time to think about it, since the palliative will not be here over the weekend. We are happy to see her on Thursday if she is still here. (2) Palliative care encounter Current Visit: Yes Status: Acute (3) Acute on chronic respiratory failure with hypoxia and hypercapnia Current Visit: No Status: Acute (4) COPD exacerbation Current Visit: No Status: Acute (5) HCAP (healthcare-associated pneumonia) Current Visit: Yes Status: Resolved (6) UTI (urinary tract infection) Current Visit: No Status: Ruled-out Qualifiers: Urinary tract infection type: catheter-associated UTI Indwelling urinary catheter type: unspecified Encounter type: initial encounter Qualified Code(s): T83.511A - Infection and inflammatory reaction due to indwelling urethral catheter, initial encounter; N39.0 - Urinary tract infection, site not specified (7) CKD (chronic kidney disease) stage 3, GFR 30-59 ml/min Current Visit: No Status: Chronic (8) Heart failure with preserved ejection fraction Current Visit: No Status: Chronic Qualifiers: Heart failure chronicity: chronic Qualified Code(s): I50.32 - Chronic diastolic (congestive) heart failure (9) Diabetes Current Visit: No Status: Chronic Qualifiers: Diabetes mellitus type: type 2 Diabetes mellitus penitentiary insulin use: with penitentiary use Diabetes mellitus complication status: with kidney complications Diabetes mellitus complication detail: with chronic kidney disease Chronic kidney disease stage: stage 3 (moderate) Qualified Code(s): E11.22 - Type 2 diabetes mellitus with diabetic chronic kidney disease; N18.3 - Chronic kidney disease, stage 3 (moderate); Z79.4 - penitentiary (current) use of insulin (10) Humeral fracture Current Visit: Yes Status: Acute Qualifiers: Encounter type: subsequent encounter Fracture morphology: comminuted Fracture alignment: nondisplaced Laterality: right Fracture healing: with routine healing Qualified Code(s): S42.354D - Nondisplaced comminuted fracture of shaft of humerus, right arm, subsequent encounter for fracture with routine healing Palliative-CN HPI - Data of Consult Consult date: 04/22/19 Requesting Physician: Damari Escoto MD Primary Care Provider: PCP NONE - Consult Narrative Reason for consult: GOC and code status discussion History of present illness: Ms. Garcia is a 74 year old female with history of COPD, HFpEF, dementia, DM, CKD, seizures, HTN, GERD who presented from [place] to the ED with AMS, hypoxia and agitation. Patient met sepsis criteria with leukocytosis, tachycardia, and dyspnea on admission with suspected pnuemonia +/- UTI. She also has history of a recent humeral neck fracture, which has been in a sling and treated with opioids for pain. Patient was admitted for hypoxic and hypercapnic respiratory failure, sepsis secondary to PNA and UTI, and COPD exacerbation. Opioids were discontinued as this was thought to be contributing to her AMS. R espiratory status and mentation improved with BIPAP, however patient is refusing to wear BIPAP at night. Patient has had multiple hospitalizations, and upon chart review, patient has also had mutliple code status changes. Palliative care was consulted to further discuss patients code status and goals of care. Patient was lying comfortably in bed with complaint of mild shoulder pain. She states that the current medication are helping to control her pain. She denied any nausea or vomiting. She admits to having a small bowel movement yesterday. Denies CP, SOB, or difficulty with urination. CC: Damari Escoto MD - Time Spent with Patient Time: Total time spent is greater than 50% in coordination of care (as documented) at patient's floor/unit and/or counseling patient: Past Med Surg Social Fam HX - Past Medical History Medical history: CHF, COPD, DVT, diabetes, fibromyalgia, GERD, hepatitis, hyperlipidemia, hypertension, renal disease, seizures, syncope Additional medical history: Pneumonia, general muscle weakness, chronic pain, myalgias, joint pain, symbolic dysfunction, chronic airway obstruction. Psychiatric history: anxiety, depression, panic disorder - Past Surgical History Surgical History: no surgical history Additional surgical history: Tubal ligation, cholecystectomy - Social History Smoking Status: Former smoker Smokeless Tobacco Status: No Alcohol use: none Drug use: none, opiates, other - Family History Mother Adopted: No Family Member Ethnicity: Non- Living Status: Hx Family Endocrine Disorder: Yes (DM) Brother Family Member Ethnicity: Non- Living Status: Sister Family Member Ethnicity: Non- Living Status: Hx Family Respiratory Disorders: Yes (COPD) Father Family Member Ethnicity: Non- Living Status: Hx Family Cardiac Disorders: Yes (HTN) Hx Family Respiratory Disorders: Yes (COPD) Hx Family Cancer: Yes Hx Family GI Disorders: No Hx Family Endocrine Disorder: Yes (DM) Hx Family Neuromuscular Disorders: No Hx Family Neurologic Disorders: No Hx Family HEENT Disorders: No Hx Family Autoimmune Disorders: No Review of systems: As noted in HPI Palliative Care-Exam - Constitutional Vitals: Temp Pulse Resp BP Pulse Ox 99.3 F 76 16 120/64 98 04/22/19 09:52 04/22/19 09:52 04/22/19 09:52 04/22/19 09:52 04/22/19 09:52 Exam: Gen: Vitals noted. No acute distress. Eyes: anicteric sclerae, moist conjunctivae HENT: Atraumatic; moist mucous membranes Cardiac: RRR, no murmur, +S1/S2 Pulmonary: decreased breath sounds bilaterally Abdomen: soft, nontender, no guarding Extremities: Right UE sling in place. No BLE edema, nontender calf, no cyanosis or clubbing Skin: Skin warm, dry, intact. No rashes or lesions noted. Neuro: No focal deficits. Psych: Appropriate mood and behavior. A&Ox3 Internal Medicine - CN: Reslt - Labs CBC & Chem 7: 04/21/19 06:15 04/22/19 14:04 Labs: BMP 04/22/19 04:36 Sodium 137 Potassium 5.3 H D Chloride 90 L Carbon Dioxide 42 H* BUN 51 H Creatinine 1.28 H Glucose 159 H Calcium 9.4 - ABG Interpretation ABG results: ABG ABG pH 7.47 pH Units (7.32-7.45) H 04/20/19 10:03 ABG pCO2 66 mmHg (35-45) H 04/20/19 10:03 ABG pO2 71 mmHg (85-104) L 04/20/19 10:03 ABG O2 Saturation 94 % (95-98) L 04/20/19 10:03 PT/INR, D-dimer D-Dimer 5269 ng/mLFEU (0-500) H 04/16/19 06:40 Palliative Quality Palliative Quality: Screen for Code Status: Yes, Screen for Goals of Care: Yes, Screen for Pain: Yes, If Pain Regimen Started, Initiate Bowel Regimen: Yes, Screen for Nausea/Vomitting: Yes Code Status: 04/16/19 08:04 Resuscitation Status: Active [RES] Routine Comment: Resuscitation Status: Full Code 04/21/19 17:23 CODE [Resuscitation Status: Active] [RES] Routine Comment: DNI Resuscitation Status: Full Code Palliative Scale - Palliative Performance Scale How ambulatory is this patient?: Mainly sit / lie What is patient's level of activity and evidence of disease?: Unable to do any work, Extensive disease How much self-care assistance does patient require?: Considerable assistance required How much oral intake does the patient have?: Normal or reduced What is this patient's level of consciousness?: Full or confusion Palliative Performance Score: 50 %
--- NOTE | 2019-04-22 12:48 | Internal Med Progress Note ---
Hospitalist Progress Note - Encounter Date of Encounter: 04/22/19 Time of Encounter: 08:00 - Subjective Interval History: Patient was seen and examined at bedside. Is eager to be discharged. Discussed the lab findings. I discussed that she needs to probably hydrate herself as her kidney functions had bumped. She does report that she did have some difficulty urinating and as per nursing staff overnight she had difficulty urinating however did urinate 450 mL earlier this morning. She continues to urinate without difficulty and does not denies any frequency, pain, burning sensation. Breathing is at baseline. Denies any chest pain or shortness of breath. I discussed plan of care with her and she is in agreement. Currently waiting for placement. - Exam Vitals: Temp Pulse Resp BP Pulse Ox 99.3 F 76 16 120/64 96 04/22/19 09:52 04/22/19 09:52 04/22/19 11:53 04/22/19 09:52 04/22/19 11:53 Exam: General: Patient is alert, oriented, no acute distress, Head: atraumatic, normocephalic, Eye: normal appearance, PERRL, no scleral icterus, no conjunctival injection ENT: mucous membranes moist, normal external ear exam Neck: normal inspection, trachea midline, full ROM, Chest: normal inspection, symmetric chest rise Respiratory: Good respiratory effort. decreased breath sound bilaterarily unable to appreciate any crackles or wheezzing at the MAL Cardiovascular: Regular rate and rhythm. s1 and s2 No clicks, rubs, gallops, or murmors. Abdomen: Bowel sounds present normoactive x-4 quadrants. Abdomen is soft, nondistended. no Epigastric tenderness. No guarding or rebound. No organomegaly noted, obese musculoskeletal: strength is reduced in the lower extremities ( has chronic pain from fibromyalgia) 3/5 strength in the lower extremities, ROM reduced in the right shoulder secondary to fracture, is able to wiggle fingers, sensation int act. Skin: warm, dry, intact. Neuro: Alert and oriented x3, follows commands. 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 -Per chart review, patient with multiple recent ED encounters for somnolence likely 2/2 morphine used for pain control for fracture -PNA this hospitalization likely from aspiration in setting of oversedation from pain medications -opiodes discontinued -MRSA swab positive PLAN: - was treated with IV Abx fro 5 days will continue with doxycyline for 2 more days to finish a 7 day course. leukocytosis resolved, remain afebrile. - avoid opiates - continue with Bipap at night. - ABG on 04/20 improved. Bipap RX give to Cm and SW- has been refusing bipap -continue with oxygen to keep sats about 90% avoid over oxygenation -continue with duo-nebs -lasix discontinued as she was properly diuresed. ( -6565 balance since admission) - bicarb elevated likely secondary to lasix and hypercapnia. TTE oct 2018:impressions: LVEF 65%. Normal LV chamber size, wall thickness and function. Limited study. Valves not assessed. (2) Humeral fracture Current Visit: Yes Status: Acute Assessment and Plan: Had a fall at [facility] and fractured left humerus diagnosed in the ED and sent back to facility in a sling with ortho f/u. Oversedated with morphine. - Tylenol for pain control - Discontinue opioids indefinitely now that fracture is subacute should not need these - repeat shoulder xray on 04/20 stable- orthopedics on board PT/OT for hand and elbow range of motion as tolerated Topical agent such as Lidoderm may be beneficial so as not to affect patient's respiratory drive Anti-inflammatories as needed/indicated for pain and swelling over opioid based therapy secondary to patient's current medical concerns (3) Sepsis Current Visit: No Status: Suspected Assessment and Plan: Secondary to pneumonia discussed above. Also growing E faecalis in her urine but only 1-5000cfu. Should be covered for both with vancomycin ordered. finished course of IV ABx and was transitioned to oral Abx to complete course Bcx negative urine antigens negative (4) HCAP (healthcare-associated pneumonia) Current Visit: Yes Status: Resolved Assessment and Plan: See above (5) COPD with acute exacerbation Current Visit: No Status: Acute Assessment and Plan: See above (6) DM (diabetes mellitus), type 2 Current Visit: No Status: Chronic Assessment and Plan: Hyperglycemic since admission - continue with long acting insulin and sliding scale and adjust as per fingerstick (7) Acute kidney injury superimposed on chronic kidney disease Current Visit: No Status: Resolved Assessment and Plan: Etiology unclear. it appears that she has CKD and creatinine fluctates. she was encouraged to better orally hydrate her self will repeat BMP at 2 PM sellers catheter removed on 04/21- bladder scan 250 cc this AM - nursing staff instructed to reinsert sellers if she has >400 cc of urine. continue to monitor renal functions and avoid nephrotoxic medications. will consider IVF if her renal functions worsen. (8) Hyperkalemia Current Visit: No Status: Acute Assessment and Plan: kayaxelate give follow BMP (9) UTI (urinary tract infection), bacterial Current Visit: No Status: Resolved (10) Encephalopathy acute Current Visit: No Status: Resolved - Time Spent with Patient Total time spent is greater than 50% in coordination of care (as documented) at patient's floor/unit and/or counseling patient: 25 - 35 minutes Plan of Care Discussed with: patient Internal Medicine: Result - Labs CBC & Chem 7: 04/21/19 06:15 04/22/19 04:36 Labs: BMP 04/22/19 04:36 Sodium 137 Potassium 5.3 H D Chloride 90 L Carbon Dioxide 42 H* BUN 51 H Creatinine 1.28 H Glucose 159 H Calcium 9.4 - ABG Interpretation ABG results: ABG ABG pH 7.47 pH Units (7.32-7.45) H 04/20/19 10:03 ABG pCO2 66 mmHg (35-45) H 04/20/19 10:03 ABG pO2 71 mmHg (85-104) L 04/20/19 10:03 ABG O2 Saturation 94 % (95-98) L 04/20/19 10:03 PT/INR, D-dimer D-Dimer 5269 ng/mLFEU (0-500) H 04/16/19 06:40 Consult Discharge Plan - Plan Referrals: NONE,PCP [Primary Care Provider] - (2) Humeral fracture Qualifiers: Encounter type: subsequent encounter Fracture morphology: comminuted Frac ture alignment: nondisplaced Laterality: right Fracture healing: with routine healing (3) Sepsis Qualifiers: Sepsis type: sepsis due to unspecified organism Sepsis acute organ dysfunction status: unspecified Qualified Code(s): A41.9 - Sepsis, unspecified organism (6) DM (diabetes mellitus), type 2 Qualifiers: Diabetes mellitus adjunct faculty for medical terminology insulin use: with adjunct faculty for medical terminology use Diabetes mellitus complication status: with kidney complications Diabetes mellitus complication detail: with chronic kidney disease Chronic kidney disease stage: unspecified s meghan Qualified Code(s): E11.22 - Type 2 diabetes mellitus with diabetic chronic kidney disease; Z79.4 - USP (current) use of insulin
[2019-04-22 14:39] LABS: Calcium 9.4 mg/dL (8.6-10.3); Potassium 4.2 mEq/L (3.5-5.1)
--- NOTE | 2019-04-22 14:54 | Discharge Summary ---
- NOTES TO OUTPATIENT PROVIDER Notes to Outpatient Provider: follow up with PCP, follow up with orthopedics, follow up with nephrology adn pulmonology Date of Encounter: 04/22/19 Time of Encounter: 14:46 - Discharge Diagnosis (1) Acute respiratory failure with hypoxia and hypercapnia Priority: Primary Status: Acute (2) Humeral fracture Priority: Secondary Status: Acute Qualifiers: Encounter type: subsequent encounter Fracture morphology: comminuted Fracture alignment: nondisplaced Laterality: right Fracture healing: with routine healing Qualified Code(s): S42.354D - Nondisplaced comminuted fracture of shaft of humerus, right arm, subsequent encounter for fracture with routine healing (3) Sepsis Priority: Secondary Status: Suspected Qualifiers: Sepsis type: sepsis due to unspecified organism Sepsis acute organ dysfunction status: unspecified Qualified Code(s): A41.9 - Sepsis, unspecified organism (4) HCAP (healthcare-associated pneumonia) Priority: Secondary Status: Resolved (5) COPD with acute exacerbation Priority: Secondary Status: Acute (6) DM (diabetes mellitus), type 2 Priority: Secondary Status: Chronic Qualifiers: Diabetes mellitus termite treater helper insulin use: with termite treater helper use Diabetes mellitus complication status: with kidney complications Diabetes mellitus complication detail: with chronic kidney disease Chronic kidney disease stage: unspecified stage Qualified Code(s): E11.22 - Type 2 diabetes mellitus with diabetic chronic kidney disease; Z79.4 - intermediate (current) use of insulin (7) Acute kidney injury superimposed on chronic kidney disease Priority: Secondary Status: Resolved (8) Hyperkalemia Priority: Secondary Status: Acute (9) UTI (urinary tract infection), bacterial Priority: Secondary Status: Resolved (10) Encephalopathy acute Priority: Secondary Status: Resolved Hospital course: "Ms. Garcia is a 74 year old female presents from [place] for multiple issues. History is limited due to patient having significant dementia. She was noted to have altered mental status, hypoxia, and worsening agitation that is worse than her baseline. Per prior EMR records, she has a history of CHF, COPD, DVT, diabetes, GERD, CKD, hypertension, seizures. Patient was combated at nursing facility with staff. She recently had a hemoral head fracture injury and does take narcotics for pain for a recent humoral neck fracture. In the ED, initial troponin was negative, and EKG showed no acute findings, glucose was elevated at 502. Chest x-ray showed pulmonary vascular congestion. Creatinine was 1.88 when baseline is usually 1.22, WBC 15k. She had significant respiratory acidosis with pH 7.15 and pCO2 110. She was placed on BIPAP and acidosis improved and mental status improved then too. She was given Lasix, Solu Medrol, Duo Nebs. Patient currently pleasant in no acute distress." Patient presented with above presentation and was admitted on 04/16 for acute on chronic respiratory failure with hypoxia and hypercapnia. May first encounter with the patient was on 04/20. i was given check out by my colleague that she was stable for discharge pending completion of IV Abx for UTI. 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 Per chart review, patient with multiple recent ED encounters for somnolence likely 2/2 morphine used for pain control for humerus fracture PNA this hospitalization likely from aspiration in setting of oversedation from pain medications opiodes were discontinued MRSA swab positive. she was treated with IV vancomycin and cefepime and was transitioned to oral doxycycline to finish course. she was also treated with burst of steroids for COPD exacerbations while hospitalized. she was placed on bipap and her hypercapnia and acidosis improved. last PH was 7.47 and CO2 of 66 ( about her baseline of 70s). continue with inhalers and Duo-nebs on discharge. she is to use bipap however she has been refusing and has been educated on the improtance multiple times on multiple different admissions. for humerus fracture orthopedics were consulted and recommended " Continue wedge abduction brace at all times. Remove for hygiene only.NO shoulder motion Nonweightbearing RUE, PT/OT for hand and elbow range of motion as tolerated" she did have CHARITO of unclear etiology on admission ad it resolved. sellers was discontinued and she was voiding without difficulty. thrugh out admission she was treated with IV Abx for enterococcus UTI. her encephalopathy resolved and her hypercapnia resolved. BIPAP RX given to rn case mgr. to continue to wear bipap at nights disucsssed plan with patient and she is agreement with discharge and she is eager for it. avoid narcotics. pain control with tylenol and lidocaine patch discussed code status with patient ( full code on this admission) she does not want to intubated. palliative consulted and "Attempted to discuss goals of care with patient. She states that she knows she is not well. Patient was reluctant to discuss her wishes and states that multiple people have had this discussion with her already. She confirms the conversation from yesterday in which she stated that she wanted resuscitation without intubation. It was explained to the patient that this is not an option and that she could set limitations to how long she would allow for potential recovery on the ventilator etc. but that CPR and intubation are required together, which would make her a full code. We also discussed patient's previous code statuses, which included DNR-CC and DNR-CCA. Patient remembered having previous discussions, but did not feel able to make a decision at this time. Patient will remain full code for now and would like the day to think about what she wants to do. At the patient's request, she does not want to talk to anyone else about this today. " please follow up code status and talk with her inregards of goals of care. to have CBC and BMP repeated in 3 days Discharge discussed with: patient, nurse, social work, case management, home performance consultant - Time Spent with Patient Total time spent providing and/or coordinating discharge services: Time spent: Greater than 30 minutes (45) - Discharge Medications Prescriptions: New Doxycycline 100 mg PO BID #4 capsule Lidocaine Patch [Lidoderm 5% patch] 1 each TP DAILY #15 adh..patch Budesonide/Formoterol 80/4.5 [Symbicort 80/4.5] 1 puff IH BID #1 hfa.aer.ad Acetaminophen [Tylenol] 500 mg PO Q8H PRN 30 Days tablet PRN Reason: Analgesia Levalbuterol Neb [Xopenex Neb] 1.25 mg IH [id number] vial.neb Continued Ubidecarenone [Co Q-10] 100 mg PO DAILY Loratadine [Claritin] 10 mg PO DAILY Ipratropium Neb [Atrovent Neb] 0.5 mg IH Q8H PRN PRN Reason: Shortness Of Breath Insulin DETEMIR [Levemir] 35 unit SQ DAILY Glucagon,Human Recombinant [Glucagon Emergency Kit] 1 mg SQ DAILY PRN PRN Reason: Blood Sugar - Low Famotidine [Pepcid] 20 mg PO DAILY Docusate Sodium [Dok] 100 mg PO DAILY PRN PRN Reason: Constipation Atorvastatin [Lipitor] 40 mg PO HS Gabapentin [Neurontin] 300 mg PO BID Metoprolol Tartrate [Lopressor] 50 mg PO BID Venlafaxine HCl [Venlafaxine HCl ER] 75 mg PO DAILY Fluticasone Propionate Nasal [Flonase] 2 spray NS DAILY Guaifenesin [Mucus Relief] 400 mg PO BID LORazepam [Ativan] 1 mg PO TID 1 Days #3 tablet Changed Insulin LISPRO [HumaLOG] 0 unit SQ QID PRN #1 vial PRN Reason: PER SLIDING SCALE Discontinued Ondansetron HCl 8 mg PO Q8H PRN PRN Reason: Nausea Morphine Sulfate Immed Rel [Morphine Sulfate] 15 mg PO Q4HR PRN 2 Days #12 tab PRN Reason: Pain Home Medications: Docusate Sodium [Dok] 100 mg PO DAILY PRN 08/03/18 [History] Famotidine [Pepcid] 20 mg PO DAILY 08/03/18 [History] Glucagon,Human Recombinant [Glucagon Emergency Kit] 1 mg SQ DAILY PRN 08/03/18 [History] Insulin DETEMIR [Levemir] 35 unit SQ DAILY 08/03/18 [History] Ipratropium Neb [Atrovent Neb] 0.5 mg IH Q8H PRN 08/03/18 [History] Loratadine [Claritin] 10 mg PO DAILY 08/03/18 [History] Ubidecarenone [Co Q-10] 100 mg PO DAILY 08/03/18 [History] Atorvastatin [Lipitor] 40 mg PO HS 10/21/18 [History] Gabapentin [Neurontin] 300 mg PO BID 10/21/18 [History] Metoprolol Tartrate [Lopressor] 50 mg PO BID 10/21/18 [History] Venlafaxine HCl [Venlafaxine HCl ER] 75 mg PO DAILY 10/21/18 [History] Fluticasone Propionate Nasal [Flonase] 2 spray NS DAILY 04/17/19 [History] Guaifenesin [Mucus Relief] 400 mg PO BID 04/17/19 [History] Acetaminophen [Tylenol] 500 mg PO Q8H PRN 30 Days tablet 04/22/19 [Rx] Budesonide/Formoterol 80/4.5 [Symbicort 80/4.5] 1 puff IH BID #1 hfa.aer.ad 04/22/19 [Rx] Doxycycline 100 mg PO BID #4 capsule 04/22/19 [Rx] Insulin LISPRO [HumaLOG] 0 unit SQ QID PRN #1 vial 04/22/19 [Rx] LORazepam [Ativan] 1 mg PO TID 1 Days #3 tablet 04/22/19 [Rx] Levalbuterol Neb [Xopenex Neb] 1.25 mg IH [id number] vial.neb 04/22/19 [Rx] Lidocaine Patch [Lidoderm 5% patch] 1 each TP DAILY #15 adh..patch 04/22/19 [Rx] Allergies/Adverse Reactions: Allergy/AdvReac Type Severity Reaction Status Date / Time Penicillins Allergy Hives Verified 04/07/19 22:38 tuberculin,PPD,multi-puncture Allergy Hives Verified 04/07/19 22:38 clindamycin [From Cleocin] AdvReac Rash Verified 04/07/19 22:38 diazepam AdvReac Fatigued Verified 04/07/19 22:38 meclizine [From Antivert] AdvReac Dizziness Verified 04/07/19 22:38 nalbuphine [From Nubain] AdvReac Hallucinati Verified 04/07/19 22:38 ng promethazine [From Phenergan] AdvReac Irritable Verified 04/07/19 22:38 propoxyphene AdvReac Itching Verified 04/07/19 22:38 [From Darvocet-N 100] Date of admission: 04/17/19 17:06 Primary care physician: PCP NONE Consults: 04/18/19 17:47 Consult to Occupational Therapy [CONS] Routine Comment: Evaluate, develop and implement POC Reason for Consult: Patient has had limited mobilty since fall on April 07 Does patient have active BEDREST order?: No Is patient medically & hemodynamically stable?: No Consult to Physical Therapy [CONS] Routine Comment: Evaluate, develop and implement POC Reason for Consult: Patient has had limited mobility since fall on April 07. Does patient have active BEDREST order?: No Is patient medically & hemodynamically stable?: Yes 04/18/19 17:49 Consult to Paint Grinder [CONS] Routine Reason for SW Consult: Patient's daughter states she is unhappy with patient's care at [facility] and would like to look at other options. 04/19/19 17:57 Consult to Orthopedic Surgery [CONS] Routine Consulting Provider: [facility] Reason for Consult: R humoral fracture. Was suppose to be seen by with [facility] but got hospitalized Call Completed: No 04/21/19 17:22 Consult to Palliative Care [CONS] Routine Comment: Consulting Provider: Palliative [facility] Reason for Consult: goals of care and code status. reports that she would like to be DNI however wants CPR. refuses to wear bipap and sh ehas been admitted for hypercapnic respiratory failyre multiple times Call Completed: No - Constitutional Vitals: Temp Pulse Resp BP Pulse Ox 99.3 F 76 16 120/64 96 04/22/19 09:52 04/22/19 09:52 04/22/19 11:53 04/22/19 09:52 04/22/19 11:53 Exam: General: Patient is alert, oriented, no acute distress, Head: atraumatic, normocephalic, Eye: normal appearance, PERRL, no scleral icterus, no conjunctival injection ENT: mucous membranes moist, normal external ear exam Neck: normal inspection, trachea midline, full ROM, Chest: normal inspection, symmetric chest rise Respiratory: Good respiratory effort. decreased breath sound bilaterarily unable to appreciate any crackles or wheezzing at the MAL Cardiovascular: Regular rate and rhythm. s1 and s2 No clicks, rubs, gallops, or murmors. Abdomen: Bowel sounds present normoactive x-4 quadrants. Abdomen is soft, nondistended. no Epigastric tenderness. No guarding or rebound. No organomegaly noted, obese musculoskeletal: strength is reduced in the lower extremities ( has chronic pain from fibromyalgia) 3/5 strength in the lower extremities, ROM reduced in the right shoulder secondary to fracture, is able to wiggle fingers, sensation intact. Skin: warm, dry, intact. Neuro: Alert and oriented x3, follows commands. Psych: Patient's affect is normal - Patient Status Disposition: Transfer SNF Condition: Fair Functional capacity at discharge: uses cane/walker Overall status at discharge: patient is progressing back to baseline - Discharge Instructions Follow Up With: Robert Roberts MD [Partnered Physician] - (submitted a web request for Dr. Bright office to call the patient with a follow) Vinny Sylvester MD [Partnered Physician] - (Submitted a web request to [facility] Dr. Dodge office to call with a hospital follow up) Shaylee Smith MD [Partnered Physician] - Eliza Jacobsen MD [Partnered Physician] - Additional Instructions: BMP and CBC n 3 days repat CXR in 7 days to ensure resolution on PNA - Diet and Activity Activity: as per physical therapy (no shoulder motion and NWB or the RUE ) Diet: diabetic diet (renal )
--- NOTE | 2019-04-22 15:10 | Physician Discharge Referral ---
[facility] Referral Info Provider in Charge after Transfer: PCP Institutional Level of Care: Skilled - Diagnosis (1) Acute respiratory failure with hypoxia and hypercapnia Status: Acute (2) Humeral fracture Status: Acute (3) Sepsis Status: Suspected (4) HCAP (healthcare-associated pneumonia) Status: Resolved (5) COPD with acute exacerbation Status: Acute (6) DM (diabetes mellitus), type 2 Status: Chronic (7) Acute kidney injury superimposed on chronic kidney disease Status: Resolved (8) Hyperkalemia Status: Acute (9) UTI (urinary tract infection), bacterial Status: Resolved (10) Encephalopathy acute Status: Resolved - Transfer Medications Prescriptions: LORazepam [Ativan] 1 mg PO TID 1 Days #3 tablet Doxycycline 100 mg PO BID #4 capsule Lidocaine Patch [Lidoderm 5% patch] 1 each TP DAILY #15 adh..patch Budesonide/Formoterol 80/4.5 [Symbicort 80/4.5] 1 puff IH BID #1 hfa.aer.ad Home Medications: Docusate Sodium [Dok] 100 mg PO DAILY PRN 08/03/18 [History] Famotidine [Pepcid] 20 mg PO DAILY 08/03/18 [History] Glucagon,Human Recombinant [Glucagon Emergency Kit] 1 mg SQ DAILY PRN 08/03/18 [History] Insulin DETEMIR [Levemir] 35 unit SQ DAILY 08/03/18 [History] Ipratropium Neb [Atrovent Neb] 0.5 mg IH Q8H PRN 08/03/18 [History] Loratadine [Claritin] 10 mg PO DAILY 08/03/18 [History] Ubidecarenone [Co Q-10] 100 mg PO DAILY 08/03/18 [History] Atorvastatin [Lipitor] 40 mg PO HS 10/21/18 [History] Gabapentin [Neurontin] 300 mg PO BID 10/21/18 [History] Metoprolol Tartrate [Lopressor] 50 mg PO BID 10/21/18 [History] Venlafaxine HCl [Venlafaxine HCl ER] 75 mg PO DAILY 10/21/18 [History] Fluticasone Propionate Nasal [Flonase] 2 spray NS DAILY 04/17/19 [History] Guaifenesin [Mucus Relief] 400 mg PO BID 04/17/19 [History] Acetaminophen [Tylenol] 500 mg PO Q8H PRN 30 Days tablet 04/22/19 [Rx] Budesonide/Formoterol 80/4.5 [Symbicort 80/4.5] 1 puff IH BID #1 hfa.aer.ad 04/22/19 [Rx] Doxycycline 100 mg PO BID #4 capsule 04/22/19 [Rx] Insulin LISPRO [HumaLOG] 0 unit SQ QID PRN #1 vial 04/22/19 [Rx] LORazepam [Ativan] 1 mg PO TID 1 Days #3 tablet 04/22/19 [Rx] Levalbuterol Neb [Xopenex Neb] 1.25 mg IH [id number] vial.neb 04/22/19 [Rx] Lidocaine Patch [Lidoderm 5% patch] 1 each TP DAILY #15 adh..patch 04/22/19 [Rx] Allergies/Adverse Reactions: Allergy/AdvReac Type Severity Reaction Status Date / Time Penicillins Allergy Hives Verified 04/07/19 22:38 tuberculin,PPD,multi-puncture Allergy Hives Verified 04/07/19 22:38 clindamycin [From Cleocin] AdvReac Rash Verified 04/07/19 22:38 diazepam AdvReac Fatigued Verified 04/07/19 22:38 meclizine [From Antivert] AdvReac Dizziness Verified 04/07/19 22:38 nalbuphine [From Nubain] AdvReac Hallucinati Verified 04/07/19 22:38 ng promethazine [From Phenergan] AdvReac Irritable Verified 04/07/19 22:38 propoxyphene AdvReac Itching Verified 04/07/19 22:38 [From Darvocet-N 100] - Respiratory Orders Smoking Cessation: Smoking cessation has been advised. For more information, call the [place] Tobacco Quit Line at 7-766-JOJF-NOW. - Lab Orders Lab Orders: Other (include drug levels w/frequency) (cbc and bmp in 3 days) - Mobility Orders Ambulate - Rehabiliation Orders Rehab Potential: Fair Rehab Orders: Evaluation for Physical Therapy, Evaluation for Occupational Therapy, Evaluation for Speech Therapy - Diet Orders Renal (diabetic) CERTIFICATION: I certify that the transfer of the above named patient to an Extended Care Facility is necessary for the continuing treatment of the diagnosis listed. The above information is true and accurate reflection of patient's current condition. Confidential - Redisclosure prohibited without a patient's written consent.
[2019-04-22 15:39] VITALS: BP 136/63
[2019-04-22] MEDS ORDERED: Doxycycline 100 MG in 0.9 % Sodium Chloride Mini Bag 100 ML IVPB SCH (18:00)
== END 2019-04-22 19:07 | DRG 698 ==
LOC: 2NENU 05:40 → EMEROOARM 05:40 → 2NENU 10:18 → SUATTDRO 04-17 17:06
PROVIDERS: ADMIT Student in an Organized Health Care Education/Training Program; ATTEND Internal Medicine

== ENCOUNTER 2019-11-22 08:50 | Observation (INO) ==
[~2019-11-22 08:50] MED LIST: *HR* FentaNYL (PF) 100 MCG/2 ML VIAL IVP ONE; *HR* Midazolam HCl 2 MG/2 ML VIAL IVP ONE
[2019-11-22 09:24] LABS: INR 0.9; Prothrombin Time 10.6 Seconds (9.4-12.1)
[2019-11-22 09:27] LABS: Basophils % 0.1 %; Eosinophils # 0.3 K/mcL (0.0-0.6); Eosinophils % 3.8 %; Hematocrit 36.1 % (35.3-44.9); Hemoglobin 11.1 g/dL (11.5-15.4); Immature Granulocytes % 0.3 % (0-4); Lymphocytes # 1.5 K/mcL (0.6-4.6); Lymphocytes % 21.1 %; Mean Corpuscular HGB Conc 30.7 g/dL (31.6-35.5); Mean Corpuscular Hemoglobin 29.1 pg (28.0-33.3); Mean Corpuscular Volume 94.8 fL (83.0-100.0); Mean Platelet Volume 10.2 fL (9.4-12.4); Monocytes # 0.6 K/mcL (0.0-1.3); Monocytes % 8.7 %; Neutrophils # 4.6 K/mcL (1.6-8.9); Platelet Count 233 K/mcL (140-400); Red Blood Count 3.81 M/mcL (3.82-4.97); Red Cell Distribution Width 12.4 % (11.5-14.5)
[2019-11-22] MEDS ORDERED: 0.9 % Sodium Chloride 500 ML ONE (09:46)
[2019-11-22] MEDS ORDERED: Insulin DETEMIR 100 UNIT/ML X5UNITS SQ SCH (13:15)
[2019-11-22] MEDS ORDERED: Ibuprofen 400 MG TABLET PO PRN (13:20)
[2019-11-22] MEDS ORDERED: *HR* Dextrose 50 % in Water (Syg) 50 ML SYRINGE IVP PRN (13:31)
[2019-11-22] MEDS ORDERED: D5% in Water 1,000 ML IVC PRN (13:31)
[2019-11-22] MEDS ORDERED: Dextrose Gel 15 GM/37.5 ML TUBE PO PRN ×2 (13:31)
[2019-11-22] MEDS: Insulin DETEMIR 100 UNIT/ML X5UNITS SQ SCH ×2 (14:36→22:21)
[2019-11-22] MEDS: *HR* Heparin 5,000 UNIT/ML VIAL SQ SCH ×2 (14:38→22:21)
[2019-11-22] MEDS: Insulin LISPRO 300 UNITS/3 ML VIAL SQ SCH (15:28)
[2019-11-22] MEDS ORDERED: Insulin LISPRO 300 UNITS/3 ML VIAL SQ SCH (21:00)
[2019-11-22] MEDS: Budesonide/Formoterol 80/4.5 1 PUFF INH IH SCH (22:40)
[2019-11-22] MEDS ORDERED: *HR* LORazepam 2 MG/ML VIAL IVP ONE (23:07)
[2019-11-23] MEDS: *HR* Heparin 5,000 UNIT/ML VIAL SQ SCH ×2 (05:54→13:40)
[2019-11-23] MEDS: Budesonide/Formoterol 80/4.5 1 PUFF INH IH SCH (07:16)
[2019-11-23] MEDS: Insulin DETEMIR 100 UNIT/ML X5UNITS SQ SCH (07:31)
[2019-11-23] MEDS: Insulin LISPRO 300 UNITS/3 ML VIAL SQ SCH ×3 (07:32→16:53)
[2019-11-23] MEDS ORDERED: *HR* HYDROcodone/Acet 5/325 mg TABLET PO PRN (13:50)
[2019-11-23] MEDS ORDERED: *HR* LORazepam 0.5 MG TABLET PO SCH ×2 (14:00→21:00)
[2019-11-23] MEDS ORDERED: Gabapentin 300 MG CAPSULE PO SCH (14:00)
[2019-11-23 15:48] VITALS: BP 167/71
[2019-11-24] MEDS ORDERED: Ascorbic Acid 500 MG TABLET PO SCH (09:00)
[2019-11-24] MEDS ORDERED: Cholecalciferol (D-3) 1,000 UNIT (25MCG) TABLET PO SCH (09:00)
[2019-11-24] MEDS ORDERED: (Ubidecarenone [Co Q-10] 100 MG) PO SCH (09:00)
[2019-11-24] MEDS ORDERED: Famotidine 20 MG TABLET PO SCH (09:00)
== END 2019-11-23 18:11 ==
LOC: RAD 08:50 → 2NNU 08:50 → SUATTDRO 13:04 → RAD 13:48
PROVIDERS: ADMIT Internal Medicine; ATTEND Family Medicine